=== PATIENT | female | born 1950 | race Caucasian/White ===

== ENCOUNTER → 2020-07-21 13:03 | Outpatient (BNVA) | payer MEDICARE, BC, SELFPAY | PROVIDERS: PCP Internal Medicine; Visit Provider Internal Medicine Endocrinology, Diabetes & Metabolism | DX: E11.65 Type 2 diabetes mellitus with hyperglycemia (principal); E11.22 Type 2 diabetes mellitus with diabetic chronic kidney disease; I12.9 Hypertensive chronic kidney disease with stage 1 through stage 4 chronic kidney disease, or unspecified chronic kidney disease; N18.30 Chronic kidney disease, stage 3 unspecified; E11.42 Type 2 diabetes mellitus with diabetic polyneuropathy; E78.5 Hyperlipidemia, unspecified; E03.9 Hypothyroidism, unspecified; E66.9 Obesity, unspecified; Z68.38 Body mass index [BMI] 38.0-38.9, adult; Z79.84 Long term (current) use of oral hypoglycemic drugs | CPT/HCPCS: 82947; 99214 ==

== ENCOUNTER → 2020-10-20 12:39 | Outpatient (BNVA) | payer MEDICARE, BC, SELFPAY | PROVIDERS: PCP Internal Medicine; Visit Provider Internal Medicine Endocrinology, Diabetes & Metabolism | DX: E11.65 Type 2 diabetes mellitus with hyperglycemia (principal); E11.42 Type 2 diabetes mellitus with diabetic polyneuropathy; E11.21 Type 2 diabetes mellitus with diabetic nephropathy; I10 Essential (primary) hypertension; E78.5 Hyperlipidemia, unspecified; E03.9 Hypothyroidism, unspecified; E66.9 Obesity, unspecified | CPT/HCPCS: 82947; 99212 ==

== ENCOUNTER 2020-11-06 12:56 | Outpatient (REF) | payer MEDICARE, BC, SELFPAY ==
--- NOTE | ~2020-11-06 | MM_ITS ---
EXAMINATION: MM SCREENING DIGITAL BREAST TOMOSYNTHESIS, BILATERAL CLINICAL INFORMATION: Screening. Asymptomatic. The lifetime risk of breast cancer based on the Tyrer-Cuzick Model is 2%. COMPARISON: Mammography: 12/12/2018, 02/25/2016 TECHNIQUE: Digital breast tomosynthesis is performed in both the craniocaudal and mediolateral oblique views along with computer-aided detection (CAD). Synthesized 2D images are generated from the tomosynthesis. Additional right MLO view is provided. FINDINGS: There are scattered areas of fibroglandular density (ACR BI-RADS breast composition Category b). There are no significant masses, abnormal calcifications, or other abnormalities. The axilla and skin contours are unremarkable. There is some minor digital processing artifact mid left breast on synthesized MLO view. MM/MM tomosynthesis screening BI IMPRESSION: No mammographic evidence of malignancy. ASSESSMENT: BI-RADS 2: Benign RECOMMENDATION: Routine annual mammography screening. This patient's information was entered into a reminder system with a target due date for their next mammogram.
== END 2020-11-06 12:57 | disposition home or self-care (01) ==
LOC: HO.MAMMO 12:56
PROVIDERS: PCP Internal Medicine; Visit Provider Internal Medicine
DX: Z12.31 Encounter for screening mammogram for malignant neoplasm of breast (principal)
CPT/HCPCS: 77063; 77067

== ENCOUNTER 2020-11-18 11:02 | Outpatient (REF) | payer MEDICARE, BC, SELFPAY ==
[2020-11-18 14:34] LABS: Alanine Aminotransferase 35 U/L (0-31); Albumin Level 4.4 g/dL (3.5-5.0); Alkaline Phosphatase 39 U/L (39-117); Anion Gap 15 (12-20); Aspartate Amino Transferase 23 U/L (5-31); Blood Urea Nitrogen 28 mg/dL (9-16); Calcium 9.5 mg/dL (8.4-10.2); Carbon Dioxide 26 mmol/L (22-29); Chloride 104 mmol/L (96-108); Cholesterol 132 mg/dL; Estimated Glomerular Filt Rate 38; Glucose Fasting 161 mg/dL (60-99); HDL Cholesterol 37 mg/dL; LDL Cholesterol Calculated 58 mg/dl; Potassium 4.5 mmol/L (3.3-5.1); Sodium 140 mmol/L (135-145); Total Protein 7.2 g/dL (6.5-8.0); Triglycerides 189 mg/dL
[2020-11-18 14:49] LABS: Creatinine Urine 142.56 mg/dL
[2020-11-18 14:58] LABS: Free T4 (Free Thyroxine) 1.17 ng/dL (0.71-1.85); Thyroid Stimulating Hormone 0.71 uIU/mL (0.32-4.0); Vitamin D 25-OH Total 44.3 ng/mL (>30)
[2020-11-18 15:02] LABS: Microalbum/Creatinine Ratio Ur 1022.7 ug/mg cr
[2020-11-19 05:43] LABS: LDL Cholesterol Direct 66 mg/dL (<100)
[2020-11-20 16:28] LABS: Vitamin B12 1287 pg/mL (200-900)
== END 2020-11-18 11:03 | disposition home or self-care (01) ==
LOC: HO.HMGCLDS 11:02
PROVIDERS: Absent Provider Internal Medicine Endocrinology, Diabetes & Metabolism; PCP Internal Medicine; Visit Provider Internal Medicine
DX: E11.65 Type 2 diabetes mellitus with hyperglycemia (principal); E03.9 Hypothyroidism, unspecified; Z78.0 Asymptomatic menopausal state
CPT/HCPCS: 36415; 80053; 80061; 82043; 82306; 82607; 83721; 84439; 84443

== ENCOUNTER 2021-01-21 09:40 | Outpatient (REF) | payer MEDICARE, BC, SELFPAY ==
--- NOTE | 2021-01-21 09:30 | EMG_ITS ---
This is a 70-year-old woman with a history of diabetes, who comes in with 6-month history of pain and numbness in the hands, slightly worse on the right. She also has pain on flexing the fingers. Complete list of medications not available. PHYSICAL EXAMINATION: On examination, she is alert and oriented with normal intellectual functions. Cranial nerves II through XII are normal. Muscle tone and strength are normal in all 4 extremities. No Tinel or Phalen sign. IMPRESSION: Carpal tunnel syndrome. Nerve conduction EMG study: Early carpal tunnel syndrome on the right. Normal nerve conductions on the left. Normal EMG of the right C5 through T1 innervated muscles. MD ORLIN Austin/SADNRA / [id number]
== END 2021-01-21 09:41 | disposition home or self-care (01) ==
LOC: HO.NEURO 09:40
PROVIDERS: Visit Provider Internal Medicine
DX: R20.0 Anesthesia of skin (principal); R20.2 Paresthesia of skin; E11.65 Type 2 diabetes mellitus with hyperglycemia; E11.42 Type 2 diabetes mellitus with diabetic polyneuropathy; E11.21 Type 2 diabetes mellitus with diabetic nephropathy; E78.5 Hyperlipidemia, unspecified; E03.9 Hypothyroidism, unspecified; E66.9 Obesity, unspecified
CPT/HCPCS: 82947; 95885; 95913; 99212

== ENCOUNTER 2021-04-27 09:22 | Outpatient (REF) | payer MEDICARE, SELFPAY ==
[2021-04-27 12:42] LABS: Alanine Aminotransferase 30 U/L (0-31); Aspartate Amino Transferase 26 U/L (5-31); Cholesterol 127 mg/dL; HDL Cholesterol 36 mg/dL; LDL Cholesterol Calculated 63 mg/dl; Triglycerides 141 mg/dL
[2021-04-27 12:47] LABS: Free T4 (Free Thyroxine) 1.22 ng/dL (0.71-1.85); Thyroid Stimulating Hormone 0.13 uIU/mL (0.32-4.0); Vitamin D 25-OH Total 50.9 ng/mL (>30)
[2021-04-27 13:21] LABS: Folate > 20.0 ng/mL (> or = 4.0); Vitamin B12 695 pg/mL (200-900)
== END 2021-04-27 09:23 | disposition home or self-care (01) ==
LOC: HO.HMGCLDS 09:22
PROVIDERS: Absent Provider Internal Medicine Endocrinology, Diabetes & Metabolism; PCP Internal Medicine; Visit Provider Internal Medicine
DX: E03.9 Hypothyroidism, unspecified (principal); E11.21 Type 2 diabetes mellitus with diabetic nephropathy; E11.42 Type 2 diabetes mellitus with diabetic polyneuropathy; E78.5 Hyperlipidemia, unspecified; I10 Essential (primary) hypertension
CPT/HCPCS: 36415; 80061; 82306; 82607; 82746; 84439; 84443; 84450; 84460

== ENCOUNTER 2021-08-28 12:09 | Outpatient (REF) | payer MEDICARE, BC, SELFPAY ==
[2021-08-28 14:33] LABS: Alanine Aminotransferase 34 U/L (0-31); Anion Gap 16 (12-20); Aspartate Amino Transferase 32 U/L (5-31); Blood Urea Nitrogen 31 mg/dL (9-16); Calcium 9.9 mg/dL (8.4-10.2); Carbon Dioxide 18 mmol/L (22-29); Chloride 107 mmol/L (96-108); Cholesterol 159 mg/dL; Estimated Glomerular Filt Rate 34; Glucose Fasting 140 mg/dL (60-99); HDL Cholesterol 38 mg/dL; LDL Cholesterol Calculated 80 mg/dl; Potassium 4.1 mmol/L (3.3-5.1); Sodium 137 mmol/L (135-145); Triglycerides 205 mg/dL
[2021-08-28 14:52] LABS: Free T4 (Free Thyroxine) 1.14 ng/dL (0.71-1.85); Thyroid Stimulating Hormone 0.89 uIU/mL (0.32-4.0); Vitamin D 25-OH Total 49.4 ng/mL (>30)
== END 2021-08-28 12:10 | disposition home or self-care (01) ==
LOC: HO.HMGCLDS 12:09
PROVIDERS: PCP Internal Medicine; Visit Provider Internal Medicine
DX: E03.9 Hypothyroidism, unspecified (principal); E66.9 Obesity, unspecified; I10 Essential (primary) hypertension; E78.5 Hyperlipidemia, unspecified; Z78.0 Asymptomatic menopausal state
CPT/HCPCS: 36415; 80048; 80061; 82306; 84439; 84443; 84450; 84460

== ENCOUNTER 2021-10-28 09:31 | Outpatient (REF) | payer MEDICARE, BC, SELFPAY ==
--- NOTE | ~2021-10-28 | MM_ITS ---
EXAMINATION: BONE DENSITOMETRY CLINICAL INDICATION: Asymptomatic menopausal state. COMPARISON: Previous BD dated 12/12/2018 and baseline BD dated 06/22/2007. TECHNIQUE: Using a [employer] DXA System (software version: 13.1) manufactured by [employer], dual-energy x-ray absorptiometry was performed of the lumbar spine and left hip. The images are of good technical quality. Summary results are attached. FINDINGS: AP SPINE L1-L4: Current: BMD 1.132 g/cm2, Z-score 0.5, T-score -0.4, normal, 4.7% increase from previous, 6.0% increase from baseline (<5% change is not significant). Prior: BMD 1.081 g/cm2. Baseline: BMD 1.068 g/cm2. LEFT FEMUR, NECK: Current: BMD 0.734 g/cm2, Z-score -0.9, T-score -2.2, osteopenia. Prior: BMD 0.746 g/cm2. Baseline: BMD 0.836 g/cm2. LEFT FEMUR, TOTAL: Current: BMD 0.935 g/cm2, Z-score 0.5, T-score -0.6, normal, 2.9% increase from previous, 0.2% decrease from baseline (<5% change is not significant). Prior: BMD 0.909 g/cm2. Baseline: BMD 0.937 g/cm2. IDENTIFIED RISK FACTORS: Early menopause, secondary osteoporosis, hysterectomy, bilateral oophorectomy, renal, osteoporosis. HISTORY OF FRACTURE: None listed. MEDICATIONS: Vitamin D. MM/XR DEXA axial skeleton IMPRESSION: 1. DIAGNOSIS: Osteopenia based on the lowest T-score value of -2.2 in the femoral neck applying World Health Organization criteria. 2. 10-YEAR FRACTURE RISK PREDICTION, FRAX: Major osteoporotic fracture (clinical spine, forearm, hip or shoulder) 7.1%. Hip fracture 1.7%. 3. Treatment Recommendations: NOF guidelines recommend consideration for treatment in postmenopausal women and men age 50 and older presenting with the following: -A hip or vertebral (clinical or morphometric) fracture. -T-score less than or equal to -2.5 at the femoral neck or spine after appropriate evaluation to exclude secondary causes. -Low bone mass at the hip or spine and a 10-year fracture probability by FRAX of greater than or equal to 3% for hip fracture or greater than or equal to 20% for major osteoporotic fracture based on the [place] adapted WHO algorithm. 4. Other Recommendations: All treatment decisions require clinical judgment and consideration of individual patient factors, including patient preferences, comorbidities, previous drug use, risk factors not captured in the FRAX model (e.g. frailty, falls, vitamin D deficiency, increased bone turnover, interval significant decline in bone density) and possible under or overestimation of fracture risk by FRAX. Additional medical evaluation for secondary cause of low bone mineral density may be appropriate. FUTURE SCAN RECOMMENDATION: People with diagnosed cases of osteoporosis or at high risk for fracture should have regular bone mineral density tests. For patients eligible for Medicare, routine testing is allowed once every 2 years. The testing frequency can be increased to one year for patients who have rapidly progressing disease, those who are receiving or discontinuing medical therapy to restore bone mass, or have additional risk factors.
== END 2021-10-28 09:32 | disposition home or self-care (01) ==
LOC: HO.MAMMO 09:31
PROVIDERS: PCP Internal Medicine; Visit Provider Internal Medicine
DX: Z13.820 Encounter for screening for osteoporosis (principal); Z78.0 Asymptomatic menopausal state
CPT/HCPCS: 77080

== ENCOUNTER 2021-11-03 07:14 | Outpatient (REF) | payer MEDICARE, BC, SELFPAY ==
[2021-11-03 11:32] LABS: MANUAL DIFF FLAG NO
[2021-11-03 11:37] LABS: Basophils Absolute Auto 0.1 X10*3/uL (0.0-0.2); Basophils Percent Auto 0.6 % (0-2); Eosinophils Absolute Auto 0.2 X10*3/uL (0.0-0.4); Hematocrit 36.8 % (37.0-47.0); Hemoglobin 11.9 g/dl (12.0-16.0); Imm Gran Abs Auto 0.04 X10*3/uL (0.00-0.03); Imm Gran Pct Auto 0.5 % (0.0-0.4); Lymphocytes Absolute Auto 3.1 X10*3/uL (1.2-4.9); Mean Corpuscular HGB Conc 32.3 g/dl (31.0-35.0); Mean Corpuscular Hemoglobin 31.4 pg (27.0-33.0); Mean Corpuscular Volume 97.1 fL (80.0-98.0); Mean Platelet Volume 10.6 fL (9.4-12.3); Monocytes Absolute Auto 0.6 X10*3/uL (0.1-1.2); Monocytes Percent Auto 7.7 % (2-11); Neutrophils Absolute Auto 3.9 x10*3/uL (2.0-8.3); Neutrophils Percent Auto 49.2 % (45-73); Platelet Count 233 X10*3/uL (160-400); Red Blood Count 3.79 X10*6/uL (4.20-5.50); Red Cell Distribution Width 13.2 % (11.0-16.0); White Blood Count 7.8 X10*3/uL (4.8-10.8)
[2021-11-03 12:01] LABS: Albumin Level 4.1 g/dL (3.5-5.0); Anion Gap 12 (12-20); Blood Urea Nitrogen 41 mg/dL (9-16); Calcium 9.5 mg/dL (8.4-10.2); Carbon Dioxide 24 mmol/L (22-29); Chloride 107 mmol/L (96-108); Estimated Glomerular Filt Rate 33; Magnesium 1.9 mg/dL (1.6-2.6); Phosphorus 3.7 mg/dL (2.7-4.5); Potassium 4.3 mmol/L (3.3-5.1); Sodium 139 mmol/L (135-145)
[2021-11-03 12:02] LABS: Appearance Urine CLOUDY; Color Urine YELLOW; Glucose Urine UA NEG (NEG); Leukocyte Esterase Urine 3+ (NEG); Nitrite Urine POS (NEG); UACC Culture Trigger YES; Urine Blood 1+ (NEG); Urine Ketones NEG (NEG); Urine Protein 2+ MG/DL (NEG-TRACE)
[2021-11-03 12:24] LABS: Vitamin D 25-OH Total 46.6 ng/mL (>30)
[2021-11-03 12:31] LABS: Creatinine Urine 90.05 mg/dL; Protein/Creatinine Ratio, Ur 1.09 (<0.2); Total Protein Urine Random 98 mg/dL (<12)
[2021-11-03 12:35] LABS: Bacteria Urine 3+ /LPF; RBC Urine 0-2 /HPF (0); Squamous Epithelial Cell Urine 1+ /LPF; UACC CULT YES; WBC Urine TNTC /HPF (0-4)
[2021-11-03 12:51] LABS: Microalbum/Creatinine Ratio Ur 698.5 ug/mg cr
[2021-11-03 12:52] LABS: Renal w Reflex Lab Use Only Order verified
[2021-11-03 13:02] LABS: Uric Acid 6.1 mg/dL (2.4-5.7)
== END 2021-11-03 07:15 | disposition home or self-care (01) ==
LOC: HO.HMGCLDS 07:14
PROVIDERS: Absent Provider Internal Medicine Nephrology; Visit Provider Internal Medicine Nephrology
DX: I12.9 Hypertensive chronic kidney disease with stage 1 through stage 4 chronic kidney disease, or unspecified chronic kidney disease (principal); N18.30 Chronic kidney disease, stage 3 unspecified; E11.22 Type 2 diabetes mellitus with diabetic chronic kidney disease
CPT/HCPCS: 36415; 80051; 81001; 82040; 82043; 82306; 82310; 82565; 83735; 84100; 84156; 84520; 84550; 85025; 87086; 87088; 87186

== ENCOUNTER → 2021-11-09 10:08 | Outpatient (BNVA) | payer MEDICARE, BC, SELFPAY | PROVIDERS: PCP Internal Medicine; Visit Provider Nurse Practitioner Gerontology | DX: E11.65 Type 2 diabetes mellitus with hyperglycemia (principal); E11.42 Type 2 diabetes mellitus with diabetic polyneuropathy; E11.21 Type 2 diabetes mellitus with diabetic nephropathy; E78.5 Hyperlipidemia, unspecified; E03.9 Hypothyroidism, unspecified; E66.9 Obesity, unspecified; I10 Essential (primary) hypertension; Z68.37 Body mass index [BMI] 37.0-37.9, adult | CPT/HCPCS: 82947; 99212 ==

== ENCOUNTER 2021-12-23 13:52 | Outpatient (REF) | payer MEDICARE, BC, SELFPAY ==
--- NOTE | ~2021-12-23 | US_ITS ---
EXAMINATION: US THYROID CLINICAL INFORMATION: Hypothyroidism, unspecified. COMPARISON: Thyroid ultrasound 01/01/2019.. TECHNIQUE: Linear transducer grayscale and color Doppler examination with attention to the region of the thyroid. FINDINGS: SIZE: Measurements of the solitary left thyroid lobe and nodules are given in sagittal, anteroposterior and transverse dimensions respectively. Right Thyroid Lobe: Surgically absent. Left Thyroid Lobe: 2.4 x 0.80 x 0.95 cm, volume 0.95 mL. Previously 2.2 x 0.60 x 0.40 cm, volume 0.28 mL. Parenchyma: The gland echotexture is heterogeneous. Thyroid vascularity is normal. Isthmus: 0.25 cm in maximum AP dimension. Previously not seen with certainty. Estimated total number of nodules greater than or equal to 1 cm: 0. Meter Supervisor nodules are described as follows: 1. Location: Left inferior. Size: 1.0 x 0.33 x 0.40 cm, volume 0.08 mL. Previously: Not documented on the previous study. Nodule characteristics: Composition: Cystic(0). ACR TI-RADS total points: 0 ACR TI-RADS category: 1 NODES: There are bilateral cervical lymph nodes. Lymph nodes are normal in size and demonstrate normal ultrasound morphology and flow. US/US thyroid IMPRESSION: Absent right lobe. Very heterogeneous small left lobe with question small newly appreciated cystic nodule. Small bilateral cervical lymph nodes. ACR TI-RADS RECOMMENDATION REFERENCE: Ultrasound-guided fine-needle aspiration, followup ultrasound, no further follow up. * TR1 (0 point) and TR 2 (2 points): No FNA or follow up * TR3 (3 points): FNA if more than or equal to 2.5 cm in maximum dimension, followup ultrasound in 1, 3 and 5 years if 1.5 to 2.4 cm in maximum dimension. * TR4 (4-6 points): FNA if more than or equal to 1.5 cm in maximum dimension, followup ultrasound in 1, 2, 3 and 5 years if 1 to 1.4 cm in maximum dimension. * TR5 (more than or equal to 7 points): FNA if more than or equal to 1 cm in maximum dimension, followup ultrasound every year for 5 years if 0.5 to 0.9 cm in maximum dimension. * TR3, TR4 or TR5 nodules that are below the size threshold for follow up receive no follow up.
== END 2021-12-23 13:53 | disposition home or self-care (01) ==
LOC: HO.HMGCX 13:52
PROVIDERS: PCP Internal Medicine; Visit Provider Nurse Practitioner Gerontology
DX: E03.9 Hypothyroidism, unspecified (principal)
CPT/HCPCS: 76536

== ENCOUNTER 2021-12-24 08:52 | Outpatient (REF) | payer MEDICARE, BC, SELFPAY ==
[2021-12-24 11:33] LABS: C Reactive Protein 0.35 mg/dL (< or = 0.50); Lipase 51 U/L (8-78)
[2021-12-24 11:58] LABS: TSH reflex Free T4 0.15 uIU/mL (0.32-4.0)
[2021-12-24 12:10] LABS: Folate > 20.0 ng/mL (> or = 4.0); Vitamin B12 879 pg/mL (200-900)
[2021-12-24 13:15] LABS: Free T4 (Free Thyroxine) 1.42 ng/dL (0.71-1.85)
[2021-12-26 08:42] LABS: Transglutaminase Ab IgG <1.0 U/mL; Transglutaminase IgA <1.0 U/mL
== END 2021-12-24 08:53 | disposition home or self-care (01) ==
LOC: HO.LAB 08:52
PROVIDERS: PCP Internal Medicine; Visit Provider Nurse Practitioner Family
DX: Z01.818 Encounter for other preprocedural examination (principal); R10.9 Unspecified abdominal pain; R19.7 Diarrhea, unspecified; K58.9 Irritable bowel syndrome, unspecified
CPT/HCPCS: 36415; 82607; 82746; 83690; 84439; 84443; 86140; 86364; 99202

== ENCOUNTER 2022-02-04 11:00 | Outpatient (REF) | payer MEDICARE, BC, SELFPAY ==
[2022-02-04 13:59] LABS: MANUAL DIFF FLAG NO
[2022-02-04 14:01] LABS: Basophils Absolute Auto 0.1 X10*3/uL (0.0-0.2); Basophils Percent Auto 0.8 % (0-2); Eosinophils Absolute Auto 0.1 X10*3/uL (0.0-0.4); Eosinophils Percent Auto 1.4 % (0-4); Hematocrit 34.9 % (37.0-47.0); Hemoglobin 11.4 g/dl (12.0-16.0); Imm Gran Abs Auto 0.02 X10*3/uL (0.00-0.03); Imm Gran Pct Auto 0.3 % (0.0-0.4); Lymphocytes Absolute Auto 2.2 X10*3/uL (1.2-4.9); Lymphocytes Percent Auto 32.9 % (20-40); Mean Corpuscular HGB Conc 32.7 g/dl (31.0-35.0); Mean Corpuscular Hemoglobin 31.6 pg (27.0-33.0); Mean Corpuscular Volume 96.7 fL (80.0-98.0); Mean Platelet Volume 10.7 fL (9.4-12.3); Monocytes Absolute Auto 0.6 X10*3/uL (0.1-1.2); Monocytes Percent Auto 8.6 % (2-11); Neutrophils Absolute Auto 3.7 x10*3/uL (2.0-8.3); Platelet Count 220 X10*3/uL (160-400); Red Blood Count 3.61 X10*6/uL (4.20-5.50); Red Cell Distribution Width 13.5 % (11.0-16.0); White Blood Count 6.5 X10*3/uL (4.8-10.8)
[2022-02-04 14:16] LABS: Alanine Aminotransferase 29 U/L (0-31); Albumin Level 4.1 g/dL (3.5-5.0); Alkaline Phosphatase 40 U/L (39-117); Anion Gap 13 (12-20); Aspartate Amino Transferase 18 U/L (5-31); Bilirubin Total 0.4 mg/dL (0.0-1.0); Blood Urea Nitrogen 31 mg/dL (9-16); Calcium 9.9 mg/dL (8.4-10.2); Carbon Dioxide 21 mmol/L (22-29); Chloride 106 mmol/L (96-108); Estimated Glomerular Filt Rate 32; Glucose Random 145 mg/dL (60-115); Magnesium 1.6 mg/dL (1.6-2.6); Potassium 4.4 mmol/L (3.3-5.1); Sodium 136 mmol/L (135-145); Total Protein 6.8 g/dL (6.5-8.0); Uric Acid 5.5 mg/dL (2.4-5.7)
[2022-02-04 14:32] LABS: Vitamin D 25-OH Total 47.6 ng/mL (>30)
[2022-02-04 17:27] LABS: Creatinine Urine 114.89 mg/dL; Protein/Creatinine Ratio, Ur 1.26 (<0.2); Total Protein Urine Random 145 mg/dL (<12)
[2022-02-05 13:41] LABS: Calcium (PTHI) 9.8 mg/dL (8.6-10.4); PTHI 88 pg/mL (16-77)
== END 2022-02-04 11:01 | disposition home or self-care (01) ==
LOC: HO.HMGCLDS 11:00
PROVIDERS: Absent Provider Nurse Practitioner Gerontology; PCP Internal Medicine; Visit Provider Internal Medicine Nephrology
DX: I12.9 Hypertensive chronic kidney disease with stage 1 through stage 4 chronic kidney disease, or unspecified chronic kidney disease (principal); N18.32 Chronic kidney disease, stage 3b; E11.69 Type 2 diabetes mellitus with other specified complication; N25.0 Renal osteodystrophy; T39.9 Poisoning by, adverse effect of and underdosing of unspecified nonopioid analgesic, antipyretic and antirheumatic; M10.9 Gout, unspecified
CPT/HCPCS: 36415; 80053; 82306; 83735; 83970; 84100; 84156; 84550; 85025

== ENCOUNTER → 2022-03-03 12:58 | Outpatient (BNVA) | payer MEDICARE, BC, SELFPAY | PROVIDERS: PCP Internal Medicine; Referring Provider Internal Medicine; Visit Provider Internal Medicine Cardiovascular Disease | DX: Z01.810 Encounter for preprocedural cardiovascular examination (principal); I10 Essential (primary) hypertension; R06.00 Dyspnea, unspecified; R94.31 Abnormal electrocardiogram [ECG] [EKG] | CPT/HCPCS: 93005; 99202 ==

== ENCOUNTER 2022-03-09 11:22 | Outpatient (REF) | payer MEDICARE, BC, SELFPAY ==
[2022-03-09 14:03] LABS: Alanine Aminotransferase 36 U/L (0-31); Aspartate Amino Transferase 22 U/L (5-31); Cholesterol 129 mg/dL; HDL Cholesterol 38 mg/dL; LDL Cholesterol Calculated 55 mg/dl; Triglycerides 182 mg/dL
[2022-03-09 14:27] LABS: Vitamin D 25-OH Total 49.3 ng/mL (>30)
== END 2022-03-09 11:23 | disposition home or self-care (01) ==
LOC: HO.HMGCLDS 11:22
PROVIDERS: PCP Internal Medicine; Visit Provider Internal Medicine
DX: E78.5 Hyperlipidemia, unspecified (principal); N95.9 Unspecified menopausal and perimenopausal disorder
CPT/HCPCS: 36415; 80061; 82306; 84450; 84460

== ENCOUNTER → 2022-04-01 08:39 | Outpatient (REF) | payer MEDICARE, BC, SELFPAY ==
--- NOTE | ~2022-04-01 | NM_ITS ---
Exercise Myocardial perfusion study Indication: Shortness of breath evaluate for myocardial ischemia Technique: The patient was brought in for an exercise perfusion study on 04/01/2022. Patient performed exercise as per Sid protocol and was injected 30 mCi of sestamibi was given intravenously one target HR was achieved. Images were obtained using the SPECT gamma camera interlaced with the gating device. Images were obtained in supine position. Resting perfusion study was performed on 04/02/2022. Patient was administered 30 mCi of sestamibi intravenously at rest. Images were then obtained in supine position. Images obtained with and without CT attenuation. Total DLP 109 mGy-cm. Images were processed with the software and compared side to side in short axis, horizontal long axis and vertical long axis views. Findings: The stress perfusion study showed non attenuated images show moderately reduced uptake in the basal inferior and mildly reduced uptake. Wall of the LV myocardium. There is also mildly reduced uptake in the inferoapical wall of the LV myocardium. Remainder of the LV myocardium is normally perfused. Attenuation corrected images show normalized uptake in the basal and mid inferior wall of the LV myocardium with mildly reduced uptake in the distal septum as well as the septum of the LV myocardium. Is also mildly reduced uptake in the apex of the LV myocardium.. The gated study shows normal LV systolic function with calculated LVEF of 65%. LV cavity is normal in in size. The gated study shows normal systolic wall thickening and contraction of all segments. There is no transient ischemic dilation. Resting study shows non attenuated images show improved uptake in the inferoapical wall of the LV myocardium. Attenuated corrected images show improved uptake in the apex and the distal septum of the LV myocardium. Gating at rest reveals normal systolic wall motion with ejection fraction at greater than 60%. The findings are consistent with small area of mild intensity apical and distal septal reversible defect suggestive of ischemia.. NM/NM cardiolite stress test Impression: 1. Mild intensity distal septal and apical ischemia 2. Gated LVEF is 65% 3. Transient ischemic dilatation not present Stress EKG is suggestive of ischemia
--- NOTE | 2022-04-01 09:01 | CA_ITS ---
Acquisition Time: 2022-04-01 09:14:28 Total Exercise Time: 00:05:00 Test Indications: ABN EKG Medications: SEE CHART Protocol: IFRAH Max HR: 136 BPM 92% of Pred: 147 BPM Max BP: 180/088 mmHG Max Work Load: 5.6 METS Exercise stress test with exercise 5 min of Ifrah protocol ( speed stage 2 reduced to 2.2, then 2.0 MPH) achieving 92% MPHR, with moderate sob, 3/10 pressure across upper chest, with isolated PVC and PACs, with normotensive response to exercise, with EKG changes suggestive of ischemia: T wave inversion aVL and horizontal ST depression V6, then in recovery with slight downslope of ST V5-V6. In recovery her sob and chest pressure resolved. Nuclear images pending. Test reviewed with Dr Weinstein. Referred By: Geoffrey Weinstein Overread By: SILVIA NATHAN
== END ==
LOC: HO.CARD 08:39
PROVIDERS: PCP Internal Medicine; Visit Provider Internal Medicine Cardiovascular Disease
DX: R06.00 Dyspnea, unspecified (principal)
CPT/HCPCS: 78452; 93017; A9500

== ENCOUNTER → 2022-04-21 09:25 | Outpatient (REF) | payer MEDICARE, BC, SELFPAY ==
--- NOTE | 2022-04-21 09:30 | CA_ITS ---
Transthoracic Echocardiogram Amended Patient (Last, First, Middle): Doreen Barrientos S Gender: Female Date of : 1950 Age: 71 Procedure Date: 04/21/2022 Procedure Type: Transthoracic Echocardiogram Location: OP Height: 152.4 cm Weight: 88.45 kg BSA: 1.85 m2 Heart Rate: 88 bpm BP: 132 / 78 mmHg Electrician Office: [facility] Referring MD: Geoffrey Weinstein MD Pipe Smoking Machine Operator: Geoffrey Weinstein MD Symptoms: R06.00 - Dyspnea, unspecified Study Quality: Adequate w Contrast ECG Rhythm: Sinus Conclusions: - Normal left ventricular size and systolic function. The visually estimated ejection fraction is between 60-65%. - The mid inferoseptal and mid anteroseptal segments are hypokinetic. - Normal right ventricular cavity size and systolic function. Findings Procedure Information Contrast agent, definity, is being given per protocol without apparent complications. Left Ventricle Normal left ventricular size and systolic function. The visually estimated ejection fraction is between 60-65%. There is evidence of regional wall motion abnormalities. Abnormal diastolic function is noted. Spectral Doppler is indicative of an impaired relaxation filling pattern. E/E prime ratio is between 8 and 15 consistent with indeterminate filling pressures. There is moderate septal asymmetric hypertrophy. Wall Motion Rest Echo Findings The mid inferoseptal and mid anteroseptal segments are hypokinetic. Right Ventricle Normal right ventricular cavity size and systolic function. Atria Both atria are normal in size. Aortic Valve Normal aortic valve structure and function. There is no aortic valve stenosis. There is no aortic valve regurgitation. Mitral Valve Normal mitral valve structure and function. There is no mitral valve regurgitation. There is no mitral valve stenosis. Pulmonic Valve Normal pulmonic valve structure and function. There is trace pulmonic valve regurgitation. Tricuspid Valve Normal tricuspid valve structure. There is trace tricuspid valve regurgitation. Tricuspid regurgitation envelope is inadequate for calculation of right ventricular systolic pressure. Normal right atrial pressure. Great Vessels All visible segments of the aorta are normal in size. The visualized portions of the pulmonary artery and branches are normal. Venous The inferior vena cava is normal in size and collapses greater than 50% with inspiration. Pericardium/Pleural There is no evidence of pericardial effusion. Prior Study Comparison Changes noted compared to prior study dated: 04/03/2018. EF is normal now. Measurements 2D Linear Measurements IVSd: 1.40 0.6-0.9/0.6-1.0 cm LVIDd: 3.55 3.9-5.3/4.2-5.9 cm LVIDd Index: 1.92 2.4-3.2/2.2-3.1 cm/m2 LVIDs: 2.26 2.0-3.6 cm LVPWd: 0.89 0.7-1.1 cm LA Diam: 3.80 2.7-3.8/3.0-4.0 cm LAIDs Index: 2.05 1.5-2.3 cm/m2 LV Mass: 160.93 67-162/88-224 g LV Mass Index: 86.99 43-95/49-115 g/m2 LVOT Diam: 2.00 3.0+(-)1.3 cm 2D Volumes LA Vol: 17.40 2D Systolic Function EF 4C: 69.90 >55% EF 2C: 71.00 >55% EF BiP: 71.40 >55% Mitral Valve MV Pk E: 0.54 MV PK A: 0.75 MV Decel Time: 222.00 E/A: 0.70 E'Lateral: 5.33 E'Medial: 4.24 E/E' Med: 12.60 E/E' Lat: 10.10 PHT: 65.00 MVA PHT: 3.38 Decel [place]: 2.41 Aortic Valve AoV Pk Chas: 1.59 AoV Mn Chas: 0.99 AoV VTI: 0.23 AoV Pk Grad: 10.00 Aov Mn Grad: 5.00 LALA Cont.VTI: 2.37 LVOT LVOT Pk Chas: 1.04 LVOT Mn Chas: 0.70 LVOT VTI: 0.17 LVOT Pk Grad: 4.00 LVOT Mn Grad: 2.00 LVOT Diam: 2.00 LVOT Area: 3.14 Diastolic Function MV Pk E: 0.54 MV Pk A: 0.75 E/A: 0.70 E'Medial: 4.24 E/E' Med: 12.60 E' Laterial: 5.33 E/E' Lat: 10.10 Right Ventricle TAPSE (mm): 17.40 TVS' Chas: 9.50 Tricuspid Valve RA Press: 8.00 Great Vessels Aorta Sinus of Valsalva: 3.00 2.0-3.5 cm Ao Asc: 3.30 2.1-3.4 cm Pulmonary Veins Pulm Vein S/D 1.60 Pulmonary Valve PV Pk Chas: 1.22 Peak PV Grad: 6.00 Updated in Other Vendor System with Status of Final Geoffrey Weinstein MD electronically signed on 04/28/2022 7:12:02 PM with status of Final
--- NOTE | 2022-04-21 11:52 | PFT_ITS ---
FLOWS: FEV1 97% of predicted at 1.74 L. FVC 90% of predicted at 2.15 L. FEV1 to FVC ratio of 0.81. No bronchodilator response except in small to medium airways. LUNG VOLUMES: Total lung capacity 80% of predicted at 3.59 L. Residual volume 72% of predicted at 1.51 L. Slow vital capacity 87% of predicted at 2.08 L. Expiratory reserve volume 10% of predicted at 0.05 L. Diffusion capacity is moderately decreased, diffusion capacity corrects to normal after adjustment for alveolar ventilation. IMPRESSION: No obstructive or restrictive ventilatory defect. No bronchodilator response except in small to medium airways. Decreased expiratory reserve volume suggests extrathoracic restriction likely secondary to abdominal obesity. MD BERNIE Barone/MODL / [id number]
== END ==
LOC: HO.CARD 09:25
PROVIDERS: PCP Internal Medicine; Visit Provider Internal Medicine Cardiovascular Disease
DX: R06.00 Dyspnea, unspecified (principal); Z86.74 Personal history of sudden cardiac arrest
CPT/HCPCS: 93306; 94060; 94727; 94729; Q9957

== ENCOUNTER 2022-05-07 11:14 | Outpatient (REF) | payer MEDICARE, BC, SELFPAY ==
[2022-05-07 14:06] LABS: Hematocrit 37.4 % (37.0-47.0); Hemoglobin 12.3 g/dl (12.0-16.0); Mean Corpuscular HGB Conc 32.9 g/dl (31.0-35.0); Mean Corpuscular Hemoglobin 31.3 pg (27.0-33.0); Mean Corpuscular Volume 95.2 fL (80.0-98.0); Mean Platelet Volume 10.8 fL (9.4-12.3); Platelet Count 226 X10*3/uL (160-400); Red Blood Count 3.93 X10*6/uL (4.20-5.50); Red Cell Distribution Width 13.5 % (11.0-16.0); White Blood Count 6.9 X10*3/uL (4.8-10.8)
[2022-05-07 14:10] LABS: INTERNATIONAL NORM RATIO 0.9 (0.9-1.1); Prothrombin Time 10.8 SEC (10.0-13.1)
[2022-05-07 14:32] LABS: Anion Gap 18 (12-20); Blood Urea Nitrogen 24 mg/dL (9-16); Calcium 9.7 mg/dL (8.4-10.2); Carbon Dioxide 22 mmol/L (22-29); Chloride 104 mmol/L (96-108); Estimated Glomerular Filt Rate 33; Glucose Random 165 mg/dL (60-115); Potassium 4.7 mmol/L (3.3-5.1); Sodium 139 mmol/L (135-145)
== END 2022-05-07 11:15 | disposition home or self-care (01) ==
LOC: HO.HMGCLDS 11:14
PROVIDERS: PCP Internal Medicine; Visit Provider Internal Medicine Cardiovascular Disease
DX: R94.39 Abnormal result of other cardiovascular function study (principal)
CPT/HCPCS: 36415; 80048; 85027; 85610

== ENCOUNTER 2022-05-17 14:21 | Outpatient (REF) | payer MEDICARE, BC, SELFPAY ==
--- NOTE | ~2022-05-17 | XR_ITS ---
EXAMINATION: XR CHEST CLINICAL INFORMATION: Coughing up blood. COMPARISON: Chest radiograph 06/02/2017. TECHNIQUE: 2 views of the chest were obtained. FINDINGS: Stable appearance of the cardiomediastinal silhouette. Unchanged platelike opacity in the left lower lobe favored to represent subsegmental atelectasis or scarring. No new focal airspace opacity, pleural effusion or pneumothorax. No acute osseous findings. The visualized upper abdomen is within normal limits. XR/XR chest 2V IMPRESSION: No acute cardiopulmonary findings. If symptoms persist, consider correlation with a chest CT.
== END 2022-05-17 14:22 | disposition home or self-care (01) ==
LOC: HO.XRAY 14:21
PROVIDERS: PCP Internal Medicine; Visit Provider Nurse Practitioner Family
DX: I25.10 Atherosclerotic heart disease of native coronary artery without angina pectoris (principal); I12.9 Hypertensive chronic kidney disease with stage 1 through stage 4 chronic kidney disease, or unspecified chronic kidney disease; E11.22 Type 2 diabetes mellitus with diabetic chronic kidney disease; R04.2 Hemoptysis; N18.9 Chronic kidney disease, unspecified; R94.31 Abnormal electrocardiogram [ECG] [EKG]; E78.5 Hyperlipidemia, unspecified; R06.00 Dyspnea, unspecified; E66.9 Obesity, unspecified; Z79.899 Other long term (current) drug therapy; Z79.890 Hormone replacement therapy
CPT/HCPCS: 71046; 99212

== ENCOUNTER 2022-06-01 08:52 | Outpatient (REF) | payer MEDICARE, BC, SELFPAY ==
[2022-06-01 11:23] LABS: MANUAL DIFF FLAG NO
[2022-06-01 11:40] LABS: Basophils Absolute Auto 0.1 X10*3/uL (0.0-0.2); Basophils Percent Auto 0.8 % (0-2); Eosinophils Absolute Auto 0.2 X10*3/uL (0.0-0.4); Eosinophils Percent Auto 3.3 % (0-4); Hematocrit 36.9 % (37.0-47.0); Hemoglobin 11.8 g/dl (12.0-16.0); Imm Gran Abs Auto 0.02 X10*3/uL (0.00-0.03); Imm Gran Pct Auto 0.3 % (0.0-0.4); Lymphocytes Absolute Auto 2.5 X10*3/uL (1.2-4.9); Mean Corpuscular Hemoglobin 30.6 pg (27.0-33.0); Mean Corpuscular Volume 95.8 fL (80.0-98.0); Mean Platelet Volume 10.7 fL (9.4-12.3); Monocytes Absolute Auto 0.6 X10*3/uL (0.1-1.2); Monocytes Percent Auto 8.2 % (2-11); Neutrophils Absolute Auto 3.8 x10*3/uL (2.0-8.3); Neutrophils Percent Auto 52.4 % (45-73); Platelet Count 220 X10*3/uL (160-400); Red Blood Count 3.85 X10*6/uL (4.20-5.50); Red Cell Distribution Width 13.6 % (11.0-16.0); White Blood Count 7.2 X10*3/uL (4.8-10.8)
[2022-06-01 11:45] LABS: INTERNATIONAL NORM RATIO 0.9 (0.9-1.1); Prothrombin Time 10.3 SEC (10.0-13.1)
[2022-06-01 12:18] LABS: Anion Gap 16 (12-20); Blood Urea Nitrogen 34 mg/dL (9-16); Calcium 9.2 mg/dL (8.4-10.2); Carbon Dioxide 23 mmol/L (22-29); Chloride 106 mmol/L (96-108); Estimated Glomerular Filt Rate 33; Glucose Random 144 mg/dL (60-115); Potassium 4.6 mmol/L (3.3-5.1); Sodium 140 mmol/L (135-145)
== END 2022-06-01 08:53 | disposition home or self-care (01) ==
LOC: HO.HMGCLDS 08:52
PROVIDERS: PCP Internal Medicine; Visit Provider Nurse Practitioner Family
DX: I25.10 Atherosclerotic heart disease of native coronary artery without angina pectoris (principal)
CPT/HCPCS: 36415; 80048; 85025; 85610

== ENCOUNTER → 2022-07-01 14:03 | Outpatient (BNVA) | payer MEDICARE, BC, SELFPAY | PROVIDERS: PCP Internal Medicine; Referring Provider Internal Medicine; Visit Provider Nurse Practitioner Family | DX: I25.10 Atherosclerotic heart disease of native coronary artery without angina pectoris (principal); R04.2 Hemoptysis; R06.00 Dyspnea, unspecified; I10 Essential (primary) hypertension; R94.31 Abnormal electrocardiogram [ECG] [EKG]; R94.39 Abnormal result of other cardiovascular function study; Z98.890 Other specified postprocedural states; E78.5 Hyperlipidemia, unspecified; E66.9 Obesity, unspecified | CPT/HCPCS: 99212 ==

== ENCOUNTER 2022-07-07 09:22 | Outpatient (REF) | payer MEDICARE, BC, SELFPAY ==
--- NOTE | ~2022-07-07 | CT_ITS ---
EXAMINATION: CT CHEST WITHOUT CONTRAST CLINICAL INFORMATION: Hemoptysis COMPARISON: Previous chest x-ray most recent April [address] June 2011 TECHNIQUE: Multidetector volumetric CT imaging of the chest was done. Axial MIP volume rendering provided. Sagittal and coronal reformatted images were obtained. This CT examination was performed using dose optimization techniques as appropriate, variously including the following: *Automated exposure control *Adjustment of mA and/or kV according to patient size (this includes techniques or standardized protocols for targeted exams where dose is matched to indication/reason for exam; i.e. extremities or head) *Use of iterative reconstruction technique DLP: 165 mGy-cm FINDINGS: GAS TORCH SOLDERER: Unremarkable LUNGS: There are increased peripheral reticular markings seen in the lingula and bilateral lower lobes. There is atelectasis or consolidation seen in the inferior segment of the lingula and both lower lobes. No endobronchial or endotracheal lesion. No bronchiectasis. Previously identified nodular opacities seen on CT from March 2011 are no longer seen. 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 There is atherosclerotic disease. Normal heart size. Moderate coronary artery calcification. No pericardial effusion. Small mediastinal lymph nodes. No enlarged lymph nodes seen. CORONARY ARTERY CALCIFICATION: Moderate PLEURA: There is no pleural effusion. No pleural mass or thickening. AXILLA: No lymphadenopathy. UPPER ABDOMEN: The liver is low in attenuation suggestive of fatty infiltration. There is a stable 3 cm low-attenuation right adrenal nodule probably representing a benign lipid rich adenoma. The gallbladder has been removed. Left renal cysts. OSSEOUS STRUCTURES: Mild degenerative changes of the spine. CT/CT chest wo IV con IMPRESSION: Mild increased peripheral reticular markings at the lung bases. Linear scarring or subsegmental atelectasis in the inferior segment of the lingula and bilateral lower lobes. Fleischner guidelines were followed.
== END 2022-07-07 09:23 | disposition home or self-care (01) ==
LOC: HO.CT 09:22
PROVIDERS: Visit Provider Nurse Practitioner Family
DX: R04.2 Hemoptysis (principal); R06.00 Dyspnea, unspecified
CPT/HCPCS: 71250

== ENCOUNTER 2022-07-12 13:17 | Outpatient (REF) | payer MEDICARE, BC, SELFPAY ==
[2022-07-12 16:19] LABS: MANUAL DIFF FLAG NO
[2022-07-12 16:28] LABS: Basophils Absolute Auto 0.1 X10*3/uL (0.0-0.2); Basophils Percent Auto 1.1 % (0-2); Eosinophils Absolute Auto 0.3 X10*3/uL (0.0-0.4); Eosinophils Percent Auto 5.3 % (0-4); Imm Gran Abs Auto 0.02 X10*3/uL (0.00-0.03); Imm Gran Pct Auto 0.4 % (0.0-0.4); Lymphocytes Absolute Auto 1.6 X10*3/uL (1.2-4.9); Lymphocytes Percent Auto 30.5 % (20-40); Mean Corpuscular HGB Conc 32.4 g/dl (31.0-35.0); Mean Corpuscular Volume 95.6 fL (80.0-98.0); Mean Platelet Volume 10.1 fL (9.4-12.3); Monocytes Absolute Auto 0.4 X10*3/uL (0.1-1.2); Monocytes Percent Auto 6.6 % (2-11); Neutrophils Percent Auto 56.1 % (45-73); Platelet Count 248 X10*3/uL (160-400); Red Blood Count 3.87 X10*6/uL (4.20-5.50); Red Cell Distribution Width 14.6 % (11.0-16.0); White Blood Count 5.3 X10*3/uL (4.8-10.8)
[2022-07-12 16:30] LABS: Prothrombin Time 10.9 SEC (10.0-13.1)
[2022-07-12 16:31] LABS: Anion Gap 16 (12-20); Blood Urea Nitrogen 32 mg/dL (9-16); Calcium 9.7 mg/dL (8.4-10.2); Carbon Dioxide 23 mmol/L (22-29); Chloride 103 mmol/L (96-108); Estimated Glomerular Filt Rate 31; Glucose Random 169 mg/dL (60-115); Potassium 4.4 mmol/L (3.3-5.1); Sodium 138 mmol/L (135-145)
== END 2022-07-12 13:18 | disposition home or self-care (01) ==
LOC: HO.HMGCLDS 13:17
PROVIDERS: PCP Internal Medicine; Visit Provider Nurse Practitioner Family
DX: I25.10 Atherosclerotic heart disease of native coronary artery without angina pectoris (principal); R04.2 Hemoptysis
CPT/HCPCS: 36415; 80048; 85025; 85610

== ENCOUNTER 2022-07-22 12:07 | Outpatient (REF) | payer MEDICARE, BC, SELFPAY ==
[2022-07-22 14:14] LABS: Anion Gap 17 (12-20); Blood Urea Nitrogen 41 mg/dL (9-16); Calcium 9.7 mg/dL (8.4-10.2); Carbon Dioxide 22 mmol/L (22-29); Chloride 103 mmol/L (96-108); Estimated Glomerular Filt Rate 25; Glucose Random 166 mg/dL (60-115); Potassium 4.8 mmol/L (3.3-5.1); Sodium 137 mmol/L (135-145)
== END 2022-07-22 12:08 | disposition home or self-care (01) ==
LOC: HO.HMGCLDS 12:07
PROVIDERS: PCP Internal Medicine; Visit Provider Internal Medicine Cardiovascular Disease
DX: N18.9 Chronic kidney disease, unspecified (principal)
CPT/HCPCS: 36415; 80048

== ENCOUNTER 2022-07-26 13:33 | Outpatient (REF) | payer MEDICARE, BC, SELFPAY ==
[2022-07-26 16:40] LABS: Anion Gap 14 (12-20); Blood Urea Nitrogen 38 mg/dL (9-16); Calcium 9.6 mg/dL (8.4-10.2); Carbon Dioxide 24 mmol/L (22-29); Chloride 105 mmol/L (96-108); Estimated Glomerular Filt Rate 25; Glucose Random 161 mg/dL (60-115); Potassium 5.2 mmol/L (3.3-5.1); Sodium 138 mmol/L (135-145)
== END 2022-07-26 13:34 | disposition home or self-care (01) ==
LOC: HO.HMGCLDS 13:33
PROVIDERS: PCP Internal Medicine; Visit Provider Internal Medicine Cardiovascular Disease
DX: N18.9 Chronic kidney disease, unspecified (principal)
CPT/HCPCS: 36415; 80048

== ENCOUNTER 2022-08-06 12:44 | Outpatient (REF) | payer MEDICARE, BC, SELFPAY ==
[2022-08-06 14:16] LABS: Anion Gap 17 (12-20); Blood Urea Nitrogen 32 mg/dL (9-16); Calcium 10.2 mg/dL (8.4-10.2); Carbon Dioxide 21 mmol/L (22-29); Chloride 106 mmol/L (96-108); Estimated Glomerular Filt Rate 33; Glucose Random 137 mg/dL (60-115); Potassium 4.7 mmol/L (3.3-5.1); Sodium 139 mmol/L (135-145)
== END 2022-08-06 12:45 | disposition home or self-care (01) ==
LOC: HO.HMGCLDS 12:44
PROVIDERS: PCP Internal Medicine; Visit Provider Nurse Practitioner Family
DX: N18.9 Chronic kidney disease, unspecified (principal)
CPT/HCPCS: 36415; 80048

== ENCOUNTER 2022-08-11 10:23 | Outpatient (REF) | payer MEDICARE, BC, SELFPAY ==
[2022-08-11 11:09] LABS: MANUAL DIFF FLAG NO
[2022-08-11 11:38] LABS: Basophils Percent Auto 0.4 % (0-2); Eosinophils Absolute Auto 0.1 X10*3/uL (0.0-0.4); Eosinophils Percent Auto 2.3 % (0-4); Hematocrit 34.9 % (37.0-47.0); Hemoglobin 11.2 g/dl (12.0-16.0); Imm Gran Abs Auto 0.02 X10*3/uL (0.00-0.03); Imm Gran Pct Auto 0.4 % (0.0-0.4); Lymphocytes Absolute Auto 1.1 X10*3/uL (1.2-4.9); Lymphocytes Percent Auto 20.3 % (20-40); Mean Corpuscular HGB Conc 32.1 g/dl (31.0-35.0); Mean Corpuscular Hemoglobin 30.8 pg (27.0-33.0); Mean Corpuscular Volume 95.9 fL (80.0-98.0); Mean Platelet Volume 10.4 fL (9.4-12.3); Monocytes Absolute Auto 0.5 X10*3/uL (0.1-1.2); Monocytes Percent Auto 8.9 % (2-11); Neutrophils Absolute Auto 3.6 x10*3/uL (2.0-8.3); Neutrophils Percent Auto 67.7 % (45-73); Platelet Count 205 X10*3/uL (160-400); Red Blood Count 3.64 X10*6/uL (4.20-5.50); Red Cell Distribution Width 14.1 % (11.0-16.0); White Blood Count 5.3 X10*3/uL (4.8-10.8)
[2022-08-11 12:34] LABS: Alanine Aminotransferase 24 U/L (0-31); Albumin Level 4.2 g/dL (3.5-5.0); Alkaline Phosphatase 42 U/L (39-117); Anion Gap 15 (12-20); Aspartate Amino Transferase 20 U/L (5-31); Bilirubin Total 0.6 mg/dL (0.0-1.0); Blood Urea Nitrogen 33 mg/dL (9-16); Calcium 9.8 mg/dL (8.4-10.2); Carbon Dioxide 24 mmol/L (22-29); Chloride 106 mmol/L (96-108); Estimated Glomerular Filt Rate 29; Glucose Random 126 mg/dL (60-115); Phosphorus 4.1 mg/dL (2.7-4.5); Potassium 4.6 mmol/L (3.3-5.1); Sodium 140 mmol/L (135-145); Total Protein 6.9 g/dL (6.5-8.0); Uric Acid 4.9 mg/dL (2.4-5.7); Vitamin D 25-OH Total 55.2 ng/mL (>30)
[2022-08-11 12:34] LABS: Creatinine Urine 112.19 mg/dL; Protein/Creatinine Ratio, Ur 1.24 (<0.2); Total Protein Urine Random 139 mg/dL (<12)
[2022-08-12 14:16] LABS: Calcium (PTHI) 9.8 mg/dL (8.6-10.4); PTHI 87 pg/mL (16-77)
== END 2022-08-11 10:24 | disposition home or self-care (01) ==
LOC: HO.LAB 10:23
PROVIDERS: PCP Internal Medicine; Visit Provider Internal Medicine Nephrology
DX: I12.9 Hypertensive chronic kidney disease with stage 1 through stage 4 chronic kidney disease, or unspecified chronic kidney disease (principal); E11.22 Type 2 diabetes mellitus with diabetic chronic kidney disease; N18.32 Chronic kidney disease, stage 3b; M10.9 Gout, unspecified; I38 Endocarditis, valve unspecified; N25.0 Renal osteodystrophy; E11.69 Type 2 diabetes mellitus with other specified complication; T39.9 Poisoning by, adverse effect of and underdosing of unspecified nonopioid analgesic, antipyretic and antirheumatic; I25.10 Atherosclerotic heart disease of native coronary artery without angina pectoris; Z98.890 Other specified postprocedural states; R06.00 Dyspnea, unspecified; R04.2 Hemoptysis
CPT/HCPCS: 36415; 80053; 82306; 83735; 83970; 84100; 84156; 84550; 85025; 99212

== ENCOUNTER 2022-09-01 12:37 | Outpatient (REF) | payer MEDICARE, BC, SELFPAY ==
[2022-09-01 14:39] LABS: Estimated Average Glucose 137 mg/dL; Hemoglobin A1c % 6.4 %
[2022-09-01 14:53] LABS: Alanine Aminotransferase 26 U/L (0-31); Anion Gap 13 (12-20); Aspartate Amino Transferase 20 U/L (5-31); Blood Urea Nitrogen 36 mg/dL (9-16); Carbon Dioxide 25 mmol/L (22-29); Chloride 107 mmol/L (96-108); Cholesterol 145 mg/dL; Estimated Glomerular Filt Rate 29; Free T4 (Free Thyroxine) 1.07 ng/dL (0.71-1.85); Glucose Fasting 150 mg/dL (60-99); HDL Cholesterol 35 mg/dL; LDL Cholesterol Calculated 77 mg/dl; Potassium 4.7 mmol/L (3.3-5.1); Sodium 140 mmol/L (135-145); Thyroid Stimulating Hormone 1.13 uIU/mL (0.32-4.0); Triglycerides 169 mg/dL; Vitamin D 25-OH Total 47.7 ng/mL (>30)
== END 2022-09-01 12:38 | disposition home or self-care (01) ==
LOC: HO.HMGCLDS 12:37
PROVIDERS: PCP Internal Medicine; Visit Provider Internal Medicine
DX: E03.9 Hypothyroidism, unspecified (principal); E11.8 Type 2 diabetes mellitus with unspecified complications; E78.5 Hyperlipidemia, unspecified; I10 Essential (primary) hypertension; Z78.0 Asymptomatic menopausal state
CPT/HCPCS: 36415; 80048; 80061; 82306; 83036; 84439; 84443; 84450; 84460

== ENCOUNTER → 2022-09-08 13:39 | Outpatient (BNVA) | payer MEDICARE, BC, SELFPAY | PROVIDERS: PCP Internal Medicine; Visit Provider Internal Medicine Pulmonary Disease | DX: R06.00 Dyspnea, unspecified (principal); R94.2 Abnormal results of pulmonary function studies | CPT/HCPCS: 94618; 99212 ==

== ENCOUNTER 2022-09-10 10:48 | Outpatient (AMB) | payer MEDICARE, BC, SELFPAY ==
--- NOTE | 2022-09-10 11:00 | A.OFFPC_ITS ---
Vital Signs 09/10/22 11:07 Height 5 ft Weight 201 lb BMI 39.2 BP 110/72 Blood Pressure Location Lt brachial Position Sitting Pulse 61 Pulse Source Pulse Oximeter Pulse Oximetry (%) 96 Oxygen Delivery Method Room Air Intake Visit Reasons: 6 month follow up Intake Note: Pt is here today for her 6 months f/u Allergies allopurinol Allergy (Severe, Verified 05/08/23 02:21) Hives niacin [Niaspan Extended-Release] Adverse Reaction (Unknown, Verified 05/08/23 02:21) swelling /itching Medication List - Last Reconciled 09/10/22 by Coni Escobedo MD aspirin 81 mg PO DAILY atorvastatin 40 mg PO DAILY cholestyramine-aspartame 4 gram (Cholestyramine Light) 4 grams PO BID clobetasol 0.05% 1 appl topical DAILY PRN clopidogrel 75 mg PO DAILY 30 days febuxostat 40 mg PO DAILY fluticasone propionate 50 mcg/actuation sprays intranasal levothyroxine 100 mcg PO DAILY menthol-zinc oxide 0.44-20.6 % (Calmoseptine) 1 appl topical QID PRN metoprolol succinate ER 25 mg PO DAILY ofloxacin 0.3% 2 drps otic (ears) sitagliptin phosphate 50 mg PO DAILY 90 days tiotropium-olodaterol 2.5-2.5 mcg/actuation (Stiolto Respimat) 2 puffs inhalation DAILY 30 days tobramycin-dexamethasone 0.3-0.1 % 2 drps ophthalmic (eye) Tobacco use date assessed: 09/10/22 Fall risk assessment: No Falls in past year Last assessed Fall Risk: 09/10/22 HPI 6 month follow up HPI Details 72-year-old lady here today for follow-up on her diabetes mellitus, hypothyroidism, dyslipidemia and hypertension. She is compliant with taking her medications and diet, recent fasting labs showed good control of diabetes mellitus with hemoglobin A1c at 6.4%, fasting lipid panel are within normal limits. She has multi-vessel CAD, refused Coronary artery bypass grafting, had stage PCI and just had stent to the left circumflex and LAD. Still having episodes of dyspnea, seen by Pulmonary, had essentially normal CT chest and pulmonary function tests that demonstrate mild restrictive physiology likely secondary to extrathoracic obesity with some decrease in diffusion capacity that corrected to normal after adjustment for alveolar ventilation. Dyspnea with unclear etiology, likely cardiac in origin per Pulmonary and was empirically started on Stiolto, patient also did not require any supplemental oxygen.. She has recently seen by her private branch exchange operator, Dr. Alvarado who stressed importance of getting diabetes mellitus and blood pressure under control, continued on Uloric with target uric acid less than 6, stay well-hydrated, avoid NSAIDs and caution with no nephrotoxins like IV dye. She also had a thyroid ultrasound done 12/23/21 ordered by Kirstie Verdin, which showed a left thyroid nodule measuring 1.0 x 0.33 x 0.40 cm, volume 0.08 mL. ? ? Previously: Not documented on the previous study., ?? ? Nodule characteristics:?? ? Composition: Cystic(0).?? ? ACR TI-RADS total points: 0 ?? ? ACR TI-RADS category: 1. There are bilateral cervical lymph nodes. Lymph nodes are normal in size and demonstrate normal ultrasound morphology and flow. Absent right lobe. Very heterogeneous small left lobe with question small newly appreciated cystic nodule . Patient currently asymptomatic . [facility] Medical History Anemia in chronic kidney disease Cervical lymphadenopathy Colon cancer screening Diabetic nephropathy Diabetic polyneuropathy associated with type 2 diabetes mellitus Dyslipidemia Family history of abdominal aortic aneurysm Hypertension Hypothyroidism Numbness and tingling of right arm Obesity (BMI 30-39.9) Postmenopause Pressure in chest Shortness of breath on exertion Thyroid nodule Tubular adenoma of colon Type 2 diabetes mellitus with complication, without long-term current use of insulin Surgical History H/O partial thyroidectomy History of bronchoscopy History of cardiac cath History of cataract surgery History of colonoscopy History of esophagogastroduodenoscopy (EGD) History of sinus surgery History of total hysterectomy S/P cardiac cath S/P coronary angioplasty Status post cardiac catheterization Family History Father AAA (abdominal aortic aneurysm) Mother CVD (cardiovascular disease) Mitral prolapse History of open heart surgery Brother Gout Brother No problems noted. Daughter No problems noted. Daughter No problems noted. Social History Housing: House Patient Tobacco Use Status: Former Tobacco user Years Smoked: 50 +/- e-Cigarette/Vaping Use: Never Used Current occupational status: retired Cognitive needs: No Hearing needs: No Vision needs: Yes Questionnaire Thrive Questionnaire Date Thrive assessed: 03/17/22 ESTEFANY-7 AMB Questionnaire ESTEFANY-7 Date ESTEFANY - 7 assessed: 09/04/21 Source: Developed by Drs. Cameron Marin, Mi Santiago, Agustín Clark and colleagues, with an educational bushra from [employer]. Review of Systems Const Denies fatigue, Denies fever(s), Denies headache(s) and Denies weakness Eyes Reports no additional complaints ENT Denies dizziness and Denies headache(s) Card Denies chest pain, Denies chest pain with activity, Denies syncope, Denies rapid heart rate, Denies pedal edema, Denies lightheadedness, Denies palpitations, Denies dyspnea and Denies dyspnea on exertion Resp Denies cough, Denies dyspnea, Denies dyspnea on exertion and Denies wheezing GI Denies abdominal pain, Denies melena, Denies bloating, Denies hematochezia, Denies change in bowel habits, Denies change in stool character and Denies heartburn Reports no additional complaints Musc Denies abnormal gait, Denies muscle cramps, Denies muscle weakness, Denies numbness and Denies tingling Skin/Breast Denies rash Neuro Denies abnormal gait, Denies burning sensations, Denies dizziness, Denies syncope, Denies headache(s), Denies numbness, Denies Sensory deficit (Neuro), Denies tingling and Denies weakness Endo Denies fatigue and Denies palpitations Sanford/Lymph Reports no additional complaints Aller/Immun Reports no additional complaints and Denies wheezing Physical exam (Primary Care) Vital Signs: Last Vital Signs Pulse 61 09/10/22 11:07 BP 110/72 09/10/22 11:07 Pulse Ox 96 09/10/22 11:07 Oxygen Delivery Method Room Air 09/10/22 11:07 BMI result Body Mass Index 39.2 Tobacco/Smoking Status: Tobacco use Status Tobacco use date assessed 09/10/22 09/10/22 11:11 Patient Tobacco Use Status Former Tobacco user 09/10/22 11:00 e-Cigarette/Vaping Use Never Used 09/10/22 11:00 Thrive Assessment: Date of Thrive Assessment Date Thrive assessed 03/17/22 09/10/22 11:00 Const General: cooperative, no acute distress and alert Orientation/consciousness: patient oriented x3 HENMT Head: Yes normal to inspection and Yes normocephalic Mouth: Normal oral and palatal mucosa present, oropharynx normal and moist mucous membranes Eyes General: appearance normal, both eyes and all related structures Neck Neck: Yes full ROM and Yes no lymphadenopathy Thyroid: Thyroid normal (Nonpalpable) Resp Effort & Inspection: normal respiratory effort and able to speak in complete sentences Auscultation: clear to auscultation bilaterally Cardio Rate: regular rate Rhythm: regular rhythm Heart sounds: S1 normal heart sound present and S2 normal heart sound present GI Inspection: Yes normal to inspection Palpation (GI): Soft to palpation Auscultation: normal bowel sounds Neuro General: patient oriented x3, gait normal, moves all extremities, no focal motor deficits and CN's II-XI intact bilaterally Cognition (Neuro): normal cognition Gait exam (Neuro): Normal gait present Motor exam (neuro): 5/5 motor strength present throughout Sensory Exam: No Sensory deficit (Neuro) Extrem General: Yes full ROM, Yes no joint enlargement, Yes no clubbing, cyanosis or edema, Yes no calf tenderness and Yes normal gait Immunizations pneumoc 20-merced conj-dip cr(PF) Performing Provider: Coni Escobedo MD Administered by: Mony Gould CMA on 09/10/22 11:59 Dose Route Admin Location Lot Number Expiration Date NDC Box Office Clerk 0.5 mL IM Left Deltoid [id number] 12/25/23 [email or web address] [place] VIS Given Date VIS Provided VIS Publication Date 09/10/22 Single Vaccine 21 Eligibility Eligibility Date Funding Source Not VFC Eligible 09/10/22 Private Results Reviewed Results Reviewed: WBC 5.3 4.8-10.8 X10*3/uL RBC 3.64 L 4.20-5.50 X10*6/uL HGB 11.2 L 12.0-16.0 g/dl HCT 34.9 L 37.0-47.0 % MCV 95.9 80.0-98.0 fL MCH 30.8 27.0-33.0 pg MCHC 32.1 31.0-35.0 g/dl RDW 14.1 11.0-16.0 % PLT 205 160-400 X10*3/uL NTERED: 09/01/22-1241 WILLOW BARONE: ORDERED: Met Prof Fast, AST, ALT, Lipid Panel, Vitamin D 25-OH, Free T4, TSH Test Result Flag Reference Site Sodium 140 135-145 mmol/L Potassium 4.7 3.3-5.1 mmol/L CL 107 96-108 mmol/L CO2 25 22-29 mmol/L Gap 13 12-20 BUN 36 H 9-16 mg/dL Creat 1.74 H 0.5-1.4 mg/dL EGFR 29 NOTE: For -Dominican individuals, multiply the result by 1.210. Chronic Kidney Disease: Estimated GFR < 60 mL/min/1.73m2 Severe Kidney Disease: Estimated GFR < 15 mL/min/1.73m2 FBS 150 H 60-99 mg/dL A fasting glucose of 126 mg/dl or greater on more than one occasion is considered diagnostic of diabetes. CA 10.0 8.4-10.2 mg/dL AST (GOT) 20 5-31 U/L ALT (GPT) 26 0-31 U/L Triglyceride 169 mg/dL Desirable Triglyceride: less than 150 mg/dL Borderline High Triglyceride 150-199 mg/dL High Triglyceride: 200-499 mg/dL Very High Triglyceride: greater than or equal to 5OO mg/dL Chol 145 mg/dL Desirable Cholesterol: less than 200 mg/dL Borderline High Cholesterol: 200-239 mg/dL High Cholesterol: greater than 239 mg/dL LDL Calculated 77 mg/dl Desirable LDL: less than 100 mg/dL Near Optimal/Above Optimal LDL: 110-129 mg/dL Borderline High LDL: 130-159 mg/dL High LDL: 160-189 mg/dL Very High LDL: greater than or equal to 190 mg/dL HDL 35 mg/dL Desirable HDL: greater than 40 mg/dL Note: This HDL assay may give artificially low results in patients with liver disease. Vit D 25-OH Tot 47.7 >30 ng/mL Health Based Reference Values* < 20 ng/mL Deficient 20-30 ng/mL Insufficient > 30 ng/mL Sufficient *Allan MORTON. N Engl J Med. 2007;[id number]:266-280 Care must be taken in interpreting Vitamin D results from different laboratories and methodologies. Published data demonstrated that results from patients undergoing hemodialysis may show a negative bias when tested with various automated 25-OH vitamin D assays when compared to LC-MS/MS. When testing samples from patients whose predominant form of Vitamin D is Vitamin D2, such as patients receiving Vitamin D2 supplementation, results that are subtherapeutic should be confirmed with another method such as LC-MS/MS. Free T4 1.07 0.71-1.85 ng/dL TSH 3rd Gen. 1.13 0.32-4.0 uIU/mL Laboratory Tests 09/01/22 12:42 Estimat Average Glucose 137 Hemoglobin A1c % 6.4 Assessment and Plan Assessment & Plan (1) Hypothyroidism: Code(s): E03.9 - Hypothyroidism, unspecified Plan: Continued on levothyroxine 100 mcg daily (2) Thyroid nodule: Code(s): E04.1 - Nontoxic single thyroid nodule Plan: New left cystic nodule seen on thyroid ultrasound done 12/23/2021, patient without any symptoms, will check another thyroid ultrasound (3) Type 2 diabetes mellitus with complication, without long-term current use of insulin: Code(s): E11.8 - Type 2 diabetes mellitus with unspecified complications Plan: Recent lab results reviewed with patient, with sugar and hemoglobin A1c stable and at goal. Continue sitagliptin 50 mg daily, continue to check fasting blood sugar at home, maintain log and bring to next appointment for review. Reinforced diabetic diet and regular exercise with patient. Counseled regarding importance of yearly diabetes retinopathy screening. Patient advised to inspect feet daily, for any signs of injury, callus or infection. Compliance with diet and regular exercise again stressed. Blood pressure goal is less than 130/80, goal LDL is less than 100 and goal hemoglobin A1c is less than 7% follow-up appointment made in-3--months, after fasting labs done. Prevnar 20 given today (4) Dyslipidemia: Code(s): E78.5 - Hyperlipidemia, unspecified Plan: Reviewed recent fasting lipid profile with patient with levels within normal . Continue with atorvastatin 40 mg daily , in addition to adherence to low- cholesterol diet and regular exercise, at least 30 minutes 3 to 4 times a week. Advised patient to make healthy food choices, eat more fruits, vegetables, whole grains, wild caught fish and low-fat dairy. Limit amount of meat and fried or fatty food products, as well as processed foods and fast foods. Follow-up scheduled with repeat fasting lipid panel in 3 months. (5) Advanced directives, counseling/discussion: Code(s): Z71.89 - Other specified counseling (6) Anemia in chronic kidney disease: Code(s): N18.9 - Chronic kidney disease, unspecified; D63.1 - Anemia in chronic kidney disease (7) CKD (chronic kidney disease): Code(s): N18.9 - Chronic kidney disease, unspecified Plan: Continue losartan (8) Hypertension: Code(s): I10 - Essential (primary) hypertension Plan: Blood pressure at goal of less than 130/80. Continue with current medication. Reinforced importance of following a low sodium diet, getting regular exercise, and lowering stress levels. (9) Coronary artery disease: Code(s): I25.10 - Atherosclerotic heart disease of [place] coronary artery without angina pectoris Plan: Continue with aspirin 81 mg daily and atorvastatin 40 mg daily Orders: Orders US thyroid 11/29/22 E03.9 - Hypothyroidism, unspecified, E04.1 - Nontoxic single thyroid nodule Alanine Aminotransferase 11/24/22 E04.1 - Nontoxic single thyroid nodule, E11.8 - Type 2 diabetes mellitus with unspecified complications, E03.9 - Hypothyroidism, unspecified, E78.5 - Hyperlipidemia, unspecified Aspartate Amino Transferase 11/24/22 E04.1 - Nontoxic single thyroid nodule, E11.8 - Type 2 diabetes mellitus with unspecified complications, E03.9 - Hypothyroidism, unspecified, E78.5 - Hyperlipidemia, unspecified Hemoglobin A1c 11/24/22 E04.1 - Nontoxic single thyroid nodule, E11.8 - Type 2 diabetes mellitus with unspecified complications, E03.9 - Hypothyroidism, unspecified, E78.5 - Hyperlipidemia, unspecified Lipid Panel 11/24/22 E04.1 - Nontoxic single thyroid nodule, E11.8 - Type 2 diabetes mellitus with unspecified complications, E03.9 - Hypothyroidism, unspecified, E78.5 - Hyperlipidemia, unspecified Free T4 (Free Thyroxine) 11/24/22 E03.9 - Hypothyroidism, unspecified, E04.1 - Nontoxic single thyroid nodule, E11.8 - Type 2 diabetes mellitus with unspecified complications, E78.5 - Hyperlipidemia, unspecified Thyroid Stimulating Hormone 11/24/22 E04.1 - Nontoxic single thyroid nodule, E11.8 - Type 2 diabetes mellitus with unspecified complications, E03.9 - Hypothyroidism, unspecified, E78.5 - Hyperlipidemia, unspecified Vitamin D 25-OH Total 11/24/22 E04.1 - Nontoxic single thyroid nodule, E11.8 - Type 2 diabetes mellitus with unspecified complications, E03.9 - Hypothyroidism, unspecified, E78.5 - Hyperlipidemia, unspecified Pneumococcal 20 Immunization 09/10/22 Z23 - Encounter for immunization Medications: Refilled sitagliptin phosphate 50 mg PO DAILY 90 tabs 2RF 90 days E11.65 - Type 2 diabetes mellitus with hyperglycemia Coding Level of Care Code Est Pt Level 4 (58730) Diagnoses Hypothyroidism E03.9 Thyroid nodule E04.1 Type 2 diabetes mellitus with complication, without long-term current use of insulin E11.8 Dyslipidemia E78.5 Advanced directives, counseling/discussion Z71.89 Anemia in chronic kidney disease N18.9; D63.1 CKD (chronic kidney disease) N18.9 Hypertension I10 Coronary artery disease I25.10
[2022-09-10 11:07] VITALS: BP 110/72; PULSE 61; O2SAT 96; BMI 39.2
== END 2022-09-10 12:03 | disposition home or self-care (01) ==
LOC: HO.HMGC 10:48
PROVIDERS: PCP Internal Medicine; Visit Provider Internal Medicine
DX: E03.9 Hypothyroidism, unspecified (principal); E04.1 Nontoxic single thyroid nodule; E11.22 Type 2 diabetes mellitus with diabetic chronic kidney disease; N18.9 Chronic kidney disease, unspecified; I12.9 Hypertensive chronic kidney disease with stage 1 through stage 4 chronic kidney disease, or unspecified chronic kidney disease; E78.5 Hyperlipidemia, unspecified; Z71.89 Other specified counseling; D63.1 Anemia in chronic kidney disease; I25.10 Atherosclerotic heart disease of native coronary artery without angina pectoris; E11.8 Type 2 diabetes mellitus with unspecified complications; E11.65 Type 2 diabetes mellitus with hyperglycemia; Z23 Encounter for immunization; I10 Essential (primary) hypertension
CPT/HCPCS: 90471; 90677; 99214

== ENCOUNTER → 2022-10-20 10:57 | Outpatient (BNVA) | payer MEDICARE, BC, SELFPAY | PROVIDERS: PCP Internal Medicine; Referring Provider Internal Medicine; Visit Provider Internal Medicine Cardiovascular Disease | DX: I10 Essential (primary) hypertension (principal); R00.2 Palpitations; E78.5 Hyperlipidemia, unspecified; Z98.61 Coronary angioplasty status | CPT/HCPCS: 99212 ==

== ENCOUNTER → 2022-10-25 07:12 | Outpatient (REF) | payer MEDICARE, BC, SELFPAY ==
--- NOTE | 2022-10-25 07:14 | HM_ITS ---
* Total monitoring time 7 days and 3 hours. * Underlying rhythm is sinus. Average ventricular rate 83/Min. Range 56 to 123/Min. * Rare PACs with minimal burden. * Rare PVCs. * No significant pauses or AV blocks. * No patient markers or diary events. MTDD
== END ==
LOC: HO.CARD 07:12
PROVIDERS: Visit Provider Internal Medicine Cardiovascular Disease
DX: R00.2 Palpitations (principal)
CPT/HCPCS: 93242

== ENCOUNTER 2022-12-02 14:28 | Outpatient (REF) | payer MEDICARE, BC, SELFPAY ==
--- NOTE | ~2022-12-02 | US_ITS ---
EXAMINATION: US THYROID CLINICAL INFORMATION: Hypothyroidism, unspecified. COMPARISON: Ultrasound thyroid 12/23/2021 and 01/01/2019. TECHNIQUE: Linear transducer grayscale and color Doppler examination with attention to the region of the thyroid. FINDINGS: SIZE: Measurements of the solitary left thyroid lobe and nodules are given in sagittal, anteroposterior and transverse dimensions respectively. Right Thyroid Lobe: Surgically absent. Left Thyroid Lobe: 2.9 x 0.63 x 0.97 cm, volume 0.92 mL. Previously 2.4 x 0.80 x 0.95 cm, volume 0.95 mL. Parenchyma: The gland echotexture is heterogeneous. Thyroid vascularity is normal. Isthmus: Not seen with certainty. Previously 0.25 cm. Estimated total number of nodules greater than or equal to 1 cm: 0. [employer] nodules are described as follows: 1. Location: Left inferior. Size: 0.55 x 0.34 x 0.32 cm, volume 0.03 mL. Previously: 1.0 x 0.33 x 0.48 cm, volume 0.08 mL. Nodule characteristics: Composition: Cystic(0). ACR TI-RADS total points: 0 Previous: 0 ACR TI-RADS category: 1 Previous: 1 Significant change in size (>/= 20% in 2 dimensions and minimal increase of 2 mm or 50% or greater increase in volume): No Change in features: No Change in ACR TI-RADS risk category: No NODES: There are irregular soft tissue nodules in the right neck. A level 2 node measures 0.8 x 0.3 x 0.7 cm, hypervascular in appearance. A second node measures 0.4 x 0.4 x 0.3 cm, hypervascular in appearance.. US/US thyroid IMPRESSION: Irregular soft tissue nodules in the right neck are concerning for abnormal lymph nodes. Consider further evaluation with PET/CT, MRI, or tissue sampling.
[2022-12-02 17:39] LABS: Estimated Average Glucose 140 mg/dL; Hemoglobin A1C 148.7961 umol/L; Hemoglobin A1c % 6.5 %
[2022-12-02 17:50] LABS: Alanine Aminotransferase 27 U/L (0-31); Aspartate Amino Transferase 21 U/L (5-31)
[2022-12-02 18:06] LABS: Free T4 (Free Thyroxine) 1.16 ng/dL (0.71-1.85); Thyroid Stimulating Hormone 0.73 uIU/mL (0.32-4.0); Vitamin D 25-OH Total 54.6 ng/mL (>30)
== END 2022-12-02 14:29 | disposition home or self-care (01) ==
LOC: HO.HMGCX 14:28
PROVIDERS: PCP Internal Medicine; Visit Provider Internal Medicine
DX: E03.9 Hypothyroidism, unspecified (principal); E04.1 Nontoxic single thyroid nodule; E78.5 Hyperlipidemia, unspecified; E11.8 Type 2 diabetes mellitus with unspecified complications; N18.9 Chronic kidney disease, unspecified; M85.88 Other specified disorders of bone density and structure, other site
CPT/HCPCS: 36415; 76536; 82306; 83036; 84439; 84443; 84450; 84460

== ENCOUNTER 2022-12-10 11:17 | Outpatient (REF) | payer MEDICARE, BC, SELFPAY ==
[2022-12-10 13:32] LABS: Cholesterol 132 mg/dL; HDL Cholesterol 35 mg/dL; LDL Cholesterol Calculated 71 mg/dl; Triglycerides 130 mg/dL
== END 2022-12-10 11:18 | disposition home or self-care (01) ==
LOC: HO.HMGCLDS 11:17
PROVIDERS: PCP Internal Medicine; Visit Provider Internal Medicine
DX: E03.9 Hypothyroidism, unspecified (principal); E04.1 Nontoxic single thyroid nodule; E78.5 Hyperlipidemia, unspecified; E11.8 Type 2 diabetes mellitus with unspecified complications
CPT/HCPCS: 36415; 80061

== ENCOUNTER → 2023-01-05 09:39 | Outpatient (BNVA) | payer MEDICARE, BC, SELFPAY | PROVIDERS: PCP Internal Medicine; Referring Provider Internal Medicine; Visit Provider Surgery | DX: R59.0 Localized enlarged lymph nodes (principal) | CPT/HCPCS: 99202 ==

== ENCOUNTER 2023-01-31 09:30 | Outpatient (REF) | payer MEDICARE, BC, SELFPAY ==
--- NOTE | ~2023-01-31 | US_ITS ---
EXAMINATION: Ultrasound-guided lymph node fine-needle aspiration CLINICAL INFORMATION: History of thyroid cancer 30 years ago. Hypervascular right cervical lymph nodes. COMPARISON: Previous ultrasound most recent November 2022 TECHNIQUE: Procedure and risks and benefits including bleeding and infection were discussed with the patient and informed consent was obtained. Right neck was prepped and draped in the usual sterile fashion. The skin and soft tissues were anesthetized with 1% lidocaine plain. Using ultrasound guidance and a 25-gauge needle, access to the hypervascular lymph node adjacent to the right jugular vein and carotid artery was obtained. A 25-gauge FNA specimens were obtained. There was no complication. FINDINGS: There is an upper normal size right cervical lymph node measuring 1.1 x 0.4 x 1 cm in sagittal AP and transverse dimension was targeted for fine-needle aspiration. This demonstrates normal ultrasound morphology. This was chosen because this was the largest lymph node. Additional smaller lymph nodes are seen in the right neck. US/US biopsy lymph node IMPRESSION: Ultrasound-guided right cervical lymph node fine-needle aspiration.
[2023-01-31] MEDS: Lidocaine HCl 1 % MPF 5 ML VIAL SUBCUT (11:11)
[2023-02-08 20:09] LABS: Thyroglobulin, Fine Needle Asp 0.2 ng/mL
== END 2023-01-31 09:31 | disposition home or self-care (01) ==
LOC: HO.US 09:30
PROVIDERS: Radiology Diagnostic Radiology; PCP Internal Medicine; Visit Provider Surgery
DX: R59.0 Localized enlarged lymph nodes (principal)
CPT/HCPCS: 36415; 38505; 76942; 84432; 88172; 88173; 88177; 88184; 88185

== ENCOUNTER 2023-02-03 11:52 | Outpatient (REF) | payer MEDICARE, BC, SELFPAY ==
[2023-02-03 13:47] LABS: MANUAL DIFF FLAG NO
[2023-02-03 13:53] LABS: Basophils Percent Auto 0.7 % (0-2); Eosinophils Absolute Auto 0.1 X10*3/uL (0.0-0.4); Eosinophils Percent Auto 2.4 % (0-4); Hemoglobin 11.4 g/dl (12.0-16.0); Imm Gran Abs Auto 0.02 X10*3/uL (0.00-0.03); Imm Gran Pct Auto 0.3 % (0.0-0.4); Lymphocytes Absolute Auto 1.1 X10*3/uL (1.2-4.9); Mean Corpuscular HGB Conc 32.6 g/dl (31.0-35.0); Mean Corpuscular Hemoglobin 31.1 pg (27.0-33.0); Mean Corpuscular Volume 95.4 fL (80.0-98.0); Mean Platelet Volume 10.5 fL (9.4-12.3); Monocytes Absolute Auto 0.5 X10*3/uL (0.1-1.2); Monocytes Percent Auto 8.2 % (2-11); Neutrophils Absolute Auto 4.1 x10*3/uL (2.0-8.3); Neutrophils Percent Auto 69.4 % (45-73); Platelet Count 264 X10*3/uL (160-400); Red Blood Count 3.67 X10*6/uL (4.20-5.50); Red Cell Distribution Width 14.1 % (11.0-16.0)
[2023-02-03 14:23] LABS: Alanine Aminotransferase 23 U/L (0-31); Albumin Level 4.1 g/dL (3.5-5.0); Alkaline Phosphatase 55 U/L (39-117); Anion Gap 14 (12-20); Aspartate Amino Transferase 17 U/L (5-31); Bilirubin Total 0.7 mg/dL (0.0-1.0); Blood Urea Nitrogen 28 mg/dL (9-16); Carbon Dioxide 26 mmol/L (22-29); Chloride 104 mmol/L (96-108); Estimated Glomerular Filt Rate 35; Glucose Random 145 mg/dL (60-115); Magnesium 1.8 mg/dL (1.6-2.6); Phosphorus 3.9 mg/dL (2.7-4.5); Potassium 4.7 mmol/L (3.3-5.1); Sodium 139 mmol/L (135-145); Total Protein 6.8 g/dL (6.5-8.0); Uric Acid 5.6 mg/dL (2.4-5.7)
[2023-02-03 14:29] LABS: Vitamin D 25-OH Total 66.2 ng/mL (>30)
[2023-02-03 14:33] LABS: Creatinine Urine 105.81 mg/dL; Protein/Creatinine Ratio, Ur 1.35 (<0.2); Total Protein Urine Random 143 mg/dL (<12)
[2023-02-07 11:03] LABS: PTHI 66 pg/mL (16-77)
== END 2023-02-03 11:53 | disposition home or self-care (01) ==
LOC: HO.HMGCLDS 11:52
PROVIDERS: PCP Internal Medicine; Visit Provider Internal Medicine Nephrology
DX: M10.9 Gout, unspecified (principal); I12.9 Hypertensive chronic kidney disease with stage 1 through stage 4 chronic kidney disease, or unspecified chronic kidney disease; E11.22 Type 2 diabetes mellitus with diabetic chronic kidney disease; N18.32 Chronic kidney disease, stage 3b; I38 Endocarditis, valve unspecified; N25.0 Renal osteodystrophy
CPT/HCPCS: 36415; 80053; 82306; 83735; 83970; 84100; 84156; 84550; 85025

== ENCOUNTER → 2023-02-07 10:07 | Outpatient (BNVA) | payer MEDICARE, BC, SELFPAY | PROVIDERS: PCP Internal Medicine; Visit Provider Surgery | DX: R59.0 Localized enlarged lymph nodes (principal) | CPT/HCPCS: 99212 ==

== ENCOUNTER → 2023-02-23 11:33 | Outpatient (BNVA) | payer MEDICARE, BC, SELFPAY | PROVIDERS: PCP Internal Medicine; Referring Provider Internal Medicine; Visit Provider Internal Medicine Cardiovascular Disease | DX: I20.8 Other forms of angina pectoris (principal); I10 Essential (primary) hypertension; G47.30 Sleep apnea, unspecified; Z79.899 Other long term (current) drug therapy | CPT/HCPCS: 93005; 99212 ==

== ENCOUNTER → 2023-03-01 20:30 | Outpatient (REF) | payer MEDICARE, BC, SELFPAY | LOC: HO.SL 20:30 | PROVIDERS: PCP Internal Medicine; Visit Provider Internal Medicine Cardiovascular Disease | DX: G47.33 Obstructive sleep apnea (adult) (pediatric) (principal); R06.83 Snoring | CPT/HCPCS: 95810; 95811 ==

== ENCOUNTER → 2023-03-21 19:30 | Outpatient (REF) | payer MEDICARE, BC, SELFPAY | LOC: HO.SL 19:30 | PROVIDERS: PCP Internal Medicine; Visit Provider Internal Medicine Cardiovascular Disease | DX: G47.33 Obstructive sleep apnea (adult) (pediatric) (principal) | CPT/HCPCS: 95811 ==

== ENCOUNTER 2023-05-26 12:10 | Outpatient (REF) | payer MEDICARE, BC, SELFPAY ==
[2023-05-26 12:58] LABS: MANUAL DIFF FLAG NO
[2023-05-26 13:08] LABS: Basophils Percent Auto 0.6 % (0-2); Eosinophils Absolute Auto 0.2 X10*3/uL (0.0-0.4); Eosinophils Percent Auto 3.2 % (0-4); Hematocrit 35.8 % (37.0-47.0); Hemoglobin 11.5 g/dl (12.0-16.0); Imm Gran Abs Auto 0.02 X10*3/uL (0.00-0.03); Imm Gran Pct Auto 0.3 % (0.0-0.4); Lymphocytes Absolute Auto 1.5 X10*3/uL (1.2-4.9); Lymphocytes Percent Auto 23.6 % (20-40); Mean Corpuscular HGB Conc 32.1 g/dl (31.0-35.0); Mean Corpuscular Hemoglobin 31.1 pg (27.0-33.0); Mean Corpuscular Volume 96.8 fL (80.0-98.0); Mean Platelet Volume 10.4 fL (9.4-12.3); Monocytes Absolute Auto 0.5 X10*3/uL (0.1-1.2); Monocytes Percent Auto 7.7 % (2-11); Neutrophils Absolute Auto 4.1 x10*3/uL (2.0-8.3); Neutrophils Percent Auto 64.6 % (45-73); Platelet Count 210 X10*3/uL (160-400); Red Cell Distribution Width 14.1 % (11.0-16.0); White Blood Count 6.3 X10*3/uL (4.8-10.8)
[2023-05-26 13:18] LABS: Estimated Average Glucose 131 mg/dL; Hemoglobin A1c % 6.2 % (<6.0)
[2023-05-26 13:49] LABS: Alanine Aminotransferase 23 U/L (0-31); Aspartate Amino Transferase 21 U/L (5-31); Cholesterol 140 mg/dL (<200); HDL Cholesterol 35 mg/dL (>40); LDL Cholesterol Calculated 69 mg/dL (<100); Triglycerides 181 mg/dL (<150)
[2023-05-26 14:17] LABS: Free T4 (Free Thyroxine) 0.91 ng/dL (0.71-1.85); Vitamin D 25-OH Total 54.6 ng/mL (>30)
== END 2023-05-26 12:11 | disposition home or self-care (01) ==
LOC: HO.HMGCLDS 12:10
PROVIDERS: PCP Internal Medicine; Visit Provider Internal Medicine
DX: I12.9 Hypertensive chronic kidney disease with stage 1 through stage 4 chronic kidney disease, or unspecified chronic kidney disease (principal); E11.22 Type 2 diabetes mellitus with diabetic chronic kidney disease; N18.9 Chronic kidney disease, unspecified; D12.6 Benign neoplasm of colon, unspecified; D63.1 Anemia in chronic kidney disease; E03.9 Hypothyroidism, unspecified; E04.1 Nontoxic single thyroid nodule; E66.9 Obesity, unspecified; Z78.0 Asymptomatic menopausal state
CPT/HCPCS: 36415; 80061; 82306; 83036; 84439; 84443; 84450; 84460; 85025

== ENCOUNTER 2023-06-01 14:59 | Outpatient (AMB) | payer MEDICARE, BC, SELFPAY ==
--- NOTE | 2023-06-01 15:01 | A.OFFVIS_ITS ---
Intake Vital Signs 06/01/23 15:03 Height 5 ft Weight 197 lb 1.492 oz BMI 38.5 BP 140/90 H Blood Pressure Location Lt brachial Position Sitting Pulse 101 H Pulse Source Monitor Intake Visit Reasons: 3 MON FUP AFTER SLEEP STUDY Intake Note: 3 month follow up with EKG after sleep study. 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 Accompanied by: Self / Same As Patient Allergies allopurinol Allergy (Severe, Verified 06/01/23 15:07) Hives niacin [Niaspan Extended-Release] Adverse Reaction (Unknown, Verified 06/01/23 15:07) swelling /itching Medication List - Last Reconciled 06/01/23 by Geoffrey Weinstein MD aspirin 81 mg PO DAILY atorvastatin 40 mg PO DAILY cholestyramine-aspartame 4 gram (Cholestyramine Light) 4 grams PO BID clobetasol 0.05% 1 appl topical DAILY PRN clopidogrel 75 mg PO DAILY 30 days febuxostat 40 mg PO DAILY fluticasone propionate 50 mcg/actuation 1 spray intranasal DAILY PRN levothyroxine 100 mcg PO DAILY losartan 50 mg PO BID menthol-zinc oxide 0.44-20.6 % (Calmoseptine) 1 appl topical QID PRN ofloxacin 0.3% 2 drps otic (ears) sitagliptin phosphate 50 mg PO DAILY 90 days tobramycin-dexamethasone 0.3-0.1 % 2 drps ophthalmic (eye) HPI HPI Comments History of Present Illness Details Pleasant 72-year-old female who is here for follow-up. She underwent LAD and circumflex PCI in the past. She has been doing well. Previously she stopped taking metoprolol because she was feeling some fluttering sensation in her chest after taking metoprolol. She had a Holter monitor which did not show any arrhythmia. She has symptoms concerning for sleep apnea. She snores at night and has daytime somnolence. We will arrange a sleep study for her. Her blood pressure in the office is elevated. She is taking losartan 50 mg once a day. No chest discomfort shortness of breath. 06/01/23: She returns for follow-up. She is complaining of dyspnea and mild chest discomfort. She is saying these symptoms started couple of weeks ago. She has no bleeding concerns. Saying she has no lung issues. [facility] Medical History Anemia in chronic kidney disease Cervical lymphadenopathy Colon cancer screening Diabetic nephropathy Diabetic polyneuropathy associated with type 2 diabetes mellitus Dyslipidemia Family history of abdominal aortic aneurysm Hypertension Hypothyroidism Numbness and tingling of right arm Obesity (BMI 30-39.9) Postmenopause Pressure in chest Shortness of breath on exertion Thyroid nodule Tubular adenoma of colon Type 2 diabetes mellitus with complication, without long-term current use of insulin Surgical History H/O partial thyroidectomy History of bronchoscopy History of cardiac cath History of cataract surgery History of colonoscopy History of esophagogastroduodenoscopy (EGD) History of sinus surgery History of total hysterectomy S/P cardiac cath S/P coronary angioplasty Status post cardiac catheterization Family History Father AAA (abdominal aortic aneurysm) Mother CVD (cardiovascular disease) Mitral prolapse History of open heart surgery Brother Gout Brother No problems noted. Daughter No problems noted. Daughter No problems noted. Social History Housing: House Patient Tobacco Use Status: Former Tobacco user Years Smoked: 50 +/- e-Cigarette/Vaping Use: Never Used Current occupational status: retired Cognitive needs: No Hearing needs: No Vision needs: Yes Review of Systems Const Denies weakness ENT Denies dizziness Card Denies chest pain, Denies chest pain with activity, Denies syncope, Denies rapid heart rate, Denies pedal edema, Denies edema, Denies leg edema, Denies lightheadedness, Denies palpitations, Denies dyspnea, Denies dyspnea on exertion and Denies orthopnea Resp Denies cough, Denies dyspnea and Denies dyspnea on exertion GI Denies hematochezia and Denies change in stool character Musc Denies abnormal gait, Denies muscle cramps, Denies muscle weakness, Denies numbness, Denies radiating pain into limb and Denies tingling Neuro Denies abnormal gait, Denies dizziness, Denies syncope, Denies numbness, Denies tingling and Denies weakness Endo Denies palpitations Physical Exam Vital Signs: Last Vital Signs Pulse 101 H 06/01/23 15:03 BP 140/90 H 06/01/23 15:03 BMI result Body Mass Index 38.5 GENERAL APPEARANCE: in no acute distress, pleasant. NECK: no carotid bruit, no jugular venous distention. SKIN: no suspicious lesions, warm and dry. HEART: no murmurs, regular rate and rhythm. LUNGS: clear to auscultation bilaterally. ABDOMEN: soft, nontender. EXTREMITIES: no edema. PERIPHERAL PULSES: equal. NEUROLOGIC: No gross deficits, AAO X 3 Office Procedures EKG Details: Sinus tachycardia 101 beats per minute, left axis deviation, cannot rule out septal infarct. [id number], Complete Assessment & Plan Assessment & Plan (1) Stable angina: Code(s): I20.8 - Other forms of angina pectoris (2) CNAALES (dyspnea on exertion): Code(s): R06.09 - Other forms of dyspnea Plan Pleasant 73 year female who is here for follow-up. She has known history of coronary artery disease for which she was referred for bypass surgery but she turned down due to her 's bath postop course and experience. After discussion she was taken for cardiac catheterization and she had staged PCI to LAD and circumflex. She also had severe RV marginal stenosis which is not a large-sized vessel and was medically treated. She did well till recently and is now returning for follow-up in complaining for dyspnea on exertion. This is her anginal equivalent. She also has some random chest discomfort. I have advised her to get some blood workup to make sure she does not have any anemia as she is more tachycardic than usual 2. Adding metoprolol 25 mg twice a day. We will arrange a stress Mibi for her. Thank you for allowing me to participate in the care of your patient. Please feel free to contact me if you have any questions. Orders: Orders Liver Panel Today I25.10 - Atherosclerotic heart disease of [place] coronary artery without angina pectoris TSH reflex Free T4 Today I25.10 - Atherosclerotic heart disease of [place] coronary artery without angina pectoris Prothrombin Time INR Today I25.10 - Atherosclerotic heart disease of [place] coronary artery without angina pectoris Complete Blood Count no Diff Today I25.10 - Atherosclerotic heart disease of [place] coronary artery without angina pectoris Cardiac Cath LT w PCI Today I20.8 - Other forms of angina pectoris CA stress test Today I20.8 - Other forms of angina pectoris NM cardiolite stress test Today I20.8 - Other forms of angina pectoris Medications: New metoprolol tartrate 25 mg PO BID 60 tabs 3RF R06.00 - Dyspnea, unspecified Coding Level of Care Code Est Pt Level 4 (75095) Diagnoses Stable angina I20.8 CANALES (dyspnea on exertion) R06.09 CPT Codes EKG - CPT: 37341-[id number], Complete ([id number])
[2023-06-01 15:03] VITALS: BP 140/90; PULSE 101; BMI 38.5
== END 2023-06-01 15:31 | disposition home or self-care (01) ==
PROVIDERS: PCP Internal Medicine; Referring Provider Internal Medicine; Visit Provider Internal Medicine Cardiovascular Disease
DX: I20.8 Other forms of angina pectoris (principal); R06.09 Other forms of dyspnea
CPT/HCPCS: 93010; 99214

== ENCOUNTER → 2023-06-01 14:59 | Outpatient (BNVA) | payer MEDICARE, BC, SELFPAY | PROVIDERS: PCP Internal Medicine; Referring Provider Internal Medicine; Visit Provider Internal Medicine Cardiovascular Disease | DX: I20.8 Other forms of angina pectoris (principal); R06.09 Other forms of dyspnea | CPT/HCPCS: 93005; 99212 ==

== ENCOUNTER 2023-06-08 09:45 | Outpatient (AMB) | payer MEDICARE, BC, SELFPAY ==
--- NOTE | 2023-06-08 10:01 | MHC.PC.OV ---
Vital Signs 06/08/23 10:02 Height 5 ft Weight 198 lb BMI 38.7 BP 120/68 Blood Pressure Location Lt radial Position Sitting Pulse 69 Pulse Source Pulse Oximeter Pulse Oximetry (%) 96 Oxygen Delivery Method Room Air Intake Visit Reasons: Annual PE Intake Note: Pt is here today for her PE Allergies allopurinol Allergy (Severe, Verified 06/08/23 10:47) Hives niacin [Niaspan Extended-Release] Adverse Reaction (Unknown, Verified 06/08/23 10:47) swelling /itching Medication List - Last Reconciled 06/08/23 by Coni Escobedo MD aspirin 81 mg PO DAILY atorvastatin 40 mg PO DAILY cholestyramine-aspartame 4 gram (Cholestyramine Light) 4 grams PO BID clobetasol 0.05% 1 appl topical DAILY PRN clopidogrel 75 mg PO DAILY 30 days febuxostat 40 mg PO DAILY fluticasone propionate 50 mcg/actuation 1 spray intranasal DAILY PRN levothyroxine 100 mcg PO DAILY losartan 50 mg PO DAILY menthol-zinc oxide 0.44-20.6 % (Calmoseptine) 1 appl topical QID PRN metoprolol tartrate 25 mg PO QPM [Nature's best 1 tab PO .qd] sitagliptin phosphate 50 mg PO DAILY 90 days Tobacco use date assessed: 06/08/23 Fall risk assessment: No Falls in past year Last assessed Fall Risk: 06/08/23 Dental Screening Dental Screen Date: 06/08/23 Did you have a dental visit in the last 12 months?: No Was dental information given to patient?: Patient declined HPI Annual PE HPI Details 73-year-old lady with osteopenia of left femoral neck, anemia of chronic disease, has coronary artery disease with diabetes mellitus, dyslipidemia, hypothyroidism, secondary hyperthyroidism, obstructive sleep apnea and history of adenomatous polyp of colon here today for her physical exam. She is up-to-date with her bone density scan done year ago, but has not yet had her mammogram since 2020. Requests to have it both scheduled for next year at the same time. Overdue for screening colonoscopy, already has been seen by GI clinic and still waiting for procedure to be scheduled.. She was recently seen by Cardiology, as she has been having some shortness of breath on exertion. She has known history of coronary artery disease for which she was referred for bypass surgery but she declined procedure . She did have cardiac catheterization and she had staged PCI to LAD and circumflex, and has severe RV marginal stenosis. She was started on metoprolol 25 mg twice a day, and is scheduled for a stress Mibi . She however decreased her dose of metoprolol to just at bedtime as she was feeling lightheaded and foggy headed when taking also the morning dose. She is currently being followed by Nephrology, for chronic kidney disease stage 3, not requiring erythropoietin yet has her last hemoglobin is above 11 g per dL. She has scattered hyperpigmented lesions on back that she would like to have checked, has not seen a treasury specialist for the last several years now. [facility] Medical History (Updated 06/12/23 @ 22:56 by Coni Escobedo MD) Skin lesion of back Osteopenia of left femoral neck Cervical lymphadenopathy Anemia in chronic kidney disease Thyroid nodule Colon cancer screening Tubular adenoma of colon Postmenopause Type 2 diabetes mellitus with complication, without long-term current use of insulin Numbness and tingling of right arm Shortness of breath on exertion Pressure in chest Family history of abdominal aortic aneurysm Obesity (BMI 30-39.9) Hypothyroidism Diabetic nephropathy Dyslipidemia Hypertension Diabetic polyneuropathy associated with type 2 diabetes mellitus Surgical History H/O partial thyroidectomy S/P coronary angioplasty Status post cardiac catheterization History of cardiac cath S/P cardiac cath History of esophagogastroduodenoscopy (EGD) History of cataract surgery History of sinus surgery History of colonoscopy History of bronchoscopy History of total hysterectomy Family History Father AAA (abdominal aortic aneurysm) Mother CVD (cardiovascular disease) Mitral prolapse History of open heart surgery Brother Gout Brother No problems noted. Daughter No problems noted. Daughter No problems noted. Social History Housing: House Patient Tobacco Use Status: Former Tobacco user Years Smoked: 50 +/- e-Cigarette/Vaping Use: Never Used Current occupational status: retired Cognitive needs: No Hearing needs: No Vision needs: Yes Questionnaire Thrive Questionnaire Date Thrive assessed: 12/24/22 ESTEFANY-7 AMB Questionnaire ESTEFANY-7 Date ESTEFANY - 7 assessed: 12/24/22 Source: Developed by Drs. Cameron Marin, Mi Santiago, Agustín Clark and colleagues, with an educational bushra from [employer]. Review of Systems Const Denies fatigue, Denies fever(s), Denies frequent falls, Denies headache(s) and Denies weakness Eyes Details: Goes to [facility] Denies change in vision ENT Denies dizziness and Denies headache(s) Card Denies chest pain, Denies syncope, Denies rapid heart rate, Denies pedal edema, Denies irregular heart rhythm, Denies lightheadedness, Denies palpitations and Denies dyspnea Resp Denies cough and Denies dyspnea GI Denies abdominal pain, Denies melena, Denies bloating, Denies hematochezia, Denies change in stool character and Denies heartburn Reports no additional complaints and Denies nipple discharge Musc Denies abnormal gait, Denies muscle weakness, Denies numbness, Denies radiating pain into limb and Denies tingling Skin/Breast Reports as per HPI, Denies breast pain, Denies breast mass and Denies nipple discharge Neuro Denies abnormal gait, Denies dizziness, Denies syncope, Denies frequent falls, Denies headache(s), Denies numbness, Denies Sensory deficit (Neuro), Denies tingling and Denies weakness Psych Reports no additional complaints Endo Denies fatigue and Denies palpitations Sanford/Lymph Reports no additional complaints Aller/Immun Reports no additional complaints Physical exam (Primary Care) Vital Signs: Last Vital Signs Pulse 69 06/08/23 10:02 BP 120/68 06/08/23 10:02 Pulse Ox 96 06/08/23 10:02 Oxygen Delivery Method Room Air 06/08/23 10:02 BMI result Body Mass Index 38.7 Tobacco/Smoking Status: Tobacco use Status Tobacco use date assessed 06/08/23 06/08/23 10:09 Patient Tobacco Use Status Former Tobacco user 06/08/23 10:09 e-Cigarette/Vaping Use Never Used 06/08/23 10:09 Thrive Assessment: Date of Thrive Assessment Date Thrive assessed 12/24/22 06/08/23 10:09 Const General: cooperative, no acute distress and alert Orientation/consciousness: patient oriented x3 HENMT Head: Yes normal to inspection and Yes normocephalic Mouth: Normal oral and palatal mucosa present, oropharynx normal and moist mucous membranes Eyes General: appearance normal, both eyes and all related structures Neck Neck: Yes full ROM and Yes no lymphadenopathy Thyroid: Thyroid normal Chest Breast/axilla palpation: normal palpation of the breasts Resp Effort & Inspection: normal respiratory effort and able to speak in complete sentences Auscultation: clear to auscultation bilaterally Cardio Rate: regular rate Rhythm: regular rhythm Heart sounds: S1 normal heart sound present and S2 normal heart sound present GI Inspection: Yes normal to inspection Palpation (GI): Soft to palpation Auscultation: normal bowel sounds General: Yes no CVA tenderness Back/Spine/Pelvis Back: no CVA tenderness and No back tenderness Skin Other: Scattered slightly raised pigmented lesion on back Neuro General: patient oriented x3, gait normal, moves all extremities, no focal motor deficits and CN's II-XI intact bilaterally Cognition (Neuro): normal cognition Gait exam (Neuro): Normal gait present Motor exam (neuro): 5/5 motor strength present throughout Sensory Exam: No Sensory deficit (Neuro) Extrem General: Yes full ROM, Yes no joint enlargement, Yes no clubbing, cyanosis or edema, Yes no calf tenderness and Yes normal gait Psych Appearance: grossly normal and well kempt Mental Status: mental status grossly normal Speech and movement: Normal speech and movement present Affect: normal affect Attitude: cooperative Thought process: Normal thought process present Results Reviewed Results Reviewed: ENTERED: 05/26/23-[address]: ORDERED: CBC Auto Diff Test Result Flag Reference Site WBC 6.3 4.8-10.8 X10*3/uL RBC 3.70 L 4.20-5.50 X10*6/uL HGB 11.5 L 12.0-16.0 g/dl HCT 35.8 L 37.0-47.0 % MCV 96.8 80.0-98.0 fL MCH 31.1 27.0-33.0 pg MCHC 32.1 31.0-35.0 g/dl RDW 14.1 11.0-16.0 % PLT 210 160-400 X10*3/uL MPV 10.4 9.4-12.3 fL Neut Pct Auto 64.6 45-73 % ImGran Pct Auto 0.3 0.0-0.4 % Lymp Pct Auto 23.6 20-40 % Nicholas Pct Auto 7.7 2-11 % Eos Pct Auto 3.2 0-4 % Baso Pct Auto 0.6 0-2 % NRBC Pct Auto 0.0 0.0-0.2 /100WBC ANC Neut Abs # 4.1 2.0-8.3 x10*3/uL ImGran Abs Auto 0.02 0.00-0.03 X10*3/uL Lymph Abs Auto 1.5 1.2-4.9 X10*3/uL Nicholas Abs Auto 0.5 0.1-1.2 X10*3/uL Eos Abs Auto 0.2 0.0-0.4 X10*3/uL Baso Abs Auto 0.0 0.0-0.2 X10*3/uL NRBC Abs Auto 0.000 0.0-0.012 X10*3/uL RUN: 06/12/23 2738 PAGE 1 [facility] [address] [place] [id number] Inspector Balance Truing: Frank [place] M.D. Specimen Inquiry Name: Doreen Barrientos Age/Sex: 73/F : 1950 Unit#: [id number] Attend Dr: Coni Escobedo MD Re05/26/23 Status: DEP REF Location: [facility] Disch: SPEC : [id number] NYLA: 05/26/23 STATUS: COMP REQ : [id number] RECD: 05/26/23-[address]: Coni Escobedo MD COMP: 05/26/23-1416 ENTERED: 05/26/23-[address]: ORDERED: AST, ALT, Lipid Panel, Vitamin D 25-OH, Free T4, TSH Test Result Flag Reference Site AST (GOT) 21 5-31 U/L Slight Hemolysis ALT (GPT) 23 0-31 U/L Triglyceride 181 H <150 mg/dL Desirable Triglyceride: less than 150 mg/dL Borderline High Triglyceride 150-199 mg/dL High Triglyceride: 200-499 mg/dL Very High Triglyceride: greater than or equal to 5OO mg/dL Cholesterol 140 <200 mg/dL Desirable Cholesterol: less than 200 mg/dL Borderline High Cholesterol: 200-239 mg/dL High Cholesterol: greater than 239 mg/dL LDL Calculated 69 <100 mg/dL Desirable LDL: less than 100 mg/dL Near Optimal/Above Optimal LDL: 110-129 mg/dL Borderline High LDL: 130-159 mg/dL High LDL: 160-189 mg/dL Very High LDL: greater than or equal to 190 mg/dL HDL 35 L >40 mg/dL Desirable HDL: greater than 40 mg/dL Note: This HDL assay may give artificially low results in patients with liver disease. Vit D 25-OH Tot 54.6 >30 ng/mL Health Based Reference Values* < 20 ng/mL Deficient 20-30 ng/mL Insufficient > 30 ng/mL Sufficient *Allan MORTON. N Engl J Med. 2007;357:266-280 Care must be taken in interpreting Vitamin D results from different laboratories and methodologies. Published data demonstrated that results from patients undergoing hemodialysis may show a negative bias when tested with various automated 25-OH vitamin D assays when compared to LC-MS/MS. When testing samples from patients whose predominant form of Vitamin D is Vitamin D2, such as patients receiving Vitamin D2 supplementation, results that are subtherapeutic should be confirmed with another method such as LC-MS/MS. Free T4 0.91 0.71-1.85 ng/dL TSH 3rd Gen. 2.10 0.32-4.0 uIU/mL TSH 3rd Generation ([facility]) Laboratory Tests 09/01/22 05/26/23 12:42 12:14 Estimat Average Glucose 137 131 Hemoglobin A1c % 6.4 6.2 H Assessment and Plan Assessment & Plan (1) Annual visit for general adult medical examination with abnormal findings: Code(s): Z00.01 - Encounter for general adult medical examination with abnormal findings Plan: Reviewed recent fasting labs with patient. Will schedule screening mammogram and bone density scan to be done next year together in November 2023. Patient awaiting an appointment to get her screening colonoscopy done. Reminded to get regular exercise , take adequate calcium from dietary sources and take her vitamin-D 3 supplement at least 2000 units daily. Reminded to get her diabetes retinopathy screening, goes to [facility]. Reminded to get her COVID booster and flu vaccine for this year, up-to-date with her pneumonia vaccination, reminded also to get vaccinated against shingles. (2) Coronary artery disease: Code(s): I25.10 - Atherosclerotic heart disease of [place] coronary artery without angina pectoris Qualifiers: Associated angina: without angina Coronary Disease-Associated Artery/Lesion type: [place] artery [place] vs. transplanted heart: [place] heart Qualified Code(s): I25.10 - Atherosclerotic heart disease of [place] coronary artery without angina pectoris Plan: Followed by cardiology, scheduled for a cardiac stress test, currently on aspirin 81 mg daily (3) CKD (chronic kidney disease): Code(s): N18.9 - Chronic kidney disease, unspecified Qualifiers: Chronic kidney disease stage: stage 3 (moderate) Chronic kidney disease stage 3 subtype: unspecified whether 3a or 3b Qualified Code(s): N18.30 - Chronic kidney disease, stage 3 unspecified Plan: Followed by Nephrology (4) Anemia in chronic kidney disease: Code(s): N18.9 - Chronic kidney disease, unspecified; D63.1 - Anemia in chronic kidney disease Qualifiers: Chronic kidney disease stage: stage 3 (moderate) Chronic kidney disease stage 3 subtype: unspecified whether 3a or 3b Qualified Code(s): N18.30 - Chronic kidney disease, stage 3 unspecified; D63.1 - Anemia in chronic kidney disease (5) Type 2 diabetes mellitus with complication, without long-term current use of insulin: Code(s): E11.8 - Type 2 diabetes mellitus with unspecified complications Plan: Recent lab results reviewed with patient, with sugar and hemoglobin A1c stable and at goal continue to check fasting blood sugar at home, maintain log and bring to next appointment for review. Reinforced diabetic diet and regular exercise with patient. Counseled regarding importance of yearly diabetes retinopathy screening. Patient advised to inspect feet daily, for any signs of injury, callus or infection. Compliance with diet and regular exercise again stressed. Blood pressure goal is less than 130/80, goal LDL is less than 100 and goal hemoglobin A1c is less than 7% (6) Hypothyroidism: Code(s): E03.9 - Hypothyroidism, unspecified Qualifiers: Hypothyroidism type: acquired Qualified Code(s): E03.9 - Hypothyroidism, unspecified Plan: Continue with levothyroxine 100 mcg taken once a day in a.m. (7) Hypertension: Code(s): I10 - Essential (primary) hypertension Qualifiers: Hypertension type: renovascular hypertension Qualified Code(s): I15.0 - Renovascular hypertension Plan: Patient has decreased her metoprolol dose to 25 mg at night, currently on losartan 50 mg daily (8) Dyslipidemia: Code(s): E78.5 - Hyperlipidemia, unspecified Plan: Reviewed recent fasting lipid profile with patient with levels within normal limits . Continue with atorvastatin 40 mg daily , in addition to adherence to low-cholesterol diet and regular exercise, at least 30 minutes 3 to 4 times a week. Advised patient to make healthy food choices, eat more fruits, vegetables, whole grains, wild caught fish and low-fat dairy. Limit amount of meat and fried or fatty food products, as well as processed foods and fast foods. (9) Osteopenia of left femoral neck: Code(s): M85.852 - Other specified disorders of bone density and structure, left thigh Plan: Scheduled another bone density scan for next year screening mammogram (10) Tubular adenoma of colon: Code(s): D12.6 - Benign neoplasm of colon, unspecified Plan: Already being followed by GI, awaiting appointment for her colonoscopy (11) Skin lesion of back: Code(s): L98.9 - Disorder of the skin and subcutaneous tissue, unspecified Plan: Referred to dermatology for further evaluation (12) Skin cancer screening: Code(s): Z12.83 - Encounter for screening for malignant neoplasm of skin Plan: Dermatology consult obtain (13) Obesity (BMI 30-39.9): Code(s): E66.9 - Obesity, unspecified Orders: Orders XR DEXA axial skeleton 11/25/23 M85.852 - Other specified disorders of bone density and structure, left thigh, Z12.31 - Encounter for screening mammogram for malignant neoplasm of breast, Z13.820 - Encounter for screening for osteoporosis, Z78.0 - Asymptomatic menopausal state Complete Blood Count Auto Diff 11/25/23 D12.6 - Benign neoplasm of colon, unspecified, D63.1 - Anemia in chronic kidney disease, E03.9 - Hypothyroidism, unspecified, E11.42 - Type 2 diabetes mellitus with diabetic polyneuropathy, E11.8 - Type 2 diabetes mellitus with unspecified complications, E66.9 - Obesity, unspecified, E78.5 - Hyperlipidemia, unspecified, I10 - Essential (primary) hypertension, I25.10 - Atherosclerotic heart disease of [place] coronary artery without angina pectoris, M85.852 - Other specified disorders of bone density and structure, left thigh, N18.9 - Chronic kidney disease, unspecified, Z78.0 - Asymptomatic menopausal state Microalbumin, Random (w Creat) 11/25/23 D12.6 - Benign neoplasm of colon, unspecified, D63.1 - Anemia in chronic kidney disease, E03.9 - Hypothyroidism, unspecified, E11.42 - Type 2 diabetes mellitus with diabetic polyneuropathy, E11.8 - Type 2 diabetes mellitus with unspecified complications, E66.9 - Obesity, unspecified, E78.5 - Hyperlipidemia, unspecified, I10 - Essential (primary) hypertension, I25.10 - Atherosclerotic heart disease of [place] coronary artery without angina pectoris, M85.852 - Other specified disorders of bone density and structure, left thigh, N18.9 - Chronic kidney disease, unspecified, Z78.0 - Asymptomatic menopausal state Aspartate Amino Transferase 11/25/23 D12.6 - Benign neoplasm of colon, unspecified, D63.1 - Anemia in chronic kidney disease, E03.9 - Hypothyroidism, unspecified, E11.42 - Type 2 diabetes mellitus with diabetic polyneuropathy, E11.8 - Type 2 diabetes mellitus with unspecified complications, E66.9 - Obesity, unspecified, E78.5 - Hyperlipidemia, unspecified, I10 - Essential (primary) hypertension, I25.10 - Atherosclerotic heart disease of [place] coronary artery without angina pectoris, M85.852 - Other specified disorders of bone density and structure, left thigh, N18.9 - Chronic kidney disease, unspecified, Z78.0 - Asymptomatic menopausal state Free T4 (Free Thyroxine) 11/25/23 D12.6 - Benign neoplasm of colon, unspecified, D63.1 - Anemia in chronic kidney disease, E03.9 - Hypothyroidism, unspecified, E11.42 - Type 2 diabetes mellitus with diabetic polyneuropathy, E11.8 - Type 2 diabetes mellitus with unspecified complications, E66.9 - Obesity, unspecified, E78.5 - Hyperlipidemia, unspecified, I10 - Essential (primary) hypertension, I25.10 - Atherosclerotic heart disease of [place] coronary artery without angina pectoris, M85.852 - Other specified disorders of bone density and structure, left thigh, N18.9 - Chronic kidney disease, unspecified, Z78.0 - Asymptomatic menopausal state MM screening mammo BI 11/25/23 M85.852 - Other specified disorders of bone density and structure, left thigh, Z12.31 - Encounter for screening mammogram for malignant neoplasm of breast, Z13.820 - Encounter for screening for osteoporosis, Z78.0 - Asymptomatic menopausal state Lipid Panel 11/25/23 D12.6 - Benign neoplasm of colon, unspecified, D63.1 - Anemia in chronic kidney disease, E03.9 - Hypothyroidism, unspecified, E11.42 - Type 2 diabetes mellitus with diabetic polyneuropathy, E11.8 - Type 2 diabetes mellitus with unspecified complications, E66.9 - Obesity, unspecified, E78.5 - Hyperlipidemia, unspecified, I10 - Essential (primary) hypertension, I25.10 - Atherosclerotic heart disease of [place] coronary artery without angina pectoris, M85.852 - Other specified disorders of bone density and structure, left thigh, N18.9 - Chronic kidney disease, unspecified, Z78.0 - Asymptomatic menopausal state Hemoglobin A1c 11/25/23 D12.6 - Benign neoplasm of colon, unspecified, D63.1 - Anemia in chronic kidney disease, E03.9 - Hypothyroidism, unspecified, E11.42 - Type 2 diabetes mellitus with diabetic polyneuropathy, E11.8 - Type 2 diabetes mellitus with unspecified complications, E66.9 - Obesity, unspecified, E78.5 - Hyperlipidemia, unspecified, I10 - Essential (primary) hypertension, I25.10 - Atherosclerotic heart disease of [place] coronary artery without angina pectoris, M85.852 - Other specified disorders of bone density and structure, left thigh, N18.9 - Chronic kidney disease, unspecified, Z78.0 - Asymptomatic menopausal state Basic Metabolic Panel Fasting 11/25/23 D12.6 - Benign neoplasm of colon, unspecified, D63.1 - Anemia in chronic kidney disease, E03.9 - Hypothyroidism, unspecified, E11.42 - Type 2 diabetes mellitus with diabetic polyneuropathy, E11.8 - Type 2 diabetes mellitus with unspecified complications, E66.9 - Obesity, unspecified, E78.5 - Hyperlipidemia, unspecified, I10 - Essential (primary) hypertension, I25.10 - Atherosclerotic heart disease of [place] coronary artery without angina pectoris, M85.852 - Other specified disorders of bone density and structure, left thigh, N18.9 - Chronic kidney disease, unspecified, Z78.0 - Asymptomatic menopausal state Alanine Aminotransferase 11/25/23 D12.6 - Benign neoplasm of colon, unspecified, D63.1 - Anemia in chronic kidney disease, E03.9 - Hypothyroidism, unspecified, E11.42 - Type 2 diabetes mellitus with diabetic polyneuropathy, E11.8 - Type 2 diabetes mellitus with unspecified complications, E66.9 - Obesity, unspecified, E78.5 - Hyperlipidemia, unspecified, I10 - Essential (primary) hypertension, I25.10 - Atherosclerotic heart disease of [place] coronary artery without angina pectoris, M85.852 - Other specified disorders of bone density and structure, left thigh, N18.9 - Chronic kidney disease, unspecified, Z78.0 - Asymptomatic menopausal state Vitamin D 25-OH Total 11/25/23 D12.6 - Benign neoplasm of colon, unspecified, D63.1 - Anemia in chronic kidney disease, E03.9 - Hypothyroidism, unspecified, E11.42 - Type 2 diabetes mellitus with diabetic polyneuropathy, E11.8 - Type 2 diabetes mellitus with unspecified complications, E66.9 - Obesity, unspecified, E78.5 - Hyperlipidemia, unspecified, I10 - Essential (primary) hypertension, I25.10 - Atherosclerotic heart disease of [place] coronary artery without angina pectoris, M85.852 - Other specified disorders of bone density and structure, left thigh, N18.9 - Chronic kidney disease, unspecified, Z78.0 - Asymptomatic menopausal state Thyroid Stimulating Hormone 11/25/23 D12.6 - Benign neoplasm of colon, unspecified, D63.1 - Anemia in chronic kidney disease, E03.9 - Hypothyroidism, unspecified, E11.42 - Type 2 diabetes mellitus with diabetic polyneuropathy, E11.8 - Type 2 diabetes mellitus with unspecified complications, E66.9 - Obesity, unspecified, E78.5 - Hyperlipidemia, unspecified, I10 - Essential (primary) hypertension, I25.10 - Atherosclerotic heart disease of [place] coronary artery without angina pectoris, M85.852 - Other specified disorders of bone density and structure, left thigh, N18.9 - Chronic kidney disease, unspecified, Z78.0 - Asymptomatic menopausal state Referrals Dermatology Referral L98.9 - Disorder of the skin and subcutaneous tissue, unspecified, Z12.83 - Encounter for screening for malignant neoplasm of skin Medications: Changed From metoprolol tartrate 25 mg PO BID 60 tabs 3RF R06.00 - Dyspnea, unspecified To metoprolol tartrate 25 mg PO QPM R06.00 - Dyspnea, unspecified From losartan 50 mg PO BID 100 tabs 3RF To losartan 50 mg PO DAILY Coding Level of Care Code Est Pt Prev Care >65y(75049) Diagnoses Annual visit for general adult medical examination with abnormal findings Z00.01 Coronary artery disease involving [place] coronary artery of [place] heart without angina pectoris I25.10 Associated angina: without angina Coronary Disease-Associated Artery/Lesion type: [place] artery [place] vs. transplanted heart: [place] heart Stage 3 chronic kidney disease, unspecified whether stage 3a or 3b CKD N18.30 Chronic kidney disease stage: stage 3 (moderate) Chronic kidney disease stage 3 subtype: unspecified whether 3a or 3b Anemia in stage 3 chronic kidney disease, unspecified whether stage 3a or 3b CKD N18.30; D63.1 Chronic kidney disease stage: stage 3 (moderate) Chronic kidney disease stage 3 subtype: unspecified whether 3a or 3b Type 2 diabetes mellitus with complication, without long-term current use of insulin E11.8 Acquired hypothyroidism E03.9 Hypothyroidism type: acquired Renovascular hypertension I15.0 Hypertension type: renovascular hypertension Dyslipidemia E78.5 Osteopenia of left femoral neck M85.852 Tubular adenoma of colon D12.6 Skin lesion of back L98.9 Skin cancer screening Z12.83 Obesity (BMI 30-39.9) E66.9
[2023-06-08 10:02] VITALS: BP 120/68; PULSE 69; O2SAT 96; BMI 38.7
== END 2023-06-08 11:11 | disposition home or self-care (01) ==
PROVIDERS: PCP Internal Medicine; Visit Provider Internal Medicine
DX: Z00.00 Encounter for general adult medical examination without abnormal findings (principal); E11.22 Type 2 diabetes mellitus with diabetic chronic kidney disease; N18.30 Chronic kidney disease, stage 3 unspecified; I15.0 Renovascular hypertension; E03.9 Hypothyroidism, unspecified; I25.10 Atherosclerotic heart disease of native coronary artery without angina pectoris; D63.1 Anemia in chronic kidney disease; E78.5 Hyperlipidemia, unspecified; M85.852 Other specified disorders of bone density and structure, left thigh; D12.6 Benign neoplasm of colon, unspecified; L98.9 Disorder of the skin and subcutaneous tissue, unspecified
CPT/HCPCS: 99397

== ENCOUNTER 2023-06-13 09:55 | Outpatient (AMB) | payer MEDICARE, BC, SELFPAY ==
--- NOTE | 2023-06-13 09:58 | MHC.OFFVIS ---
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 Pt had PSG sleep study done. The PSG sleep study result was significant for moderate to severe degree of sleep apnea with increased severity in REM sleep. The total sleep time AHI was 18/hr and REM AHI was 65/hr. There was associated hypoxemia with O2 sat below 88% for 19 min. Pt also underwent CPAP titration study, but unable to have titration study due to poor sleep with sleep efficiency was only 7%. Pt was treated for deviated septum and tried mouth guard, but not tolerated. Sleep questionnaire: Have you ever been diagnosed with a sleep disorder? Yes, SEAN. Have you ever had a sleep study in the past? Yes. Have you ever been treated for a sleep disorder? No. Do you take medications for a sleep disorder? No. Do you snore? Yes. Do you wake up gasping at night? Yes, but much less after cardiac stent done. Do you have episodes of apneas? Yes. If yes, are they witnessed? Yes. Do you have episodes of nocturnal chest pain or dyspnea? Yes, shortness of breath. Do you have difficulty initiating sleep? No. Do you have difficulty maintaining sleep? Yes. Do you wake up tired? Yes. Do you have headaches upon awakening? No. Do you wake up with dry mouth or throat? Yes. Do you have GERD? No. Do you have nocturia? 3-4 times at night. Do you have nocturnal leg cramps? No. Do you have symptoms of restless legs? No. Do you act out your dreams? No. Sleep hygiene questionnaire: What is your usual sleep routine? Usual bedtime is at 10:30 pm; Usual wake up time is at 10-11 pm . Do you take naps? Yes, 15-30 min. Is your sleep environment cool, dark, and quiet? Yes. Do you exercise? No, can't exercise due to shortness of breath. Do you take caffeine or other stimulants? One cup of coffee in the morning. Do you use electronics in bed? Not a lot. What is your work schedule? N/A. Hypersomnolence questionnaire: Do you have daytime tiredness or fatigue? Yes. Do you easily fall asleep when inactive? Yes. Have you ever had episodes of sudden weakness? No. Have you ever had episodes of sudden weakness associated with strong emotions? No. PFS Medical History (Updated 06/12/23 @ 22:56 by Coni Escobedo MD) Skin lesion of back Osteopenia of left femoral neck Cervical lymphadenopathy Anemia in chronic kidney disease Thyroid nodule Colon cancer screening Tubular adenoma of colon Postmenopause Type 2 diabetes mellitus with complication, without long-term current use of insulin Numbness and tingling of right arm Shortness of breath on exertion Pressure in chest Family history of abdominal aortic aneurysm Obesity (BMI 30-39.9) Hypothyroidism Diabetic nephropathy Dyslipidemia Hypertension Diabetic polyneuropathy associated with type 2 diabetes mellitus Surgical History H/O partial thyroidectomy S/P coronary angioplasty Status post cardiac catheterization History of cardiac cath S/P cardiac cath History of esophagogastroduodenoscopy (EGD) History of cataract surgery History of sinus surgery History of colonoscopy History of bronchoscopy History of total hysterectomy Family History (Updated 06/13/23 @ 10:03 by Shara Cintron [facility]) Father AAA (abdominal aortic aneurysm) Mother CVD (cardiovascular disease) Mitral prolapse History of open heart surgery Brother Gout Diabetes Brother No problems noted. Daughter No problems noted. Daughter No problems noted. Social History Housing: House Patient Tobacco Use Status: Former Tobacco user Years Smoked: 50 +/- e-Cigarette/Vaping Use: Never Used Current occupational status: retired Cognitive needs: No Hearing needs: No Vision needs: Yes Review of Systems Const All systems reviewed & are unremarkable except as noted in HPI and below ENT Reports Normal hearing present Neuro Reports Normal hearing present Physical Exam Vital Signs: Last Vital Signs Pulse 64 09/18/23 10:03 BP 130/78 06/13/23 10:03 Pulse Ox 97 06/13/23 10:03 Oxygen Delivery Method Room Air 06/13/23 10:03 BMI result Body Mass Index 39.3 Const General: cooperative Nutritional Appearance: obese Orientation/consciousness: patient oriented x3 Neck Neck: Yes full ROM and Yes supple Neuro General: patient oriented x3, gait normal and moves all extremities Cranial nerves: Yes Bilaterally intact EOM present, Yes Normal facial strength present, Yes Midline tongue present, Yes Symmetric palate elevation present, Yes Normal hearing present, Yes Ability to bilaterally rotate head present and Yes Ability to bilaterally elevate shoulders present Cognition (Neuro): normal cognition Motor exam (neuro): 5/5 motor strength present throughout, Pronator motor function not present and no tremor noted Psych Appearance: grossly normal Mental Status: mental status grossly normal Speech and movement: Normal speech and movement present Affect: normal affect Attitude: cooperative Thought process: Normal thought process present Assessment & Plan Assessment & Plan (1) SEAN (obstructive sleep apnea): Code(s): G47.33 - Obstructive sleep apnea (adult) (pediatric) (2) Sleep disorder breathing: Code(s): G47.30 - Sleep apnea, unspecified Plan Advised patient to start APAP [id number] to treat sleep apnea. Pt tried full face mask, but not tolerated, wants to try nasal mask. Stressed compliance, use CPAP nightly and more than 4 hrs. Will consider to refer [facility] for [facility] if she is not tolerated to CPAP. Sleep hygiene education provided. Advised patient to do daily exercise, 30 min walking daily. Wt reduction advised. Coding Level of Care Code New Pt Level 4 (50991) Diagnoses SEAN (obstructive sleep apnea) G47.33 Sleep disorder breathing G47.30
[2023-06-13 10:03] VITALS: BP 130/78; PULSE 64; O2SAT 97; BMI 39.3
== END 2023-06-13 10:45 | disposition home or self-care (01) ==
PROVIDERS: PCP Internal Medicine; Visit Provider Nurse Practitioner Family
DX: G47.33 Obstructive sleep apnea (adult) (pediatric) (principal); G47.30 Sleep apnea, unspecified
CPT/HCPCS: 99204; 99214

== ENCOUNTER → 2023-06-13 09:55 | Outpatient (BNVA) | payer MEDICARE, BC, SELFPAY | PROVIDERS: PCP Internal Medicine; Visit Provider Nurse Practitioner Family ==

== ENCOUNTER → 2023-06-28 07:55 | Outpatient (REF) | payer MEDICARE, BC, SELFPAY ==
--- NOTE | ~2023-06-28 | NM_ITS ---
Myocardial perfusion study Indication: Angina to evaluate for myocardial ischemia Technique: The patient was brought in for a Lexiscan perfusion study on 06/28/2023. Patient performed low-level exercise and was injected 0.4 mg of Lexiscan intravenously. Within a minute of injection, 30 mCi of sestamibi was given intravenously. Images were obtained using the SPECT gamma camera interlaced with the gating device. Images were obtained in supine position. Resting perfusion study was performed on 06/29/2023. Patient was administered 30 mCi of sestamibi intravenously at rest. Images were then obtained in supine position. Images obtained with and without CT attenuation. Total DLP 100 mGy-cm. Images were processed with the software and compared side to side in short axis, horizontal long axis and vertical long axis views. Findings: The stress perfusion study showed non attenuated images show moderately reduced uptake in the inferior as well as inferolateral wall of the LV myocardium. Remainder of the LV myocardium is normally perfused. Attenuation corrected images show minimally reduced uptake in the basal inferior wall infarction. Remainder of the LV myocardium normally perfused.. The gated study shows normal LV systolic function with calculated LVEF of 71%. LV cavity is normal in size. The gated study shows normal systolic wall thickening and contraction of segments. Resting study shows no change in perfusion pattern compared to stress perfusion study. Gating at rest reveals normal systolic wall motion with ejection fraction at 60%. The findings are consistent with no clear reversible defect suggestive of ischemia. Attenuation corrected images show normal perfusion.. NM/NM cardiolite stress test Impression: 1. Myocardial perfusion imaging study shows likely normal myocardial perfusion 2. Gated LVEF is 71% 3. Transient ischemic dilatation not present EKG is nondiagnostic for ischemia
--- NOTE | 2023-06-28 07:59 | CA_ITS ---
Acquisition Time: 2023-06-28 08:01:33 Total Exercise Time: 00:04:19 Test Indications: Dyspnea CP Medications: ATORVASTATIN CLOPIDOGREL FLONASE LOSARTAN LEVOTHYROXINE SILAGLIPTIN Protocol: IFRAH Max HR: 112 BPM 77% of Pred: 145 BPM Max BP: 160/070 mmHG Max Work Load: 5.6 METS Exercise stress test exercise 4 min 19 sec of Ifrah protocol achieving 71% MPHR, with severe SOB, with 2/10 chest discomfort that quickly resolved, reported of tightness in throat that resolved quickly with recovery, with isolated PACs, with normotensive response to exercise, with nondiagnoisitic EKGs due to suboptimal workload. Once patient returned to baseline test changed pharmacological stress test with Lexican injection, with mild SOB, no chest discomfort, no neck tightening, without arrhythmias, with normotensive response to injection, with nondiagnoisitic EKGs. Aminophylline 75mg IVP given to reverse Lexiscan. Nuclear images pending. Test reviewed with Dr. Quinteros. Referred By: Geoffrey Weinstein Overread By: Airam Yan
== END ==
LOC: HO.CARD 07:55
PROVIDERS: PCP Internal Medicine; Visit Provider Internal Medicine Cardiovascular Disease
DX: I20.89 Other forms of angina pectoris (principal)
CPT/HCPCS: 78452; 93017; A9500; J0280; J2785

== ENCOUNTER → 2023-06-28 07:59 | Outpatient (BNV) | payer MEDICARE, BC, SELFPAY | PROVIDERS: PCP Internal Medicine; Visit Provider Nurse Practitioner | DX: R94.31 Abnormal electrocardiogram [ECG] [EKG] (principal) | CPT/HCPCS: 78452; 93016; 93018 ==

== ENCOUNTER 2023-07-01 14:49 | Outpatient (REF) | payer MEDICARE, BC, SELFPAY | END 2023-07-01 14:50 | disposition home or self-care (01) | LOC: HO.HMGCLDS 14:49 | PROVIDERS: PCP Internal Medicine; Visit Provider Internal Medicine Cardiovascular Disease | DX: I25.119 Atherosclerotic heart disease of native coronary artery with unspecified angina pectoris (principal); E03.9 Hypothyroidism, unspecified | CPT/HCPCS: 36415; 80048; 80076; 84443; 85027; 85610 ==

== ENCOUNTER → 2023-07-06 23:59 | Outpatient (BNV) | payer MEDICARE, BC, SELFPAY | PROVIDERS: PCP Internal Medicine; Visit Provider Internal Medicine Cardiovascular Disease | DX: R93.1 Abnormal findings on diagnostic imaging of heart and coronary circulation (principal); I20.0 Unstable angina; I25.118 Atherosclerotic heart disease of native coronary artery with other forms of angina pectoris | CPT/HCPCS: 92928; 92978; 93460; 93566; 99152 ==

== ENCOUNTER 2023-07-20 13:10 | Outpatient (AMB) | payer MEDICARE, BC, SELFPAY ==
--- NOTE | 2023-07-20 13:29 | A.OFFVIS_ITS ---
Intake Vital Signs 07/20/23 13:30 Height 5 ft Weight 200 lb 2.876 oz BMI 39.1 BP 110/62 Blood Pressure Location Rt brachial Pulse 77 Intake Visit Reasons: Follow up post cardiac cath Allergies allopurinol Allergy (Severe, Verified 07/20/23 13:39) Hives niacin [Niaspan Extended-Release] Adverse Reaction (Unknown, Verified 07/20/23 13:39) swelling /itching Medication List - Last Reconciled 07/20/23 by Airam Yan NP aspirin 81 mg PO DAILY atorvastatin 40 mg PO DAILY cholestyramine-aspartame 4 gram (Cholestyramine Light) 4 grams PO BID clobetasol 0.05% 1 appl topical DAILY PRN clopidogrel 75 mg PO DAILY 30 days febuxostat 40 mg PO DAILY fluticasone propionate 50 mcg/actuation 1 spray intranasal DAILY PRN levothyroxine 100 mcg PO DAILY losartan 50 mg PO DAILY menthol-zinc oxide 0.44-20.6 % (Calmoseptine) 1 appl topical QID PRN metoprolol tartrate 25 mg PO QPM [Nature's best 1 tab PO .qd] sitagliptin phosphate 50 mg PO DAILY 90 days HPI HPI Comments History of Present Illness Details 73-year-old female presents for a post c ardiac cath follow-up. She reports her breathing has improved tremendously. She is able to do some exercises on the treadmill now without any issues. Right radial site is healing well with no bruising, tenderness and with pulses present. LMCA: ostial 30% stenosis. LAD minimal irregularities. Patent LAD stent. LCX: OM1 80% stenosis. OM3 ostium 95% stenosis.There is a previous stent on Mid CX Distal subsection. CA: mild irregularities (<30%). PCI to OM1 - [place] with 3 mm BETTY [facility] Medical History (Updated 06/12/23 @ 22:56 by Coni Escobedo MD) Skin lesion of back Osteopenia of left femoral neck Cervical lymphadenopathy Anemia in chronic kidney disease Thyroid nodule Colon cancer screening Tubular adenoma of colon Postmenopause Type 2 diabetes mellitus with complication, without long-term current use of insulin Numbness and tingling of right arm Shortness of breath on exertion Pressure in chest Family history of abdominal aortic aneurysm Obesity (BMI 30-39.9) Hypothyroidism Diabetic nephropathy Dyslipidemia Hypertension Diabetic polyneuropathy associated with type 2 diabetes mellitus Surgical History (Updated 07/20/23 @ 14:45 by Airam Yan NP) Status post cardiac catheterization H/O partial thyroidectomy S/P coronary angioplasty History of cardiac cath S/P cardiac cath History of esophagogastroduodenoscopy (EGD) History of cataract surgery History of sinus surgery History of colonoscopy History of bronchoscopy History of total hysterectomy Family History (Updated 06/13/23 @ 10:03 by Shara Cintron CMA) Father AAA (abdominal aortic aneurysm) Mother CVD (cardiovascular disease) Mitral prolapse History of open heart surgery Brother Gout Diabetes Brother No problems noted. Daughter No problems noted. Daughter No problems noted. Social History Housing: House Patient Tobacco Use Status: Former Tobacco user Years Smoked: 50 +/- e-Cigarette/Vaping Use: Never Used Current occupational status: retired Cognitive needs: No Hearing needs: No Vision needs: Yes Physical Exam Vital Signs: Last Vital Signs Pulse 77 07/20/23 13:30 BP 110/62 07/20/23 13:30 BMI result Body Mass Index 39.1 Assessment & Plan Assessment & Plan (1) Status post cardiac catheterization: Comment: 07/20/2022 left main normal, lad stent patent, left circumflex mid, distal subsection 95% stenosis, balloon angioplasty across OM 1 and OM 2 into OM3, d issection OM 3, IVUS to OM 2 and stent of OM 1 07/06/[address] [facility] [address] Loredoood: LMCA: ostial 30% stenosis. LAD minimal irregularities. Patent LAD stent. LCX: OM1 80% stenosis. OM3 ostium 95% stenosis.There is a previous stent on Mid CX Distal subsection. CA: mild irregularities (<30%). PCI to OM1 - [place] with 3 mm BETTY Code(s): Z98.890 - Other specified postprocedural states (2) CANALES (dyspnea on exertion): Code(s): R06.09 - Other forms of dyspnea Plan Start cardiac rehab. ASA 81mg indefinitely. Clopidogrel for at minimal 12 months. Heart healthy diet, exercise, and tight blood pressure control discussed in detail. Report new symptoms. Will have her return in 3 months or sooner if needed. Orders: Orders Cardiac Rehab Today Z98.890 - Other specified postprocedural states Coding Level of Care Code Est Pt Level 3 (33840) Diagnoses Status post cardiac catheterization Z98.890 CANALES (dyspnea on exertion) R06.09
[2023-07-20 13:30] VITALS: BP 110/62; PULSE 77; BMI 39.1
== END 2023-07-20 13:55 | disposition home or self-care (01) ==
PROVIDERS: PCP Internal Medicine; Visit Provider Nurse Practitioner
DX: Z98.890 Other specified postprocedural states (principal); R06.09 Other forms of dyspnea
CPT/HCPCS: 99213

== ENCOUNTER → 2023-07-20 13:10 | Outpatient (BNVA) | payer MEDICARE, BC, SELFPAY | PROVIDERS: PCP Internal Medicine; Visit Provider Nurse Practitioner | DX: R06.09 Other forms of dyspnea (principal); Z98.890 Other specified postprocedural states | CPT/HCPCS: 99212 ==

== ENCOUNTER 2023-07-25 09:44 | Outpatient (REF) | payer MEDICARE, BC, SELFPAY ==
--- NOTE | ~2023-07-25 | US_ITS ---
EXAMINATION: US SOFT TISSUE HEAD/NECK CLINICAL INFORMATION: Localized enlarged lymph nodes. Distant history of thyroid cancer. Status post right cervical lymph node biopsy negative for metastatic disease. Surveillance sonography of cervical adenopathy. COMPARISON: Ultrasound-guided thyroid biopsy 01/31/2023. Ultrasound thyroid 12/02/2022 and 12/23/2021. TECHNIQUE: Linear transducer gardner-scale and color Doppler examination of the thyroid bed and surrounding soft tissue. FINDINGS: RIGHT neck lymph nodes as follows: Level 2 borderline node, 1.1 x 0.5 x 0.6 cm. Level 3 atypical node, 0.7 x 0.6 x 0.6 cm Level 1A benign-appearing node with, 0.7 x 0.5 x 0.5 cm Level 3 atypical node, 0.5 x 0.4 x 0.5 cm. Level 3 atypical node 0.6 x 0.5 x 0.4 cm LEFT neck lymph nodes as follows: Level 2 node, 1.1 x 0.5 x 0.9 cm with borderline cortical thickening. Level 2 node, 1.1 x 0.4 x 1.0 cm with cortical thickening. Level 3 benign-appearing node, 1.0 x 0.7 x 0.5 cm. Level 4 benign-appearing node, 0.9 x 0.4 x 0.7 cm US/US soft tiss head and/or neck IMPRESSION: Multiple bilateral lymph nodes of varying complexity as detailed above. Correlation with clinical exam recommended to determine further management including additional imaging, treatment and/or biopsy. Recommend follow-up ultrasound in 3 months.
[2023-07-25 12:03] LABS: MANUAL DIFF FLAG NO
[2023-07-25 12:05] LABS: Basophils Absolute Auto 0.1 X10*3/uL (0.0-0.2); Basophils Percent Auto 0.9 % (0-2); Eosinophils Absolute Auto 0.2 X10*3/uL (0.0-0.4); Eosinophils Percent Auto 3.4 % (0-4); Hematocrit 35.2 % (37.0-47.0); Hemoglobin 11.2 g/dl (12.0-16.0); Imm Gran Abs Auto 0.01 X10*3/uL (0.00-0.03); Imm Gran Pct Auto 0.2 % (0.0-0.4); Lymphocytes Absolute Auto 1.7 X10*3/uL (1.2-4.9); Lymphocytes Percent Auto 30.3 % (20-40); Mean Corpuscular HGB Conc 31.8 g/dl (31.0-35.0); Mean Corpuscular Hemoglobin 31.5 pg (27.0-33.0); Mean Corpuscular Volume 99.2 fL (80.0-98.0); Mean Platelet Volume 10.9 fL (9.4-12.3); Monocytes Absolute Auto 0.5 X10*3/uL (0.1-1.2); Monocytes Percent Auto 9.6 % (2-11); Neutrophils Absolute Auto 3.1 x10*3/uL (2.0-8.3); Neutrophils Percent Auto 55.6 % (45-73); Platelet Count 222 X10*3/uL (160-400); Red Blood Count 3.55 X10*6/uL (4.20-5.50); Red Cell Distribution Width 14.4 % (11.0-16.0); White Blood Count 5.6 X10*3/uL (4.8-10.8)
[2023-07-25 12:44] LABS: Creatinine Urine 128.71 mg/dL; Total Protein Urine Random 90 mg/dL (<12)
[2023-07-25 12:55] LABS: Alanine Aminotransferase 22 U/L (0-31); Albumin Level 4.1 g/dL (3.5-5.0); Alkaline Phosphatase 45 U/L (39-117); Anion Gap 15 (12-20); Aspartate Amino Transferase 19 U/L (5-31); Bilirubin Total 0.5 mg/dL (0.0-1.0); Blood Urea Nitrogen 39 mg/dL (9-16); Calcium 10.7 mg/dL (8.4-10.2); Carbon Dioxide 22 mmol/L (22-29); Chloride 107 mmol/L (96-108); Estimated Glomerular Filt Rate 28; Glucose Random 99 mg/dL (60-115); Magnesium 1.9 mg/dL (1.6-2.6); Phosphorus 5.2 mg/dL (2.7-4.5); Potassium 4.7 mmol/L (3.3-5.1); Sodium 139 mmol/L (135-145); Total Protein 7.3 g/dL (6.5-8.0); Uric Acid 5.2 mg/dL (2.4-5.7)
[2023-07-25 12:56] LABS: Vitamin D 25-OH Total 59.1 ng/mL (>30)
[2023-07-26 18:08] LABS: Calcium (PTHI) 10.1 mg/dL (8.6-10.4); PTHI 53 pg/mL (16-77)
== END 2023-07-25 09:45 | disposition home or self-care (01) ==
LOC: HO.HMGCX 09:44
PROVIDERS: Absent Provider Internal Medicine Nephrology; PCP Internal Medicine; Visit Provider Surgery
DX: R59.0 Localized enlarged lymph nodes (principal); M10.9 Gout, unspecified; T39.9 Poisoning by, adverse effect of and underdosing of unspecified nonopioid analgesic, antipyretic and antirheumatic; E11.69 Type 2 diabetes mellitus with other specified complication; E11.22 Type 2 diabetes mellitus with diabetic chronic kidney disease; N18.32 Chronic kidney disease, stage 3b; I12.9 Hypertensive chronic kidney disease with stage 1 through stage 4 chronic kidney disease, or unspecified chronic kidney disease; N17.9 Acute kidney failure, unspecified
CPT/HCPCS: 36415; 76536; 80053; 82306; 82570; 83735; 83970; 84100; 84156; 84550; 85025

== ENCOUNTER 2023-08-02 10:27 | Outpatient (REF) | payer MEDICARE, BC, SELFPAY | END 2023-08-02 10:28 | disposition home or self-care (01) | LOC: HO.LNP 10:27 | PROVIDERS: PCP Internal Medicine; Visit Provider Surgery | DX: L98.9 Disorder of the skin and subcutaneous tissue, unspecified (principal); R59.0 Localized enlarged lymph nodes; Z79.899 Other long term (current) drug therapy | CPT/HCPCS: 11102; 11103; 88305; 99212 ==

== ENCOUNTER 2023-08-02 10:27 | Outpatient (AMB) | payer MEDICARE, BC, SELFPAY ==
[2023-08-02 10:35] VITALS: BP 133/63; PULSE 62; BMI 39.4
--- NOTE | 2023-08-02 10:35 | A.OFFVIS_ITS ---
Intake Vital Signs 08/02/23 10:35 Height 5 ft Weight 202 lb BMI 39.4 BP 133/63 Blood Pressure Location Rt brachial Position Sitting Pulse 62 Intake Visit Reasons: 6 mth follow up post cervical bx Intake Note: Patient here to discuss recent Head and Neck US results. US completed on 07-25-23. 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 Accompanied by: Self / Same As Patient Allergies allopurinol Allergy (Severe, Verified 08/02/23 10:37) Hives niacin [Niaspan Extended-Release] Adverse Reaction (Unknown, Verified 08/02/23 10:37) swelling /itching Medication List - Last Reconciled 08/02/23 by Keith Interiano MD aspirin 81 mg PO DAILY atorvastatin 40 mg PO DAILY cholestyramine-aspartame 4 gram (Cholestyramine Light) 4 grams PO BID clobetasol 0.05% 1 appl topical DAILY PRN clopidogrel 75 mg PO DAILY 30 days febuxostat 40 mg PO DAILY fluticasone propionate 50 mcg/actuation 1 spray intranasal DAILY PRN levothyroxine 100 mcg PO DAILY losartan 50 mg PO DAILY menthol-zinc oxide 0.44-20.6 % (Calmoseptine) 1 appl topical QID PRN metoprolol tartrate 25 mg PO QPM [Nature's best 1 tab PO .qd] sitagliptin phosphate 50 mg PO DAILY 90 days HPI HPI Comments History of Present Illness Details Patient presents 1. Follow-up for ultrasound of cervical adenopathy. 2. Chin and right neck skin lesions Patient has had a total thyroidectomy many years ago. Recent sonogram from 6 months ago demonstrated cervical adenopathy. The no biopsy was negative. Patient is currently under surveillance sonogram. Recent scan essentially the same. Current plan is to repeat sonogram in 6 months time. Chin and right neck lesions are increasing in size, become more symptomatic. Patient wishes to have them removed. [facility] Medical History Skin lesion of back Osteopenia of left femoral neck Cervical lymphadenopathy Anemia in chronic kidney disease Thyroid nodule Colon cancer screening Tubular adenoma of colon Postmenopause Type 2 diabetes mellitus with complication, without long-term current use of insulin Numbness and tingling of right arm Shortness of breath on exertion Pressure in chest Family history of abdominal aortic aneurysm Obesity (BMI 30-39.9) Hypothyroidism Diabetic nephropathy Dyslipidemia Hypertension Diabetic polyneuropathy associated with type 2 diabetes mellitus Surgical History Status post cardiac catheterization H/O partial thyroidectomy S/P coronary angioplasty History of cardiac cath S/P cardiac cath History of esophagogastroduodenoscopy (EGD) History of cataract surgery History of sinus surgery History of colonoscopy History of bronchoscopy History of total hysterectomy Family History Father AAA (abdominal aortic aneurysm) Mother CVD (cardiovascular disease) Mitral prolapse History of open heart surgery Brother Gout Diabetes Brother No problems noted. Daughter No problems noted. Daughter No problems noted. Social History Housing: House Patient Tobacco Use Status: Former Tobacco user Years Smoked: 50 +/- e-Cigarette/Vaping Use: Never Used Current occupational status: retired Cognitive needs: No Hearing needs: No Vision needs: Yes Physical Exam Vital Signs: Last Vital Signs Pulse 62 08/02/23 10:35 BP 133/63 08/02/23 10:35 BMI result Body Mass Index 39.4 HEENT Other: No obvious cervical periclavicular or axillary adenopathy. Patient has approximately 1 x 1 cm chin lesion/growth Patient has approximately 0.5 x 1 cm right neck growth/lesion Office Procedures Excision Details: Risks, benefits, alternatives of excision of chin and right neck skin lesions reviewed with the patient and included but not limited to bleeding, infection, recurrence, numbness, pain, scarring the patient was to proceed. All questions were answered. Consent was signed. After appropriate positioning, patient's chin and right neck area were prepped and draped in usual sterile fashion and infiltrated with 1% lidocaine. Tangential shave excision of the chin and neck lesion respectively were uneventfully removed. Size of lesions where as per HPI. Specimen sent to pathology. Wounds secured hemostasis with silver nitrate followed by bacitracin and sterile dressings. Patient tolerated procedure well. Procedure code (CPT) selection complete Office Meds lidocaine 1 %-epinephrine 1:100,000 injection solution Performing Provider: Keith Interiano MD Performing Location: [facility] Administered by: Keith Interiano MD on 08/02/23 11:02 Dose Route Admin Location Dispensed Lot Number Expiration Date NDC [employer] Hemmer 10 mL Infiltration 10 mL Assessment & Plan Assessment & Plan (1) Cervical lymphadenopathy: Code(s): R59.0 - Localized enlarged lymph nodes Plan: Patient have a six-month follow-up sonogram. She will see me after this. (2) Skin lesion: Code(s): L98.9 - Disorder of the skin and subcutaneous tissue, unspecified Plan: Patient has been given local instructions including bacitracin to the wounds, may shower in 1 day, and will see me approximately 2 weeks time for follow-up or p.r.n. Orders: Orders US soft tiss head and/or neck 6 Months R59.0 - Localized enlarged lymph nodes AMB Excision Today L98.9 - Disorder of the skin and subcutaneous tissue, unspecified Coding Level of Care Code Est Pt Level 5 (70644) Diagnoses Cervical lymphadenopathy R59.0 Skin lesion L98.9
== END 2023-08-02 11:01 | disposition home or self-care (01) ==
PROVIDERS: PCP Internal Medicine; Visit Provider Surgery
DX: R59.0 Localized enlarged lymph nodes (principal); L98.9 Disorder of the skin and subcutaneous tissue, unspecified
CPT/HCPCS: 11102; 11103; 99214

== ENCOUNTER 2023-08-16 11:33 | Outpatient (AMB) | payer MEDICARE, BC, SELFPAY ==
[2023-08-16 11:44] VITALS: BP 136/61; PULSE 64; BMI 39.1
--- NOTE | 2023-08-16 11:44 | MHC.OFFVIS ---
Intake Vital Signs 08/16/23 11:44 Height 5 ft Weight 200 lb BMI 39.1 BP 136/61 Blood Pressure Location Rt brachial Position Sitting Pulse 64 Intake Visit Reasons: s/p excision of 2 skin lesions, 2 wk follow up Intake Note: Patient here s/p exc on Chin and Rt neck. Reports incisions healing well. Denies bleeding, pain, itch. 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 She has no wound issues or complaints. Pathology was reviewed. [facility] Medical History Skin lesion of back Osteopenia of left femoral neck Cervical lymphadenopathy Anemia in chronic kidney disease Thyroid nodule Colon cancer screening Tubular adenoma of colon Postmenopause Type 2 diabetes mellitus with complication, without long-term current use of insulin Numbness and tingling of right arm Shortness of breath on exertion Pressure in chest Family history of abdominal aortic aneurysm Obesity (BMI 30-39.9) Hypothyroidism Diabetic nephropathy Dyslipidemia Hypertension Diabetic polyneuropathy associated with type 2 diabetes mellitus Surgical History Status post cardiac catheterization H/O partial thyroidectomy S/P coronary angioplasty History of cardiac cath S/P cardiac cath History of esophagogastroduodenoscopy (EGD) History of cataract surgery History of sinus surgery History of colonoscopy History of bronchoscopy History of total hysterectomy Family History Father AAA (abdominal aortic aneurysm) Mother CVD (cardiovascular disease) Mitral prolapse History of open heart surgery Brother Gout Diabetes Brother No problems noted. Daughter No problems noted. Daughter No problems noted. Housing: House Patient Tobacco Use Status: Former Tobacco user Years Smoked: 50 +/- e-Cigarette/Vaping Use: Never Used Second Hand Smoke Exposure: No Current occupational status: retired Cognitive needs: No Hearing needs: No Vision needs: Yes Physical Exam Vital Signs: Last Vital Signs Pulse 64 08/16/23 11:44 BP 136/61 08/16/23 11:44 BMI result Body Mass Index 39.1 HEENT Other: Both wound sites clean dry and intact healing well. Assessment & Plan Assessment & Plan (1) Skin lesion: Code(s): L98.9 - Disorder of the skin and subcutaneous tissue, unspecified Plan Patient has been given local instructions, will follow-up p.r.n.. Coding Level of Care Code Global (29941) Diagnoses Skin lesion L98.9
== END 2023-08-16 11:47 | disposition home or self-care (01) ==
PROVIDERS: PCP Internal Medicine; Visit Provider Surgery
DX: L98.9 Disorder of the skin and subcutaneous tissue, unspecified (principal)
CPT/HCPCS: 99024

== ENCOUNTER → 2023-08-16 11:33 | Outpatient (BNVA) | payer MEDICARE, BC, SELFPAY | PROVIDERS: PCP Internal Medicine; Visit Provider Surgery ==

== ENCOUNTER → 2023-10-24 14:37 | Outpatient (BNVA) | payer MEDICARE, BC, SELFPAY | PROVIDERS: PCP Internal Medicine; Visit Provider Nurse Practitioner Family | DX: I25.10 Atherosclerotic heart disease of native coronary artery without angina pectoris (principal); I15.0 Renovascular hypertension; E78.5 Hyperlipidemia, unspecified; E66.9 Obesity, unspecified; R06.00 Dyspnea, unspecified; Z98.890 Other specified postprocedural states; Z68.41 Body mass index [BMI] 40.0-44.9, adult | CPT/HCPCS: 99212 ==

== ENCOUNTER 2023-10-24 14:38 | Outpatient (AMB) | payer MEDICARE, BC, SELFPAY ==
[2023-10-24 15:43] VITALS: BP 132/60; PULSE 77; BMI 40.0
--- NOTE | 2023-10-24 15:43 | A.OFFVIS_ITS ---
Intake Vital Signs 10/24/23 15:43 Height 5 ft Weight 204 lb 9.423 oz BMI 40.0 BP 132/60 Blood Pressure Location Rt brachial Position Sitting Pulse 77 Pulse Source Pulse Oximeter Intake Visit Reasons: fu Access Services Assistant Required: No Allergies allopurinol Allergy (Severe, Verified 10/24/23 15:45) Hives niacin [Niaspan Extended-Release] Adverse Reaction (Unknown, Verified 10/24/23 15:45) swelling /itching Medication List - Last Reconciled 10/24/23 by ANAHI Douglas aspirin 81 mg PO DAILY atorvastatin 40 mg PO DAILY cholestyramine-aspartame 4 gram (Cholestyramine Light) 4 grams PO BID clobetasol 0.05% 1 appl topical DAILY PRN clopidogrel 75 mg PO DAILY 30 days febuxostat 40 mg PO DAILY fluticasone propionate 50 mcg/actuation 1 spray intranasal DAILY PRN Jardiance (empagliflozin) 10 mg PO QAM NS levothyroxine 100 mcg PO DAILY losartan 50 mg PO BID 90 days menthol-zinc oxide 0.44-20.6 % (Calmoseptine) 1 appl topical QID PRN metoprolol tartrate 25 mg PO BID 90 days [Nature's best 1 tab PO .qd] HPI fu HPI Details Doreen is a 73-year-old female past medical history of hypertension, hyperlipidemia, diabetes, obesity, chronic kidney disease, COPD, multi-vessel CAD, refused coronary artery bypass grafting, underwent PCI of the LAD and left circumflex. On recent visit she reported recurrent shortness of breath which was her anginal symptom and she had new stent placed in the 1st OM. Her shortness of breath symptom resolved. She has been attending cardiac rehab and she now presents for follow-up. Today she reports she has been feeling great overall. She denies any shortness of breath at rest or with activity. She said the last stent made a huge difference in how she feels. She has no chest discomfort with activity. When she lays on her left side she can feel an intermittent pinching sensation in her chest that goes away if she rolls over. No palpitations, lightheadedness, presyncope, syncope, PND, orthopnea or edema. Taking all meds as directed. No bleeding issues reported. Goes to cardiac rehab twice weekly and she reports tolerating it very well. [facility] Medical History Skin lesion of back Osteopenia of left femoral neck Cervical lymphadenopathy Anemia in chronic kidney disease Thyroid nodule Colon cancer screening Tubular adenoma of colon Postmenopause Type 2 diabetes mellitus with complication, without long-term current use of insulin Numbness and tingling of right arm Shortness of breath on exertion Pressure in chest Family history of abdominal aortic aneurysm Obesity (BMI 30-39.9) Hypothyroidism Diabetic nephropathy Dyslipidemia Hypertension Diabetic polyneuropathy associated with type 2 diabetes mellitus Surgical History Status post cardiac catheterization H/O partial thyroidectomy S/P coronary angioplasty History of cardiac cath S/P cardiac cath History of esophagogastroduodenoscopy (EGD) History of cataract surgery History of sinus surgery History of colonoscopy History of bronchoscopy History of total hysterectomy Family History Father AAA (abdominal aortic aneurysm) Mother CVD (cardiovascular disease) Mitral prolapse History of open heart surgery Brother Gout Diabetes Brother No problems noted. Daughter No problems noted. Daughter No problems noted. Social History Housing: House Patient Tobacco Use Status: Former Tobacco user Years Smoked: 50 +/- e-Cigarette/Vaping Use: Never Used Second Hand Smoke Exposure: No Current occupational status: retired Cognitive needs: No Hearing needs: No Vision needs: Yes Review of Systems Const All systems reviewed & are unremarkable except as noted in HPI and below ENT Denies dizziness Card Denies chest pain, Denies chest pain at rest, Denies chest pain with activity, Denies rapid heart rate, Denies pedal edema, Denies edema, Denies leg edema, Denies lightheadedness, Denies palpitations, Denies dyspnea, Denies dyspnea on exertion and Denies orthopnea Resp Denies cough, Denies dyspnea and Denies dyspnea on exertion GI Denies hematochezia and Denies change in stool character Musc Denies abnormal gait, Denies limited range of motion, Denies muscle cramps, Denies muscle weakness, Denies numbness, Denies radiating pain into limb, Denies stiffness and Denies tingling Neuro Denies abnormal gait, Denies dizziness, Denies numbness and Denies tingling Endo Denies palpitations Physical Exam Vital Signs: Last Vital Signs Pulse 77 10/24/23 15:43 BP 132/60 10/24/23 15:43 BMI result Body Mass Index 40.0 Const General: cooperative, healthy appearing, comfortable and no acute distress Orientation/consciousness: patient oriented x3 Neck Neck: Yes normal visual inspection and Yes no JVD Resp Effort & Inspection: normal respiratory effort Auscultation: clear to auscultation bilaterally, no crackles, no rales, no rhonchi and no wheezes Cardio Jugular venous distension: no JVD Rate: regular rate Rhythm: regular rhythm Heart sounds: S1 normal heart sound present, S2 normal heart sound present, no murmurs and no rubs Neuro General: patient oriented x3 Extrem General: Yes normal to inspection, No no pedal edema and No calf tenderness Psych Appearance: grossly normal Mental Status: mental status grossly normal Speech and movement: Normal speech and movement present Assessment & Plan Assessment & Plan (1) Coronary artery disease: Code(s): I25.10 - Atherosclerotic heart disease of [place] coronary artery without angina pectoris Qualifiers: Coronary Disease-Associated Artery/Lesion type: [place] artery [place] vs. transplanted heart: [place] heart Associated angina: without angina Qualified Code(s): I25.10 - Atherosclerotic heart disease of [place] coronary artery without angina pectoris Plan: Evaluated for sob with activity as part of preop cardiovascular work up for colonoscopy. Her EKG had shown sinus rhythm with evidence of prior inferior infarct, LVH. Nuclear stress test was done on 04/01/2022 with exercise 5 minutes with moderate shortness of breath and anterior chest discomfort, with EKG changes suggesting ischemia and nuclear imaging showing mild intensity distal septal and apical ischemia. Echocardiogram done 04/21/2022 showed EF 60-65%, mid inferior septal and mid anterior septal hypokinetic. She then underwent a cardiac catheterization on 05/14/2022 showing multi-vessel coronary artery disease. She was referred for Coronary artery bypass grafting and refused surgery. She was scheduled and underwent planned PCI of the LAD on 06/10/2022. She then underwent cardiac catheterization on 07/20/2022 with PCI to the left circumflex. Following each procedure she reported small amounts of hemoptysis, which may have been related to the heparin use. Shortness of breath was her anginal symptom and it did resolve. On follow-up visit a few months ago she reported recurrent shortness of breath and underwent a nuclear stress test on 06/29/2023 which showed normal myocardial perfusion imaging. With her ongoing symptoms she underwent another cardiac catheterization on 07/06/2023 showing OM 1 ostium 80% stenosis, om 3 ostium 95% stenosis, patent stents in the LAD and mid circumflex. Angioplasty done to the distal circumflex and BETTY placed to the OM1 lesion. Her shortness of breath symptom resolved. She has been attending cardiac rehab. She tells me she is feeling very well with no concerning symptoms. Continue cardiac rehab, currently attending twice weekly. Continue aspirin indefinitely. Continue Plavix uninterrupted for at least 1 year post last stent, 06/2024. Continue metoprolol, losartan and moderate dose statin with ideal LDL goal less than 70. Labs done 05/26/2023 showed LDL 69. Signs and symptoms of angina reviewed, for her it is shortness of breath. Cardiology follow-up in 4 months, sooner if needed. (2) S/P cardiac cath: Comment: 05/14/22 LM normal, LAD prox 80% stenosis, LCx prox 75%, 1st OM 70%, 3rd OM 90% stenosis, RCA 1st Ac marginal ostial 75% stenosis. Referred for CABG and she declined Code(s): Z98.890 - Other specified postprocedural states Plan: As above (3) History of cardiac cath: Comment: [place]/10/[address] [facility] [place], 80% stenosis of the mid LAD 85% stenosis of the mid circumflex, PCI of the LAD performed with balloon and cutting balloon, BETTY placed. Planning stage PCI of the left circumflex Code(s): Z98.890 - Other specified postprocedural states Plan: As above (4) Status post cardiac catheterization: Comment: 07/20/2022 left main normal, lad stent patent, left circumflex mid, distal subs ection 95% stenosis, balloon angioplasty across OM 1 and OM 2 into OM3, dissection OM 3, IVUS to OM 2 and stent of OM 1 [place] [facility] [place]: LMCA: ostial 30% stenosis. LAD minimal irregula rities. Patent LAD stent. LCX: OM1 80% stenosis. OM3 ostium 95% stenosis.There is a previous stent on Mid CX Distal subsection. RCA: mild irregularities (<30%). Angioplasty the distal left circumflex and PCI to OM1 with 3 mm BETTY Code(s): Z98.890 - Other specified postprocedural states Plan: As above (5) CANALES (dyspnea on exertion): Code(s): R06.00 - Dyspnea, unspecified Plan: Has hx of COPD and well as newer finding of obstructive CAD. She does not appear fluid overloaded. Staged PCI performed as above. She continues to report shortness of breath with activity. Will refer to pulmonology for evaluation (6) Hypertension: Code(s): I10 - Essential (primary) hypertension Qualifiers: Hypertension type: renovascular hypertension Qualified Code(s): I15.0 - Renovascular hypertension Plan: Well controlled today. Labs done 07/25/2023 showed potassium 4.7, creatinine 1.76, similar to prior values. Meds reviewed and no changes. Continue losartan and metoprolol. (7) Dyslipidemia: Code(s): E78.5 - Hyperlipidemia, unspecified Plan: LDL goal < 70 in pt with CAD. Labs done 05/26/2023 shows LDL 69. Continue atorvastatin 40mg daily (8) Obesity (BMI 30-39.9): Code(s): E66.9 - Obesity, unspecified Plan: BMI 40. Has been exercising twice weekly at cardiac rehab Plan Time spent on chart review, documentation, interview and assessment Coding Level of Care Code Est Pt Level 4 (30756) Diagnoses Coronary artery disease involving [place] coronary artery of [place] heart without angina pectoris I25.10 Coronary Disease-Associated Artery/Lesion type: [place] artery [place] vs. transplanted heart: [place] heart Associated angina: without angina S/P cardiac cath Z98.890 History of cardiac cath Z98.890 CANALES (dyspnea on exertion) R06.00 Renovascular hypertension I15.0 Hypertension type: renovascular hypertension Dyslipidemia E78.5 Obesity (BMI 30-39.9) E66.9 Time Spent (min) 28
== END 2023-10-24 16:21 | disposition home or self-care (01) ==
PROVIDERS: PCP Internal Medicine; Visit Provider Nurse Practitioner Family
DX: I25.10 Atherosclerotic heart disease of native coronary artery without angina pectoris (principal); Z98.890 Other specified postprocedural states; R06.00 Dyspnea, unspecified; I15.0 Renovascular hypertension; E78.5 Hyperlipidemia, unspecified; E66.9 Obesity, unspecified
CPT/HCPCS: 99214

== ENCOUNTER 2023-11-24 11:56 | Outpatient (REF) | payer MEDICARE, BC, SELFPAY ==
[2023-11-24 13:03] LABS: MANUAL DIFF FLAG NO
[2023-11-24 13:19] LABS: Estimated Average Glucose 134 mg/dL; Hemoglobin A1c % 6.3 % (<6.0)
[2023-11-24 13:24] LABS: Basophils Percent Auto 0.7 % (0-2); Eosinophils Absolute Auto 0.2 X10*3/uL (0.0-0.4); Eosinophils Percent Auto 4.1 % (0-4); Hematocrit 37.7 % (37.0-47.0); Hemoglobin 12.3 g/dl (12.0-16.0); Imm Gran Abs Auto 0.03 X10*3/uL (0.00-0.03); Imm Gran Pct Auto 0.5 % (0.0-0.4); Lymphocytes Absolute Auto 1.7 X10*3/uL (1.2-4.9); Lymphocytes Percent Auto 29.4 % (20-40); Mean Corpuscular HGB Conc 32.6 g/dl (31.0-35.0); Mean Corpuscular Hemoglobin 31.4 pg (27.0-33.0); Mean Corpuscular Volume 96.2 fL (80.0-98.0); Mean Platelet Volume 10.6 fL (9.4-12.3); Monocytes Absolute Auto 0.5 X10*3/uL (0.1-1.2); Neutrophils Absolute Auto 3.3 x10*3/uL (2.0-8.3); Neutrophils Percent Auto 56.3 % (45-73); Platelet Count 220 X10*3/uL (160-400); Red Blood Count 3.92 X10*6/uL (4.20-5.50); Red Cell Distribution Width 14.5 % (11.0-16.0); White Blood Count 5.9 X10*3/uL (4.8-10.8)
[2023-11-24 13:42] LABS: Anion Gap 15 (12-20); Blood Urea Nitrogen 40 mg/dL (9-16); Calcium 9.6 mg/dL (8.4-10.2); Carbon Dioxide 21 mmol/L (22-29); Chloride 109 mmol/L (96-108); Estimated Glomerular Filt Rate 26; Glucose Fasting 153 mg/dL (60-99); Potassium 4.3 mmol/L (3.3-5.1); Sodium 141 mmol/L (135-145)
[2023-11-24 13:43] LABS: Alanine Aminotransferase 22 U/L (0-31); Aspartate Amino Transferase 19 U/L (5-31); Cholesterol 138 mg/dL (<200); HDL Cholesterol 33 mg/dL (>40); LDL Cholesterol Calculated 69 mg/dL (<100); Triglycerides 182 mg/dL (<150)
[2023-11-24 13:45] LABS: Creatinine Urine 159.04 mg/dL
[2023-11-24 13:57] LABS: Microalbum/Creatinine Ratio Ur 466.5 ug/mg cr (<30)
[2023-11-24 14:00] LABS: Free T4 (Free Thyroxine) 0.97 ng/dL (0.71-1.85); Thyroid Stimulating Hormone 2.18 uIU/mL (0.32-4.0); Vitamin D 25-OH Total 46.5 ng/mL (>30)
== END 2023-11-24 11:57 | disposition home or self-care (01) ==
LOC: HO.HMGCLDS 11:56
PROVIDERS: PCP Internal Medicine; Visit Provider Internal Medicine
DX: M85.852 Other specified disorders of bone density and structure, left thigh (principal); D63.1 Anemia in chronic kidney disease; I25.10 Atherosclerotic heart disease of native coronary artery without angina pectoris; D12.6 Benign neoplasm of colon, unspecified; E03.9 Hypothyroidism, unspecified; E78.5 Hyperlipidemia, unspecified; E11.42 Type 2 diabetes mellitus with diabetic polyneuropathy; E11.22 Type 2 diabetes mellitus with diabetic chronic kidney disease; I12.9 Hypertensive chronic kidney disease with stage 1 through stage 4 chronic kidney disease, or unspecified chronic kidney disease; N18.9 Chronic kidney disease, unspecified; E66.9 Obesity, unspecified; Z78.0 Asymptomatic menopausal state
CPT/HCPCS: 36415; 80048; 80061; 82043; 82306; 82570; 83036; 84439; 84443; 84450; 84460; 85025

== ENCOUNTER 2023-12-01 12:53 | Outpatient (REF) | payer MEDICARE, BC, SELFPAY ==
--- NOTE | ~2023-12-01 | MM_ITS ---
EXAMINATION: BONE DENSITOMETRY CLINICAL INDICATION: Osteopenia of left femoral neck. COMPARISON: Previous BD dated 10/28/2021 and baseline BD dated 06/22/2007. TECHNIQUE: Using a [employer]pi[employer] DXA System (software version: 13.1) manufactured by [employer], dual-energy x-ray absorptiometry was performed of the lumbar spine and left hip. The images are of good technical quality. Summary results are attached. FINDINGS: LEFT FEMUR, NECK: Current: BMD 0.716 g/cm2, Z-score -0.9, T-score -2.3, osteopenia. Prior: BMD 0.734 g/cm2. Baseline: BMD 0.836 g/cm2. LEFT FEMUR, TOTAL: Current: BMD 0.896 g/cm2, Z-score 0.3, T-score -0.9, normal, 4.2% decrease from previous, 4.4% decrease from baseline (<5% change is not significant). Prior: BMD 0.935 g/cm2. Baseline: BMD 0.937 g/cm2. AP SPINE L1-L4: Current: BMD 1.086 g/cm2, Z-score 0.1, T-score -0.8, normal, 4.1% decrease from previous, 1.7% increase from baseline (<5% change is not significant). Prior: BMD 1.132 g/cm2. Baseline: BMD 1.068 g/cm2. IDENTIFIED RISK FACTORS: Bilateral oophorectomy, hysterectomy, low calcium intake, osteoporosis, renal, rheumatoid arthritis, secondary osteoporosis (early menopause, chronic liver disease, Type 1 diabetes and hyperparathyroidism). HISTORY OF FRACTURE: None listed. MEDICATIONS: Vitamin D. MM/XR DEXA axial skeleton IMPRESSION: 1. DIAGNOSIS: Osteopenia based on the lowest T-score value of -2.3 in the femoral neck applying World Health Organization criteria. 2. 10-YEAR FRACTURE RISK PREDICTION, FRAX: Major osteoporotic fracture (clinical spine, forearm, hip or shoulder) 10.6%. Hip fracture 3.2%. 3. Treatment Recommendations: NOF guidelines recommend consideration for treatment in postmenopausal women and men age 50 and older presenting with the following: -A hip or vertebral (clinical or morphometric) fracture. -T-score less than or equal to -2.5 at the femoral neck or spine after appropriate evaluation to exclude secondary causes. -Low bone mass at the hip or spine and a 10-year fracture probability by FRAX of greater than or equal to 3% for hip fracture or greater than or equal to 20% for major osteoporotic fracture based on the [place] adapted WHO algorithm. 4. Other Recommendations: All treatment decisions require clinical judgment and consideration of individual patient factors, including patient preferences, comorbidities, previous drug use, risk factors not captured in the FRAX model (e.g. frailty, falls, vitamin D deficiency, increased bone turnover, interval significant decline in bone density) and possible under or overestimation of fracture risk by FRAX. Additional medical evaluation for secondary cause of low bone mineral density may be appropriate. FUTURE SCAN RECOMMENDATION: People with diagnosed cases of osteoporosis or at high risk for fracture should have regular bone mineral density tests. For patients eligible for Medicare, routine testing is allowed once every 2 years. The testing frequency can be increased to one year for patients who have rapidly progressing disease, those who are receiving or discontinuing medical therapy to restore bone mass, or have additional risk factors.
== END 2023-12-01 12:54 | disposition home or self-care (01) ==
LOC: HO.MAMMO 12:53
PROVIDERS: PCP Internal Medicine; Visit Provider Internal Medicine
DX: Z12.31 Encounter for screening mammogram for malignant neoplasm of breast (principal); Z13.820 Encounter for screening for osteoporosis; Z78.0 Asymptomatic menopausal state; M85.852 Other specified disorders of bone density and structure, left thigh
CPT/HCPCS: 77063; 77067; 77080

== ENCOUNTER → 2023-12-01 13:30 | Outpatient (BNV) | payer MEDICARE, BC, SELFPAY | PROVIDERS: PCP Internal Medicine; Visit Provider Radiology Diagnostic Radiology | DX: Z12.31 Encounter for screening mammogram for malignant neoplasm of breast (principal) | CPT/HCPCS: 77063; 77067 ==

== ENCOUNTER 2023-12-07 10:33 | Outpatient (AMB) | payer MEDICARE, BC, SELFPAY ==
--- NOTE | 2023-12-07 10:49 | A.OFFPC_ITS ---
Vital Signs 12/07/23 11:01 Height 5 ft Weight 203 lb BMI 39.6 BP 102/62 Blood Pressure Location Lt brachial Position Sitting Pulse 60 Pulse Source Pulse Oximeter Pulse Oximetry (%) 96 Oxygen Delivery Method Room Air Intake Visit Reasons: 6 month follow up Intake Note: Pt is here today for her 6 mo. f/u Allergies allopurinol Allergy (Severe, Verified 12/07/23 21:56) Hives niacin [Niaspan Extended-Release] Adverse Reaction (Unknown, Verified 12/07/23 21:56) swelling /itching Medication List - Last Reconciled 12/07/23 by Coni Escobedo MD aspirin 81 mg PO DAILY atorvastatin 40 mg PO DAILY cholestyramine-aspartame 4 gram (Cholestyramine Light) 4 grams PO BID clobetasol 0.05% 1 appl topical DAILY PRN clopidogrel 75 mg PO DAILY 90 days febuxostat 40 mg PO DAILY fluticasone propionate 50 mcg/actuation 1 spray intranasal DAILY PRN glipizide 2.5 mg PO QPM Jardiance (empagliflozin) 10 mg PO QAM NS levothyroxine 100 mcg PO DAILY losartan 50 mg PO DAILY menthol-zinc oxide 0.44-20.6 % (Calmoseptine) 1 appl topical QID PRN metoprolol tartrate 25 mg PO BID 90 days [Nature's best 1 tab PO .qd] Tobacco use date assessed: 08/15/23 Fall risk assessment: No Falls in past year Last assessed Fall Risk: 12/07/23 Dental Screening Dental Screen Date: 12/07/23 Did you have a dental visit in the last 12 months?: No Was dental information given to patient?: Patient declined HPI 6 month follow up HPI Details 73 year old lady with history of hypert ension, hyperlipidemia, diabetes, obesity, chronic kidney disease, COPD, multi-vessel CAD, refused coronary artery bypass grafting, underwent PCI of the LAD and left circumflex. and had a recent stent placed in the 1st OM. here today for her follow up She has been feeling well, had no further episodes of shortness of breath, no chest pain or lightheadedness. She has been attending cardiac rehab twice weekly. Recent fasting labs done showed hemoglobin A1c at 6.3%, fasting lipids are within normal limits except for mildly elevated triglycerides, CBC within normal limits, renal function stable, and electrolytes are within normal limits. She also has been having tightness and pinching sensation under right ribcage whenever she bends forward and gets relief only when she raises her right hand , she also has a umbilical hernia which she wants to get checked.Has had this hernia now for several years and seems to be getting bigger, and causing discomfort whenever she bends forward [facility] Medical History Hernia, umbilical Skin lesion of back Osteopenia of left femoral neck Cervical lymphadenopathy Anemia in chronic kidney disease Thyroid nodule Colon cancer screening Tubular adenoma of colon Postmenopause Type 2 diabetes mellitus with complication, without long-term current use of insulin Numbness and tingling of right arm Shortness of breath on exertion Pressure in chest Family history of abdominal aortic aneurysm Obesity (BMI 30-39.9) Hypothyroidism Diabetic nephropathy Dyslipidemia Hypertension Diabetic polyneuropathy associated with type 2 diabetes mellitus Surgical History Status post cardiac catheterization H/O partial thyroidectomy S/P coronary angioplasty History of cardiac cath S/P cardiac cath History of esophagogastroduodenoscopy (EGD) History of cataract surgery History of sinus surgery History of colonoscopy History of bronchoscopy History of total hysterectomy Family History Father AAA (abdominal aortic aneurysm) Mother CVD (cardiovascular disease) Mitral prolapse History of open heart surgery Brother Gout Diabetes Brother No problems noted. Daughter No problems noted. Daughter No problems noted. Social History Housing: House Patient Tobacco Use Status: Former Tobacco user Years Smoked: 50 +/- e-Cigarette/Vaping Use: Never Used Second Hand Smoke Exposure: No Current occupational status: retired Cognitive needs: No Hearing needs: No Vision needs: Yes Questionnaire PHQ-9 Over the last 2 weeks, how often have you been bothered by any of the following problems? 1. Little interest or pleasure in doing things: not at all 2. Feeling down, depressed, or hopeless: not at all 3. Trouble falling or staying asleep, or sleeping too much: several days 4. Feeling tired or having little energy: several days 5. Poor appetite or overeating: several days 6. Feeling bad about yourself - or that you are a failure or have let yourself or your family down: not at all 7. Trouble concentrating on things, such as reading the newspaper or watching television: not at all 8. Moving or speaking so slowly that other people could have noticed. Or the opposite - being so fidgety or restless that you have been moving around a lot more than usual: not at all 9. Thoughts that you would be better off or of hurting yourself in some way: not at all Total score: 3 Depression Screening Interpretation: Negative Depression Screening Done: Yes 67487 - PHQ-9 Billing: Yes Source: Developed by Drs. Cameron Marin, Mi Santiago, Agustín Clark and colleagues, with an educational bushra from [employer]. Thrive Questionnaire Date Thrive assessed: 12/07/23 I am a: Patient What is your living situation today?: I have a steady place to live Within the past 12 months, did the food you bought not last and you didn't have the money to get more?: Never true Within the past 12 months, did you worry whether your food would run out before you got money to buy more?: Never true Do you have trouble paying for medicines?: No Do you have trouble getting transportation to medical appointments?: No Do you have trouble paying your heating and electricity bill?: No Do you have trouble taking care of your child, family member or friend?: No Do you have trouble with day-to-day activities such as bathing, preparing meals, shopping, managing finances, etc.?: No Are you currently unemployed and looking for a job?: No Are you interested in more education?: Yes THRIVE Score: 0 AUDIT C Alcohol Use Questionnaire (AUDIT-C) 1. How often do you have a drink containing alcohol?: Never Total Score: 0 ESTEFANY-7 AMB Questionnaire ESTEFANY-7 Date ESTEFANY - 7 assessed: 12/07/23 Feeling nervous, anxious, or on edge: 1 = Several days Not being able to stop or control worryin = Several days Worrying too much about different things: 1 = Several days Trouble relaxin = Not at all Being so restless that it is hard to sit still: 0 = Not at all Becoming easily annoyed or irritable: 1 = Several days Feeling afraid as if something awful might happen: 0 = Not at all Total ESTEFANY-7 score (0-4 normal; 5-9 mild; 10-14 moderate; 15-21 severe): 4 Source: Developed by Drs. Cameron Marin, Mi Santiago, Agustín Clark and colleagues, with an educational bushra from [employer]. ESTEFANY-7 Assessment Billing ESTEFANY-7 Assessment Tool: ESTEFANY-7 Assessment 98510 Review of Systems Eyes Denies change in vision ENT Denies dizziness Card Denies chest pain at rest, Denies chest pain with activity, Denies pedal edema, Denies lightheadedness, Denies dyspnea and Denies dyspnea on exertion Resp Denies cough, Denies dyspnea and Denies dyspnea on exertion GI Details: Umbilical hernia , fluctuant mass subcostal area on right, nontender to palpation Denies abdominal pain, Denies change in bowel habits, Denies change in stool character and Denies heartburn Reports no additional complaints Musc Reports no additional complaints, Denies abnormal gait, Denies numbness and Denies tingling Neuro Denies abnormal gait, Denies dizziness, Denies numbness, Denies Sensory deficit (Neuro) and Denies tingling Endo Reports no additional complaints Sanford/Lymph Reports no additional complaints Physical exam (Primary Care) Vital Signs: Last Vital Signs Pulse 60 12/07/23 11:01 BP 102/62 12/07/23 11:01 Pulse Ox 96 12/07/23 11:01 Oxygen Delivery Method Room Air 12/07/23 11:01 BMI result Body Mass Index 39.6 Tobacco/Smoking Status: Tobacco use Status Tobacco use date assessed 08/15/23 12/07/23 10:55 Patient Tobacco Use Status Former Tobacco user 12/07/23 10:55 e-Cigarette/Vaping Use Never Used 12/07/23 10:55 PHQ-9: PHQ-9 Score PHQ-9: Total score 8 12/07/23 22:12 Depression Screening Interpretation: Negative Thrive Assessment: Date of Thrive Assessment Date Thrive assessed 12/07/23 12/07/23 11:08 Const General: no acute distress and alert Orientation/consciousness: patient oriented x3 HENMT Head: Yes normocephalic Mouth: Normal oral and palatal mucosa present, oropharynx normal and moist mucous membranes Eyes General: appearance normal, both eyes and all related structures Neck Neck: Yes full ROM and Yes no lymphadenopathy Thyroid: Thyroid normal Resp Effort & Inspection: normal respiratory effort and able to speak in complete sentences Auscultation: clear to auscultation bilaterally Cardio Rate: regular rate Rhythm: regular rhythm Heart sounds: S1 normal heart sound present and S2 normal heart sound present GI Other: fluctuant mass subcostal area on right, nontender to palpation Inspection: Yes normal to inspection Palpation (GI): Soft to palpation, nontender, no guarding and Hernia present umbilical Auscultation: normal bowel sounds General: Yes no CVA tenderness Back/Spine/Pelvis Back: no CVA tenderness and No back tenderness Skin Other: Scattered slightly raised pigmented lesion on back Neuro General: patient oriented x3, gait normal, moves all extremities, no focal motor deficits and CN's II-XI intact bilaterally Cognition (Neuro): normal cognition Gait exam (Neuro): Normal gait present Motor exam (neuro): 5/5 motor strength present throughout Sensory Exam: No Sensory deficit (Neuro) Extrem General: Yes full ROM, Yes no joint enlargement, Yes no clubbing, cyanosis or edema, Yes no calf tenderness and Yes normal gait Results Reviewed Results Reviewed: ENTERED: 11/24/23-1201 WILLOW BARONE: ORDERED: CBC Auto Diff Test Result Flag Reference WBC 5.9 4.8-10.8 X10*3/uL RBC 3.92 L 4.20-5.50 X10*6/uL HGB 12.3 12.0-16.0 g/dl HCT 37.7 37.0-47.0 % MCV 96.2 80.0-98.0 fL MCH 31.4 27.0-33.0 pg MCHC 32.6 31.0-35.0 g/dl RDW 14.5 11.0-16.0 % PLT 220 160-400 X10*3/uL MPV 10.6 9.4-12.3 fL Neut Pct Auto 56.3 45-73 % ImGran Pct Auto 0.5 H 0.0-0.4 % Lymp Pct Auto 29.4 20-40 % [place] Pct Auto 9.0 2-11 % Eos Pct Auto 4.1 H 0-4 % Baso Pct Auto 0.7 0-2 % NRBC Pct Auto 0.0 0.0-0.2 /100WBC ANC Neut Abs # 3.3 2.0-8.3 x10*3/uL ImGran Abs Auto 0.03 0.00-0.03 X10*3/uL Lymph Abs Auto 1.7 1.2-4.9 X10*3/uL [place] Abs Auto 0.5 0.1-1.2 X10*3/uL Eos Abs Auto 0.2 0.0-0.4 X10*3/uL Baso Abs Auto 0.0 0.0-0.2 X10*3/uL NRBC Abs Auto 0.000 0.0-0.012 X10*3/uL ENTERED: 11/24/23-1201 OTHR BARONE: ORDERED: Met Prof Fast, AST, ALT, Lipid Panel, Vitamin D 25-OH, Free T4, TSH Test Result Flag Reference Sodium 141 135-145 mmol/L Potassium 4.3 3.3-5.1 mmol/L CL 109 H 96-108 mmol/L CO2 21 L 22-29 mmol/L Gap 15 12-20 BUN 40 H 9-16 mg/dL Creat 1.86 H 0.5-1.4 mg/dL EGFR 26 NOTE: For -[place] individuals, multiply the result by 1.210. Chronic Kidney Disease: Estimated GFR < 60 mL/min/1.73m2 Severe Kidney Disease: Estimated GFR < 15 mL/min/1.73m2 FBS 153 H 60-99 mg/dL A fasting glucose of 126 mg/dl or greater on more than one occasion is considered diagnostic of diabetes. CA 9.6 # 8.4-10.2 mg/dL AST (GOT) 19 5-31 U/L ALT (GPT) 22 0-31 U/L Triglyceride 182 H <150 mg/dL Desirable Triglyceride: less than 150 mg/dL Borderline High Triglyceride 150-199 mg/dL High Triglyceride: 200-499 mg/dL Very High Triglyceride: greater than or equal to 5OO mg/dL Cholesterol 138 <200 mg/dL Desirable Cholesterol: less than 200 mg/dL Borderline High Cholesterol: 200-239 mg/dL High Cholesterol: greater than 239 mg/dL LDL Calculated 69 <100 mg/dL Desirable LDL: less than 100 mg/dL Near Optimal/Above Optimal LDL: 110-129 mg/dL Borderline High LDL: 130-159 mg/dL High LDL: 160-189 mg/dL Very High LDL: greater than or equal to 190 mg/dL HDL 33 L >40 mg/dL Desirable HDL: greater than 40 mg/dL Note: This HDL assay may give artificially low results in patients with liver disease. Vit D 25-OH Tot 46.5 >30 ng/mL Health Based Reference Values* < 20 ng/mL Deficient 20-30 ng/mL Insufficient > 30 ng/mL Sufficient *Allan MORTON. N Engl J Med. 2007;357:266-280 Care must be taken in interpreting Vitamin D results from different laboratories and methodologies. Published data demonstrated that results from patients undergoing hemodialysis may show a negative bias when tested with various automated 25-OH vitamin D assays when compared to LC-MS/MS. When testing samples from patients whose predominant form of Vitamin D is Vitamin D2, such as patients receiving Vitamin D2 supplementation, results that are subtherapeutic should be confirmed with another method such as LC-MS/MS. Free T4 0.97 0.71-1.85 ng/dL TSH 3rd Gen. 2.18 0.32-4.0 uIU/mL TSH 3rd Generation ([facility]) Laboratory Tests 05/26/23 07/25/23 11/24/23 12:14 09:55 12:01 Estimat Average Glucose 131 134 Hemoglobin A1c % 6.2 H 6.3 H AST 19 ALT 22 Assessment and Plan Assessment & Plan (1) Hernia, umbilical: Code(s): K42.9 - Umbilical hernia without obstruction or gangrene Qualifiers: Obstruction and gangrene presence: without obstruction or gangrene Qualified Code(s): K42.9 - Umbilical hernia without obstruction or gangrene Plan: General surgery consult request (2) Type 2 diabetes mellitus with complication, without long-term current use of insulin: Code(s): E11.8 - Type 2 diabetes mellitus with unspecified complications Plan: Recent lab results reviewed with patient, with sugar and hemoglobin A1c stable and at goal . Continue with glipizide but dose decreased to 2.5 mg in the evening and continue with Jardiance, Reinforced diabetic diet and regular exercise with patient. Counseled regarding importance of yearly diabetes retinopathy screening. Patient advised to inspect feet daily, for any signs of injury, callus or infection. Compliance with diet and regular exercise again stressed. Blood pressure goal is less than 130/80, goal LDL is less than 100 and goal hemoglobin A1c is less than 7% follow-up appointment made in-6--months, after fasting labs done. (3) Hypothyroidism: Code(s): E03.9 - Hypothyroidism, unspecified Qualifiers: Hypothyroidism type: acquired Qualified Code(s): E03.9 - Hypothyroidism, unspecified Plan: Last thyroid function test levels are within normal limits, continued on current dose of levothyroxine 100 mcg daily in a.m. (4) Dyslipidemia: Code(s): E78.5 - Hyperlipidemia, unspecified Plan: Reviewed recent fasting lipid profile with patient with levels within normal limits except for elevated triglycerides. . Continue with atorvastatin 40 mg daily , in addition to adherence to low-cholesterol diet and regular exercise, at least 30 minutes 3 to 4 times a week. Advised patient to make healthy food c hoices, eat more fruits, vegetables, whole grains, wild caught fish and low-fat dairy. Limit amount of meat and fried or fatty food products, as well as processed foods and fast foods. Follow-up scheduled with repeat fasting lipid panel in 6 months. Orders: Orders Hemoglobin A1c 05/27/24 E03.9 - Hypothyroidism, unspecified, E11.8 - Type 2 diabetes mellitus with unspecified complications, E78.5 - Hyperlipidemia, unspecified, I25.10 - Atherosclerotic heart disease of [place] coronary artery without angina pectoris, M85.852 - Other specified disorders of bone density and structure, left thigh Lipid Panel 05/27/24 E03.9 - Hypothyroidism, unspecified, E11.8 - Type 2 diabetes mellitus with unspecified complications, E78.5 - Hyperlipidemia, unspecified, I25.10 - Atherosclerotic heart disease of [place] coronary artery without angina pectoris, M85.852 - Other specified disorders of bone density and structure, left thigh Microalbumin, Random (w Creat) 05/27/24 E03.9 - Hypothyroidism, unspecified, E11.8 - Type 2 diabetes mellitus with unspecified complications, E78.5 - Hyperlipidemia, unspecified, I25.10 - Atherosclerotic heart disease of [place] coronary artery without angina pectoris, M85.852 - Other specified disorders of bone density and structure, left thigh Free T4 (Free Thyroxine) 05/27/24 E03.9 - Hypothyroidism, unspecified, E11.8 - Type 2 diabetes mellitus with unspecified complications, E78.5 - Hyperlipidemia, unspecified, I25.10 - Atherosclerotic heart disease of [place] coronary artery without angina pectoris, M85.852 - Other specified disorders of bone density and structure, left thigh Alanine Aminotransferase 05/27/24 E03.9 - Hypothyroidism, unspecified, E11.8 - Type 2 diabetes mellitus with unspecified complications, E78.5 - Hyperlipidemia, unspecified, I25.10 - Atherosclerotic heart disease of [place] coronary artery without angina pectoris, M85.852 - Other specified disorders of bone density and structure, left thigh Complete Blood Count Auto Diff 05/27/24 E03.9 - Hypothyroidism, unspecified, E11.8 - Type 2 diabetes mellitus with unspecified complications, E78.5 - Hyperlipidemia, unspecified, I25.10 - Atherosclerotic heart disease of [place] coronary artery without angina pectoris, M85.852 - Other specified disorders of bone density and structure, left thigh Basic Metabolic Panel Fasting 05/27/24 E03.9 - Hypothyroidism, unspecified, E11.8 - Type 2 diabetes mellitus with unspecified complications, E78.5 - Hyperlipidemia, unspecified, I25.10 - Atherosclerotic heart disease of [place] coronary artery without angina pectoris, M85.852 - Other specified disorders of bone density and structure, left thigh Thyroid Stimulating Hormone 05/27/24 E03.9 - Hypothyroidism, unspecified, E11.8 - Type 2 diabetes mellitus with unspecified complications, E78.5 - Hyperlipidemia, unspecified, I25.10 - Atherosclerotic heart disease of [place] coronary artery without angina pectoris, M85.852 - Other specified disorders of bone density and structure, left thigh Vitamin D 25-OH Total 05/27/24 E03.9 - Hypothyroidism, unspecified, E11.8 - Type 2 diabetes mellitus with unspecified complications, E78.5 - Hyperlipidemia, unspecified, I25.10 - Atherosclerotic heart disease of [place] coronary artery without angina pectoris, M85.852 - Other specified disorders of bone density and structure, left thigh Aspartate Amino Transferase 05/27/24 E03.9 - Hypothyroidism, unspecified, E11.8 - Type 2 diabetes mellitus with unspecified complications, E78.5 - Hyperlipidemia, unspecified, I25.10 - Atherosclerotic heart disease of [place] coronary artery without angina pectoris, M85.852 - Other specified disorders of bone density and structure, left thigh Referrals General Surgery Referral K42.9 - Umbilical hernia without obstruction or gangrene Medications: New glipizide 2.5 mg PO QPM 90 tabs 1RF Coding Level of Care Code Est Pt Level 4 (50731) Diagnoses Umbilical hernia without obstruction and without gangrene K42.9 Obstruction and gangrene presence: without obstruction or gangrene Type 2 diabetes mellitus with complication, without long-term current use of insulin E11.8 Acquired hypothyroidism E03.9 Hypothyroidism type: acquired Dyslipidemia E78.5 Additional Codes ESTEFANY-7 Assessment Billing - ESTEFANY-7 Assessment Tool: ESTEFANY-7 Assessment [id number] ([id number])
[2023-12-07 11:01] VITALS: BP 102/62; PULSE 60; O2SAT 96; BMI 39.6
== END 2023-12-07 11:59 | disposition home or self-care (01) ==
PROVIDERS: PCP Internal Medicine; Visit Provider Internal Medicine
DX: K42.9 Umbilical hernia without obstruction or gangrene (principal); E11.8 Type 2 diabetes mellitus with unspecified complications; E03.9 Hypothyroidism, unspecified; E78.5 Hyperlipidemia, unspecified
CPT/HCPCS: 99214

== ENCOUNTER 2024-01-31 11:08 | Outpatient (REF) | payer MEDICARE, BC, SELFPAY ==
--- NOTE | ~2024-01-31 | US_ITS ---
EXAMINATION: US THYROID CLINICAL INFORMATION: Localized enlarged lymph nodes. Status post thyroidectomy. Follow up cervical adenopathy. Right thyroidectomy 1975. Right lymph node benign biopsy 01/31/2023, within normal limits per history provided. History of thyroid malignancy. COMPARISON: Ultrasound soft tissue head/neck 07/25/2023. Ultrasound-guided lymph node biopsy 01/31/2023. Thyroid ultrasound 12/02/2022. TECHNIQUE: Linear transducer grayscale and color Doppler examination with attention to the region of the thyroid. FINDINGS: SIZE: Measurements of the solitary left lobe and nodules are given in sagittal, anteroposterior and transverse dimensions respectively. Right Thyroid Lobe: Surgically absent. Left Thyroid Lobe: Please note that the isthmus and left thyroid lobe were difficult to visualize and were not visualized with certainty. The structure felt to represent the left thyroid lobe measures 2.5 x 0.7 x 0.9 cm, volume 0.82 mL. Previously 2.9 x 0.6 x 1.0 cm, volume 0.92 mL. Parenchyma: The gland echotexture is heterogeneous. Thyroid vascularity is normal. Isthmus: None visualized. No suspicious thyroid nodule is seen. NODES: 1. Left Level (area of thyroid): 1.1 x 0.4 x 0.7 cm. Previous: Not documented, new. There is a 1.1 x 0.4 x 0.7 cm anechoic structure with irregular margins in the left cervical region at level C6, possibly representing abnormal lymph nodes, versus complex fluid collection versus complex cystic lesion. This could also be related to residual thyroid. 2. Right Level (area of thyroid): 0.8 x 0.4 x 0.6 cm. Previous: Not documented, new. Wider than tall, well-circumscribed margins with echogenic hilum and thin cortex characteristic of a lymph node. 3. Right Level (area of thyroid): 0.8 x 0.4 x 0.4 cm. Previous: Not documented, new. Heterogeneous, possibly atypical lymph node with vascularity. 4. Right Level II: 0.9 x 0.5 x 0.5 cm. Previous: Not documented, new. Normal roberto architecture. 5. Right Level III: 1.0 x 0.4 x 0.8 cm. Previous: 1.1 x 0.5 x 0.6 cm. Hypoechoic, well-circumscribed margins, no discrete echogenic hilum appreciated. Internal vascularity. 6. Right Level IV: 1.1 x 0.6 x 0.5 cm. Previous: 0.7 x 0.5 x 0.6 cm. Hypoechoic, well-circumscribed margins, no demonstrable echogenic hilum, internal vascularity. 7. Left Level II: 1.3 x 0.4 x 0.5 cm. Previous: 0.9 x 0.4 x 0.7 cm. Echogenic hilum, normal roberto architecture. 8. Left Level II: 1.6 x 0.6 x 1.6 cm. Previous: 1.1 x 0.5 x 0.9 cm. Echogenic hilum, prominent cortex. 9. Left Level III: 1.0 x 0.4 x 1.0 cm. Previous: 1.1 x 0.4 x 1.0 cm. Echogenic hilum, prominent, borderline thickened cortex. 10. Left Level IV: 1.1 x 0.6 x 0.6 cm. Previous: 1.0 x 0.7 x 0.5 cm. Echogenic hilum with borderline thickened cortex, well circumscribed margins. US/US thyroid IMPRESSION: Multiple bilateral cervical lymph nodes, some of which were not previously identified, some atypical as detailed above. Correlation with clinical exam recommended to determine further management including possible correlation with PET/CT, MR or tissue sampling. ACR TI-RADS RECOMMENDATION REFERENCE: Ultrasound-guided fine-needle aspiration, followup ultrasound, no further follow up. * TR1 (0 point) and TR2 (2 points): No FNA or follow up. * TR3 (3 points): FNA if more than or equal to 2.5 cm in maximum dimension, followup ultrasound in 1, 3 and 5 years if 1.5 to 2.4 cm in maximum dimension. * TR4 (4-6 points): FNA if more than or equal to 1.5 cm in maximum dimension, followup ultrasound in 1, 2, 3 and 5 years if 1 to 1.4 cm in maximum dimension. * TR5 (more than or equal to 7 points): FNA if more than or equal to 1 cm in maximum dimension, followup ultrasound every year for 5 years if 0.5 to 0.9 cm in maximum dimension. * TR3, TR4 or TR5 nodules that are below the size threshold for followup receive no follow up.
[2024-01-31 13:10] LABS: MANUAL DIFF FLAG NO
[2024-01-31 13:32] LABS: Basophils Percent Auto 0.6 % (0-2); Eosinophils Absolute Auto 0.2 X10*3/uL (0.0-0.4); Eosinophils Percent Auto 3.4 % (0-4); Hematocrit 36.8 % (37.0-47.0); Hemoglobin 11.8 g/dl (12.0-16.0); Imm Gran Abs Auto 0.02 X10*3/uL (0.00-0.03); Imm Gran Pct Auto 0.4 % (0.0-0.4); Lymphocytes Absolute Auto 1.6 X10*3/uL (1.2-4.9); Lymphocytes Percent Auto 30.2 % (20-40); Mean Corpuscular HGB Conc 32.1 g/dl (31.0-35.0); Mean Corpuscular Hemoglobin 31.1 pg (27.0-33.0); Mean Corpuscular Volume 96.8 fL (80.0-98.0); Monocytes Absolute Auto 0.5 X10*3/uL (0.1-1.2); Monocytes Percent Auto 9.2 % (2-11); Neutrophils Percent Auto 56.2 % (45-73); Platelet Count 205 X10*3/uL (160-400); Red Cell Distribution Width 13.8 % (11.0-16.0); White Blood Count 5.2 X10*3/uL (4.8-10.8)
[2024-01-31 13:59] LABS: Alanine Aminotransferase 25 U/L (0-31); Albumin Level 4.1 g/dL (3.5-5.0); Alkaline Phosphatase 46 U/L (39-117); Anion Gap 16 (12-20); Aspartate Amino Transferase 23 U/L (5-31); Bilirubin Total 0.6 mg/dL (0.0-1.0); Blood Urea Nitrogen 43 mg/dL (9-16); Calcium 9.9 mg/dL (8.4-10.2); Carbon Dioxide 19 mmol/L (22-29); Chloride 108 mmol/L (96-108); Estimated Glomerular Filt Rate 28; Glucose Random 137 mg/dL (60-115); Magnesium 2.2 mg/dL (1.6-2.6); Potassium 4.3 mmol/L (3.3-5.1); Sodium 139 mmol/L (135-145); Total Protein 7.2 g/dL (6.5-8.0)
[2024-01-31 14:16] LABS: Vitamin D 25-OH Total 47.2 ng/mL (>30)
[2024-01-31 14:17] LABS: Parathyroid Hormone Intact 250.3 pg/mL (8.7-77.1)
[2024-01-31 14:21] LABS: Creatinine Urine 188.52 mg/dL; Protein/Creatinine Ratio, Ur 0.59 (<0.2); Total Protein Urine Random 111 mg/dL (<12)
== END 2024-01-31 11:09 | disposition home or self-care (01) ==
LOC: HO.HMGCX 11:08
PROVIDERS: PCP Internal Medicine; Referring Provider Internal Medicine Nephrology; Visit Provider Surgery
DX: I12.9 Hypertensive chronic kidney disease with stage 1 through stage 4 chronic kidney disease, or unspecified chronic kidney disease (principal); E11.22 Type 2 diabetes mellitus with diabetic chronic kidney disease; N18.32 Chronic kidney disease, stage 3b; M10.9 Gout, unspecified; I38 Endocarditis, valve unspecified; N25.0 Renal osteodystrophy; N17.9 Acute kidney failure, unspecified; T39.9 Poisoning by, adverse effect of and underdosing of unspecified nonopioid analgesic, antipyretic and antirheumatic
CPT/HCPCS: 36415; 76536; 80053; 82306; 82570; 83735; 83970; 84100; 84156; 84550; 85025

== ENCOUNTER 2024-02-08 11:53 | Outpatient (AMB) | payer MEDICARE, BC, SELFPAY ==
[2024-02-08 11:57] VITALS: BP 120/64; PULSE 65; BMI 39.3
--- NOTE | 2024-02-08 11:57 | MHC.OFFVIS ---
Vital Signs 02/08/24 11:57 Height 5 ft Weight 201 lb 8.04 oz BMI 39.3 BP 120/64 Blood Pressure Location Lt brachial Position Sitting Pulse 65 Intake Visit Reasons: 4 mth fu (rs) Intake Note: t states that she its doing fine just feel some needles and pins coming down her left arm. 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 She underwent LAD and circumflex PCI in the past. She has been doing well. Previously she stopped taking metoprolol because she was feeling some fluttering sensation in her chest after taking metoprolol. She had a Holter monitor which did not show any arrhythmia. She has symptoms concerning for sleep apnea. She snores at night and has daytime somnolence. We will arrange a sleep study for her. Her blood pressure in the office is elevated. She is taking losartan 50 mg once a day. No chest discomfort shortness of breath. 06/01/23: She returns for follow-up. She is complaining of dyspnea and mild chest discomfort. She is saying these symptoms started couple of weeks ago. She has no bleeding concerns. Saying she has no lung issues. 02/08/24: She returns for follow-up. She had OM-1 PCI in June 2023. She said her dyspnea improved significantly after that. She has been doing cardiac rehabilitation and trying to exercise more frequently. Her breathing has been stable. She is getting some noncardiac left-sided sharp chest pains off and on. These happen when she is laying on her left side at night. She was reassured. [facility] Medical History Hernia, umbilical Skin lesion of back Osteopenia of left femoral neck Cervical lymphadenopathy Anemia in chronic kidney disease Thyroid nodule Colon cancer screening Tubular adenoma of colon Postmenopause Type 2 diabetes mellitus with complication, without long-term current use of insulin Numbness and tingling of right arm Shortness of breath on exertion Pressure in chest Family history of abdominal aortic aneurysm Obesity (BMI 30-39.9) Hypothyroidism Diabetic nephropathy Dyslipidemia Hypertension Diabetic polyneuropathy associated with type 2 diabetes mellitus Surgical History Status post cardiac catheterization H/O partial thyroidectomy S/P coronary angioplasty History of cardiac cath S/P cardiac cath History of esophagogastroduodenoscopy (EGD) History of cataract surgery History of sinus surgery History of colonoscopy History of bronchoscopy History of total hysterectomy Family History (Reviewed 02/08/24 @ 12:00 by Sully Gould [facility]) Father AAA (abdominal aortic aneurysm) Mother CVD (cardiovascular disease) Mitral prolapse History of open heart surgery Brother Gout Diabetes Brother No problems noted. Daughter No problems noted. Daughter No problems noted. Social History (Reviewed 02/08/24 @ 12:00 by Sully Gould [facility]) Housing: House Patient Tobacco Use Status: Former Tobacco user Years Smoked: 50 +/- e-Cigarette/Vaping Use: Never Used Second Hand Smoke Exposure: No Current occupational status: retired Cognitive needs: No Hearing needs: No Vision needs: Yes Physical Exam Vital Signs: Last Vital Signs Pulse 65 02/08/24 11:57 BP 120/64 02/08/24 11:57 BMI result Body Mass Index 39.3 GENERAL APPEARANCE: in no acute distress, pleasant. NECK: no carotid bruit, no jugular venous distention. SKIN: no suspicious lesions, warm and dry. HEART: no murmurs, regular rate and rhythm. LUNGS: clear to auscultation bilaterally. ABDOMEN: soft, nontender. EXTREMITIES: no edema. PERIPHERAL PULSES: equal. NEUROLOGIC: No gross deficits, AAO X 3 Office Procedures EKG Details: Sinus rhythm 65 beats per minute, left axis deviation, septal infarct, QTC 445 milliseconds. [id number], Complete Assessment & Plan Assessment & Plan (1) Stable angina: Code(s): I20.8 - Other forms of angina pectoris Category: Medical (2) Coronary artery disease: Code(s): I25.10 - Atherosclerotic heart disease of [place] coronary artery without angina pectoris Category: Medical Qualifiers: Coronary Disease-Associated Artery/Lesion type: [place] artery [place] vs. transplanted heart: k[place] heart Associated angina: without angina Qualified Code(s): I25.10 - Atherosclerotic heart disease of [place] coronary artery without angina pectoris (3) Hypertension: Code(s): I10 - Essential (primary) hypertension Category: Medical Qualifiers: Hypertension type: renovascular hypertension Qualified Code(s): I15.0 - Renovascular hypertension Plan Very pleasant 73 year female who is here for follow-up. She has history of multivessel disease and was referred to bypass surgery but she refused surgery and underwent PCI. She is done well with angioplasty and has been feeling much better. She has non cardiac left-sided sharp chest pains. She was reassured that no further workup is required. She is on aspirin Plavix and these should be continued for now. After June 2024 we can have a discussion whether we should stop aspirin and leave her on Plavix monotherapy. Same medications for now. Blood pressure well controlled. Follow-up in few months. Thank you for allowing me to participate in the care of your patient. Please feel free to contact me if you have any questions. Coding Level of Care Code Est Pt Level 4 (50681) Diagnoses Stable angina I20.8 Coronary artery disease involving kiana coronary artery of k[place] heart without angina pectoris I25.10 Coronary Disease-Associated Artery/Lesion type: [place] artery [place] vs. transplanted heart: [place] heart Associated angina: without angina Renovascular hypertension I15.0 Hypertension type: renovascular hypertension CPT Codes EKG - CPT: 15726-[id number], Complete ([id number])
== END 2024-02-08 12:19 | disposition home or self-care (01) ==
PROVIDERS: PCP Internal Medicine; Visit Provider Internal Medicine Cardiovascular Disease
DX: I25.118 Atherosclerotic heart disease of native coronary artery with other forms of angina pectoris (principal); I15.0 Renovascular hypertension; Z98.61 Coronary angioplasty status
CPT/HCPCS: 93010; 99214

== ENCOUNTER → 2024-02-08 11:53 | Outpatient (BNVA) | payer MEDICARE, BC, SELFPAY | PROVIDERS: PCP Internal Medicine; Visit Provider Internal Medicine Cardiovascular Disease | DX: I25.118 Atherosclerotic heart disease of native coronary artery with other forms of angina pectoris (principal); I15.0 Renovascular hypertension; Z98.61 Coronary angioplasty status; Z98.890 Other specified postprocedural states | CPT/HCPCS: 93005; 99212 ==

== ENCOUNTER 2024-02-27 11:31 | Outpatient (AMB) | payer MEDICARE, BC, SELFPAY ==
[2024-02-27 11:36] VITALS: BP 172/79; PULSE 68; BMI 39.1
--- NOTE | 2024-02-27 11:36 | A.OFFVIS_ITS ---
Vital Signs 02/27/24 11:36 Height 5 ft Weight 200 lb BMI 39.1 BP 172/79 H Blood Pressure Location Rt radial Position Sitting Pulse 68 Intake Visit Reasons: Cervical adenopathy, 6m f/u Intake Note: Patient here for 6m cervical adenopathy f/u. Would like to discuss recent thyroid US on 01-31-24. Patient c/o: reports no changes or concerns. Note: PCP Dr. Escobedo referred for umbilical hernia on November 2023. 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 Accompanied by: Self / Same As Patient Allergies allopurinol Allergy (Severe, Verified 02/27/24 11:37) Hives niacin [Niaspan Extended-Release] Adverse Reaction (Unknown, Verified 02/27/24 11:37) swelling /itching Medication List - Last Reconciled 02/27/24 by Keith Interiano MD aspirin 81 mg PO DAILY atorvastatin 40 mg PO DAILY cholestyramine-aspartame 4 gram (Cholestyramine Light) 4 grams PO BID clobetasol 0.05% 1 appl topical DAILY PRN clopidogrel 75 mg PO DAILY 90 days febuxostat 40 mg PO DAILY fluticasone propionate 50 mcg/actuation 1 spray intranasal DAILY PRN glipizide 2.5 mg PO QPM Jardiance (empagliflozin) 10 mg PO QAM NS levothyroxine 100 mcg PO DAILY losartan 50 mg PO DAILY menthol-zinc oxide 0.44-20.6 % (Calmoseptine) 1 appl topical QID PRN metoprolol tartrate 25 mg PO BID 90 days [Nature's best 1 tab PO .qd] HPI Comments Details: Patient presents 1. Follow-up of her cervical adenopathy 2. Question of a hiatal hernia 3. Symptomatic umbilical hernia 1. Follow-up sonogram demonstrates slight increase in the patient's adenopathy. She herself has not noticed any lumps or swelling. She denies any fever, chills, night sweats, weight loss. She has had 1 of these nose biopsy a pproximately a year ago and was benign. Patient thinks she has a hiatal hernia. She complains of retrosternal pain and discomfort especially with certain movements. She thinks her stomach is flip ping on itself. This has been going on for several months time. Several years ago, patient had a laparoscopic cholecystectomy and now has a symptomatic umbilical hernia at the port site. She is otherwise tolerating her diet having regular bowel habits. [facility] Medical History Hernia, umbilical Skin lesion of back Osteopenia of left femoral neck Cervical lymphadenopathy Anemia in chronic kidney disease Thyroid nodule Colon cancer screening Tubular adenoma of colon Postmenopause Type 2 diabetes mellitus with complication, without long-term current use of insulin Numbness and tingling of right arm Shortness of breath on exertion Pressure in chest Family history of abdominal aortic aneurysm Obesity (BMI 30-39.9) Hypothyroidism Diabetic nephropathy Dyslipidemia Hypertension Diabetic polyneuropathy associated with type 2 diabetes mellitus Surgical History Status post cardiac catheterization H/O partial thyroidectomy S/P coronary angioplasty History of cardiac cath S/P cardiac cath History of esophagogastroduodenoscopy (EGD) History of cataract surgery History of sinus surgery History of colonoscopy History of bronchoscopy History of total hysterectomy Family History Father AAA (abdominal aortic aneurysm) Mother CVD (cardiovascular disease) Mitral prolapse History of open heart surgery Brother Gout Diabetes Brother No problems noted. Daughter No problems noted. Daughter No problems noted. Social History Housing: House Patient Tobacco Use Status: Former Tobacco user Years Smoked: 50 +/- e-Cigarette/Vaping Use: Never Used Second Hand Smoke Exposure: No Current occupational status: retired Cognitive needs: No Hearing needs: No Vision needs: Yes Physical Exam Vital Signs: Last Vital Signs Pulse 68 02/27/24 11:36 BP 172/79 H 02/27/24 11:36 BMI result Body Mass Index 39.1 Neck Other: Thyroid scar well healed. No obvious cervical periclavicular axillary or groin adenopathy appreciated. GI Other: Patient was examined both supine and standing with Valsalva. She has a proximally 3 cm irreducible incisional/umbilical hernia. Abdomen is very corpulent and otherwise benign. Assessment & Plan Assessment & Plan (1) Hernia, umbilical: Code(s): K42.9 - Umbilical hernia without obstruction or gangrene Category: Surgical Qualifiers: Obstruction and gangrene presence: without obstruction or gangrene Qualified Code(s): K42.9 - Umbilical hernia without obstruction or gangrene (2) Cervical lymphadenopathy: Code(s): R59.0 - Localized enlarged lymph nodes Category: Surgical (3) Hiatal hernia: Code(s): K44.9 - Diaphragmatic hernia without obstruction or gangrene Category: Surgical Plan Current plan is 1. To obtain a CT scan of the chest to rule out a hiatal hernia/gastric volvulus. 2. Patient will be referred to her ENT physician whom she sees twice a year regarding her cervical adenopathy. 3. Umbilical hernia will be on standby for now until the other issues have resolved. Patient will see me after the CT scan. All questions answered. Orders: Orders CT chest wo/w IV con Today K44.9 - Diaphragmatic hernia without obstruction or gangrene Coding Level of Care Code Est Pt Level 5 (58274) Diagnoses Umbilical hernia without obstruction and without gangrene K42.9 Obstruction and gangrene presence: without obstruction or gangrene Cervical lymphadenopathy R59.0 Hiatal hernia K44.9
== END 2024-02-27 11:45 | disposition home or self-care (01) ==
PROVIDERS: PCP Internal Medicine; Visit Provider Surgery
DX: K42.9 Umbilical hernia without obstruction or gangrene (principal); R59.0 Localized enlarged lymph nodes; K44.9 Diaphragmatic hernia without obstruction or gangrene
CPT/HCPCS: 99213

== ENCOUNTER → 2024-02-27 11:31 | Outpatient (BNVA) | payer MEDICARE, BC, SELFPAY | PROVIDERS: PCP Internal Medicine; Visit Provider Surgery | DX: R59.0 Localized enlarged lymph nodes (principal); K44.9 Diaphragmatic hernia without obstruction or gangrene; K42.9 Umbilical hernia without obstruction or gangrene; Z90.49 Acquired absence of other specified parts of digestive tract | CPT/HCPCS: 99212 ==

== ENCOUNTER 2024-05-08 08:45 | Outpatient (REF) | payer MEDICARE, BC, SELFPAY ==
--- NOTE | ~2024-05-08 | CT_ITS ---
EXAMINATION: CT CHEST WITHOUT CONTRAST CLINICAL INFORMATION: Diaphragmatic hernia without obstruction or gangrene COMPARISON: CT chest 07/07/2022 TECHNIQUE: Multidetector volumetric CT imaging of the chest was done. Axial MIP volume rendering provided. Sagittal and coronal reformatted images were obtained. This CT examination was performed using dose optimization techniques as appropriate, variously including the following: *Automated exposure control *Adjustment of mA and/or kV according to patient size (this includes techniques or standardized protocols for targeted exams where dose is matched to indication/reason for exam; i.e. extremities or head) *Use of iterative reconstruction technique DLP: 158 mGy-cm FINDINGS: LUNGS: Central airways are patent. Dependent groundglass opacities in bilateral lower lobes likely relating to atelectasis. Linear atelectasis in the inferior lingula. No focal consolidation. No suspicious pulmonary nodule. MEDIASTINUM: Heart is normal in size. No pericardial effusion. Stable 1.7 cm in short axis precarinal lymph node with preserved fatty hilum which is likely reactive. Stable 1.4 cm in short axis left lower paratracheal lymph node. Additional small mediastinal lymph nodes which are not pathologic by size criteria. Aberrant right subclavian artery. Stable mild dilation of descending thoracic aorta measuring up to 3 cm. Scattered aortic calcifications. CORONARY ARTERY CALCIFICATION: Coronary artery calcifications versus stents. PLEURA: There is no pleural effusion. No pleural mass or thickening. AXILLA: No lymphadenopathy. UPPER ABDOMEN: No adrenal nodules. Partially visualized simple left renal cortical cysts for which no dedicated follow-up imaging is required. Cholecystectomy clips. OSSEOUS STRUCTURES: No acute or suspicious osseous abnormality. Mild degenerative changes of the spine. CT/CT chest wo IV con IMPRESSION: Lingular and bibasilar atelectasis/scarring, similar to prior exam .No focal consolidation or suspicious pulmonary nodule. Electronically signed by: Bob Borges MD 05/21/2024 12:12 PM EDT
== END 2024-05-08 08:46 | disposition home or self-care (01) ==
LOC: HO.CT 08:45
PROVIDERS: PCP Internal Medicine; Visit Provider Surgery
DX: K44.9 Diaphragmatic hernia without obstruction or gangrene (principal)
CPT/HCPCS: 71250

== ENCOUNTER 2024-05-30 07:46 | Outpatient (AMB) | payer MEDICARE, BC, SELFPAY ==
--- NOTE | 2024-05-30 07:58 | A.OFFVIS_ITS ---
Intake Visit Reasons: s/p 05/08/24 CT scan Intake Note: Patient scheduled to discuss recent Chest CT scan on 05-08-2024 results. Patient scheduled with ENT Ashley Mena on 06-04-2024. 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 Her umbilical hernia has increased in size and become more symptomatic. Her upper GI symptoms have markedly improved in the meantime. [facility] Medical History Hernia, umbilical Skin lesion of back Osteopenia of left femoral neck Cervical lymphadenopathy Anemia in chronic kidney disease Thyroid nodule Colon cancer screening Tubular adenoma of colon Postmenopause Type 2 diabetes mellitus with complication, without long-term current use of insulin Numbness and tingling of right arm Shortness of breath on exertion Pressure in chest Family history of abdominal aortic aneurysm Obesity (BMI 30-39.9) Hypothyroidism Diabetic nephropathy Dyslipidemia Hypertension Diabetic polyneuropathy associated with type 2 diabetes mellitus Surgical History Status post cardiac catheterization H/O partial thyroidectomy S/P coronary angioplasty History of cardiac cath S/P cardiac cath History of esophagogastroduodenoscopy (EGD) History of cataract surgery History of sinus surgery History of colonoscopy History of bronchoscopy History of total hysterectomy Family History Father AAA (abdominal aortic aneurysm) Mother CVD (cardiovascular disease) Mitral prolapse History of open heart surgery Brother Gout Diabetes Brother No problems noted. Daughter No problems noted. Daughter No problems noted. Social History Housing: House Patient Tobacco Use Status: Former Tobacco user Years Smoked: 50 +/- e-Cigarette/Vaping Use: Never Used Second Hand Smoke Exposure: No Current occupational status: retired Cognitive needs: No Hearing needs: No Vision needs: Yes Physical Exam Chest Other: Chest sounds bilaterally, HS 1 in 2 GI Other: Patient was examined both supine and standing with Valsalva. Corpulent abdomen. Proximally 3 cm reducible umbilical hernia. Assessment & Plan Assessment & Plan (1) Hernia, umbilical: Code(s): K42.9 - Umbilical hernia without obstruction or gangrene Category: Surgical Qualifiers: Obstruction and gangrene presence: without obstruction or gangrene Qualified Code(s): K42.9 - Umbilical hernia without obstruction or gangrene Plan Patient would like to undergo umbilical hernia repair. Risks, benefits, alternatives of procedure of open umbilical hernia repair with mesh were reviewed with the patient and included but not limited to bleeding, infection, recurrence, numbness, pain, scarring, bowel injury and the patient wishes to proceed. Arrangements were made for this. Patient is on Plavix and she is a proximally 1 year out status post coronary stenting. Office will touch base with Cardiology regarding holding Plavix. Coding Level of Care Code Est Pt Level 5 (85345) Diagnoses Umbilical hernia without obstruction and without gangrene K42.9 Obstruction and gangrene presence: without obstruction or gangrene
== END 2024-05-30 07:56 | disposition home or self-care (01) ==
PROVIDERS: PCP Internal Medicine; Visit Provider Surgery
DX: K42.9 Umbilical hernia without obstruction or gangrene (principal)
CPT/HCPCS: 99214

== ENCOUNTER → 2024-05-30 07:46 | Outpatient (BNVA) | payer MEDICARE, BC, SELFPAY | PROVIDERS: PCP Internal Medicine; Visit Provider Surgery | DX: K42.9 Umbilical hernia without obstruction or gangrene (principal) | CPT/HCPCS: 99212 ==

== ENCOUNTER 2024-06-13 12:27 | Outpatient (AMB) | payer MEDICARE, BC, SELFPAY ==
[2024-06-13 12:44] VITALS: BP 140/64; PULSE 58; BMI 38.9
--- NOTE | 2024-06-13 12:44 | MHC.OFFVIS ---
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 Accompanied by: Self / Same As Patient Allergies allopurinol Allergy (Severe, Verified 05/30/24 07:58) Hives niacin [Niaspan Extended-Release] Adverse Reaction (Unknown, Verified 05/30/24 07:58) swelling /itching Medication List - Last Reconciled 06/13/24 by Geoffrey Weinstein MD aspirin 81 mg PO DAILY atorvastatin 40 mg PO DAILY cholestyramine-aspartame 4 gram (Cholestyramine Light) 4 grams PO BID clobetasol 0.05% 1 appl topical DAILY PRN clopidogrel 75 mg PO DAILY 90 days febuxostat 40 mg PO DAILY fluticasone propionate 50 mcg/actuation 1 spray intranasal DAILY PRN glipizide 2.5 mg PO QPM Jardiance (empagliflozin) 10 mg PO QAM NS levothyroxine 100 mcg PO DAILY losartan 50 mg PO DAILY menthol-zinc oxide 0.44-20.6 % (Calmoseptine) 1 appl topical QID PRN metoprolol tartrate 25 mg PO BID 90 days [Nature's best 1 tab PO .qd] HPI Comments Details: Pleasant 74-year-old female who is here for follow-up. She underwent LAD and circumflex PCI in the past. She has been doing well. Previously she stopped taking metoprolol because she was feeling some fluttering sensation in her chest after taking metoprolol. She had a Holter monitor which did not show any arrhythmia. She has symptoms concerning for sleep apnea. She snores at night and has daytime somnolence. We will arrange a sleep study for her. Her blood pressure in the office is elevated. She is taking losartan 50 mg once a day. No chest discomfort shortness of breath. 06/01/23: She returns for follow-up. She is complaining of dyspnea and mild chest discomfort. She is saying these symptoms started couple of weeks ago. She has no bleeding concerns. Saying she has no lung issues. 02/08/24: She returns for follow-up. She had OM-1 PCI in June 2023. She said her dyspnea improved significantly after that. She has been doing cardiac rehabilitation and trying to exercise more frequently. Her breathing has been stable. She is getting some noncardiac left-sided sharp chest pains off and on. These happen when she is laying on her left side at night. She was reassured. 06/13/2024: She returns for follow-up. She continues to get needle prick like sensation in the left side of the chest which happens when she is laying on her left side. She was reassured that this is not cardiac pain. She will be completing 1 year of her PCI in June. We discussed about dual antiplatelet therapy pros and cons. We have decided to proceed with single antiplatelet agent as we go forward. She needs a umbilical hernia repair by surgery. She will discuss this in more detail with surgery to make her decision about proceeding or not. [facility] Medical History Hernia, umbilical Skin lesion of back Osteopenia of left femoral neck Cervical lymphadenopathy Anemia in chronic kidney disease Thyroid nodule Colon cancer screening Tubular adenoma of colon Postmenopause Type 2 diabetes mellitus with complication, without long-term current use of insulin Numbness and tingling of right arm Shortness of breath on exertion Pressure in chest Family history of abdominal aortic aneurysm Obesity (BMI 30-39.9) Hypothyroidism Diabetic nephropathy Dyslipidemia Hypertension Diabetic polyneuropathy associated with type 2 diabetes mellitus Surgical History Hernia, umbilical Cervical lymphadenopathy Status post cardiac catheterization H/O partial thyroidectomy S/P coronary angioplasty History of cardiac cath S/P cardiac cath History of esophagogastroduodenoscopy (EGD) History of cataract surgery History of sinus surgery History of colonoscopy History of bronchoscopy History of total hysterectomy Family History Father AAA (abdominal aortic aneurysm) Mother CVD (cardiovascular disease) Mitral prolapse History of open heart surgery Brother Gout Diabetes Brother No problems noted. Daughter No problems noted. Daughter No problems noted. Social History Housing: House Patient Tobacco Use Status: Former Tobacco user Years Smoked: 50 +/- e-Cigarette/Vaping Use: Never Used Second Hand Smoke Exposure: No Current occupational status: retired Cognitive needs: No Hearing needs: No Vision needs: Yes Review of Systems Const Denies chills, Denies fatigue, Denies fever(s), Denies frequent falls, Denies weakness, Denies weight gain and Denies weight loss ENT Denies dizziness Card Denies chest pain, Denies leg edema, Denies lightheadedness, Denies palpitations, Denies dyspnea and Denies dyspnea on exertion Resp Denies cough, Denies dyspnea and Denies dyspnea on exertion GI Denies hematochezia Musc Denies abnormal gait, Denies muscle weakness, Denies numbness, Denies radiating pain into limb and Denies tingling Neuro Denies abnormal gait, Denies dizziness, Denies frequent falls, Denies numbness, Denies tingling and Denies weakness Endo Denies fatigue and Denies palpitations Physical Exam Vital Signs: Last Vital Signs Pulse 58 06/13/24 12:44 BP 140/64 H 06/13/24 12:44 BMI result Body Mass Index 38.9 GENERAL APPEARANCE: in no acute distress, pleasant. NECK: no carotid bruit, no jugular venous distention. SKIN: no suspicious lesions, warm and dry. HEART: no murmurs, regular rate and rhythm. LUNGS: clear to auscultation bilaterally. ABDOMEN: soft, nontender. EXTREMITIES: no edema. PERIPHERAL PULSES: equal. NEUROLOGIC: No gross deficits, AAO X 3 Office Procedures EKG Details: Sinus bradycardia 58 beats per minute, left axis deviation, poor R-wave progression-can not rule out anterior infarct, QTC 453 milliseconds. [id number], Complete Assessment & Plan Assessment & Plan (1) Stable angina: Code(s): I20.8 - Other forms of angina pectoris Category: Medical (2) Preop cardiovascular exam: Code(s): Z01.810 - Encounter for preprocedural cardiovascular examination Category: Medical Plan Pleasant 74 year female who is here for follow-up. She has history of coronary artery disease and underwent multivessel PCI because she refused bypass surgery. Her last PCI was on 07/06/2023. She will be completing 1 year next month and is on dual antiplatelet therapy. We discussed about long-term dual antiplatelet therapy and the pros and cons. She has bruising on her arms she is concerned about. I told her that we can stop 1 of the antiplatelet agents. If she plans to go forward with hernia surgery then I would stop the Plavix in June and continue aspirin and she will be operated while taking aspirin due to her significant coronary disease history and multiple stents. She is intermediate risk for perioperative complications. On the other hand if she wishes to not undergo hernia surgery then in June our advise stopping the aspirin and continue Plavix monotherapy. I have explained to her that ultimately my plan for her will be to keep her on Plavix monotherapy. Thank Coding Level of Care Code Est Pt Level 4 (38203) Diagnoses Stable angina I20.8 Preop cardiovascular exam Z01.810 CPT Codes EKG - CPT: 39814-[id number], Complete ([id number])
== END 2024-06-13 13:18 | disposition home or self-care (01) ==
PROVIDERS: PCP Internal Medicine; Visit Provider Internal Medicine Cardiovascular Disease
DX: I20.89 Other forms of angina pectoris (principal); Z01.810 Encounter for preprocedural cardiovascular examination
CPT/HCPCS: 93010; 99214

== ENCOUNTER 2024-06-13 13:51 | Outpatient (REF) | payer MEDICARE, BC, SELFPAY ==
[2024-06-13 16:15] LABS: MANUAL DIFF FLAG NO
[2024-06-13 16:20] LABS: Basophils Percent Auto 0.7 % (0-2); Eosinophils Absolute Auto 0.2 X10*3/uL (0.0-0.4); Eosinophils Percent Auto 3.6 % (0-4); Hematocrit 37.9 % (37.0-47.0); Hemoglobin 12.2 g/dl (12.0-16.0); Imm Gran Abs Auto 0.03 X10*3/uL (0.00-0.03); Imm Gran Pct Auto 0.5 % (0.0-0.4); Lymphocytes Absolute Auto 1.4 X10*3/uL (1.2-4.9); Lymphocytes Percent Auto 23.5 % (20-40); Mean Corpuscular HGB Conc 32.2 g/dl (31.0-35.0); Mean Corpuscular Volume 96.4 fL (80.0-98.0); Mean Platelet Volume 10.6 fL (9.4-12.3); Monocytes Absolute Auto 0.5 X10*3/uL (0.1-1.2); Monocytes Percent Auto 7.7 % (2-11); Neutrophils Absolute Auto 3.9 x10*3/uL (2.0-8.3); Platelet Count 212 X10*3/uL (160-400); Red Blood Count 3.93 X10*6/uL (4.20-5.50); Red Cell Distribution Width 13.7 % (11.0-16.0); White Blood Count 6.1 X10*3/uL (4.8-10.8)
[2024-06-13 16:40] LABS: Alanine Aminotransferase 24 U/L (0-31); Anion Gap 14 (12-20); Aspartate Amino Transferase 22 U/L (5-31); Blood Urea Nitrogen 38 mg/dL (9-16); Carbon Dioxide 24 mmol/L (22-29); Chloride 106 mmol/L (96-108); Cholesterol 143 mg/dL (<200); Estimated Glomerular Filt Rate 26; Glucose Fasting 124 mg/dL (60-99); HDL Cholesterol 34 mg/dL (>40); LDL Cholesterol Calculated 78 mg/dL (<100); Potassium 4.7 mmol/L (3.3-5.1); Sodium 139 mmol/L (135-145); Triglycerides 155 mg/dL (<150)
[2024-06-13 16:45] LABS: Creatinine Urine 107.23 mg/dL; Microalbum/Creatinine Ratio Ur 409.4 ug/mg cr (<30)
[2024-06-13 16:47] LABS: Estimated Average Glucose 123 mg/dL; Hemoglobin A1c % 5.9 % (<6.0)
[2024-06-13 16:55] LABS: Free T4 (Free Thyroxine) 0.95 ng/dL (0.71-1.85); Thyroid Stimulating Hormone 5.76 uIU/mL (0.32-4.0); Vitamin D 25-OH Total 60.9 ng/mL (>30)
== END 2024-06-13 13:52 | disposition home or self-care (01) ==
LOC: HO.HMGCLDS 13:51
PROVIDERS: PCP Internal Medicine; Visit Provider Internal Medicine
DX: M85.852 Other specified disorders of bone density and structure, left thigh (principal); I25.10 Atherosclerotic heart disease of native coronary artery without angina pectoris; E11.8 Type 2 diabetes mellitus with unspecified complications; E03.9 Hypothyroidism, unspecified; E78.5 Hyperlipidemia, unspecified
CPT/HCPCS: 36415; 80048; 80061; 82043; 82306; 82570; 83036; 84439; 84443; 84450; 84460; 85025; 93005; 99212

== ENCOUNTER 2024-06-19 12:38 | Outpatient (AMB) | payer MEDICARE, BC, SELFPAY ==
--- NOTE | 2024-06-19 12:43 | A.OFFPC_ITS ---
Vital Signs 06/19/24 12:44 Height 5 ft Weight 201 lb BMI 39.3 BP 132/80 Blood Pressure Location Lt brachial Position Sitting Pulse 54 Pulse Source Pulse Oximeter Pulse Oximetry (%) 96 Oxygen Delivery Method Room Air Intake Visit Reasons: Annual PE Intake Note: Pt is here today for PE. Pt had blood work done. Allergies allopurinol Allergy (Severe, Verified 06/19/24 13:17) Hives niacin [Niaspan Extended-Release] Adverse Reaction (Unknown, Verified 06/19/24 13:17) swelling /itching Medication List - Last Reconciled 06/19/24 by Coni Escobeod MD aspirin 81 mg PO DAILY atorvastatin 40 mg PO DAILY cholestyramine-aspartame 4 gram (Cholestyramine Light) 4 grams PO BID clobetasol 0.05% 1 appl topical DAILY PRN clopidogrel 75 mg PO DAILY 90 days febuxostat 40 mg PO DAILY fluticasone propionate 50 mcg/actuation 1 spray intranasal DAILY PRN glipizide 2.5 mg PO QPM Jardiance (empagliflozin) 10 mg PO QAM NS levothyroxine 100 mcg PO DAILY losartan 50 mg PO DAILY menthol-zinc oxide 0.44-20.6 % (Calmoseptine) 1 appl topical QID PRN metoprolol tartrate 25 mg PO BID 90 days [Nature's best 1 tab PO .qd] Tobacco use date assessed: 06/19/24 Fall risk assessment: No Falls in past year Last assessed Fall Risk: 06/19/24 Dental Screening Dental Screen Date: 06/19/24 Did you have a dental visit in the last 12 months?: No Did you have a dental problem in the last 6 months where you did not have access to dental care?: No Was dental information given to patient?: Patient declined HPI Annual PE HPI Details 74 year old lady with history of hypert ension, hyperlipidemia, diabetes mellitus, obesity, chronic kidney disease, COPD, multi-vessel CAD, refused coronary artery bypass grafting, underwent PCI of the LAD and left circumflex. and had a stent placed in the 1st OM. here today for her physical exam. She has been feeling well, blood pressure stable controlled on metoprolol tartrate 25 mg taken 1 tablet twice a day. [facility] Medical History (Updated 06/25/24 @ 00:54 by Coni Escobedo MD) History of adenomatous polyp of colon Skin lesion of back Osteopenia of left femoral neck Anemia in chronic kidney disease Thyroid nodule Colon cancer screening Type 2 diabetes mellitus with complication, without long-term current use of insulin Family history of abdominal aortic aneurysm Obesity (BMI 30-39.9) Hypothyroidism Diabetic nephropathy Dyslipidemia Hypertension Diabetic polyneuropathy associated with type 2 diabetes mellitus Surgical History (Updated 06/25/24 @ 00:54 by Coni Escobedo MD) Hernia, umbilical Cervical lymphadenopathy Status post cardiac catheterization H/O partial thyroidectomy S/P coronary angioplasty History of cardiac cath S/P cardiac cath History of esophagogastroduodenoscopy (EGD) History of cataract surgery History of sinus surgery History of colonoscopy History of bronchoscopy History of total hysterectomy Family History Father AAA (abdominal aortic aneurysm) Mother CVD (cardiovascular disease) Mitral prolapse History of open heart surgery Brother Gout Diabetes Brother No problems noted. Daughter No problems noted. Daughter No problems noted. Social History Housing: House Patient Tobacco Use Status: Former Tobacco user Years Smoked: 50 +/- e-Cigarette/Vaping Use: Never Used Second Hand Smoke Exposure: No service: No Current occupational status: retired Cognitive needs: No Hearing needs: No Vision needs: Yes Questionnaire PHQ-9 Over the last 2 weeks, how often have you been bothered by any of the following problems? 1. Little interest or pleasure in doing things: not at all 2. Feeling down, depressed, or hopeless: not at all 3. Trouble falling or staying asleep, or sleeping too much: several days 4. Feeling tired or having little energy: several days 5. Poor appetite or overeating: several days 6. Feeling bad about yourself - or that you are a failure or have let yourself or your family down: not at all 7. Trouble concentrating on things, such as reading the newspaper or watching television: not at all 8. Moving or speaking so slowly that other people could have noticed. Or the opposite - being so fidgety or restless that you have been moving around a lot more than usual: several days 9. Thoughts that you would be better off or of hurting yourself in some way: not at all Total score: 4 Depression Screening Interpretation: Negative Depression Screening Done: Yes 30684 - PHQ-9 Billing: Yes Source: Developed by Drs. Cameron Marin, Mi Santiago, Agustín Clark and colleagues, with an educational bushra from [employer]. Thrive Questionnaire Date Thrive assessed: 06/19/24 I am a: Patient What is your living situation today?: I have a steady place to live Within the past 12 months, did the food you bought not last and you didn't have the money to get more?: Sometimes True Within the past 12 months, did you worry whether your food would run out before you got money to buy more?: Sometimes True Do you have trouble paying for medicines?: I choose not to answer this question Do you have trouble getting transportation to medical appointments?: I choose not to answer this question Do you have trouble paying your heating and electricity bill?: No Do you have trouble taking care of your child, family member or friend?: No Do you have trouble with day-to-day activities such as bathing, preparing meals, shopping, managing finances, etc.?: I choose not to answer this question Are you interested in more education?: Yes Please select the resources that you would like help with: Paying for medicine, Care for elder or disabled and Education Currently or been in a relationship where the following occur: I choose not to answer THRIVE Score: 2 AUDIT C Alcohol Use Questionnaire (AUDIT-C) 1. How often do you have a drink containing alcohol?: Never 3. How often do you have six or more drinks on one occasion?: Never Total Score: 0 ESTEFANY-7 AMB Questionnaire ESTEFANY-7 Date ESTEFANY - 7 assessed: 06/19/24 Feeling nervous, anxious, or on edge: 1 = Several days Not being able to stop or control worryin = Not at all Worrying too much about different things: 1 = Several days Trouble relaxin = Several days Being so restless that it is hard to sit still: 0 = Not at all Becoming easily annoyed or irritable: 0 = Not at all Feeling afraid as if something awful might happen: 1 = Several days Total ESTEFANY-7 score (0-4 normal; 5-9 mild; 10-14 moderate; 15-21 severe): 4 Source: Developed by Drs. Cameron Marin, Mi Santiago, Agustín Clark and colleagues, with an educational bushra from [employer]. ESTEFANY-7 Assessment Billing ESTEFANY-7 Assessment Tool: ESTEFANY-7 Assessment 19730 Review of Systems Const Denies chills, Denies fatigue, Denies fever(s), Denies frequent falls and Denies weakness Eyes Details: Goes to [facility] for her routine eye exam ENT Reports no additional complaints and Denies dizziness Card Denies chest pain, Denies leg edema, Denies lightheadedness, Denies palpi tations, Denies dyspnea and Denies dyspnea on exertion Resp Denies cough, Denies dyspnea and Denies dyspnea on exertion GI Details: ventral hernia Denies hematochezia Reports no additional complaints Musc Denies abnormal gait, Denies muscle weakness, Denies numbness, Denies radiating pain into limb and Denies tingling Skin/Breast Denies breast pain, Denies breast mass and Denies rash Neuro Denies abnormal gait, Denies dizziness, Denies frequent falls, Denies numbness, Denies Sensory deficit (Neuro), Denies tingling and Denies weakness Psych Reports no additional complaints Endo Denies fatigue and Denies palpitations Sanford/Lymph Reports easy bruising Aller/Immun Reports no additional complaints Physical exam (Primary Care) Vital Signs: Last Vital Signs Pulse 54 06/19/24 12:44 BP 132/80 06/19/24 12:44 Pulse Ox 96 06/19/24 12:44 Oxygen Delivery Method Room Air 06/19/24 12:44 BMI result Body Mass Index 39.3 Tobacco/Smoking Status: Tobacco use Status Tobacco use date assessed 06/19/24 06/19/24 12:52 Patient Tobacco Use Status Former Tobacco user 06/19/24 12:44 e-Cigarette/Vaping Use Never Used 06/19/24 12:44 PHQ-9: PHQ-9 Score PHQ-9: Total score 8 06/19/24 13:40 Depression Screening Interpretation: Negative Thrive Assessment: Date of Thrive Assessment Date Thrive assessed 06/19/24 06/19/24 12:52 Currently or been in a relationship where the following occur: I choose not to answer Const General: no acute distress and alert Orientation/consciousness: patient oriented x3 HENMT Head: Yes normocephalic Mouth: Normal oral and palatal mucosa present, oropharynx normal and moist mucous membranes Eyes General: appearance normal, both eyes and all related structures Neck Neck: Yes full ROM and Yes no lymphadenopathy Thyroid: Thyroid normal Resp Effort & Inspection: normal respiratory effort and able to speak in complete sen tences Auscultation: clear to auscultation bilaterally Cardio Rate: regular rate Rhythm: regular rhythm Heart sounds: S1 normal heart sound present and S2 normal heart sound present GI Other: fluctuant mass subcostal area on right, nontender to palpation Inspection: Yes normal to inspection Palpation (GI): Soft to palpation, nontender, no guarding and Hernia present umbilical Auscultation: normal bowel sounds General: Yes no CVA tenderness Back/Spine/Pelvis Back: no CVA tenderness and No back tenderness Skin Other: Scattered slightly raised pigmented lesion on back Neuro General: patient oriented x3, gait normal, moves all extremities, no focal motor deficits and CN's II-XI intact bilaterally Cognition (Neuro): normal cognition Gait exam (Neuro): Normal gait present Motor exam (neuro): 5/5 motor strength present throughout Sensory Exam: No Sensory deficit (Neuro) Extrem General: Yes full ROM, Yes no joint enlargement, Yes no clubbing, cyanosis or e zach, Yes no calf tenderness and Yes normal gait Results Reviewed Results Reviewed: Name: Doreen Barrientos Age/Sex: 74/F : 1950 Unit#: [id number] Attend Dr: Coni Escobedo MD Re06/13/24 Status: DEP REF Location: [facility] Disch: SPEC : [id number] NYLA: 06/13/24 STATUS: COMP REQ : [id number] RECD: 06/13/[address]: Coni Escobedo MD COMP: 06/13/24 ENTERED: 06/13/[address] [facility] [address]: ORDERED: CBC Auto Diff Test Result Flag Reference WBC 6.1 4.8-10.8 X10*3/uL RBC 3.93 L 4.20-5.50 X10*6/uL HGB 12.2 12.0-16.0 g/dl HCT 37.9 37.0-47.0 % MCV 96.4 80.0-98.0 fL MCH 31.0 27.0-33.0 pg MCHC 32.2 31.0-35.0 g/dl RDW 13.7 11.0-16.0 % PLT 212 160-400 X10*3/uL MPV 10.6 9.4-12.3 fL Neut Pct Auto 64.0 45-73 % ImGran Pct Auto 0.5 H 0.0-0.4 % Lymp Pct Auto 23.5 20-40 % Harding Pct Auto 7.7 2-11 % Eos Pct Auto 3.6 0-4 % Baso Pct Auto 0.7 0-2 % NRBC Pct Auto 0.0 0.0-0.2 /100WBC ANC Neut Abs # 3.9 2.0-8.3 x10*3/uL ImGran Abs Auto 0.03 0.00-0.03 X10*3/uL Lymph Abs Auto 1.4 1.2-4.9 X10*3/uL Harding Abs Auto 0.5 0.1-1.2 X10*3/uL Eos Abs Auto 0.2 0.0-0.4 X10*3/uL Baso Abs Auto 0.0 0.0-0.2 X10*3/uL NRBC Abs Auto 0.000 0.0-0.012 X 10*3/uL RUN: 06/19/24 [id number] PAGE 1 [facility] [address] [place] [id number] Duck Operator: Frank Benton M.D. Specimen Inquiry Name: Doreen Barrientos Age/Sex: 74/F : 1950 Unit#: [id number] Attend Dr: Coni Escobedo MD Re06/13/24 Status: DEP REF Location: [facility] Disch: SPEC : [id number] NYLA: 06/13/24 STATUS: COMP REQ : [id number] RECD: 06/13/24-[address]: Coni Escobedo MD COMP: 06/13/24-1654 ENTERED: 06/13/[address]: ORDERED: Met Prof Fast, AST, ALT, Lipid Panel, Vitamin D 25-OH, Free T4, TSH Test Result Flag Reference Sodium 139 135-145 mmol/L Potassium 4.7 3.3-5.1 mmol/L CL 106 96-108 mmol/L CO2 24 22-29 mmol/L Gap 14 12-20 BUN 38 H 9-16 mg/dL Creat 1.89 H 0.5-1.4 mg/dL EGFR 26 NOTE: For -Dutch individuals, multiply the result by 1.210. Chronic Kidney Disease: Estimated GFR < 60 mL/min/1.73m2 Severe Kidney Disease: Estimated GFR < 15 mL/min/1.73m2 FBS 124 H 60-99 mg/dL A fasting glucose from 100-125 mg/dl is considered impaired (pre-diabetes). CA 10.0 8.4-10.2 mg/dL AST (GOT) 22 5-31 U/L ALT (GPT) 24 0-31 U/L Triglyceride 155 H <150 mg/dL Desirable Triglyceride: less than 150 mg/dL Borderline High Triglyceride 150-199 mg/dL High Triglyceride: 200-499 mg/dL Very High Triglyceride: greater than or equal to 5OO mg/dL Cholesterol 143 <200 mg/dL Desirable Cholesterol: less than 200 mg/dL Borderline High Cholesterol: 200-239 mg/dL High Cholesterol: greater than 239 mg/dL LDL Calculated 78 <100 mg/dL Desirable LDL: less than 100 mg/dL Near Optimal/Above Optimal LDL: 110-129 mg/dL Borderline High LDL: 130-159 mg/dL High LDL: 160-189 mg/dL Very High LDL: greater than or equal to 190 mg/dL HDL 34 L >40 mg/dL Desirable HDL: greater than 40 mg/dL Note: This HDL assay may give artificially low results in patients with liver disease. Vit D 25-OH Tot 60.9 >30 ng/mL Health Based Reference Values* < 20 ng/mL Deficient 20-30 ng/mL Insufficient > 30 ng/mL Sufficient *Allan MORTON. N Engl J Med. 2007;357:266-280 Care must be taken in interpreting Vitamin D results from different laboratories and methodologies. Published data demonstrated that results from patients undergoing hemodialysis may show a negative bias when tested with various automated 25-OH vitamin D assays when compared to LC-MS/MS. When testing samples from patients whose predominant form of Vitamin D is Vitamin D2, such as patients receiving Vitamin D2 supplementation, results that are subtherapeutic should be confirmed with another method such as LC-MS/MS. Free T4 0.95 0.71-1.85 ng/dL TSH 3rd Gen. 5.76 H 0.32-4.0 uIU/mL Note: A sustained TSH level above 2.5 uIU/mL may warrant further investigation. TSH 3rd Generation ([facility]) Laboratory Tests 06/13/24 06/13/24 13:34 13:54 Estimat Average Glucose 123 Hemoglobin A1c % 5.9 Microalb/Creat Ratio 409.4 H Assessment and Plan Assessment & Plan (1) Annual visit for general adult medical examination with abnormal findings: Code(s): Z00.01 - Encounter for general adult medical examination with abnormal findings Plan: Latest fasting lab results reviewed with patient. Recommended dental visit every 6 months and yearly eye exams, currently up-to-date. Take adequate calcium in diet and vitamin-D 3 at 2000 IU per cap once a day, in addition to weight-bearing exercises to help maintain good muscle tone and weight control. Instructed to do self-breast exam, and continue with yearly mammogram, she is also up-to-date with her bone density scan done last year which showed presence of osteopenia in lumbar spine, normal in femoral neck and femur up-to-date with her vaccines, including flu vaccine, COVID booster, RSV, and pneumonia vaccination. She is due for repeat colonoscopy screening, advised to call Dr. Correia office and schedule appointment (2) Diabetic polyneuropathy associated with type 2 diabetes mellitus: Code(s): E11.42 - Type 2 diabetes mellitus with diabetic polyneuropathy Plan: Good control diabetes noted with hemoglobin A1c at 5.9%,started on Ozempic 0.25 mg injected once a week , continued on Jardiance 10 mg daily in a.m., with glipizide discontinued. (3) Hernia, umbilical: Code(s): K42.9 - Umbilical hernia without obstruction or gangrene Qualifiers: Obstruction and gangrene presence: without obstruction or gangrene Qualified Code(s): K42.9 - Umbilical hernia without obstruction or gangrene Plan: Will be scheduled for surgical repair of hernia (4) SEAN (obstructive sleep apnea): Code(s): G47.33 - Obstructive sleep apnea (adult) (pediatric) (5) Coronary artery disease: Code(s): I25.10 - Atherosclerotic heart disease of [place] coronary artery without angina pectoris Qualifiers: Coronary Disease-Associated Artery/Lesion type: [place] artery [place] vs. transplanted heart: [place] heart Associated angina: without angina Qualified Code(s): I25.10 - Atherosclerotic heart disease of [place] coronary artery without angina pectoris Plan: Continued on aspirin and clopidogrel, followed by cardiology (6) Dyslipidemia: Code(s): E78.5 - Hyperlipidemia, unspecified Plan: Currently on atorvastatin 40 mg daily (7) Hypertension: Code(s): I10 - Essential (primary) hypertension Qualifiers: Hypertension type: renovascular hypertension Qualified Code(s): I15.0 - Renovascular hypertension Plan: Blood pressure well controlled on present treatment, continued on metoprolol tartrate 25 mg twice a day and losartan 50 mg daily (8) Hypothyroidism: Code(s): E03.9 - Hypothyroidism, unspecified Qualifiers: Hypothyroidism type: acquired Qualified Code(s): E03.9 - Hypothyroidism, unspecified Plan: Continue with levothyroxine 100 mcg taken once a day in a.m. (9) CKD (chronic kidney disease): Code(s): N18.9 - Chronic kidney disease, unspecified Qualifiers: Chronic kidney disease stage: stage 3 (moderate) Chronic kidney disease stage 3 subtype: unspecified whether 3a or 3b Qualified Code(s): N18.30 - Chronic kidney disease, stage 3 unspecified Plan: Followed by Nephrology, avoidance of NSAIDs stressed (10) History of adenomatous polyp of colon: Code(s): Z86.010 - Personal history of colonic polyps Plan: Advised to call and schedule appointment with Dr. Correia for her repeat colonoscopy screening Medications: New Ozempic (semaglutide) for 4 weeks 0.25 mg (0.368 mL) subcut QWEEK 30 days 3 mL 2RF NS E11.42 - Type 2 diabetes mellitus with diabetic polyneuropathy, E11.8 - Type 2 diabetes mellitus with unspecified complications Discontinued glipizide Discontinued Reason: Doctor's Order 2.5 mg PO QPM 90 tabs 1RF Coding Level of Care Code Est Pt Prev Care >65y(99687) Diagnoses Annual visit for general adult medical examination with abnormal findings Z00.01 Diabetic polyneuropathy associated with type 2 diabetes mellitus E11.42 Umbilical hernia without obstruction and without gangrene K42.9 Obstruction and gangrene presence: without obstruction or gangrene SEAN (obstructive sleep apnea) G47.33 Coronary artery disease involving [place] coronary artery of [place] heart without angina pectoris I25.10 Coronary Disease-Associated Artery/Lesion type: [place] artery [place] vs. transplanted heart: [place] heart Associated angina: without angina Dyslipidemia E78.5 Renovascular hypertension I15.0 Hypertension type: renovascular hypertension Acquired hypothyroidism E03.9 Hypothyroidism type: acquired Stage 3 chronic kidney disease, unspecified whether stage 3a or 3b CKD N18.30 Chronic kidney disease stage: stage 3 (moderate) Chronic kidney disease stage 3 subtype: unspecified whether 3a or 3b History of adenomatous polyp of colon Z86.010 Additional Codes ESTEFANY-7 Assessment Billing - ESTEFANY-7 Assessment Tool: ESTEFANY-7 Assessment [id number] ([id number])
[2024-06-19 12:44] VITALS: BP 132/80; PULSE 54; O2SAT 96; BMI 39.3
== END 2024-06-19 13:40 | disposition home or self-care (01) ==
PROVIDERS: PCP Internal Medicine; Visit Provider Internal Medicine
DX: Z00.00 Encounter for general adult medical examination without abnormal findings (principal); E11.42 Type 2 diabetes mellitus with diabetic polyneuropathy; N18.30 Chronic kidney disease, stage 3 unspecified; K42.9 Umbilical hernia without obstruction or gangrene; G47.33 Obstructive sleep apnea (adult) (pediatric); I25.10 Atherosclerotic heart disease of native coronary artery without angina pectoris; E78.5 Hyperlipidemia, unspecified; I15.0 Renovascular hypertension; E03.9 Hypothyroidism, unspecified; Z86.010 Personal history of colon polyps

== ENCOUNTER → 2024-06-19 12:38 | Outpatient (BNVA) | payer MEDICARE, BC, SELFPAY | PROVIDERS: PCP Internal Medicine; Visit Provider Internal Medicine | DX: Z00.01 Encounter for general adult medical examination with abnormal findings (principal); E11.42 Type 2 diabetes mellitus with diabetic polyneuropathy; K42.9 Umbilical hernia without obstruction or gangrene; G47.33 Obstructive sleep apnea (adult) (pediatric); I25.10 Atherosclerotic heart disease of native coronary artery without angina pectoris; E78.5 Hyperlipidemia, unspecified; I15.0 Renovascular hypertension; E03.9 Hypothyroidism, unspecified; N18.30 Chronic kidney disease, stage 3 unspecified; Z86.010 Personal history of colon polyps; Z79.85 Long-term (current) use of injectable non-insulin antidiabetic drugs | CPT/HCPCS: 96127; 99397 ==

== ENCOUNTER → 2024-07-06 07:58 | Outpatient (BNVA) | payer MEDICARE, BC, SELFPAY | PROVIDERS: PCP Internal Medicine ==

== ENCOUNTER 2024-08-01 12:56 | Outpatient (REF) | payer MEDICARE, BC, SELFPAY ==
[2024-08-01 16:19] LABS: MANUAL DIFF FLAG NO
[2024-08-01 16:45] LABS: Basophils Percent Auto 0.7 % (0-2); Eosinophils Absolute Auto 0.3 X10*3/uL (0.0-0.4); Eosinophils Percent Auto 5.3 % (0-4); Hematocrit 36.1 % (37.0-47.0); Hemoglobin 11.9 g/dl (12.0-16.0); Imm Gran Abs Auto 0.02 X10*3/uL (0.00-0.03); Imm Gran Pct Auto 0.4 % (0.0-0.4); Lymphocytes Absolute Auto 1.2 X10*3/uL (1.2-4.9); Lymphocytes Percent Auto 21.4 % (20-40); Mean Corpuscular Hemoglobin 31.2 pg (27.0-33.0); Mean Corpuscular Volume 94.8 fL (80.0-98.0); Mean Platelet Volume 10.9 fL (9.4-12.3); Monocytes Absolute Auto 0.6 X10*3/uL (0.1-1.2); Monocytes Percent Auto 10.6 % (2-11); Neutrophils Absolute Auto 3.5 x10*3/uL (2.0-8.3); Neutrophils Percent Auto 61.6 % (45-73); Platelet Count 193 X10*3/uL (160-400); Red Blood Count 3.81 X10*6/uL (4.20-5.50); Red Cell Distribution Width 13.9 % (11.0-16.0); White Blood Count 5.7 X10*3/uL (4.8-10.8)
[2024-08-01 16:56] LABS: Creatinine Urine 119.72 mg/dL; Protein/Creatinine Ratio, Ur 0.84 (<0.2); Total Protein Urine Random 101 mg/dL (<12)
[2024-08-01 16:59] LABS: Parathyroid Hormone Intact 216.1 pg/mL (8.7-77.1)
[2024-08-01 17:13] LABS: Alanine Aminotransferase 24 U/L (0-31); Albumin Level 4.2 g/dL (3.5-5.0); Alkaline Phosphatase 45 U/L (39-117); Anion Gap 15 (12-20); Aspartate Amino Transferase 27 U/L (5-31); Bilirubin Total 0.7 mg/dL (0.0-1.0); Blood Urea Nitrogen 39 mg/dL (9-16); Calcium 9.8 mg/dL (8.4-10.2); Carbon Dioxide 19 mmol/L (22-29); Chloride 108 mmol/L (96-108); Estimated Glomerular Filt Rate 33; Glucose Random 103 mg/dL (60-115); Magnesium 2.1 mg/dL (1.6-2.6); Phosphorus 3.3 mg/dL (2.7-4.5); Potassium 4.6 mmol/L (3.3-5.1); Sodium 137 mmol/L (135-145); Total Protein 7.1 g/dL (6.5-8.0); Uric Acid 4.2 mg/dL (2.4-5.7)
[2024-08-01 17:17] LABS: Vitamin D 25-OH Total 64.6 ng/mL (>30)
== END 2024-08-01 12:57 | disposition home or self-care (01) ==
LOC: HO.HMGCLDS 12:56
PROVIDERS: PCP Internal Medicine; Visit Provider Internal Medicine Nephrology
DX: I12.9 Hypertensive chronic kidney disease with stage 1 through stage 4 chronic kidney disease, or unspecified chronic kidney disease (principal); E11.22 Type 2 diabetes mellitus with diabetic chronic kidney disease; M10.9 Gout, unspecified; N18.32 Chronic kidney disease, stage 3b; N18.9 Chronic kidney disease, unspecified
CPT/HCPCS: 36415; 80053; 82306; 82570; 83735; 83970; 84100; 84156; 84550; 85025

== ENCOUNTER 2024-09-15 01:25 | Outpatient (REF) | payer MEDICARE, BC, SELFPAY ==
[2024-09-15 15:40] LABS: Anion Gap 15 (12-20); Aspartate Amino Transferase 29 U/L (5-31); Blood Urea Nitrogen 48 mg/dL (9-16); Calcium 9.8 mg/dL (8.4-10.2); Carbon Dioxide 20 mmol/L (22-29); Chloride 108 mmol/L (96-108); Cholesterol 142 mg/dL (<200); Estimated Glomerular Filt Rate 29; Glucose Fasting 124 mg/dL (60-99); HDL Cholesterol 34 mg/dL (>40); LDL Cholesterol Calculated 68 mg/dL (<100); Potassium 4.4 mmol/L (3.3-5.1); Sodium 139 mmol/L (135-145); Triglycerides 204 mg/dL (<150)
[2024-09-15 15:42] LABS: Creatinine Urine 169.72 mg/dL
[2024-09-15 15:57] LABS: Estimated Average Glucose 123 mg/dL; Hemoglobin A1C 125.8127 umol/L; Hemoglobin A1c % 5.9 % (<6.0); Thyroid Stimulating Hormone 0.61 uIU/mL (0.32-4.0); Total Hemoglobin (HGBA1C) 3056.2388 umol/L
[2024-09-15 17:10] LABS: Alanine Aminotransferase 28 U/L (0-31)
== END 2024-09-15 01:26 | disposition home or self-care (01) ==
LOC: HO.HMGCLDS 01:25
PROVIDERS: PCP Internal Medicine; Visit Provider Internal Medicine
DX: E11.8 Type 2 diabetes mellitus with unspecified complications (principal); E03.9 Hypothyroidism, unspecified; E11.21 Type 2 diabetes mellitus with diabetic nephropathy; E78.5 Hyperlipidemia, unspecified; E11.42 Type 2 diabetes mellitus with diabetic polyneuropathy
CPT/HCPCS: 36415; 80048; 80061; 82043; 82570; 83036; 84439; 84443; 84450; 84460

== ENCOUNTER 2024-09-20 11:40 | Outpatient (AMB) | payer MEDICARE, BC, SELFPAY ==
--- NOTE | 2024-09-20 11:45 | A.OFFPC_ITS ---
Vital Signs 09/20/24 11:54 Height 5 ft Weight 203 lb BMI 39.6 BP 118/70 Blood Pressure Location Lt radial Position Sitting Pulse 64 Pulse Source Pulse Oximeter Pulse Oximetry (%) 96 Oxygen Delivery Method Room Air Intake Visit Reasons: 3 months f/up Intake Note: Pt is here today for her 3mo. f/u Allergies allopurinol Allergy (Severe, Verified 09/20/24 12:41) Hives niacin [Niaspan Extended-Release] Adverse Reaction (Unknown, Verified 09/20/24 12:41) swelling /itching Medication List - Last Reconciled 09/20/24 by Coni Escobedo MD aspirin 81 mg PO DAILY atorvastatin 40 mg PO DAILY clobetasol 0.05% 1 appl topical DAILY PRN clopidogrel 75 mg PO DAILY 90 days febuxostat 40 mg PO DAILY fluticasone propionate 50 mcg/actuation 1 spray intranasal DAILY PRN Jardiance (empagliflozin) 10 mg PO QAM NS levothyroxine 100 mcg PO DAILY losartan 50 mg PO DAILY menthol-zinc oxide 0.44-20.6 % (Calmoseptine) 1 appl topical QID PRN metoprolol tartrate 25 mg PO BID 90 days [Nature's best 1 tab PO .qd] Ozempic (semaglutide) 0.25 mg (0.368 mL) subcut QWEEK 30 days NS Tobacco use date assessed: 09/20/24 Fall risk assessment: No Falls in past year Last assessed Fall Risk: 09/26/24 Dental Screening Dental Screen Date: 09/20/24 Did you have a dental visit in the last 12 months?: No Did you have a dental problem in the last 6 months where you did not have access to dental care?: No Was dental information given to patient?: Patient declined HPI 3 months f/up HPI Details 74 year old lady with history of obesit y, chronic kidney disease, COPD, multi-vessel CAD, refused coronary artery bypass grafting, underwent PCI of the LAD and left circumflex. and had a stent placed in the 1st OM. here today for follow up of her Diabetes mellitus , Hypothyroidism , and H yperlipidemia. She has been feeling well, compliant with taking her medications, but admits to not getting any regular exercise [facility] Medical History (Updated 09/20/24 @ 12:48 by Coni Escobedo MD) History of adenomatous polyp of colon Osteopenia of left femoral neck Anemia in chronic kidney disease Thyroid nodule Colon cancer screening Type 2 diabetes mellitus with complication, without long-term current use of insulin Family history of abdominal aortic aneurysm Obesity (BMI 30-39.9) Hypothyroidism Diabetic nephropathy Dyslipidemia Hypertension Diabetic polyneuropathy associated with type 2 diabetes mellitus Surgical History (Updated 09/20/24 @ 12:48 by Coni Escobedo MD) Hernia, umbilical Status post cardiac catheterization H/O partial thyroidectomy S/P coronary angioplasty History of cardiac cath S/P cardiac cath History of esophagogastroduodenoscopy (EGD) History of cataract surgery History of sinus surgery History of colonoscopy History of bronchoscopy History of total hysterectomy Family History Father AAA (abdominal aortic aneurysm) Mother CVD (cardiovascular disease) Mitral prolapse History of open heart surgery Brother Gout Diabetes Brother No problems noted. Daughter No problems noted. Daughter No problems noted. Social History Housing: House Patient Tobacco Use Status: Former Tobacco user Years Smoked: 50 +/- e-Cigarette/Vaping Use: Never Used Second Hand Smoke Exposure: No service: No Current occupational status: retired Cognitive needs: No Hearing needs: No Vision needs: Yes Questionnaire Thrive Questionnaire Date Thrive assessed: 06/19/24 I am a: Patient What is your living situation today?: I have a steady place to live Within the past 12 months, did the food you bought not last and you didn't have the money to get more?: Sometimes True Within the past 12 months, did you worry whether your food would run out before you got money to buy more?: Sometimes True Do you have trouble paying for medicines?: I choose not to answer this question Do you have trouble getting transportation to medical appointments?: I choose not to answer this question Do you have trouble paying your heating and electricity bill?: No Do you have trouble taking care of your child, family member or friend?: No Do you have trouble with day-to-day activities such as bathing, preparing meals, shopping, managing finances, etc.?: I choose not to answer this question Are you currently unemployed and looking for a job?: I choose not to answer this question Are you interested in more education?: Yes Currently or been in a relationship where the following occur: I choose not to answer THRIVE Score: 2 ESTEFANY-7 AMB Questionnaire ESTEFANY-7 Date ESTEFANY - 7 assessed: 06/19/24 Source: Developed by Drs. Cameron Marin, Mi Santiago, Agustín Clark and colleagues, with an educational bushra from [employer]. Review of Systems Const Denies chills, Denies fatigue, Denies fever(s), Denies frequent falls and Denies weakness Eyes Details: goes to [facility] , no retinopathy ENT Reports no additional complaints and Denies dizziness Card Denies chest pain, Denies leg edema, Denies lightheadedness, Denies palpitations, Denies dyspnea and Denies dyspnea on exertion Resp Denies cough, Denies dyspnea and Denies dyspnea on exertion GI Details: ventral hernia Denies hematochezia Reports no additional complaints Musc Denies abnormal gait, Denies muscle weakness and Denies radiating pain into limb Skin/Breast Denies breast pain, Denies breast mass and Denies rash Neuro Denies abnormal gait, Denies dizziness, Denies frequent falls, Denies Sensory deficit (Neuro) and Denies weakness Psych Reports no additional complaints Endo Denies fatigue and Denies palpitations Sanford/Lymph Reports easy bruising Aller/Immun Reports no additional complaints Physical exam (Primary Care) Vital Signs: Last Vital Signs Pulse 64 09/20/24 11:54 BP 118/70 09/20/24 11:54 Pulse Ox 96 09/20/24 11:54 Oxygen Delivery Method Room Air 09/20/24 11:54 BMI result Body Mass Index 39.6 Tobacco/Smoking Status: Tobacco use Status Tobacco use date assessed 09/20/24 09/20/24 11:46 Patient Tobacco Use Status Former Tobacco user 09/20/24 11:45 e-Cigarette/Vaping Use Never Used 09/20/24 11:45 Thrive Assessment: Date of Thrive Assessment Date Thrive assessed 06/19/24 09/20/24 11:45 Currently or been in a relationship where the following occur: I choose not to answer Const General: no acute distress and alert Orientation/consciousness: patient oriented x3 HENMT Head: Yes normocephalic Mouth: Normal oral and palatal mucosa present, oropharynx normal and moist mucous membranes Eyes General: appearance normal, both eyes and all related structures Neck Neck: Yes full ROM and Yes no lymphadenopathy Resp Effort & Inspection: normal respiratory effort and able to speak in complete sentences Auscultation: clear to auscultation bilaterally Cardio Rate: regular rate Rhythm: regular rhythm Heart sounds: S1 normal heart sound present and S2 normal heart sound present GI Inspection: Yes normal to inspection Palpation (GI): Soft to palpation, nontender, no guarding and Hernia present umbilical Auscultation: normal bowel sounds General: Yes no CVA tenderness Back/Spine/Pelvis Back: no CVA tenderness and No back tenderness Neuro General: patient oriented x3, gait normal, moves all extremities, no focal motor deficits and CN's II-XI intact bilaterally Cognition (Neuro): normal cognition Gait exam (Neuro): Normal gait present Motor exam (neuro): 5/5 motor strength present throughout Sensory Exam: No Sensory deficit (Neuro) Extrem General: Yes full ROM, Yes no joint enlargement, Yes no clubbing, cyanosis or edema, Yes no calf tenderness and Yes normal gait Results Reviewed Results Reviewed: RUN: 09/20/24 1207 PAGE 1 [facility] [address] [place] [id number] Machine Shop Inspector: Frank Benton M.D. Specimen Inquiry Name: Doreen Barrientos Age/Sex: 74/F : 1950 Unit#: [id number] Attend Dr: Coni Escobedo MD Re09/15/24 Status: DEP [facility]F [facility] Disch: SPEC : [id number] NYLA: 09/15/241330 STATUS: COMP REQ : [id number] RECD: 09/15/24-[address]: Coni Escobedo MD COMP: 09/15/24-1557 ENTERED: 09/15/24-[address]: ORDERED: Met Prof Fast, AST, ALT, Lipid Panel, Free T4, TSH Test Result Flag Reference Sodium 139 135-145 mmol/L Potassium 4.4 3.3-5.1 mmol/L CL 108 96-108 mmol/L CO2 20 L 22-29 mmol/L Gap 15 12-20 BUN 48 H 9-16 mg/dL Creat 1.73 H 0.5-1.4 mg/dL eGFR 29 Chronic Kidney Disease: Estimated GFR < 60 mL/min/1.73m2 Severe Kidney Disease: Estimated GFR < 15 mL/min/1.73m2 FBS 124 H 60-99 mg/dL A fasting glucose from 100-125 mg/dl is considered impaired (pre-diabetes). CA 9.8 8.4-10.2 mg/dL AST (GOT) 29 5-31 U/L ALT (GPT) 28 0-31 U/L Triglyceride 204 H <150 mg/dL Desirable Triglyceride: less than 150 mg/dL Borderline High Triglyceride 150-199 mg/dL High Triglyceride: 200-499 mg/dL Very High Triglyceride: greater than or equal to 5OO mg/dL Cholesterol 142 <200 mg/dL Desirable Cholesterol: less than 200 mg/dL Borderline High Cholesterol: 200-239 mg/dL High Cholesterol: greater than 239 mg/dL LDL Calculated 68 <100 mg/dL Desirable LDL: less than 100 mg/dL Near Optimal/Above Optimal LDL: 110-129 mg/dL Borderline High LDL: 130-159 mg/dL High LDL: 160-189 mg/dL Very High LDL: greater than or equal to 190 mg/dL HDL 34 L >40 mg/dL Desirable HDL: greater than 40 mg/dL Note: This HDL assay may give artificially low results in patients with liver disease. Free T4 1.00 0.71-1.85 ng/dL TSH 3rd Gen. 0.61 0.32-4.0 uIU/mL TSH 3rd Generation ([facility]) Laboratory Tests 09/15/24 13:30 Estimat Average Glucose 123 Hemoglobin A1c % 5.9 Laboratory Tests 09/15/24 13:35 Urine Creatinine 169.72 Urine Microalbumin 443.0 Microalb/Creat Ratio 261.0 H Coding Level of Care Code Est Pt Level 4 (24357) Complex EM visit Add On G2211 Diagnoses Renovascular hypertension I15.0 Hypertension type: renovascular hypertension Dyslipidemia E78.5 Acquired hypothyroidism E03.9 Hypothyroidism type: acquired Type 2 diabetes mellitus with complication, without long-term current use of insulin E11.8 Osteopenia of left femoral neck M85.852 Stage 3 chronic kidney disease, unspecified whether stage 3a or 3b CKD N18.30 Chronic kidney disease stage: stage 3 (moderate) Chronic kidney disease stage 3 subtype: unspecified whether 3a or 3b Assessment & Plan Assessment & Plan (1) Hypertension: Code(s): I10 - Essential (primary) hypertension Category: Medical Qualifiers: Hypertension type: renovascular hypertension Qualified Code(s): I15.0 - Renovascular hypertension Plan: Blood pressure stable and controlled, continue losartan 50 mg daily plus metoprolol tartrate 25 mg 1 tablet twice a day (2) Dyslipidemia: Code(s): E78.5 - Hyperlipidemia, unspecified Category: Medical Plan: Reviewed recent fasting lipid profile with patient with triglycerides still elevated but total cholesterol, and LDL cholesterol are within normal limits. . Continue atorvastatin 40 mg daily , in addition to adherence to low- cholesterol diet and regular exercise, at least 30 minutes 3 to 4 times a week. Advised patient to make healthy food choices, eat more fruits, vegetables, whole grains, wild caught fish and low-fat dairy. Limit amount of meat and fried or fatty food products, as well as processed foods and fast foods. Follow-up scheduled with repeat fasting lipid panel in 4 months. (3) Hypothyroidism: Code(s): E03.9 - Hypothyroidism, unspecified Category: Medical Qualifiers: Hypothyroidism type: acquired Qualified Code(s): E03.9 - Hypothyroidism, unspecified Plan: Latest thyroid levels are within normal limits, continue with current dose of levothyroxine 100 mcg daily in a.m. an hour before breakfast (4) Type 2 diabetes mellitus with complication, without long-term current use of insulin: Code(s): E11.8 - Type 2 diabetes mellitus with unspecified complications Category: Medical Plan: Diabetes mellitus well controlled with hemoglobin A1c at 5.9%. Continue with Jardiance, Ozempic at the same dose. No retinopathy seen on last diabetes eye exam done 2022, has an appointment already scheduled for later this month with [facility] (5) Osteopenia of left femoral neck: Code(s): M85.852 - Other specified disorders of bone density and structure, left thigh Category: Medical Plan: Osteopenia noted in left femoral neck on last bone density scan done earlier this year continue taking vitamin-D 3 supplements at least 2000 units daily and take adequate calcium from dietary sources reinforced importance of doing regular weight-bearing exercise repeat another bone density scan in 2025 (6) CKD (chronic kidney disease): Code(s): N18.9 - Chronic kidney disease, unspecified Category: Medical Qualifiers: Chronic kidney disease stage: stage 3 (moderate) Chronic kidney disease stage 3 subtype: unspecified whether 3a or 3b Qualified Code(s): N18.30 - Chronic kidney disease, stage 3 unspecified Plan: Currently followed by Nephrology, continue with losartan, avoidance of NSAIDs, and reinforced importance of getting hypertension, cholesterol and diabetes calvin litus stable and controlled Orders: Orders Hemoglobin A1c 12/25/24 E03.9 - Hypothyroidism, unspecified, E11.42 - Type 2 diabetes mellitus with diabetic polyneuropathy, E11.8 - Type 2 diabetes mellitus with unspecified complications, E78.5 - Hyperlipidemia, unspecified, I15.0 - Renovascular hypertension, M85.852 - Other specified disorders of bone density and structure, left thigh Basic Metabolic Panel Fasting 12/25/24 E03.9 - Hypothyroidism, unspecified, E11.42 - Type 2 diabetes mellitus with diabetic polyneuropathy, E11.8 - Type 2 diabetes mellitus with unspecified complications, E78.5 - Hyperlipidemia, unspecified, I15.0 - Renovascular hypertension, M85.852 - Other specified disorders of bone density and structure, left thigh Aspartate Amino Transferase 12/25/24 E03.9 - Hypothyroidism, unspecified, E11.42 - Type 2 diabetes mellitus with diabetic polyneuropathy, E11.8 - Type 2 diabetes mellitus with unspecified complications, E78.5 - Hyperlipidemia, unspecified, I15.0 - Renovascular hypertension, M85.852 - Other specified disorders of bone density and structure, left thigh Alanine Aminotransferase 12/25/24 E03.9 - Hypothyroidism, unspecified, E11.42 - Type 2 diabetes mellitus with diabetic polyneuropathy, E11.8 - Type 2 diabetes mellitus with unspecified complications, E78.5 - Hyperlipidemia, unspecified, I15.0 - Renovascular hypertension, M85.852 - Other specified disorders of bone density and structure, left thigh IRON PROFILE 12/25/24 E03.9 - Hypothyroidism, unspecified, E11.42 - Type 2 diabetes mellitus with diabetic polyneuropathy, E11.8 - Type 2 diabetes mellitus with unspecified complications, E78.5 - Hyperlipidemia, unspecified, I15.0 - Renovascular hypertension, M85.852 - Other specified disorders of bone density and structure, left thigh Thyroid Stimulating Hormone 12/25/24 E03.9 - Hypothyroidism, unspecified Free T4 (Free Thyroxine) 12/25/24 E03.9 - Hypothyroidism, unspecified Lipid Panel 12/25/24 E03.9 - Hypothyroidism, unspecified, E11.42 - Type 2 diabetes mellitus with diabetic polyneuropathy, E11.8 - Type 2 diabetes mellitus with unspecified complications, E78.5 - Hyperlipidemia, unspecified, I15.0 - Renovascular hypertension, M85.852 - Other specified disorders of bone density and structure, left thigh Vitamin D 25-OH Total 12/25/24 E03.9 - Hypothyroidism, unspecified, E11.42 - Type 2 diabetes mellitus with diabetic polyneuropathy, E11.8 - Type 2 diabetes mellitus with unspecified complications, E78.5 - Hyperlipidemia, unspecified, I15.0 - Renovascular hypertension, M85.852 - Other specified disorders of bone density and structure, left thigh Uric Acid 12/25/24 E03.9 - Hypothyroidism, unspecified, E11.42 - Type 2 diabetes mellitus with diabetic polyneuropathy, E11.8 - Type 2 diabetes mellitus with unspecified complications, E78.5 - Hyperlipidemia, unspecified, I15.0 - Renovascular hypertension, M85.852 - Other specified disorders of bone density and structure, left thigh
[2024-09-20 11:54] VITALS: BP 118/70; PULSE 64; O2SAT 96; BMI 39.6
== END 2024-09-20 12:27 | disposition home or self-care (01) ==
PROVIDERS: PCP Internal Medicine; Visit Provider Internal Medicine
DX: I12.9 Hypertensive chronic kidney disease with stage 1 through stage 4 chronic kidney disease, or unspecified chronic kidney disease (principal); E11.8 Type 2 diabetes mellitus with unspecified complications; N18.30 Chronic kidney disease, stage 3 unspecified; E78.5 Hyperlipidemia, unspecified; E03.9 Hypothyroidism, unspecified; M85.852 Other specified disorders of bone density and structure, left thigh

== ENCOUNTER → 2024-09-20 11:40 | Outpatient (BNVA) | payer MEDICARE, BC, SELFPAY | PROVIDERS: PCP Internal Medicine; Visit Provider Internal Medicine | DX: I15.0 Renovascular hypertension (principal); E78.5 Hyperlipidemia, unspecified; E03.9 Hypothyroidism, unspecified; E11.8 Type 2 diabetes mellitus with unspecified complications; M85.852 Other specified disorders of bone density and structure, left thigh; N18.30 Chronic kidney disease, stage 3 unspecified | CPT/HCPCS: 99212 ==

== ENCOUNTER 2024-10-03 14:27 | Outpatient (AMB) | payer MEDICARE, BC, SELFPAY ==
--- OUTSIDE RECORDS SUMMARY | 2024-10-03 14:30 | XMS_ITS | Data Portability ---
Author Organization [place] - [facility], Allergy Address [address] [address] Care Team Providers Care Research Investigator Name Role Phone NASEEM HILL Primary Care Provider [phone] Assessment Encounter Date Assessment Date Assessment LastModified by Organization Details LastModified Time 06/04/2024 06/04/2024 74-year-old female presents for follow-up of the ears. Cerumen impaction removed bilaterally. 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 Right TM is scarred and intact. Continue dry ear precautions on the left. Follow-up in 6 months for routine debridement. Patient with cervical lymphadenopathy. Ultrasound of the thyroid 01/31/2024 demonstrated multiple bilateral cervical lymph nodes. In particular left level 6 node 1.1 x 0.4 x 0.7 cm anechoic structure with irregular margins possibly representing abnormal lymph node versus complex fluid collection versus complex cystic lesion. This could also be related to residual thyroid. Also right level 6 node 0.8 x 0.4 x 0.4 cm heterogeneous possibly atypical lymph node with vascularity. Imaging was reviewed with Dr. Post. Recommended repeat ultrasound. Lymph nodes are likely too small to biopsy, but could be considered pending repeat ultrasound. [email or web address] Not available 06/04/2024 12:38:53 Plan of Treatment Reminders Order Date Submit Date Provider Last Modified By Organization Details Last Modified Time Details Appointments Establish ed 15 2024 10:30A M DEBBIE ADHIKARI PA-C Not available Not available Not available Lab None recorded. Referral None recorded. Procedures None recorded. Surgeries None recorded. Imaging US, neck, soft tissue - attention US thyroid 01/31/242023 024 [facility], [address] [facility] [place], [address], 06/04/2024 12:46:58 Medication Orders None recorded. Patient TargetsNo targets recorded. Patient InstructionsNo instructions recorded. Reason for Referral None Reported. Results Created Date Observation Date Name Description Value Unit Range Abnormal Flag Note LastModifiedBy Organization Detail LastModifiedTime 05/16/20 24 02/03/2022 imagi ng/di agnos tic resul t No observ ation record ed. [email or web address] Not Available 18:58:52 05/16/20 24 08/15/2023 imagi ng/di agnos tic resul t No observ ation record ed. [email or web address] Not Available 18:59:08 06/04/20 24 01/31/2024 US, thyro id No observ ation record ed. [email or web address] Not Available 05/2024 15:28:47 Result Notes None recorded. Problems Name Problem SNOMED Code Status Onset Date Resolution Date Notes Provider Name and Address Organization Details Recorded Time Chronic mycotic otitis externa 333888108 Active 2015 Chronic mycotic otitis externa; Note: Date Diagnosed : 04/02/2016 9:45 AM (380.15) Not Available [facility] 4 02:18:14 Migraine without aura, not refractor y 395970442 Active 2021 Migraine without aura, not intractab le, without status migrainos us; Note: Date Diagnosed : 01/07/2022 11:19 AM (G43.009) Not Available [facility] 4 02:18:32 Chronic rhinitis 34866717 Active 2015 Chronic rhinitis; Note: Date Diagnosed : 03/11/2016 9:44 AM (J31.0) Not Available [facility] 4 02:18:18 Impacted cerumen in left ear 26851775080 11711 Active 2021 Impacted cerumen, left ear; Note: Date Diagnosed : 2 5:04 PM (H61.22) Not Available [facility] 4 02:18:12 Sensorine ural hearing loss 36287816 Active 2015 Sensorine ural hearing loss, unilatera l, right ear, with unrestric melba hearing on the contralat eral side; Note: Date Diagnosed : 06/07/2016 12:36 PM (H90.41) Not Available [facility] 4 02:18:20 Central perforati on of left tympanic membrane 52395175641 15985 Active 2015 Central perforati on of tympanic membrane, left ear; Note: Date Diagnosed : 03/11/2016 9:40 AM (H72.02) Not Available [facility] 4 02:18:33 Atypical facial pain 09596216 Active 2021 Atypical facial pain; Note: Changed from R51 to G50.1 ( 2 9:22 AM) , Date Diagnosed : 11/04/2021 1:31 PM (R51) Not Available [facility] 4 02:18:30 Otorrhea of left ear 22591861467 71256 Active 2015 Otorrhea, left ear; Note: Date Diagnosed : 03/11/2016 9:44 AM (H92.12) Not Available [facility] 4 02:18:24 Allergic rhinitis 26556310 Active 2021 Other allergic rhinitis; Note: Date Diagnosed : 01/07/2022 11:14 AM (J30.89) Not Available [facility] 4 02:18:12 Mixed conductiv e and sensorine ural hearing loss of left ear 81223704744 107 Active 2015 Mixed conductiv e and sensorine ural hearing loss, unilatera l, left ear, with unrestric melba hearing on the contralat eral side; Note: Date Diagnosed : 06/07/2016 12:36 PM (H90.72) Not Available [facility] 4 02:18:05 Cervical lymphaden opathy 694788927 Active 2023 DEBBIE ADHIKARI PA-C [address] [place] [address], [facility] azul, [place], [address] , [facility] - [facility] 4 10:58:21 Impacted cerumen of bilateral ears 05922300849 69386 Active 2023 DEBBIE ADHIKARI PA-C [address] [facility],[place] [address], [place], [address] , [facility] - [facility] 4 12:44:21 Problem Notes None recorded. Procedures Surgical History Date Name Laterality Status Provider Name and Address Organization Details Recorded Time Cerumen removal without microscope bilat completed DEBBIE ADHIKARI PA-C [address] [facility],[place] [address], [place], [address], [facility] - [facility] 06/04/2024 12:43:52 Imaging Results Imaging Date Name Status LastModified by [facility]iz [facility] Details LastModified Time 02/03/2022 imaging/diag nostic result completed Information not available 05/16/2024 18:58:52 08/15/2023 imaging/diag nostic result completed Information not available 05/16/2024 18:59:08 01/31/2024 US, thyroid completed [email or web address] Information not available 06/04/2024 15:28:47 Procedure Notes None recorded. Medical Equipment None Reported. Allergies Allergen ID Allergen Name Allergen Category Reaction Reaction Severity Criticality Documentation Date Start Date Code Code System Note Provider Name and Address Organization Details Recorded Time 64391 Niaspan medicatio n other Not available Not available 02/07/2024 19196 6 RxNorm React ion: other react ion, Unkno wn; Not Available [facility] 4 00:50:23 Medications Name Sig Start Date Stop Date Status Note LastModified by Organization Details LastModified Time losartan 50 mg tablet TAKE 1 TABLET BY MOUTH DAILY active Not Available Not Available No t Available atorvasta tin 40 mg tablet TAKE 1 TABLET BY MOUTH DAILY active Not Available Not Available No t Available metformin 500 mg tablet 02/26 completed Medicati on ID: [id number] D uration Value: 90 Brand Name: metformi n Send Method: E-Prescr ibed Sub s Allowed: subs OK Medic ationGen ericName : metformi n Not Available Not Available Not Available clobetaso l 0.05 % topical cream 2021 active Medicati on ID: [id number] B rand Name: clobetas ol Send Method: E-Prescr ibed Sub s Allowed: subs OK Medic ationGen ericName : clobetas ol Not Available Not Available Not Available clopidogr el 75 mg tablet TAKE 1 TABLET BY MOUTH DAILY active Not Available Not Available No t Available levothyro xine 100 mcg tablet TAKE 1 TABLET BY MOUTH DAILY active Not Available Not Available No t Available glipizide ER 2.5 mg tablet, extended release 24 hr 11/04 completed Medicati on ID: [id number] B rand Name: glipizid e Send Method: E-Prescr ibed Sub s Allowed: subs OK Medic ationGen ericName : glipizid e Not Available Not Available Not Available erythromy ruben 5 mg/gram (0.5 %) eye ointment active Not Available Not Available Not Available clotrimaz ole 1 % topical solution APPLY 4 DROPS TO LEFT EAR TWICE DAILY FOR 2 WEEKS 2023 active Not Available Not Available Not Avai lable mupirocin 2 % topical ointment APPLY SMALL AMOUNT EVERY [address] IN THE NASAL CAVITY THREE TIMES DAILY AFTER WARM COMPRESE S active Not Available Not Available No t Available metoprolo l succinate ER 25 mg tablet,ex tended release 24 hr 2021 active Medicati on ID: [id number] B rand Name: metoprol ol succinat e Send Method: E-Prescr ibed Sub s Allowed: subs OK Medic ationGen ericName : metoprol ol succinat e Not Available Not Available Not Available hydrocort isone 2.5 % topical ointment active Not Available Not Available Not Available lisinopri l 40 mg tablet 2021 active Medicati on ID: [id number] B rand Name: lisinopr il Send Method: E-Prescr ibed Sub s Allowed: subs OK Speci al Instruct ion: TAKE 1 TABLET BY MOUTH DAILY Me dication GenericN horacio: lisinopr il Not Available Not Available Not Available fluticaso ne propionat e 50 mcg/actua tion nasal spray,coty pension SHAKE LIQUID AND USE 1 SPRAY IN EACH NOSTRIL DAILY NEEDED FOR NASAL CONGESTI ON active Not Available Not Available No t Available levothyro xine 112 mcg tablet 2021 active Medicati on ID: [id number] B rand Name: levothyr oxine Se nd Method: E-Prescr ibed Sub s Allowed: subs OK Speci al Instruct ion: TAKE 1 TABLET BY MOUTH EVERY MORNING Medicati onGeneri cName: levothyr oxine Not Available Not Available Not Available TobraDex 0.3 %-0.1 % eye drops,coty pension active Not Available Not Available Not Available Ciprodex 0.3 %-0.1 % ear drops,coty pension 4 drop 2015 active Medicati on ID: [id number] D uration Value: 10 Prescri bed By Name: Chichi chapa MD Brand Name: Ciprodex Send Method: E-Prescr ibed Sub s Allowed: subs OK Medic ationGen ericName : Ciprodex Not Available Not Available Not Available metoprolo l tartrate 25 mg tablet TAKE 1 TABLET BY MOUTH TWICE DAILY active Not Available Not Available No t Available mometason e 0.1 % topical solution APPLY TO SCALP TWICE DAILY FOR 2 WEEKS BREAK FOR 1 WEEK THEN REPEAT NEEDED FOR ITCHING active Not Available Not Available No t Available Januvia 50 mg tablet TAKE 1 TABLET BY MOUTH DAILY active Not Available Not Available No t Available febuxosta t 40 mg tablet active Not Available Not Available Not Available Jardiance 10 mg tablet TAKE 1 TABLET BY MOUTH EVERY MORNING active Not Available Not Available No t Available BinaxNOW COVID-19 Ag Self Test kit TEST DIRECTED TODAY active Not Available Not Available No t Available glipizide 2.5 mg tablet TAKE 1 TABLET BY MOUTH EVERY EVENING active Not Available Not Available No t Available Vitals Date Recorded Body height Body mass index (BMI) Body weight Provider Name and Address Organization Details Last Updated DateTime 06/04/2024 152.4 cm 38.5 kg/m2 59534.7 g Dory Tom [place] [facility] 06/04/2024 11:02:08 Social History None recorded. Functional Status None recorded. Mental Status None recorded. Family History Nothing Reported. Medical History No medical history recorded. Gynecological HistoryNo gynecological history recorded. Obstetrics History GPAL:G 0 P 0 0 0 0 Past Encounters Encounter ID Performer Location Encounter Start Date Encounter Closed Date Diagnosis/Indication Diagnosis SNOMED-CT Code Diagnosis ICD10 Code Diagnosis Note [id number] CHICHI POST MD [facility] [address] [place] [address] 06/04/2024 10:40:18 06/04/2024 11:12:12 Central perforation of left tympanic membrane 1331629478 492370 H72.02 Cervical lymphadenopathy 678366837 R59.0 Impacted c erumen of bilateral ears 1095735961 431682 H61.23 Health Concerns Section Related Observation LastModified by Organization Detai ls LastModified Time None Recorded Concern Status LastModified by Organization Details LastModified Time None Recorded Advance Directives Directive None Recorded Payers Encounter Date Sequence Insurance Name Policy Number Policy Gil Covered Member ID Gil Member ID Guarantor Name 06/04/2024 2 [place] [employer] Doreen Barrientos [id number] Doreen Barrientos 06/04/2024 1 [place] [employer] Doreenashleigh Barrientos [id number] Doreen Barrientos Notes Date Note Type Note Provider Name and Address Organization Details Recorded Time 06/04/2024 text/html 74-year-old fema le with history of left TM perforation presents for follow up of the ears. Used Tobradex at previous visit with resolution of symptoms. Denies otalgia, otorrhea, or changes in her hearing. History of DM. Allergies are managed with Flonase. Patient also presents for evaluation of abnormal lymphadenopathy. She had an ultrasound performed by her PCP back in January which demonstrated multiple bilateral cervical lymph nodes with some atypical features. She was referred for further evaluation. Was seen by an ip attorney but no intervention recommended. History of thyroid cancer status post left thyroidectomy. CHICHI POST MD [address] [place] [address], [address], [facility] - [facility] 06/06/2024 05:30:22 OBGyn Episode No OBEpisode recorded.
[2024-10-03 14:46] VITALS: BP 120/64; PULSE 67; BMI 39.8
--- NOTE | 2024-10-03 14:46 | A.OFFVIS_ITS ---
Vital Signs 10/03/24 14:46 Height 5 ft Weight 203 lb 11.314 oz BMI 39.8 BP 120/64 Blood Pressure Location Lt brachial Position Sitting Pulse 67 Pulse Source Pulse Oximeter Intake Visit Reasons: 3 mthf/up Intake Note: 3 mth f/up Sound Art Instructor Required: No Accompanied by: Self / Same As Patient Allergies allopurinol Allergy (Severe, Verified 09/20/24 12:41) Hives niacin [Niaspan Extended-Release] Adverse Reaction (Unknown, Verified 09/20/24 12:41) swelling /itching Medication List - Last Reconciled 10/03/24 by Geoffrey Weinstein MD aspirin 81 mg PO DAILY atorvastatin 40 mg PO DAILY clobetasol 0.05% 1 appl topical DAILY PRN clopidogrel 75 mg PO DAILY 90 days febuxostat 40 mg PO DAILY fluticasone propionate 50 mcg/actuation 1 spray intranasal DAILY PRN Jardiance (empagliflozin) 10 mg PO QAM NS levothyroxine 100 mcg PO DAILY losartan 50 mg PO DAILY menthol-zinc oxide 0.44-20.6 % (Calmoseptine) 1 appl topical QID PRN metoprolol tartrate 25 mg PO BID 90 days [Nature's best 1 tab PO .qd] Ozempic (semaglutide) 0.25 mg (0.368 mL) subcut QWEEK 30 days NS HPI Comments Details: Pleasant 74-year-old female who is here for follow-up. She underwent LAD and circumflex PCI in the past. 06/01/23: She returns for follow-up. She is complaining of dyspnea and mild chest discomfort. She is saying these symptoms started couple of weeks ago. She has no bleeding concerns. Saying she has no lung issues. 02/08/24: She returns for follow-up. She had OM-1 PCI in June 2023. She said her dyspnea improved significantly after that. She has been doing cardiac rehabilitation and trying to exercise more frequently. Her breathing has been stable. She is getting some noncardiac left-sided sharp chest pains off and on. These happen when she is laying on her left side at night. She was reassured. 06/13/2024: She returns for follow-up. She continues to get needle prick like sensation in the left side of the chest which happens when she is laying on her left side. She was reassured that this is not cardiac pain. She will be completing 1 year of her PCI in June. We discussed about dual antiplatelet therapy pros and cons. We have decided to proceed with single antiplatelet agent as we go forward. She needs a umbilical hernia repair by surgery. She will discuss this in more detail with surgery to make her decision about proceeding or not. 10/03/2024: She is here for follow-up. She has been doing well. No chest discomfort. She continues to get some shortness breath with activities. She is breathing problems with bending forward. She has abdominal obesity. She is currently taking Jardiance and Ozempic but has not lost significant weight. Her diabetes control has significantly improved with this strategy though [facility] Medical History (Updated 09/20/24 @ 12:48 by Coni Escobedo MD) History of adenomatous polyp of colon Osteopenia of left femoral neck Anemia in chronic kidney disease Thyroid nodule Colon cancer screening Type 2 diabetes mellitus with complication, without long-term current use of insulin Family history of abdominal aortic aneurysm Obesity (BMI 30-39.9) Hypothyroidism Diabetic nephropathy Dyslipidemia Hypertension Diabetic polyneuropathy associated with type 2 diabetes mellitus Surgical History Hernia, umbilical Status post cardiac catheterization H/O partial thyroidectomy S/P coronary angioplasty History of cardiac cath S/P cardiac cath History of esophagogastroduodenoscopy (EGD) History of cataract surgery History of sinus surgery History of colonoscopy History of bronchoscopy History of total hysterectomy Family History Father AAA (abdominal aortic aneurysm) Mother CVD (cardiovascular disease) Mitral prolapse History of open heart surgery Brother Gout Diabetes Brother No problems noted. Daughter No problems noted. Daughter No problems noted. Social History Housing: House Patient Tobacco Use Status: Former Tobacco user Years Smoked: 50 +/- e-Cigarette/Vaping Use: Never Used Second Hand Smoke Exposure: No service: No Current occupational status: retired Cognitive needs: No Hearing needs: No Vision needs: Yes Review of Systems Const Denies chills, Denies fatigue, Denies fever(s), Denies frequent falls, Denies weakness, Denies weight gain and Denies weight loss ENT Denies dizziness Card Denies chest pain, Denies leg edema, Denies lightheadedness, Denies palpitations, Denies dyspnea and Denies dyspnea on exertion Resp Denies cough, Denies dyspnea and Denies dyspnea on exertion GI Denies hematochezia Musc Denies abnormal gait, Denies muscle weakness, Denies numbness, Denies radiating pain into limb and Denies tingling Neuro Denies abnormal gait, Denies dizziness, Denies frequent falls, Denies numbness, Denies tingling and Denies weakness Endo Denies fatigue and Denies palpitations Physical Exam Vital Signs: Last Vital Signs Pulse 67 10/03/24 14:46 BP 120/64 10/03/24 14:46 BMI result Body Mass Index 39.8 GENERAL APPEARANCE: in no acute distress, pleasant. NECK: no carotid bruit, no jugular venous distention. SKIN: no suspicious lesions, warm and dry. HEART: no murmurs, regular rate and rhythm. LUNGS: clear to auscultation bilaterally. ABDOMEN: soft, nontender. EXTREMITIES: no edema. PERIPHERAL PULSES: equal. NEUROLOGIC: No gross deficits, AAO X 3 Assessment & Plan Assessment & Plan (1) Stable angina: Code(s): I20.8 - Other forms of angina pectoris Category: Medical (2) Hypertension: Code(s): I10 - Essential (primary) hypertension Category: Medical Qualifiers: Hypertension type: renovascular hypertension Qualified Code(s): I15.0 - Renovascular hypertension Plan [age] year female who is here for follow-up. She has background history of coronary disease and underwent multivessel PCI. She has done well with this strategy and has been clinically stable. She continues to have some dyspnea on exertion which is related to abdominal obesity and deconditioning. She is exercising daily and her breathing improves with activities. This is reassuring. Blood pressure is well controlled. Currently taking aspirin and Plavix. If there is any concerns about bleeding then aspirin can be stopped and Plavix monotherapy can be continued. Would favor Plavix over aspirin due to multiple stents in the past. She will see us back in 6 months. Thank you for allowing me to participate in the care of your patient. Please feel free to contact me if you have any questions. Coding Level of Care Code Est Pt Level 4 (97800) Diagnoses Stable angina I20.8 Renovascular hypertension I15.0 Hypertension type: renovascular hypertension
== END 2024-10-03 15:05 | disposition home or self-care (01) ==
PROVIDERS: PCP Internal Medicine; Visit Provider Internal Medicine Cardiovascular Disease
DX: I20.89 Other forms of angina pectoris (principal); I15.0 Renovascular hypertension
CPT/HCPCS: 99214

== ENCOUNTER → 2024-10-03 14:27 | Outpatient (BNVA) | payer MEDICARE, BC, SELFPAY | PROVIDERS: PCP Internal Medicine; Visit Provider Internal Medicine Cardiovascular Disease | DX: I20.89 Other forms of angina pectoris (principal); I15.0 Renovascular hypertension | CPT/HCPCS: 99212 ==

== ENCOUNTER 2024-12-13 10:42 | Outpatient (REF) | payer MEDICARE, BC, SELFPAY ==
--- OUTSIDE RECORDS SUMMARY | 2024-12-13 12:33 | XMS_ITS | Clinical Summary ---
Author Organization [facility] Address [address] [address] Phone Care Team Providers Care Floater Operator Name Role Phone Reinaldo Escobedo MD Primary Care Provider +1- [phone] Allergies Active Allergy Reactions Criticality Noted Date Comments Allopurinol 02/10/2022 Niacin Other (see comments) 12/08/2020 Medications Multiple Vitamin (multivitamin) capsule Take 1 capsule by mouth 1 (one) time each day Active atorvastatin (LIPITOR) 40 MG tablet Take 1 tablet by mouth 1 (one) time each day Active cholecalciferol (VITAMIN D-3) 25 MCG (1000 UT) capsule Take 1 capsule by mouth 1 (one) time each day 5 Active metoprolol succinate XL (TOPROL-XL) 25 MG 24 hr tablet Take 1 tablet by mouth 1 (one) time each day Active SITagliptin (JANUVIA) 50 MG tablet Take 1 tablet by mouth 1 (one) time each day Active cholestyramine light 4 g packet 2 Active clobetasol (TEMOVATE) 0.05 % cream APPLY TOPICALLY TO THE AFFECTED AREA DAILY NEEDED FOR RASH 2 Active fluticasone (FLONASE) 50 MCG/ACT nasal spray 2 Active levothyroxine (SYNTHROID, LEVOTHROID) 100 MCG tablet Take 100 mcg by mouth 1 (one) time each day 2 Active Calmoseptine 0.44-20.6 % ointment APPLY TOPICALLY FOUR TIMES DAILY NEEDED FOR SKIN IRRITATION 2 Active clopidogrel (PLAVIX) 75 MG tablet Take 75 mg by mouth 1 (one) time each day 3 Active losartan (COZAAR) 50 MG tablet Take 50 mg by mouth 1 (one) time each day 3 Active Febuxostat (ULORIC) 40 MG tablet Take 1 tablet (40 mg total) by mouth 1 (one) time each day 90 tablet 3 4 Active Jardiance 10 MG tablet Take by mouth 4 Active Ozempic, 0.25 or 0.5 MG/DOSE, 2 MG/3ML solution pen-injector 4 Active glipiZIDE 2.5 MG tablet Take 1 tablet by mouth at bed time 4 Active Active Problems Problem Noted Date Diagnosed Date Acute nontraumatic kidney injury 02/08/2023 Heart valve disorder 11/04/2021 Overview (11/04/2021): Mitral Gout, not otherwise specified 11/03/2021 Hypertension 11/03/2021 Analgesic adverse reaction <Sequela> 11/03/2021 Stage 3b chronic kidney disease 01/30/2021 Hypertensive nephrosclerosis 01/30/2021 Renal osteodystrophy 01/30/2021 Diabetes mellitus, not otherwise specified 12/08 Resolved Problems Problem Noted Date Diagnosed Date Resolved Date Type 2 diabetes mellitus wit h diabetic chronic kidney disease 01/30/2021 11/03/2021 Benign hypertensive renal disease 12/08/2020 11/03/2021 Chronic kidney disease stage 3 due to benign hypertension 04/06/2011 02/10/2022 Family History Medical History Relation Comments Heart disease Father Heart disease Mother Relation Status Comments Father Mother Social History Tobacco Use Types Packs/Day Years Used Date Smoking Tobacco: Former Cigarettes Q uit: 09/26/1994 Smokeless Tobacco: Never Tobacco Cessation:Counseling Given: Not Answered Comments:Smoking History Info:Every day Alcohol Use Standard Drinks/Week Comments No 0 (1 standard drink = 0.6 oz pur e alcohol) Comments Unknown Sex and Gender Information Value Date Recorded Sex Assigned at Female 02/08/2023 1:48 PM EDT Legal Sex Female 5:18 PM EST Gender Identity Female 02/08/2023 1:48 PM EDT Sexual Orientation Straight 02/08/2023 1: 48 PM EDT Last Filed Vital Signs Vital Sign Reading Time Taken Comments Blood Pressure 155/90 08/07/2024 9:33 AM EST Pulse 60 08/07/2024 9:33 AM EST Temperature - - Respiratory Rate - - Oxygen Saturation 94% 08/07/2024 9:33 AM EST Inhaled Oxygen Concentration - - Weight 91.5 kg (201 lb 12.8 oz) 08/07/2024 9:33 AM EST Height 152.4 cm (5') 08/07/2024 9:33 AM EST Body Mass Index 39.41 08/07/2024 9:33 AM EST Plan of Treatment Upcoming Encounters Date Type Department Care Team (Late st Contact Info) Description 02/06/2025 10:00 AM EDT Office Visit [facility] [address] [phone] Demond Edmondson MD [address] [phone] Health Maintenance Due Date Last Done Comments Pneumococcal Vaccine: 65+ Ye ars (2 of 2 - PCV) 04/25/2014 04/25/2013 Diabetes: Hemoglobin A1C 10/27/2020 Diabetes: Ophthalmology Exam 10/27/2020 Diabetes: Pedal Pulse Checked 10/27/2020 Diabetes: Sensory Foot Exam 10/27/2020 Diabetes: Visual Foot Exam 10/27/2020 Influenza Vaccine (#1) 2024 Hepatitis B Vaccine Aged Out No longe r eligible based on patient's age to complete this topic Insurance [facility] MEDICARE MEDICARE [facility] Care Teams Floater Operator Relationship Specialty Start Date End Date Reinaldo Escobedo MD [facility] [place] [address] PCP - General 10/06/20
--- OUTSIDE RECORDS SUMMARY | 2024-12-13 12:33 | XMS_ITS | Data Portability ---
Author Organization [place] [facility] Address [address] [address] Care Team Providers Care Lemon Grower Name Role Phone NASEEM HILL Primary Care Provider [phone] Assessment Encounter Date Assessment Date Assessment LastModified [...] but could be considered pending repeat ultrasound. [email or web address] Not available 06/04/2024 12:38:53 Plan of Treatment Reminders Order Date Submit Date Provider Last Modified By Organization Details Last Modified Time Details Appointments Establish ed 15 2024 10:30A M DEBBIE ADHIKARI PA-C Not available Not available Not available Lab None recorded. Referral None recorded. Procedures None recorded. Surgeries None recorded. Imaging US, neck, soft tissue - attention US thyroid 01/31/242023 024 [facility], [address] [facility] [place], [address], 06/04/2024 12:46:58 Medication Orders None recorded. Patient [...] Details Recorded Time Chronic mycotic otitis externa 643141367 Active 2015 Chronic mycotic otitis externa; Note: Date Diagnosed : 04/02/2016 9:45 AM (380.15) Not Available [facility] 4 02:18:14 Migraine without aura, not refractor y 306308187 Active 2021 Migraine without aura, not intractab le, without status migrainos us; Note: Date Diagnosed : 01/07/2022 11:19 AM (G43.009) Not Available [facility] 4 02:18:32 Chronic rhinitis 72793876 Active 2015 Chronic rhinitis; Note: Date Diagnosed : 03/11/2016 9:44 AM (J31.0) Not Available [facility] 4 02:18:18 Impacted cerumen in left ear 08576010500 42176 Active 2021 Impacted cerumen, left ear; Note: Date Diagnosed : 2 5:04 PM (H61.22) Not Available [facility] 4 02:18:12 Sensorine ural hearing loss 95408570 Active 2015 Sensorine ural hearing loss, unilatera l, right ear, with unrestric melba hearing on the contralat eral side; Note: Date Diagnosed : 06/07/2016 12:36 PM (H90.41) Not Available [facility] 4 02:18:20 Central perforati on of left tympanic membrane 10279462132 39368 Active 2015 Central perforati on of tympanic membrane, left ear; Note: Date Diagnosed : 03/11/2016 9:40 AM (H72.02) Not Available [facility] 4 02:18:33 Atypical facial pain 26910717 Active 2021 Atypical facial pain; Note: Changed from R51 to G50.1 ( 2 9:22 AM) , Date Diagnosed : 11/04/2021 1:31 PM (R51) Not Available [facility] 4 02:18:30 Otorrhea of left ear 76786200772 69935 Active 2015 Otorrhea, left ear; Note: Date Diagnosed : 03/11/2016 9:44 AM (H92.12) Not Available [facility] 4 02:18:24 Allergic rhinitis 31961750 Active 2021 Other allergic rhinitis; Note: Date Diagnosed : 01/07/2022 11:14 AM (J30.89) Not Available [facility] 4 02:18:12 Mixed conductiv e and sensorine ural hearing loss of left ear 62787565949 107 Active 2015 Mixed conductiv e and sensorine ural hearing loss, unilatera l, left ear, with unrestric melba hearing on the contralat eral side; Note: Date Diagnosed : 06/07/2016 12:36 PM (H90.72) Not Available [facility] 4 02:18:05 Cervical lymphaden opathy 096225865 Active 2023 DEBBIE ADHIKARI PA-C [address] [place] [address], [place], [address] , [facility] - [facility] 4 10:58:21 Impacted cerumen of bilateral ears 17181253327 64673 Active 2023 DEBBIE ADHIKARI PA-C [address] [facility],[place] [address], [place], [address] , [facility] - [facility] 4 12:44:21 Problem Notes None recorded. Procedures Surgical History Date Name Laterality Status Provider Name and Address Organization Details Recorded Time Cerumen removal without microscope bilat completed DEBBIE ADHIKARI PA-C [address] [facility],[place] [address], [place], [address], [facility] - [facility] 06/04/2024 12:43:52 Imaging Results Imaging Date Name Status [facility] Details LastModified Time 02/03/2022 imaging/diag nostic result [...] Name and Address Organization Details Recorded Time 21466 Niaspan medicatio n other Not available Not available 02/07/2024 96769 6 RxNorm React ion: other react ion, Unkno wn; Not Available [facility] 4 00:50:23 Medications Name Sig Start [...] mg tablet 02/26 completed Medicati on ID: [id number] D uration Value: 90 Brand Name: metformi n Send Method: E-Prescr ibed Sub s Allowed: subs OK Medic ationGen ericName : metformi n Not Available Not Available Not Available clobetaso l 0.05 % topical cream 2021 active Medicati on ID: [id number] B rand Name: clobetas ol Send Method: [...] 24 hr 11/04 completed Medicati on ID: [id number] B rand Name: glipizid e Send Method: [...] Avai lable mupirocin 2 % topical ointment Apply 1 a small amount every eight hours active Not Available Not Available No t Available metoprolo l succinate ER 25 mg tablet,ex tended release 24 hr 2021 active Medicati on ID: [id number] B rand Name: metoprol ol succinat e Send Method: E-Prescr ibed Sub s Allowed: subs OK Medic ationGen ericName : metoprol ol succinat e Not Available Not Available Not Available hydrocort isone 2.5 % topical ointment active Not Available Not Available Not Available lisinopri l 40 mg tablet 2021 active Medicati on ID: [id number] B rand Name: lisinopr il Send Method: [...] mcg tablet 2021 active Medicati on ID: [id number] B rand Name: levothyr oxine Se nd Method: E-Prescr ibed Sub s Allowed: subs OK Speci al Instruct ion: TAKE 1 TABLET BY MOUTH EVERY MORNING Medicati onGeneri cName: levothyr oxine Not Available Not Available Not Available TobraDex 0.3 %-0.1 % eye drops,coty pension instill 3 drops in affected ear twice a day for ten days active Not Available Not Available No t Available Ciprodex 0.3 %-0.1 % ear drops,coty pension 4 drop 2015 active Medicati on ID: [id number] D uration Value: 10 Prescri bed By [...] Updated DateTime 06/04/2024 152.4 cm 38.5 kg/m2 05968.7 g Dory Tom [place] [facility] 06/04/2024 11:02:08 Social History None recorded. Functional Status None recorded. Mental Status None recorded. Family History Nothing Reported. Medical History No medical history recorded. Gynecological HistoryNo gynecological history recorded. Obstetrics History GPAL:G 0 P 0 0 0 0 Past Encounters Encounter ID Performer Location Encounter Start Date Encounter Closed Date Diagnosis/Indication Diagnosis SNOMED-CT Code Diagnosis ICD10 Code Diagnosis Note [id number] CHICHI POST MD [facility] [address] [place] [address] 06/04/2024 10:40:18 06/04/2024 11:12:12 Central perforation of left tympanic membrane [id number] 672493 H72.02 Cervical lymphadenopathy 409826244 R59.0 Impacted c erumen of bilateral ears 6411740906 622878 H61.23 Health Concerns Section Related Observation LastModified by Organization Detai ls LastModified Time None Recorded Concern Status LastModified by Organization Details LastModified Time None Recorded Advance Directives Directive None Recorded Payers Encounter Date Sequence Insurance Name Policy Number Policy Gil Covered Member ID Gil Member ID Guarantor Name 06/04/2024 2 [place] [employer] Doreen Barrientos [id number] Doreen Barrientos 06/04/2024 1 [place] [employer] Doreen Barrientos [id number] Doreen Barrientos Notes Date Note Type Note Provider Name and Address Organization Details Recorded Time 06/04/2024 text/html 74-year-old fema chaparro with history of left TM perforation presents [...] for further evaluation. Was seen by an agribusiness internship but no intervention recommended. History of thyroid cancer status post left thyroidectomy. CHICHI POST MD [address] [place] [address], [phone], [facility] - [facility] 06/06/2024 05:30:22 OBGyn Episode No OBEpisode recorded.
--- OUTSIDE RECORDS SUMMARY | 2024-12-13 12:33 | XMS_ITS | Encounter Summary ---
Author Organization [facility] Address 100 [facility] [address] [place] [address] Phone Care Team Providers Care Buddhist Monk Name Role Phone Reinaldo Escobedo MD Primary Care Provider +1- [phone] Encounter Details Date Type Department Care Team (Late st Contact Info) Description 12/17/2021 Telephone [facility] [address] [facility] [facility] [address] [place] [phone] Demond Edmondson MD [address] [facility] [address] [place] [phone] Social History Tobacco Use Types Packs/Day Years Used Date Smoking Tobacco: Former Cigarettes Q uit: 09/26/1994 Smokeless Tobacco: Never Comments:Smoking History Inf o:Every day Alcohol Use Standard Drinks/Week Comments No 0 (1 standard drink = 0.6 oz pur e alcohol) Comments Unknown Sex and Gender Information Value Date Recorded Sex Assigned at Female 02/08/2023 1:48 PM EDT Legal Sex Female 5:18 PM EST Gender Identity Female 02/08/2023 1:48 PM EDT Sexual Orientation Straight 02/08/2023 1: 48 PM EDT documented as of this encounter Miscellaneous Notes * Telephone Encounter - Rosa Rausch - 12/17/2021 11:19 AM EDT Pts pharmacy called, pts Febuxostat will need a new PA for this year. They also send a request through cover my meds. Thank you documented in this encounter Plan of Treatment Upcoming Encounters Date Type Department Care Team (Late st Contact Info) Description 02/06/2025 10:00 AM EDT Office Visit [facility] [address] [phone] Demond Edmondson MD [address] [phone] documented as of this encounter Visit Diagnoses Not on filedocumented in this encounter Care Teams Buddhist Monk Relationship Specialty Start Date End Date Reinaldo Escobedo MD [address] [place] [address] PCP - General 10/06/20 documented as of this encounter
== END 2024-12-13 10:43 | disposition home or self-care (01) ==
LOC: HO.MAMMO 10:42
PROVIDERS: PCP Internal Medicine; Visit Provider Internal Medicine
DX: Z12.31 Encounter for screening mammogram for malignant neoplasm of breast (principal)
CPT/HCPCS: 77063; 77067

== ENCOUNTER → 2024-12-13 11:00 | Outpatient (BNV) | payer MEDICARE, BC, SELFPAY | PROVIDERS: PCP Internal Medicine; Visit Provider Internal Medicine | DX: Z12.31 Encounter for screening mammogram for malignant neoplasm of breast (principal) | CPT/HCPCS: 77063; 77067 ==

== ENCOUNTER 2025-01-04 13:18 | Outpatient (REF) | payer MEDICARE, BC, SELFPAY ==
--- OUTSIDE RECORDS SUMMARY | 2025-01-04 13:43 | XMS_ITS | Encounter Summary ---
Author Organization [facility] Address [address] [facility] [address] [place] [address] Phone Care Team Providers Care Gl Accountant Name Role Phone Reinaldo Escobedo MD Primary Care Provider +1- [phone] Reason for Visit * Reason Onset Date Comments Med Refill 01/02/2025 Encounter Details Date Type Department Care Team (Late st Contact Info) Description 01/02/2025 Refill [facility]. [address] [facility] [address] [place] [phone] [facility] [address] [place] [phone] Social History Tobacco Use Types Packs/Day Years [...] PM EDT documented as of this encounter Plan of Treatment Upcoming Encounters Date Type Department Care Team (Late st Contact Info) Description 02/06/2025 10:00 AM EDT Office Visit [facility] [address] [address] Demond Edmondson MD [address] [address] documented as of this encounter Visit Diagnoses Not on filedocumented in this encounter Care Teams Gl Accountant Relationship Specialty Start Date End Date Reinaldo Escobedo [place] [address] PCP - General 10/06/20 documented as of this encounter
--- OUTSIDE RECORDS SUMMARY | 2025-01-04 13:43 | XMS_ITS | Encounter Summary ---
Author Organization [facility] Address 100 [facility] [address] [place] [address] Phone Care Team Providers Care Steward Racetrack Name Role Phone Reinaldo Escobedo MD Primary Care Provider +1- [phone] Encounter Details Date Type Department Care Team (Late st Contact Info) Description 12/17/2021 Telephone [facility] [address] [facility] [address] [place] [phone] Demond Edmondson MD [address] [facility] [address] [place] [phone] Social History Tobacco Use Types Packs/Day Years [...] Visit [facility] [address] [phone] Demond Edmondson MD [address] [phone] documented as of this encounter Visit Diagnoses Not on filedocumented in this encounter Care Teams Steward Racetrack Relationship Specialty Start Date End Date Reinaldo Escobedo MD [address] [place] [address] PCP - General 10/06/20 documented as of this encounter
--- OUTSIDE RECORDS SUMMARY | 2025-01-04 13:43 | XMS_ITS | Clinical Summary ---
Author Organization [facility]. Address [address] [address] Phone Care Team Providers Care Code Machine Operator Name Role Phone Reinaldo Escobedo MD Primary Care Provider +1- [phone] Allergies Active Allergy Reactions Criticality Noted Date Comments Allopurinol 02/10/2022 Niacin Other (see comments) 12/08/2020 Medications Multiple Vitamin (multivitamin) capsule Take 1 capsule by mouth 1 (one) time each day Active atorvastatin (LIPITOR) 40 MG tablet Take 1 tablet by mouth 1 (one) time each day Active cholecalcifero l (VITAMIN D-3) 25 MCG (1000 UT) capsule [...] 1 (one) time each day 3 Active Jardiance 10 MG tablet Take by mouth 4 Active Ozempic, 0.25 or 0.5 MG/DOSE, 2 MG/3ML solution pen-injector 4 Active glipiZIDE 2.5 MG tablet Take 1 tablet by mouth at bed time 4 Active Febuxostat (ULORIC) 40 MG tablet Take 1 tablet (40 mg total) by mouth 1 (one) time each day 90 tablet 3 5 Active Febuxostat (ULORIC) 40 MG tablet Take 1 tablet (40 mg total) by mouth 1 (one) time each day 90 tablet 3 4 01/03/20 25 Discontinu ed(Reorder (does not appear on AVS)) Active Problems Problem Noted Date Diagnosed Date [...] 3 due to benign hypertension 04/06/2011 02/10/2022 Encounters Date Type Department Care Team Description 01/02/2025 Refill [facility] [address] Sol Jalloh from Last 3 Months Family History Medical History Relation Comments Heart [...] [facility] [address] [phone] Demond Edmondson MD [address] [phone] Health Maintenance Due Date Last Done Comments Pneumococcal Vaccine: 50+ Ye ars (2 of 2 - PCV) 04/25/2014 04/25/2013 Diabetes: Hemoglobin A1C 10/27/2020 Diabetes: Ophthalmology Exam 10/27/2020 Diabetes: Pedal Pulse Checked 10/27/2020 Diabetes: Sensory Foot Exam 10/27/2020 Diabetes: Visual Foot Exam 10/27/2020 Influenza Vaccine (Season Ended) 2025 Hepatitis B Vaccine Aged Out No longe r eligible based on patient's age to complete this topic Insurance [facility] Medicare Medicare [facility] Care Teams Code Machine Operator Relationship Specialty Start Date End Date Reinaldo Escobedo [place] [address] PCP - General 10/06/20
--- OUTSIDE RECORDS SUMMARY | 2025-01-04 13:43 | XMS_ITS | Data Portability ---
Author Organization [place] - [facility], Allergy Address [address] [address] Care Team Providers Care Maintenance And Utilities Supervisor Name Role Phone NASEEM HILL Primary Care Provider Assessment Encounter Date Assessment Date Assessment LastModified [...] but could be considered pending repeat ultrasound. [email or web address] Not available 06/04/2024 12:38:53 Plan of Treatment Reminders Order Date Submit Date Provider Last Modified By Organization Details Last Modified Time Details Appointments Establish ed 15 2024 10:30A M DEBBIE ADHIKARI PA-C Not available Not available Not available Lab None recorded. Referral None recorded. Procedures None recorded. Surgeries None recorded. Imaging US, neck, soft tissue - attention US thyroid 01/31/242023 024 [facility], [address] [facility] [place], [address], 06/04/2024 12:46:58 Medication Orders None recorded. Patient [...] Details Recorded Time Chronic mycotic otitis externa 854309566 Active 2015 Chronic mycotic otitis externa; Note: Date Diagnosed : 04/02/2016 9:45 AM (380.15) Not Available Replaced by [facility] 4 02:18:14 Migraine without aura, not refractor y 550578441 Active 2021 Migraine without aura, not intractab le, without status migrainos us; Note: Date Diagnosed : 01/07/2022 11:19 AM (G43.009) Not Available [facility] 4 02:18:32 Chronic rhinitis 84697333 Active 2015 Chronic rhinitis; Note: Date Diagnosed : 03/11/2016 9:44 AM (J31.0) Not Available [facility] 4 02:18:18 Impacted cerumen in left ear 15110515892 35703 Active 2021 Impacted cerumen, left ear; Note: Date Diagnosed : 2 5:04 PM (H61.22) Not Available [facility] 4 02:18:12 Sensorine ural hearing loss 49360530 Active 2015 Sensorine ural hearing loss, unilatera l, right ear, with unrestric melba hearing on the contralat eral side; Note: Date Diagnosed : 06/07/2016 12:36 PM (H90.41) Not Available Replaced by [facility] 4 02:18:20 Central perforati on of left tympanic membrane 29440051832 84140 Active 2015 Central perforati on of tympanic membrane, left ear; Note: Date Diagnosed : 03/11/2016 9:40 AM (H72.02) Not Available [facility] 4 02:18:33 Atypical facial pain 57955004 Active 2021 Atypical facial pain; Note: Changed from R51 to G50.1 ( 2 9:22 AM) , Date Diagnosed : 11/04/2021 1:31 PM (R51) Not Available Replaced by [facility] 4 02:18:30 Otorrhea of left ear 89102203680 85985 Active 2015 Otorrhea, left ear; Note: Date Diagnosed : 03/11/2016 9:44 AM (H92.12) Not Available Replaced by [facility] 4 02:18:24 Allergic rhinitis 36142278 Active 2021 Other allergic rhinitis; Note: Date Diagnosed : 01/07/2022 11:14 AM (J30.89) Not Available Replaced by [facility] 4 02:18:12 Mixed conductiv e and sensorine ural hearing loss of left ear 41289505136 107 Active 2015 Mixed conductiv e and sensorine ural hearing loss, unilatera l, left ear, with unrestric melba hearing on the contralat eral side; Note: Date Diagnosed : 06/07/2016 12:36 PM (H90.72) Not Available Replaced by [facility] 4 02:18:05 Cervical lymphaden opathy 350708548 Active 2023 DEBBIE ADHIKARI PA-C [address] [place] [address], [facility] [place], [address] , [facility] - [facility] 4 10:58:21 Impacted cerumen of bilateral ears 14156212742 37554 Active 2023 DEBBIE ADHIKARI PA-C [address] [facility],[place] [address], [place], [address] , [facility] - [facility] 4 12:44:21 Problem Notes None recorded. Procedures Surgical History Date Name Laterality Status Provider Name and Address Organization Details Recorded Time Cerumen removal without microscope bilat completed DEBBIE ADHIKARI PA-C [address] [facility],[place] [address], [place], [address], [facility] - [facility] 06/04/2024 12:43:52 Imaging Results Imaging Date Name [facility] LastModified Time 02/03/2022 imaging/diag nostic [...] Name and Address Organization Details Recorded Time 45523 [facility] n other Not available Not available 02/07/2024 25261 6 RxNorm React ion: other react ion, Unkno wn; Not Available [facility] 4 00:50:23 Medications Name Sig Start [...] mg tablet 02/26 completed Medicati on ID: [id number] D uration Value: 90 Brand Name: metformi n Send Method: E-Prescr ibed Sub s Allowed: subs OK Medic ationGen ericName : metformi n Not Available Not Available Not Available clobetaso l 0.05 % topical cream 2021 active Medicati on ID: 016295 B rand Name: clobetas ol Send Method: [...] 24 hr 11/04 completed Medicati on ID: 273039 B rand Name: glipizid e Send Method: [...] 24 hr 2021 active Medicati on ID: 072460 B rand Name: metoprol ol succinat e Send Method: E-Prescr ibed Sub s Allowed: subs OK Medic ationGen ericName : metoprol ol succinat e Not Available Not Available Not Available hydrocort isone 2.5 % topical ointment active Not Available Not Available Not Available lisinopri l 40 mg tablet 2021 active Medicati on ID: 625867 B rand Name: lisinopr il Send Method: [...] mcg tablet 2021 active Medicati on ID: 774244 B rand Name: levothyr oxine Se nd [...] 4 drop 2015 active Medicati on ID: 403524 D uration Value: 10 Prescri bed By [...] Updated DateTime 06/04/2024 152.4 cm 38.5 kg/m2 58313.7 g Dory Tom [place] - [facility] 06/04/2024 11:02:08 Social History None recorded. Functional Status None recorded. Mental Status None recorded. Family History Nothing Reported. Medical History No medical history recorded. Gynecological HistoryNo gynecological history recorded. Obstetrics History GPAL:G 0 P 0 0 0 0 Past Encounters Encounter ID Performer Location Encounter Start Date Encounter Closed Date Diagnosis/Indication Diagnosis SNOMED-CT Code Diagnosis ICD10 Code Diagnosis Note [id number] CHICHI POST MD [facility] [address] [place] [address] 06/04/2024 10:40:18 06/04/2024 11:12:12 Central perforation of left tympanic membrane [id number] 871838 H72.02 Cervical lymphadenopathy 488377704 R59.0 Impacted c erumen of bilateral ears 2868912517 827072 H61.23 Health Concerns Section Related Observation LastModified by Organization Detai ls LastModified Time None Recorded Concern Status LastModified by Organization Details LastModified Time None Recorded Advance Directives Directive None Recorded Payers Encounter Date Sequence Insurance Name Policy Number Policy Gil Covered Member ID Gil Member ID Guarantor Name 06/04/2024 2 [place] [employer] Doreen Barrientos [id number] Doreen Barrientos 06/04/2024 1 [place] [employer] Doreen Barrientos [id number] Doreen Barrientos Notes Date Note Type [...] for further evaluation. Was seen by an wet mix operator but no intervention recommended. History of thyroid cancer status post left thyroidectomy. CHICHI POST MD [address] [place] [address], [address], [facility] - [facility] 06/06/2024 05:30:22 OBGyn Episode No OBEpisode recorded.
[2025-01-04 16:24] LABS: Estimated Average Glucose 131 mg/dL; Hemoglobin A1C 145.8004 umol/L; Hemoglobin A1c % 6.2 % (<6.0); Total Hemoglobin (HGBA1C) 3269.4166 umol/L
[2025-01-04 16:42] LABS: Alanine Aminotransferase 23 U/L (0-31); Anion Gap 12 (12-20); Aspartate Amino Transferase 26 U/L (5-31); Blood Urea Nitrogen 35 mg/dL (9-16); Calcium 10.1 mg/dL (8.4-10.2); Carbon Dioxide 26 mmol/L (22-29); Chloride 107 mmol/L (96-108); Cholesterol 144 mg/dL (<200); Estimated Glomerular Filt Rate 28; Glucose Fasting 103 mg/dL (60-99); HDL Cholesterol 35 mg/dL (>40); Iron 80 mcg/dL (30-160); LDL Cholesterol Calculated 65 mg/dL (<100); Percent Iron Saturation 26 % (15-50); Potassium 4.5 mmol/L (3.3-5.1); Sodium 140 mmol/L (135-145); Total Iron Binding Capacity 310 mcg/dL (228-428); Triglycerides 221 mg/dL (<150); Unsaturated Iron Binding 230 ug/dL; Uric Acid 3.5 mg/dL (2.4-5.7)
[2025-01-04 16:48] LABS: Free T4 (Free Thyroxine) 1.15 ng/dL (0.71-1.85); Thyroid Stimulating Hormone 2.73 uIU/mL (0.32-4.0); Vitamin D 25-OH Total 87.9 ng/mL (>30)
== END 2025-01-04 13:19 | disposition home or self-care (01) ==
LOC: HO.HMGCLDS 13:18
PROVIDERS: PCP Internal Medicine; Visit Provider Internal Medicine
DX: M85.852 Other specified disorders of bone density and structure, left thigh (principal); E11.8 Type 2 diabetes mellitus with unspecified complications; E03.9 Hypothyroidism, unspecified; E78.5 Hyperlipidemia, unspecified; I15.0 Renovascular hypertension; E11.42 Type 2 diabetes mellitus with diabetic polyneuropathy
CPT/HCPCS: 36415; 80048; 80061; 82306; 83036; 83540; 84439; 84443; 84450; 84460; 84550

== ENCOUNTER 2025-01-10 13:40 | Outpatient (AMB) | payer MEDICARE, BC, SELFPAY ==
--- NOTE | 2025-01-10 13:54 | A.OFFPC_ITS ---
Vital Signs 01/10/25 14:16 Height 5 ft Weight 203 lb BMI 39.6 BP 142/80 H Blood Pressure Location Rt brachial Position Sitting Respiration 16 Pulse 54 Pulse Source Pulse Oximeter Temp 98.4 F Temp Source Oral Pulse Oximetry (%) 98 Oxygen Delivery Method Room Air Intake Visit Reasons: 4 months f/up Intake Note: Pt is here today for her 4mo. f/u Allergies allopurinol Allergy (Severe, Verified 01/13/25 15:46) Hives niacin [Niaspan Extended-Release] Adverse Reaction (Unknown, Verified 01/13/25 15:46) swelling /itching Medication List - Last Reconciled 01/13/25 by Coni Escobedo MD aspirin 81 mg PO DAILY atorvastatin 40 mg PO DAILY clobetasol 0.05% 1 appl topical DAILY PRN clopidogrel 75 mg PO DAILY 90 days famotidine 40 mg PO DAILY febuxostat 40 mg PO DAILY fluticasone propionate 50 mcg/actuation 1 spray intranasal DAILY PRN Jardiance (empagliflozin) 10 mg PO QAM NS levothyroxine 100 mcg PO DAILY losartan 50 mg PO DAILY menthol-zinc oxide 0.44-20.6 % (Calmoseptine) 1 appl topical QID PRN metoprolol tartrate 25 mg PO BID 90 days [Nature's best 1 tab PO .qd] Tobacco use date assessed: 01/10/25 Fall risk assessment: No Falls in past year Last assessed Fall Risk: 01/10/25 Dental Screening Dental Screen Date: 01/10/25 Did you have a dental visit in the last 12 months?: No Did you have a dental problem in the last 6 months where you did not have access to dental care?: No Was dental information given to patient?: No HPI 4 months f/up HPI Details 74 year old lady with history of chroni c kidney disease, COPD, multi-vessel CADwho has refused coronary artery bypass grafting, underwent PCI of the LAD and left circumflex. and had a stent placed in the 1st OM. here today for follow up of her Diabetes mellitus , Hypothyroidism , and Hyperlipidemia. She has been compliant with taking her medications but admits to having dietary indiscretions over the last several months and not having any regular exercise. Latest fasting labs done showed higher hemoglobin A1c at 6.2% as compared to 5.9% 4 months ago, elevated triglycerides, with normal LDL cholesterol, normal TSH and free T4 levels. She has been feeling well otherwise with no complaints at present time. She is up-to-date with her diabetes retinopathy screening, goes to [facility] with no retinopathy seen in both eyes. Requesting a refill on her clobetasol cream which she uses as needed for her eczema. Has been having recurrent episodes of heartburn symptoms usually at night, usually diet related when she eats a lot a acidic foods like anything tomato based or when she eats late at night. [facility] Medical History History of adenomatous polyp of colon Osteopenia of left femoral neck Anemia in chronic kidney disease Thyroid nodule Colon cancer screening Type 2 diabetes mellitus with complication, without long-term current use of insulin Family history of abdominal aortic aneurysm Obesity (BMI 30-39.9) Hypothyroidism Diabetic nephropathy Dyslipidemia Hypertension Diabetic polyneuropathy associated with type 2 diabetes mellitus Surgical History Hernia, umbilical Status post cardiac catheterization H/O partial thyroidectomy S/P coronary angioplasty History of cardiac cath S/P cardiac cath History of esophagogastroduodenoscopy (EGD) History of cataract surgery History of sinus surgery History of colonoscopy History of bronchoscopy History of total hysterectomy Family History Father AAA (abdominal aortic aneurysm) Mother CVD (cardiovascular disease) Mitral prolapse History of open heart surgery Brother Gout Diabetes Brother No problems noted. Daughter No problems noted. Daughter No problems noted. Social History Housing: House Patient Tobacco Use Status: Former Tobacco user Years Smoked: 50 +/- e-Cigarette/Vaping Use: Never Used Second Hand Smoke Exposure: No service: No Current occupational status: retired Cognitive needs: No Hearing needs: No Vision needs: Yes Questionnaire PHQ-9 Over the last 2 weeks, how often have you been bothered by any of the following problems? 1. Little interest or pleasure in doing things: not at all 2. Feeling down, depressed, or hopeless: not at all 3. Trouble falling or staying asleep, or sleeping too much: several days 4. Feeling tired or having little energy: several days 5. Poor appetite or overeating: several days 6. Feeling bad about yourself - or that you are a failure or have let yourself or your family down: not at all 7. Trouble concentrating on things, such as reading the newspaper or watching television: not at all 8. Moving or speaking so slowly that other people could have noticed. Or the opposite - being so fidgety or restless that you have been moving around a lot more than usual: several days 9. Thoughts that you would be better off or of hurting yourself in some way: not at all Total score: 4 Depression Screening Interpretation: Negative Depression Screening Done: Yes 35997 - PHQ-9 Billing: Yes Source: Developed by Drs. Cameron Marin, Mi Santiago, Agustín Clark and colleagues, with an educational bushra from [employer]. Thrive Questionnaire Date Thrive assessed: 01/10/25 I am a: Patient What is your living situation today?: I have a steady place to live Within the past 12 months, did the food you bought not last and you didn't have the money to get more?: Often true Within the past 12 months, did you worry whether your food would run out before you got money to buy more?: Never true Do you have trouble paying for medicines?: No Do you have trouble getting transportation to medical appointments?: No Do you have trouble paying your heating and electricity bill?: No Do you have trouble taking care of your child, family member or friend?: No Do you have trouble with day-to-day activities such as bathing, preparing meals, shopping, managing finances, etc.?: No Are you currently unemployed and looking for a job?: No Are you interested in more education?: No Please select the resources that you would like help with: Paying for medicine Currently or been in a relationship where the following occur: No concerns reported THRIVE Score: 1 AUDIT C Alcohol Use Questionnaire (AUDIT-C) 1. How often do you have a drink containing alcohol?: Monthly or less 2. How many drinks containing alcohol do you have on a typical day when you are drinking?: 1 or 2 3. How often do you have six or more drinks on one occasion?: Never Total Score: 1 ESTEFANY-7 AMB Questionnaire ESTEFANY-7 Date ESTEFANY - 7 assessed: 01/10/25 Feeling nervous, anxious, or on edge: 0 = Not at all Not being able to stop or control worryin = Several days Worrying too much about different things: 1 = Several days Trouble relaxin = Several days Being so restless that it is hard to sit still: 1 = Several days Becoming easily annoyed or irritable: 1 = Several days Feeling afraid as if something awful might happen: 0 = Not at all Total ESTEFANY-7 score (0-4 normal; 5-9 mild; 10-14 moderate; 15-21 severe): 5 Source: Developed by Drs. Cameron Marin, Mi Santiago, Agustín Clark and colleagues, with an educational bushra from [employer]. ESTEFANY-7 Assessment Billing ESTEFANY-7 Assessment Tool: ESTEFANY-7 Assessment 64940 Review of Systems Const Denies chills, Reports fatigue (Tires easily), Denies fever(s), Denies frequent falls and Denies weakness Eyes Reports no additional complaints ENT Denies dizziness Card Denies chest pain, Denies leg edema, Denies lightheadedness, Denies palpitations, Denies dyspnea and Reports dyspnea on exertion Resp Denies cough, Denies dyspnea and Reports dyspnea on exertion GI Denies hematochezia Reports no additional complaints Musc Denies abnormal gait, Denies muscle weakness, Denies numbness, Denies radiating pain into limb and Denies tingling Neuro Denies abnormal gait, Denies dizziness, Denies frequent falls, Denies numbness, Denies Sensory deficit (Neuro), Denies tingling and Denies weakness Psych Reports no additional complaints Endo Reports fatigue (Tires easily) and Denies palpitations Sanford/Lymph Reports no additional complaints Aller/Immun Reports no additional complaints Physical exam (Primary Care) Vital Signs: Last Vital Signs Temp 98.4 F 01/10/25 14:16 Pulse 54 01/10/25 14:16 Resp 16 01/10/25 14:16 BP 142/80 H 01/10/25 14:16 Pulse Ox 98 01/10/25 14:16 Oxygen Delivery Method Room Air 01/10/25 14:16 BMI result Body Mass Index 39.6 Tobacco/Smoking Status: Tobacco use Status Tobacco use date assessed 01/10/25 01/10/25 13:59 Patient Tobacco Use Status Former Tobacco user 01/10/25 13:55 e-Cigarette/Vaping Use Never Used 01/10/25 13:55 PHQ-9: PHQ-9 Score PHQ-9: Total score 8 01/10/25 14:27 Depression Screening Interpretation: Negative Thrive Assessment: Date of Thrive Assessment Date Thrive assessed 01/10/25 01/10/25 13:59 Currently or been in a relationship where the following occur: No concerns reported Const General: no acute distress and alert Orientation/consciousness: patient oriented x3 HENMT Head: Yes normocephalic Mouth: Normal oral and palatal mucosa present, oropharynx normal and moist mucous membranes Eyes General: appearance normal, both eyes and all related structures Neck Neck: Yes full ROM and Yes no lymphadenopathy Resp Effort & Inspection: normal respiratory effort and able to speak in complete sentences Auscultation: clear to auscultation bilaterally Cardio Rate: regular rate Rhythm: regular rhythm Heart sounds: S1 normal heart sound present and S2 normal heart sound present GI Inspection: Yes normal to inspection Palpation (GI): Soft to palpation, nontender, no guarding and Hernia present umbilical Auscultation: normal bowel sounds General: Yes no CVA tenderness Back/Spine/Pelvis Back: no CVA tenderness and No back tenderness Neuro General: patient oriented x3, gait normal, moves all extremities, no focal motor deficits and CN's II-XI intact bilaterally Cognition (Neuro): normal cognition Gait exam (Neuro): Normal gait present Motor exam (neuro): 5/5 motor strength present throughout Sensory Exam: No Sensory deficit (Neuro) Extrem General: Yes full ROM, Yes no joint enlargement, Yes no clubbing, cyanosis or edema and Yes no calf tenderness Psych Appearance: grossly normal and well kempt Mental Status: mental status grossly normal Speech and movement: Normal speech and movement present Affect: normal affect Results Reviewed Results Reviewed: Laboratory Tests 09/15/24 01/04/25 13:30 13:24 Estimat Average Glucose 123 131 Hemoglobin A1c % 5.9 6.2 H Name: Doreen Barrientos Age/Sex: 74/F : 1950 Unit#: [id number] Attend Dr: Coni Escobedo MD Re01/04/25 Status: DEP REF Location: [facility] Disch: SPEC : [id number] NYLA: 01/04/25 STATUS: COMP REQ : [id number] RECD: 01/04/25-[address]: Coni Escobedo MD COMP: 01/04/25-1647 ENTERED: 01/04/25-[address]: ORDERED: Met Prof Fast, Uric, IRON PROF, AST, ALT, Lipid Panel, Vitamin D 25- OH, TSH Test Result Flag Reference Sodium 140 135-145 mmol/L Potassium 4.5 3.3-5.1 mmol/L CL 107 96-108 mmol/L CO2 26 22-29 mmol/L Gap 12 12-20 BUN 35 H 9-16 mg/dL Creat 1.79 H 0.5-1.4 mg/dL eGFR 28 Chronic Kidney Disease: Estimated GFR < 60 mL/min/1.73m2 Severe Kidney Disease: Estimated GFR < 15 mL/min/1.73m2 FBS 103 H 60-99 mg/dL A fasting glucose from 100-125 mg/dl is considered impaired (pre-diabetes). Uric Acid 3.5 2.4-5.7 mg/dL CA 10.1 8.4-10.2 mg/dL Iron 80 30-160 mcg/dL TIBC 310 228-428 mcg/dL Saturation 26 15-50 % UIBC 230 ug/dL AST (GOT) 26 5-31 U/L ALT (GPT) 23 0-31 U/L Triglyceride 221 H <150 mg/dL Desirable Triglyceride: less than 150 mg/dL Borderline High Triglyceride 150-199 mg/dL High Triglyceride: 200-499 mg/dL Very High Triglyceride: greater than or equal to 5OO mg/dL Cholesterol 144 <200 mg/dL Desirable Cholesterol: less than 200 mg/dL Borderline High Cholesterol: 200-239 mg/dL High Cholesterol: greater than 239 mg/dL LDL Calculated 65 <100 mg/dL Desirable LDL: less than 100 mg/dL Near Optimal/Above Optimal LDL: 110-129 mg/dL Borderline High LDL: 130-159 mg/dL High LDL: 160-189 mg/dL Very High LDL: greater than or equal to 190 mg/dL HDL 35 L >40 mg/dL Desirable HDL: greater than 40 mg/dL Note: This HDL assay may give artificially low results in patients with liver disease. Vitamin D 25-OH 87.9 >30 ng/mL Health Based Reference Values* < 20 ng/mL Deficient 20-30 ng/mL Insufficient > 30 ng/mL Sufficient *Allan MORTON. N Engl J Med. 2007;357:266-280 There is no well-established upper level of normal vitamin D levels. Some laboratories use 50 ng/mL as an upper limit of normal. However, toxicity is patient-dependent and may occur at any level. Careful correlation with the patient's presentation is necessary and, if there is concern for vitamin D toxicity, treatment should be considered irrespective of the serum level. Care must be taken in interpreting Vitamin D results from different laboratories and methodologies. Published data demonstrated that results from patients undergoing hemodialysis may show a negative bias when tested with various automated 25-OH vitamin D assays when compared to LC-MS/MS. When testing samples from patients whose predominant form of Vitamin D is Vitamin D2, such as patients receiving Vitamin D2 supplementation, results that are subtherapeutic should be confirmed with another method such as LC-MS/MS. Free T4 1.15 0.71-1.85 ng/dL TSH 3rd Gen. 2.73 0.32-4.0 uIU/mL Note: A sustained TSH level above 2.5 uIU/mL may warrant further investigation. TSH 3rd Generation ([facility]) Coding Level of Care Code Est Pt Level 4 (23384) Complex EM visit Add On G2211 Diagnoses Dyslipidemia E78.5 Acquired hypothyroidism E03.9 Hypothyroidism type: acquired Obesity (BMI 30-39.9) E66.9 Type 2 diabetes mellitus with complication, without long-term current use of insulin E11.8 Coronary artery disease involving agdaagux coronary artery of agdaagux heart without angina pectoris I25.10 Associated angina: without angina Coronary Disease-Associated Artery/Lesion type: agdaagux artery [place] vs. transplanted heart: agdaagux heart Thyroid nodule E04.1 Heartburn symptom R12 Additional Codes PHQ-9 - 66957 - PHQ-9 Billing: Yes ([id number]) ESTEFANY-7 Assessment Billing - ESTEFANY-7 Assessment Tool: ESTEFANY-7 Assessment 79554 ([id number]) Assessment & Plan Assessment & Plan (1) Dyslipidemia: Code(s): E78.5 - Hyperlipidemia, unspecified Category: Medical Plan: Reviewed recent fasting lipid profile with patient with levels within normal limits except for elevated triglycerides. Continue on atorvastatin 40 mg daily . , in addition to adherence to low-cholesterol diet and regular exercise, at least 30 minutes 3 to 4 times a week. Advised patient to make healthy food choices, eat more fruits, vegetables, whole grains, wild caught fish and low- fat dairy. Limit amount of meat and fried or fatty food products, as well as processed foods and fast foods. Follow-up scheduled with repeat fasting lipid panel in 6 months. (2) Hypothyroidism: Code(s): E03.9 - Hypothyroidism, unspecified Category: Medical Qualifiers: Hypothyroidism type: acquired Qualified Code(s): E03.9 - Hypothyroidism, unspecified Plan: Fasting lipids showed elevated triglycerides with normal LDL cholesterol and low HDL. Continue on atorvastatin 40 mg daily and reinforced importance of following a low-cholesterol diet and getting regular exercise (3) Obesity (BMI 30-39.9): Code(s): E66.9 - Obesity, unspecified Category: Medical Plan: Reinforced adherence to healthy diet and staying active least 15-30 minutes of moderate intensity exercise daily (4) Type 2 diabetes mellitus with complication, without long-term current use of insulin: Code(s): E11.8 - Type 2 diabetes mellitus with unspecified complications Category: Medical Plan: Recent lab results reviewed with patient, with sugar and hemoglobin A1c stable and at goal , but higher than last check. Will continue on Jardiance 10 mg daily in the morning, continue to check fasting blood sugar at home, maintain log and bring to next appointment for review. Reinforced diabetic diet and regular exercise with patient. She is up-to-date with her yearly diabetes retinopathy screening. Patient advised to inspect feet daily, for any signs of injury, callus or infection. Compliance with diet and regular exercise again stressed. Blood pressure goal is less than 130/80, goal LDL is less than 100 and goal hemoglobin A1c is less than 7% follow-up appointment made in-6--months, after fasting labs done. (5) Coronary artery disease: Code(s): I25.10 - Atherosclerotic heart disease of agdaagux coronary artery without angina pectoris Category: Medical Qualifiers: Associated angina: without angina Coronary Disease-Associated Artery/Lesion type: agdaagux artery [place] vs. transplanted heart: agdaagux heart Qualified Code(s): I25.10 - Atherosclerotic heart disease of agdaagux coronary artery without angina pectoris Plan: Followed by cardiology maintained on aspirin, and clopidogrel, no abnormal bleeding tendencies noted. Currently on losartan and metoprolol at the same dose (6) Thyroid nodule: Code(s): E04.1 - Nontoxic single thyroid nodule Category: Medical Plan: Will order another TSH and free T4 on next lab in six-months (7) Heartburn symptom: Code(s): R12 - Heartburn Plan: Prescription sent for famotidine 40 mg per tablet taken once a day at least 30 minutes before breakfast or 30 minutes before sleeping at night, avoidance of triggers for heartburn discussed with patient Orders: Orders Lipid Panel 06/26/25 E03.9 - Hypothyroidism, unspecified, E04.1 - Nontoxic single thyroid nodule, E11.8 - Type 2 diabetes mellitus with unspecified complications, E66.9 - Obesity, unspecified, E78.5 - Hyperlipidemia, unspecified, I15.0 - Renovascular hypertension, I25.10 - Atherosclerotic heart disease of agdaagux coronary artery without angina pectoris Aspartate Amino Transferase 06/26/25 E03.9 - Hypothyroidism, unspecified, E04.1 - Nontoxic single thyroid nodule, E11.8 - Type 2 diabetes mellitus with unspecified complications, E66.9 - Obesity, unspecified, E78.5 - Hyperlipidemia, unspecified, I15.0 - Renovascular hypertension, I25.10 - Atherosclerotic heart disease of agdaagux coronary artery without angina pectoris Microalbumin, Random (w Creat) 06/26/25 E03.9 - Hypothyroidism, unspecified, E04.1 - Nontoxic single thyroid nodule, E11.8 - Type 2 diabetes mellitus with unspecified complications, E66.9 - Obesity, unspecified, E78.5 - Hyperlipidemia, unspecified, I15.0 - Renovascular hypertension, I25.10 - Atherosclerotic heart disease of agdaagux coronary artery without angina pectoris Thyroid Stimulating Hormone 06/26/25 E03.9 - Hypothyroidism, unspecified, E04.1 - Nontoxic single thyroid nodule, E11.8 - Type 2 diabetes mellitus with unspecified complications, E66.9 - Obesity, unspecified, E78.5 - Hyperlipidemia, unspecified, I15.0 - Renovascular hypertension, I25.10 - Atherosclerotic heart disease of agdaagux coronary artery without angina pectoris Alanine Aminotransferase 06/26/25 E03.9 - Hypothyroidism, unspecified, E04.1 - Nontoxic single thyroid nodule, E11.8 - Type 2 diabetes mellitus with unspecified complications, E66.9 - Obesity, unspecified, E78.5 - Hyperlipidemia, unspecified, I15.0 - Renovascular hypertension, I25.10 - Atherosclerotic heart disease of agdaagux coronary artery without angina pectoris Hemoglobin A1c 06/26/25 E03.9 - Hypothyroidism, unspecified, E04.1 - Nontoxic single thyroid nodule, E11.8 - Type 2 diabetes mellitus with unspecified complications, E66.9 - Obesity, unspecified, E78.5 - Hyperlipidemia, unspecified, I15.0 - Renovascular hypertension, I25.10 - Atherosclerotic heart disease of agdaagux coronary artery without angina pectoris Free T4 (Free Thyroxine) 06/26/25 E03.9 - Hypothyroidism, unspecified, E04.1 - Nontoxic single thyroid nodule, E11.8 - Type 2 diabetes mellitus with unspecified complications, E66.9 - Obesity, unspecified, E78.5 - Hyperlipidemia, unspecified, I15.0 - Renovascular hypertension, I25.10 - Atherosclerotic heart disease of agdaagux coronary artery without angina pectoris Medications: New famotidine Take 1 tablet 30 minutes before breakfast 40 mg PO DAILY 30 tabs 5RF Refilled clobetasol 0.05% 1 appl topical DAILY PRN 30 grams 1RF rash
[2025-01-10 14:16] VITALS: BP 142/80; PULSE 54; RESP 16; TEMP 36.9; O2SAT 98; BMI 39.6
--- OUTSIDE RECORDS SUMMARY | 2025-01-10 16:44 | XMS_ITS | Clinical Summary ---
Author Organization [facility]. Address [address] [phone] Phone Care Team Providers Care Carrier Operator Name Role Phone Reinaldo Escobedo MD Primary Care Provider [phone]- [phone] Allergies Active Allergy Reactions Criticality Noted Date [...] Refill [facility] [address] [address] Sol Jalloh from Last 3 Months Family [...] Care Team (Late st Contact Info) Description 02/04/2025 Orders Only [facility] [address] [phone] Demond Edmondson MD [address] [phone] Stage 3b chronic kidney disease (HCC); Hypertensive nephrosclerosis; Hypertension; Diabetes mellitus, not otherwise specified (HCC); Gout, not otherwise specified; Other acute kidney failure (HCC) 02/06/2025 10:00 AM EDT Office Visit [facility] [address] [phone] Demond Edmondson MD [address] [phone] Health Maintenance Due Date Last Done Comments Pneumococcal Vaccine: 50+ Ye ars (2 of 2 - PCV) 04/25/2014 04/25/2013 Diabetes: Hemoglobin A1C 10/27/2020 Diabetes: Ophthalmology Exam 10/27/2020 Diabetes: Pedal Pulse Checked 10/27/2020 Diabetes: Sensory Foot Exam 10/27/2020 Diabetes: Visual Foot Exam 10/27/2020 Influenza Vaccine (Season Ended) 2025 Pneumococcal Vaccine: Peds ( 0 to 5 Years) and At-Risk Patients (6 to 49 Years) Discontinued 04/25/2013 Hepatitis B Vaccine Aged Out No longe r eligible based on patient's age to complete this topic [place] [address] [place] [address] Medicare Medicare [facility] Care Teams Carrier Operator Relationship Specialty Start Date End Date Reinaldo Escobedo MD [address] [place] [address] PCP - General 10/06/20
--- OUTSIDE RECORDS SUMMARY | 2025-01-10 16:44 | XMS_ITS | Encounter Summary ---
Author Organization [facility] Address [address] [facility] [address] [place] [address] Phone Care Team Providers Care Project Developer Name Role Phone Reinaldo Escobedo MD Primary Care Provider [phone]- [phone] Encounter Details Date Type Department Care Team (Late st Contact Info) Description 12/17/2021 Telephone [facility] [address] [facility] [address] [place] [phone] Demond Edmondson MD [address] [facility] [address] [place] [phone] Social History Tobacco Use Types Packs/Day Years [...] Orders Only [facility] [address] [place] [phone] Demond Edmondson MD [facility] [address] [phone] Stage 3b chronic kidney disease (HCC); Hypertensive nephrosclerosis; Hypertension; Diabetes mellitus, not otherwise specified (HCC); Gout, not otherwise specified; Other acute kidney failure (HCC) 02/06/2025 10:00 AM EDT Office Visit [facility] [address] [place] [phone] Demond Edmondson MD [address] [phone] documented as of this encounter Visit Diagnoses Not on filedocumented in this encounter Care Teams Project Developer Relationship Specialty Start Date End Date Reinaldo Escobedo MD [address] [place] [id number] PCP - General 10/06/20 documented as of this encounter
== END 2025-01-10 15:02 | disposition home or self-care (01) ==
LOC: HO.HMCC 13:41
PROVIDERS: PCP Internal Medicine; Visit Provider Internal Medicine
DX: E78.5 Hyperlipidemia, unspecified (principal); E11.8 Type 2 diabetes mellitus with unspecified complications; E66.9 Obesity, unspecified; Z68.39 Body mass index [BMI] 39.0-39.9, adult; E03.9 Hypothyroidism, unspecified; I25.10 Atherosclerotic heart disease of native coronary artery without angina pectoris; E04.1 Nontoxic single thyroid nodule; R12 Heartburn

== ENCOUNTER → 2025-01-10 13:40 | Outpatient (BNVA) | payer MEDICARE, BC, SELFPAY | PROVIDERS: PCP Internal Medicine; Visit Provider Internal Medicine | DX: E78.5 Hyperlipidemia, unspecified (principal); E03.9 Hypothyroidism, unspecified; E66.9 Obesity, unspecified; Z68.39 Body mass index [BMI] 39.0-39.9, adult; E11.8 Type 2 diabetes mellitus with unspecified complications; I25.10 Atherosclerotic heart disease of native coronary artery without angina pectoris; E04.1 Nontoxic single thyroid nodule; R12 Heartburn; Z79.82 Long term (current) use of aspirin; Z79.899 Other long term (current) drug therapy | CPT/HCPCS: 96127; 99212 ==

== ENCOUNTER 2025-01-31 11:42 | Outpatient (REF) | payer MEDICARE, BC, SELFPAY ==
[2025-01-31 13:11] LABS: MANUAL DIFF FLAG NO
--- OUTSIDE RECORDS SUMMARY | 2025-01-31 13:14 | XMS_ITS | Encounter Summary ---
Author Organization [facility] Address 100 [facility] [address] [place] [address] Phone Care Team Providers Care Telephone Information Clerk Name Role Phone Reinaldo Escobedo MD Primary Care Provider +1- [phone] Encounter Details Date Type Department Care Team (Late st Contact Info) Description 12/17/2021 Telephone [facility] [address] [facility] 200 [place] [phone] Demond Edmondson MD [address] [facility] [address] [place] [phone] Social History Tobacco Use Types Packs/Day Years [...] Orders Only [facility] [address] [place] [phone] Demond Edmondson MD [facility] [phone] Stage 3b chronic kidney disease (HCC); Hypertensive nephrosclerosis; Hypertension; Diabetes mellitus, not otherwise specified (HCC); Gout, not otherwise specified; Other acute kidney failure (HCC) 02/06/2025 10:00 AM EDT Office Visit [facility] [address] [place] [phone] Demond Edmondson MD [address] [phone] documented as of this encounter Visit Diagnoses Not on filedocumented in this encounter Care Teams Telephone Information Clerk Relationship Specialty Start Date End Date Reinaldo Escobedo MD [address] [place] [address] PCP - General 10/06/20 documented as of this encounter
--- OUTSIDE RECORDS SUMMARY | 2025-01-31 13:14 | XMS_ITS | Clinical Summary ---
Author Organization [facility] Address [address] [address] Phone Care Team Providers Care Warehouse Associate Driver Name Role Phone Reinaldo Escobedo MD Primary Care Provider +1- [phone] Allergies Active Allergy Reactions Criticality Noted Date [...] Refill [facility] [address] Sol Jalloh from Last 3 Months Family [...] Orders Only [facility] [address] [phone] Demond Edmondson MD [address] [phone] Stage 3b chronic kidney disease (HCC); Hypertensive nephrosclerosis; Hypertension; Diabetes mellitus, not otherwise specified (HCC); Gout, not otherwise specified; Other acute kidney failure (HCC) 02/06/2025 10:00 AM EDT Office Visit [facility] [address] [phone] Demond Edmondson MD [address] [address] Health Maintenance Due Date Last Done Comments [...] patient's age to complete this topic Insurance [place] [address] [address] Medicare Medicare [facility] Care Teams Warehouse Associate Driver Relationship Specialty Start Date End Date Reinaldo Escobedo MD [address] [place] [address] PCP - General 10/06/20
[2025-01-31 13:22] LABS: Basophils Percent Auto 0.7 % (0-2); Eosinophils Absolute Auto 0.2 X10*3/uL (0.0-0.4); Hematocrit 37.4 % (37.0-47.0); Hemoglobin 12.1 g/dl (12.0-16.0); Imm Gran Abs Auto 0.02 X10*3/uL (0.00-0.03); Imm Gran Pct Auto 0.3 % (0.0-0.4); Lymphocytes Absolute Auto 1.7 X10*3/uL (1.2-4.9); Lymphocytes Percent Auto 28.7 % (20-40); Mean Corpuscular HGB Conc 32.4 g/dl (31.0-35.0); Mean Corpuscular Hemoglobin 31.3 pg (27.0-33.0); Mean Corpuscular Volume 96.9 fL (80.0-98.0); Mean Platelet Volume 10.7 fL (9.4-12.3); Monocytes Absolute Auto 0.5 X10*3/uL (0.1-1.2); Monocytes Percent Auto 9.2 % (2-11); Neutrophils Absolute Auto 3.3 x10*3/uL (2.0-8.3); Neutrophils Percent Auto 57.1 % (45-73); Platelet Count 200 X10*3/uL (160-400); Red Blood Count 3.86 X10*6/uL (4.20-5.50); Red Cell Distribution Width 13.5 % (11.0-16.0); White Blood Count 5.7 X10*3/uL (4.8-10.8)
[2025-01-31 13:52] LABS: Alanine Aminotransferase 22 U/L (0-31); Alkaline Phosphatase 42 U/L (39-117); Anion Gap 15 (12-20); Aspartate Amino Transferase 28 U/L (5-31); Bilirubin Total 0.5 mg/dL (0.0-1.0); Blood Urea Nitrogen 48 mg/dL (9-16); Calcium 9.6 mg/dL (8.4-10.2); Carbon Dioxide 21 mmol/L (22-29); Chloride 103 mmol/L (96-108); Estimated Glomerular Filt Rate 27; Glucose Random 144 mg/dL (60-115); Magnesium 2.3 mg/dL (1.6-2.6); Phosphorus 4.2 mg/dL (2.7-4.5); Potassium 4.6 mmol/L (3.3-5.1); Sodium 134 mmol/L (135-145); Total Protein 6.9 g/dL (6.5-8.0)
[2025-01-31 13:55] LABS: Creatinine Urine 162.96 mg/dL; Protein/Creatinine Ratio, Ur 0.34 (<0.2); Total Protein Urine Random 55 mg/dL (<12)
[2025-01-31 13:57] LABS: Vitamin D 25-OH Total 72.4 ng/mL (>30)
[2025-01-31 13:59] LABS: Parathyroid Hormone Intact 249.5 pg/mL (8.7-77.1)
[2025-01-31 14:04] LABS: Uric Acid 4.6 mg/dL (2.4-5.7)
== END 2025-01-31 11:43 | disposition home or self-care (01) ==
LOC: HO.HMGCLDS 11:42
PROVIDERS: PCP Internal Medicine; Visit Provider Internal Medicine Nephrology
DX: N18.32 Chronic kidney disease, stage 3b (principal); I12.9 Hypertensive chronic kidney disease with stage 1 through stage 4 chronic kidney disease, or unspecified chronic kidney disease; E11.9 Type 2 diabetes mellitus without complications; M10.9 Gout, unspecified; N17.8 Other acute kidney failure
CPT/HCPCS: 36415; 80053; 82306; 82570; 83735; 83970; 84100; 84156; 84550; 85025

== ENCOUNTER 2025-04-08 14:22 | Outpatient (AMB) | payer MEDICARE, BC, SELFPAY ==
[2025-04-08 14:39] VITALS: BP 124/70; PULSE 60; BMI 40.7
--- NOTE | 2025-04-08 14:39 | MHC.OFFVIS ---
Vital Signs 04/08/25 14:39 Height 5 ft Weight 208 lb 8.917 oz BMI 40.7 BP 124/70 Blood Pressure Location Lt brachial Position Sitting Pulse 60 Pulse Source Monitor Intake Visit Reasons: 6 mth f/up Intake Note: 6 mth f/ Tugboat Captain Required: No Accompanied by: Self / Same As Patient Allergies allopurinol Allergy (Severe, Verified 01/13/25 15:46) Hives niacin (Niaspan Extended-Release) Adverse Reaction (Unknown, Verified 01/13/25 15:46) swelling /itching Medication List - Last Reconciled 04/08/25 by Geoffrey Weinstein MD aspirin 81 mg PO DAILY atorvastatin 40 mg PO DAILY clobetasol 0.05% 1 appl topical DAILY PRN clopidogrel 75 mg PO DAILY 90 days famotidine 40 mg PO DAILY febuxostat 40 mg PO DAILY fluticasone propionate 50 mcg/actuation 1 spray intranasal DAILY PRN Jardiance (empagliflozin) 10 mg PO QAM NS levothyroxine 100 mcg PO DAILY losartan 50 mg PO DAILY menthol-zinc oxide 0.44-20.6 % (Calmoseptine) 1 appl topical QID PRN metoprolol tartrate 25 mg PO BID 90 days [Nature's best 1 tab PO .qd] HPI Comments Details: Pleasant 74-year-old female who is here for follow-up. She underwent LAD and circumflex PCI in the past. 06/01/23: She returns for follow-up. She is complaining of dyspnea and mild chest discomfort. She is saying these symptoms started couple of weeks ago. She has no bleeding concerns. Saying she has no lung issues. 02/08/24: She returns for follow-up. She had OM-1 PCI in June 2023. She said her dyspnea improved significantly after that. She has been doing cardiac rehabilitation and trying to exercise more frequently. Her breathing has been stable. She is getting some noncardiac left-sided sharp chest pains off and on. These happen when she is laying on her left side at night. She was reassured. 06/13/2024: She returns for follow-up. She continues to get needle prick like sensation in the left side of the chest which happens when she is laying on her left side. She was reassured that this is not cardiac pain. She will be completing 1 year of her PCI in June. We discussed about dual antiplatelet therapy pros and cons. We have decided to proceed with single antiplatelet agent as we go forward. She needs a umbilical hernia repair by surgery. She will discuss this in more detail with surgery to make her decision about proceeding or not. 10/03/2024: She is here for follow-up. She has been doing well. No chest discomfort. She continues to get some shortness breath with activities. She is breathing problems with bending forward. She has abdominal obesity. She is currently taking Jardiance and Ozempic but has not lost significant weight. Her diabetes control has significantly improved with this strategy though. 04/08/2025: She is here for follow-up. She has atypical chest pains. She has some dyspnea with activity was overall clinically stable. Taking medications regularly. No significant bleeding. [facility] Medical History History of adenomatous polyp of colon Osteopenia of left femoral neck Anemia in chronic kidney disease Thyroid nodule Colon cancer screening Type 2 diabetes mellitus with complication, without long-term current use of insulin Family history of abdominal aortic aneurysm Obesity (BMI 30-39.9) Hypothyroidism Diabetic nephropathy Dyslipidemia Hypertension Diabetic polyneuropathy associated with type 2 diabetes mellitus Surgical History Hernia, umbilical Status post cardiac catheterization H/O partial thyroidectomy S/P coronary angioplasty History of cardiac cath S/P cardiac cath History of esophagogastroduodenoscopy (EGD) History of cataract surgery History of sinus surgery History of colonoscopy History of bronchoscopy History of total hysterectomy Family History Father AAA (abdominal aortic aneurysm) Mother CVD (cardiovascular disease) Mitral prolapse History of open heart surgery Brother Gout Diabetes Brother No problems noted. Daughter No problems noted. Daughter No problems noted. Social History Housing: House Patient Tobacco Use Status: Former Tobacco user Years Smoked: 50 +/- e-Cigarette/Vaping Use: Never Used Second Hand Smoke Exposure: No service: No Current occupational status: retired Cognitive needs: No Hearing needs: No Vision needs: Yes Review of Systems Const Denies chills, Denies fatigue, Denies fever(s), Denies frequent falls, Denies weakness, Denies weight gain and Denies weight loss ENT Denies dizziness Card Denies chest pain, Denies leg edema, Denies lightheadedness, Denies palpitations, Denies dyspnea and Denies dyspnea on exertion Resp Denies cough, Denies dyspnea and Denies dyspnea on exertion GI Denies hematochezia Musc Denies abnormal gait, Denies muscle weakness, Denies numbness, Denies radiating pain into limb and Denies tingling Neuro Denies abnormal gait, Denies dizziness, Denies frequent falls, Denies numbness, Denies tingling and Denies weakness Endo Denies fatigue and Denies palpitations Physical Exam Vital Signs: Last Vital Signs Pulse 60 04/08/25 14:39 BP 124/70 04/08/25 14:39 BMI result Body Mass Index 40.7 GENERAL APPEARANCE: in no acute distress, pleasant. NECK: no carotid bruit, no jugular venous distention. SKIN: no suspicious lesions, warm and dry. HEART: no murmurs, regular rate and rhythm. LUNGS: clear to auscultation bilaterally. ABDOMEN: soft, nontender. EXTREMITIES: no edema. PERIPHERAL PULSES: equal. NEUROLOGIC: No gross deficits, AAO X 3 Office Procedures EKG Details: NSR 60/min, left axis deviation, anteroseptal infarct, QTc 444 msec. [id number], Complete Assessment & Plan Assessment & Plan (1) Hypertension: Code(s): I10 - Essential (primary) hypertension Category: Medical Qualifiers: Hypertension type: renovascular hypertension Qualified Code(s): I15.0 - Renovascular hypertension (2) Stable angina: Code(s): I20.8 - Other forms of angina pectoris Category: Medical Plan [age] female who is here for follow-up. She has background history of coronary disease and underwent multivessel PCI. She has done well with a strategy and has been doing well. She has dyspnea with activities and thinks this is related to her abdominal obesity. We discussed about starting Mounjaro. She is currently taking Jardiance and has not seen pie filling mixer recently. We will refer to endocrinology for further assessment. Otherwise she will continue same medications. Follow up with us in 6 months. Thank you for allowing me to participate in the care of your patient. Please feel free to contact me if you have any questions. Orders: Referrals Endocrinology Referral E11.8 - Type 2 diabetes mellitus with unspecified complications Coding Level of Care Code Est Pt Level 4 (41989) Diagnoses Renovascular hypertension I15.0 Hypertension type: renovascular hypertension Stable angina I20.8 CPT Codes EKG - CPT: 64465-Qmkbiphwqyrwdwmus, Complete ([id number])
--- OUTSIDE RECORDS SUMMARY | 2025-04-08 15:45 | XMS_ITS | Encounter Summary ---
Author Organization [facility] Address 100 [facility] 200 [place] [address] Phone Care Team Providers Care Tariff Counsel Name Role Phone Reinaldo Escobedo MD Primary Care Provider [phone]- [phone] Encounter Details Date Type Department Care Team (Late st Contact Info) Description 12/17/2021 Telephone [facility] [address] [facility] [address] [place] [phone] Demond Edmondson MD [address] [facility] [address] [place] [phone] Social History Tobacco Use Types Packs/Day Years [...] Care Team (Late st Contact Info) Description 08/13/2025 10:00 AM EST Office Visit [facility] [address] [phone] Demond Edmondson MD [address] [phone] documented as of this encounter Visit Diagnoses Not on filedocumented in this encounter Care Teams Tariff Counsel Relationship Specialty Start Date End Date Reinaldo Escobedo MD [address] [place] [address] PCP - General 10/06/20 documented as of this encounter
--- OUTSIDE RECORDS SUMMARY | 2025-04-08 15:45 | XMS_ITS | Data Portability ---
Author Organization [place] [facility] Address [address] [place] [phone] Care Team Providers Care Staffing Operations Manager Name Role Phone NASEEM HILL Primary Care Provider [phone] Assessment Encounter Date Assessment Date Assessment LastModified [...] but could be considered pending repeat ultrasound. [email or web address] Not available 06/04/2024 12:38:53 01/18/2025 01/18/2025 74-year-old female presents for follow-up of the ears. Cerumen impaction removed bilaterally. 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 Right TM is scarred and intact. Continue dry ear precautions on the left. Follow-up in 6 months for routine debridement. Patient with cervical lymphadenopathy. Exam today without any palpable lymphadenopathy. There are no ultrasound images performed at [facility]. I contacted [facility] records department and no ultrasound images were completed. I notified patient. Repeat ultrasound was ordered today and she will follow up to review the results. [email or web address] Not available 01/18/2025 12:37:38 Plan of Treatment Reminders Order Date Submit Date Provider Last Modified By Organization Details Last Modified Time Details Appointments Establish ed 15 2024 09:45A M DEBBIE ADHIKARI PA-C Not available Not available Not available Lab None recorded. Referral None recorded. Procedures None recorded. Surgeries None recorded. Imaging US, neck, soft tissue 2024 025 [facility] Centralized Scheduling([facility]), [address] [place], [phone], 01/18/2025 12:39:36 US, neck, soft tissue - attention US thyroid 01/31/242023 024 [facility], [address] [place] [address] [place], [address], 06/04/2024 12:46:58 Medication Orders None recorded. Patient TargetsNo targets recorded. Patient InstructionsNo instructions recorded. Reason for Referral None Reported. Results Created Date Observation Date Name Description Value Unit Range Abnormal Flag Note LastModifiedBy Organization Detail LastModifiedTime 05/16/20 24 02/03/2022 imagi ng/di agnos tic resul t No observ ation record ed. [email or web address] Not Available 18:58:52 05/16/2008/15/2023 imagi ng/di agnos tic resul t No observ ation record ed. [email or web address] Not Available 18:59:08 06/04/2001/31/2024 US, thyro id No observ ation record ed. [email or web address] Not Available 05/2024 15:28:47 01/19/2001/31/2024 US, thyro id No observ ation record ed. [email or web address] [facility] [address] [place], [address], 02/11/2025 10:07:18 Result Notes None recorded. Problems Name Problem SNOMED Code Status Onset Date Resolution Date Notes Provider Name and Address Organization Details Recorded Time Chronic mycotic otitis externa 887005656 Active 2015 Chronic mycotic otitis externa; Note: Date Diagnosed : 04/02/2016 9:45 AM (380.15) Not Available [facility] 4 02:18:14 Migraine without aura, not refractor y 640138360 Active 2021 Migraine without aura, not intractab le, without status migrainos us; Note: Date Diagnosed : 01/07/2022 11:19 AM (G43.009) Not Available [facility] 4 02:18:32 Chronic rhinitis 32466084 Active 2015 Chronic rhinitis; Note: Date Diagnosed : 03/11/2016 9:44 AM (J31.0) Not Available [facility] 4 02:18:18 Impacted cerumen in left ear 62607336659 15593 Active 2021 Impacted cerumen, left ear; Note: Date Diagnosed : 2 5:04 PM (H61.22) Not Available [facility] 4 02:18:12 Sensorine ural hearing loss 26521495 Active 2015 Sensorine ural hearing loss, unilatera l, right ear, with unrestric melba hearing on the contralat eral side; Note: Date Diagnosed : 06/07/2016 12:36 PM (H90.41) Not Available [facility] 4 02:18:20 Central perforati on of left tympanic membrane 93871642122 67174 Active 2015 Central perforati on of tympanic membrane, left ear; Note: Date Diagnosed : 03/11/2016 9:40 AM (H72.02) Not Available [facility] 4 02:18:33 Atypical facial pain 25803423 Active 2021 Atypical facial pain; Note: Changed from R51 to G50.1 ( 2 9:22 AM) , Date Diagnosed : 11/04/2021 1:31 PM (R51) Not Available [facility] 4 02:18:30 Otorrhea of left ear 63206471409 87515 Active 2015 Otorrhea, left ear; Note: Date Diagnosed : 03/11/2016 9:44 AM (H92.12) Not Available [facility] 4 02:18:24 Allergic rhinitis 20567331 Active 2021 Other allergic rhinitis; Note: Date Diagnosed : 01/07/2022 11:14 AM (J30.89) Not Available [facility] 4 02:18:12 Mixed conductiv e and sensorine ural hearing loss of left ear 22088100567 107 Active 2015 Mixed conductiv e and sensorine ural hearing loss, unilatera l, left ear, with unrestric melba hearing on the contralat eral side; Note: Date Diagnosed : 06/07/2016 12:36 PM (H90.72) Not Available [facility] 4 02:18:05 Cervical lymphaden opathy 598847529 Active 2023 DEBBIE ADHIKARI PA-C 100 [facility],[place] [address], [facility] [place], [address] , [facility] - [facility] [place] 4 10:58:21 Impacted cerumen of bilateral ears 81535287000 46865 Active 2023 DEBBIE ADHIKARI PA-C [address] [facility] [address], [place], [address] , [place] - [facility] 4 12:44:21 Problem Notes None recorded. Procedures Surgical History Date Name Laterality Status Provider Name and Address Organization Details Recorded Time 5 Cerumen removal without microscope bilat completed DEBBIE ADHIKARI PA-C [address] [facility],[place] [address], [place], [phone], [facility] - [facility] [place] 01/18/2025 10:28:11 4 Cerumen removal without microscope bilat completed DEBBIE ADHIKARI PA-C [address] [facility], [place], [address], [place] - [facility] 06/04/2024 12:43:52 Imaging Results None recorded. Procedure Notes None recorded. Medical Equipment None Reported. Allergies Allergen ID Allergen Name Allergen Category Reaction Reaction Severity Criticality Documentation Date Start Date Code Code System Note Provider Name and Address Organization Details Recorded Time 39824 Niaspan medicatio n other Not available Not available 02/07/2024 72577 6 RxNorm React ion: other react ion, Unkno wn; Not Available [facility] 4 00:50:23 Medications Name Sig Start Date Stop Date Status Note LastModified by Organization Details LastModified Time losartan 50 mg tablet TAKE 1 TABLET BY MOUTH DAILY active Not Available Not Available No t Available atorvasta tin 40 mg tablet TAKE 1 TABLET BY MOUTH DAILY active Not Available Not Available No t Available metformin 500 mg tablet 02/26 completed Medicati on ID: [id number] D uration Value: 90 Brand Name: metformi n Send Method: E-Prescr ibed Sub s Allowed: subs OK Medic ationGen ericName : metformi n Not Available Not Available Not Available famotidin e 40 mg tablet active Not Available Not Available Not Available clobetaso l 0.05 % topical cream 2021 active Medicati on ID: [id number] B rand Name: clobetas ol Send Method: [...] 24 hr 11/04 completed Medicati on ID: 108191 B rand Name: glipizid e Send Method: E-Prescr ibed Sub s Allowed: subs OK Medic ationGen ericName : glipizid e Not Available Not Available Not Available erythromy ruben 5 mg/gram (0.5 %) eye ointment active Not Available Not Available Not Available clotrimaz ole 1 % topical solution APPLY 4 DROPS TO LEFT EAR TWICE DAILY FOR 2 WEEKS active Not Available Not Available No t Available mupirocin 2 % topical ointment Apply 1 a small amount every eight hours active Not Available Not Available No t Available metoprolo l succinate ER 25 mg tablet,ex tended release 24 hr 2021 active Medicati on ID: 505461 B rand Name: metoprol ol succinat e Send Method: E-Prescr ibed Sub s Allowed: subs OK Medic ationGen ericName : metoprol ol succinat e Not Available Not Available Not Available hydrocort isone 2.5 % topical ointment active Not Available Not Available Not Available lisinopri l 40 mg tablet 2021 active Medicati on ID: 366887 B rand Name: lisinopr il Send Method: [...] mcg tablet 2021 active Medicati on ID: [id number] B rand Name: levothyr oxine Se nd [...] 4 drop 2015 active Medicati on ID: [id number] D uration Value: 10 Prescri bed By [...] Ag Self Test kit TEST DIRECTED TODAY 01/18 completed Not Available Not Available Not Available Ozempic 0.25 mg or 0.5 mg (2 mg/3 mL) subcutane ous pen injector INJECT 0.25MG SUBCUTAN EOUS ONCE WEEKLY active Not Available Not Available No t Available glipizide 2.5 mg tablet TAKE 1 TABLET BY MOUTH EVERY EVENING active Not Available Not Available No t Available Vitals Date Recorded Body height Provider Name an d Address Organization Details Last Updated DateTime 01/18/2025 152.4 cm ANA SOMMERS [place] [facility] 01/18/2025 10:20:11 Date Recorded Body height Body mass index (BMI) Body weight Provider Name and Address Organization Details Last Updated DateTime 06/04/2024 152.4 cm 38.5 kg/m2 03697.7 g Dory Tom [place] [facility] 06/04/2024 11:02:08 Social History None recorded. Functional Status None recorded. Mental Status None recorded. Family History Nothing Reported. Medical History No medical history recorded. Gynecological HistoryNo gynecological history recorded. Obstetrics History GPAL:G 0 P 0 0 0 0 Past Encounters Encounter ID Performer Location Encounter Start Date Encounter Closed Date Diagnosis/Indication Diagnosis SNOMED-CT Code Diagnosis ICD10 Code Diagnosis Note [id number] DEBBIE ADHIKARI PA-C [facility] [address] [phone] 06/04/2024 10:40:18 06/04/2024 11:12:12 Central perforation of left tympanic membrane 7250091079 625946 H72.02 Cervical lymphadenopathy 042330597 R59.0 Impacted c erumen of bilateral ears 2606775062 636506 H61.23 [id number] DEBBIE ADHIKARI PA-C [facility] [address] [phone] 01/18/2025 10:18:00 01/18/2025 11:31:36 Central perforation of left tympanic membrane 9666768314 138140 H72.02 Cervical lymphadenopathy 132646641 R59.0 Impacted c erumen of bilateral ears 8474380302 599557 H61.23 Health Concerns Section Related Observation LastModified by Organization Detai ls LastModified Time None Recorded Concern Status LastModified by Organization Details LastModified Time None Recorded Advance Directives Directive None Recorded Payers Insurance Date Sequence Insurance Name Policy Number Policy Gil Covered Member ID Gil Member ID Guarantor Name 01/18/2025 2 [place] [employer] Rich Barrientos [id number] Doreen Barrientos 01/23/2025 1 [place] [employer] Doreen Barrientos [id number] Doreen S Floyd Notes Date Note Type Note Provider Name and Address Organization Details Recorded Time 06/04/2024 text/html 74-year-old lindsey mayfield with history of left TM perforation presents [...] for further evaluation. Was seen by an engraving patternmaker but no intervention recommended. History of thyroid cancer status post left thyroidectomy. CHICHI POST MD [address] [place] [address], [phone], [facility] - [facility] 06/06/2024 05:30:22 01/18/2025 text/html 74-year-old lindsey mayfield with history of left TM perforation presents for routine ear cleaning. Denies otalgia, otorrhea, or changes in her hearing. History of DM. Allergies are managed with Flonase. Patient also with cervical lymphadenopathy. Ultrasound of the thyroid [...] heterogeneous possibly atypical lymph node with vascularity. Was seen by her engraving patternmaker at [facility] and no intervention recommended. History of thyroid cancer status post left thyroidectomy. Repeat ultrasound of the neck was recommended which she believes was done at [facility] or [facility]. JULY AMBROSIO MD [address] [place] [address], [phone], [facility] - [facility] 01/18/2025 12:54:11 OBGyn Episode No OBEpisode recorded.
--- OUTSIDE RECORDS SUMMARY | 2025-04-08 15:45 | XMS_ITS | Patient Health Record ---
Author Organization [facility] Address [address] [place] [phone] Care Team Providers Care Social Services Name Role Phone Fanny SELLERS, Coni Primary Care Provider Marcos Pendleton Jr Unavailable Allergies Allergen (clinical drug ingredient) Drug/Non Drug Allergy documented on EMR Reaction Allergy Type Onset Date Status Niaspan Unknown Drug Allergy Active Reason For Referral No Information Medications Medication SIG (Take, Route, Frequency, Duration) Notes Start Date End Date Status Colyte with Flavor Packs 240 GM As directed Orally Over the specified time. for 1 day(s) 06/16/2016 Active metFORMIN HCl 500 MG 1 tablet with meals Orally Twice a day Active Metoprolol Succinate ER 25 MG 1 tablet Orally Once a day Active Flonase 50 MCG/ACT 1 spray in each nost ril Nasally twice a day Active Vitamin D 1000 UNIT 1 tablet Orally Once a day Active Omeprazole 20 MG 1 Orally Once a day for 30 day(s) 06/16/2016 Active Synthroid 112 MCG 1 tablet Orally Once a day Active Atorvastatin Calcium 40 MG 1 tablet Oral ly Once a day Active Lisinopril 5 MG 1 tablet Orally Once a day Active Immunizations Vaccine Route Administration Date Status Comme nts Flu vaccine no Preserv 3 and > Unknown 05/27/2016 Admin istered Problems Problem Type SNOMED Code ICD Code Onset Dates Problem Status W/U Status Risk Notes Problem Irritable bowel syndrome (564.1) Active confirmed Problem 295165139 Colon cancer screening (Z12.11) Active confirmed Problem 81684149 Abdominal pain, epigastric (R10.13) Active confirmed Plan Of Treatment Pending Test Test Name Order Date XR GI SERIES 06/16/2016 Future Test Test Name Order Date COLONOSCOPY 06/16/2016 Insurance Providers Payer Name Payer Address Payer Phone Subscriber Number Group Number Insured Name Patient Relationship to Insured Coverage Start Date Coverage End Date MEDICARE [place] [address] [place] [address] [id number] CHIO WORLEY Self - patient is the insured [facility] [address] [place], [place] [id number] [phone] [id number] CHIO WORLEY Self - patient is the insured Medical (General) History Medical History History ICD Code irritable bowel syndrome Hypothyroidism hypertension elevated Cholesterol Gout thyroid nodule mitral valve prolapse Denies OR,CVA,Lung disease,renal disease ? diabetes mellitus Surgical History Surgery Date(Month/Year) cholecystectomy hysterectomy, total with bilateral salpi leavitt-oophorectomy (BSO) appendectomy
== END 2025-04-08 15:20 | disposition home or self-care (01) ==
LOC: HO.HCS 14:23
PROVIDERS: PCP Internal Medicine; Visit Provider Internal Medicine Cardiovascular Disease
DX: I15.0 Renovascular hypertension (principal); I25.118 Atherosclerotic heart disease of native coronary artery with other forms of angina pectoris; R94.31 Abnormal electrocardiogram [ECG] [EKG]
CPT/HCPCS: 93010; 99214

== ENCOUNTER → 2025-04-08 14:22 | Outpatient (BNVA) | payer MEDICARE, BC, SELFPAY | PROVIDERS: PCP Internal Medicine; Visit Provider Internal Medicine Cardiovascular Disease | DX: I15.0 Renovascular hypertension (principal); I20.89 Other forms of angina pectoris; R94.31 Abnormal electrocardiogram [ECG] [EKG] | CPT/HCPCS: 93005; 99212 ==

== ENCOUNTER 2025-04-20 15:48 | Emergency (ER) | payer MEDICARE, BC, SELFPAY ==
[2025-04-20] VITALS (7 sets, daily range): BP systolic 104–131; BP diastolic 53–70; PULSE 60–76; RESP 12–18; TEMP 36.3–36.7; O2SAT 90–95; BMI 39.1
--- NOTE | 2025-04-20 15:51 | ECG_ITS ---
Test Reason : dizziness Blood Pressure : */* mmHG Vent. Rate : 73 BPM Atrial Rate : 73 BPM P-R Int : 196 ms QRS Dur : 92 ms QT Int : 420 ms P-R-T Axes : 118 222 117 degrees QTcB Int : 462 ms Suspect limb lead reversal, interpretation assumes no reversal Normal sinus rhythm Lateral infarct , age undetermined Inferior infarct , age undetermined Abnormal ECG When compared with ECG of 29-Jun-2019 10:59, QRS axis Shifted left Lateral infarct is now Present T wave inversion now evident in Lateral leads Referred By: Mignon George Electronically Signed By: Geoffrey Weinstein
--- NOTE | 2025-04-20 15:53 | ED_ITS ---
HPI - General Adult General Chief complaint: Dizziness Stated complaint: fainting spells today Time Seen by Provider: 04/20/25 16:03 Source: patient and family Mode of arrival: ambulatory Limitations: no limitations History of Present Illness ED Provider: Dr. Era Abbott HPI narrative: Patient comes to the emergency room complaining of dizziness, lightheadedness, described as room spinning. Patient states that earlier today she had brownies, took a nap and when she woke up, everything was spinning. Patient denies chest pain or shortness of breath. Patient has history of silent MIs with cardiac stents. Patient states that she just feels nauseous. Patient arrived via EMS. On arrival, patient's daughter is at bedside with the patient, the daughter received a phone call from a manager of financial reporting at home, stating that there were some brawny missing which were ?infused with THC , which patient was unaware. Patient states that she had no chest pain or shortness of breath. No recent URIs or UTIs to her knowledge. At this time, patient complaining of nausea. Related Data Home Medications ?Medication ?Instructions ?Recorded ?Confirmed febuxostat 40 mg tablet 40 mg PO DAILY 07/21/2003/26 aspirin 81 mg tablet,delayed 81 mg PO DAILY 05/17/22 0 04/08/25 release Nature's best 1 tab PO .qd 06/08/23 Previous Rx's ?Medication ?Instructions ?Recorded menthol 0.44 %-zinc oxide 20.6 % 1 appl topical QID FL N skin 12/24/21 topical ointment (Calmoseptine) irritation #113 grams fluticasone propionate 50 1 spray intranasal DAILY PRN nasal 12/24/22 mcg/actuation nasal congestion #16 grams spray,suspension clopidogrel 75 mg tablet 75 mg PO DAILY 90 days #90 t abs 10/22/24 metoprolol tartrate 25 mg tablet 25 mg PO BID 90 days #180 tabs 10/22/24 Jardiance 10 mg tablet 10 mg PO QAM #90 tabs (empagliflozin) atorvastatin 40 mg tablet 40 mg PO DAILY #90 tabs 11/24 03/20 levothyroxine 100 mcg tablet 100 mcg PO DAILY #90 tabs 12/09/24 clobetasol 0.05 % topical cream 1 appl topical DAILY P RN rash #30 01/10/25 grams famotidine 40 mg tablet 40 mg PO DAILY #30 tabs 12/25 04/19 losartan 50 mg tablet 50 mg PO DAILY #90 tabs 03/27 12/18 cefuroxime axetil 250 mg tablet 250 mg PO BID #14 tabs 04/20/25 Allergies Allergy/AdvReac Type Severity Reaction Status Date / Time allopurinol Allergy Severe Hives Verified 04/20/25 15:55 niacin (Niaspan AdvReac Unknown swelling Verified 04/20/25 15:55 Extended-Release) /itching Review of Systems 2 Review of Systems: Constitutional : No Weight loss, No Fever, No Chills, No Night Sweats, No Fatigue, No Malaise ENT/Mouth : No Hearing loss, No Ear Pain, No Nasal Congestion, No Sinus Pain, No Hoarseness, No sore throat, No Rhinorrhea, No Swallowing Difficulty Eyes: No Eye Pain, No Swelling, No Redness, No Foreign Body, No Discharge, No Vision Changes Cardiovascular : No Chest Pain, No SOB, No Dyspnea on Exertion, No Orthopnea, No Edema, No Palpitations Respiratory : No Cough, No Sputum, No Wheezing, No Smoke Exposure, No Dyspnea Gastrointestinal : No Nausea, No Vomiting, No Diarrhea, No Constipation, No abdominal Pain, No Hematochezia, No Melena Genitourinary : no irregular bleeding, No Dysuria, No Urinary Frequency, No Hematuria, No Urinary Incontinence, No Urgency, No Flank Pain, No Urinary Flow Changes, No Hesitancy Musculoskeletal : No joint pain, No Myalgias, No Joint Swelling Skin : No Skin Lesions, No rash Neuro : No Weakness, No Numbness, No Paresthesias, patient complaining of dizziness, room spinning, no headache Psych : No Anxiety/Panic, No Depression, No SI/HI/AH/VH, No Social Issues, patient states that she ate a Brownie with a no waiting that had THC in it Heme/Lymph: No Bruising, No Bleeding,No Lymphadenopathy Endocrine : No Polyuria, No Polydipsia, No Temperature Intolerance PMFSH Past Medical History Medical History History of adenomatous polyp of colon Osteopenia of left femoral neck Anemia in chronic kidney disease Thyroid nodule Colon cancer screening Type 2 diabetes mellitus with complication, without long-term current use of insulin Family history of abdominal aortic aneurysm Obesity (BMI 30-39.9) Hypothyroidism Diabetic nephropathy Dyslipidemia Hypertension Diabetic polyneuropathy associated with type 2 diabetes mellitus Surgical History Hernia, umbilical Status post cardiac catheterization H/O partial thyroidectomy S/P coronary angioplasty History of cardiac cath S/P cardiac cath History of esophagogastroduodenoscopy (EGD) History of cataract surgery History of sinus surgery History of colonoscopy History of bronchoscopy History of total hysterectomy Family History Family History (Reviewed 04/08/25 @ 14:40 by Sully Gould [facility]) Father AAA (abdominal aortic aneurysm) Mother CVD (cardiovascular disease) Mitral prolapse History of open heart surgery Brother Gout Diabetes Brother No problems noted. Daughter No problems noted. Daughter No problems noted. Social History Social History (Reviewed 04/08/25 @ 14:40 by Sully Gould [facility]) Housing: House Patient Tobacco Use Status: Former Tobacco user Years Smoked: 50 +/- Smoked in Last 30 Days: No e-Cigarette/Vaping Use: Never Used Second Hand Smoke Exposure: No Use of substances other than those prescribed or required for medical reasons: No Advance Directives: No Advance Directives Information Provided: No service: No Current occupational status: retired Cognitive needs: No Hearing needs: No Vision needs: Yes Physical Exam ED Exam Exam: Appearance: Alert. Oriented X3. No acute distress. Eyes: Pupils equal, round and reactive to light. No nystagmus ENT: Pharynx normal. Neck: Normal inspection. Neck supple. No lymph nodes noted. No crepitus CVS: Normal heart rate and rhythm. Pulses normal. Normal S1 and S2 Respiratory: No respiratory distress. Breath sounds normal. No Wheezing. No rales Abdomen: Soft and nontender. No rigidity. No distention. Skin: Skin warm , clammy, a bit pale Normal skin turgor. Extremities: No lower extremity edema. No Lacerations. No Rash Neuro: Oriented X 3. No motor deficit. No sensory deficit. Moving all extremities. No slurred speech. CN 2 through 12 grossly intact Psych: calm, cooperative, normal affect Vital Signs: Vital Signs - 24 hr 04/20/25 15:51 04/20/25 16:33 04/20/25 17:42 Temperature 98.1 F 97.8 F Pulse Rate 62 60 75 Respiratory Rate 18 12 Blood Pressure 131/55 L 104/53 L 131/70 Pulse Oximetry 92 90 L Oxygen Delivery Method Room Air Room Air 04/20/25 17:45 04/20/25 17:48 04/20/25 18:15 Temperature 97.3 F Pulse Rate 76 74 71 Respiratory Rate 16 Blood Pressure 123/64 128/66 115/55 L Pulse Oximetry 95 Oxygen Delivery Method Room Air BMI result Body Mass Index 39.1 NIH Stroke Scale Internal: Initial- Upon Arrival Level of Consciousness: Alert Level of Consciousness Questions: Answers both questions correctly Level of Consciousness Commands: Performs both tasks correctly Best Gaze: Normal Visual: No visual loss Facial Palsy: Normal Motor Arm (Right): No drift Motor Arm (Left): No drift Motor Leg (Right): No drift Motor Leg (Left): No drift Limb Ataxia: Absent Sensory: Normal Best Language: No aphasia Dysarthia: Normal Extinction and Inattention: No abnormality Score: 0 Course Course Course Narrative: 04/20/25 1559 JOE Eid This is a Rapid Medical Examination (RME) performed by Robert George PA-C in triage. Full HPI, ROS, assessment and treatment plan per primary provider in the Main ED. Hx: 74 yo F hx of HTN, HLD, hypothyroidism, TS2M, CKD, anemia, SEAN here for eval of intermittent dizziness and fatigue x1 week. today was scrolling on her phone when she began to feel very tired, has been intermittently falling asleep. mid triage, patient's daughter arrives and informs patient that the brownie she ate earlier today was infused with marijuana. besides fatigue, patient has no other symptoms. PE/vitals: pale appearing, mildly drowsy. Plan: given intermittent sx over the last week, will obtain screening labs/ekg. Medications Administered Discontinued Medications Generic Name Dose Route Start Last Admin Trade Name Freq PRN Reason Stop Dose Admin Sodium Chloride 1,000 mls @ 999 mls/hr 04/20/25 16:16 04/20/25 17:24 Ns IVCONT 04/20/25 17:16 Infused .Q1H1M ONE Infusion Meclizine HCl 50 mg 04/20/25 16:11 04/20/25 16:23 Meclizine Hcl 25 Mg Tablet PO 04/20/25 16:12 50 mg ONCE ONE Administration Ondansetron HCl 4 mg 04/20/25 16:11 04/20/25 16:24 Ondansetron Hcl 4 Mg/2 Ml Vial IVPUSH 04/20/25 16:12 4 mg ONCE ONE Administration Medical Decision Making Medical Decision Making [facility] Narrative: Patient receiving IV fluids, Zofran, meclizine. Patient's EKG, vitals pending. All of patient's labs pending Patient states that she still feels a bit nauseous, and a bit drowsy. NIH score is 0, TIA or CVA is negative My interpretation of EKG: EKG 1. Lead reversal, needs repeat EKG 2.: Normal sinus rhythm, heart rate 75, no ST segment depression or elevation, T-wave inversion, QTC 455 My interpretation of labs: No significant abnormality in patient's hematology, chemistry shows a creatinine of 1.98 which is at patient's baseline, glucose 177, LFTs within normal limits, troponin negative, BNP 105, no signs of CHF. Urinalysis positive for UTI and urine toxicology positive for THC. Orthostatic vitals were negative. At this time, 19:06, patient is awake, alert and oriented x3, normal vitals, asymptomatic Patient was given the 1st dose of cefuroxime here in the emergency room. Differential Diagnosis Differential Diagnoses: The differential diagnosis associated with the presentation includes (Vertigo, BPPV, marijuana side-effect, ACS) Admission/Observation Consideration of admission/observation: Escalation of care including admission/observation considered (Given patient's age and symptoms, observation was considered) Lab Data [facility] Lab Attestation statement: I reviewed the patient's lab results. 04/20/25 16:26 04/20/25 16:26 Labs: Lab Results 04/20/25 04/20/25 04/20/25 Range/Units 16:04 16:25 16:26 WBC 6.6 (4.8-10.8) X10*3/uL RBC 3.68 L (4.20-5.50) X10*6/uL Hgb 11.7 L (12.0-16.0) g/dl Hct 35.3 L (37.0-47.0) % MCV 95.9 (80.0-98.0) fL MCH 31.8 (27.0-33.0) pg MCHC 33.1 (31.0-35.0) g/dl RDW 13.8 (11.0-16.0) % Plt Count 177 (160-400) X10*3/uL MPV 10.4 (9.4-12.3) fL Immature Gran % (Auto) 0.2 (0.0-0.4) % Neut % (Auto) 68.5 (45-73) % Lymph % (Auto) 20.8 (20-40) % Anson % (Auto) 7.8 (2-11) % Eos % (Auto) 2.1 (0-4) % Baso % (Auto) 0.6 (0-2) % Lymph # (Auto) 1.4 (1.2-4.9) X10*3/uL Anson # (Auto) 0.5 (0.1-1.2) X10*3/uL Eos # (Auto) 0.1 (0.0-0.4) X10*3/uL Baso # (Auto) 0.0 (0.0-0.2) X10*3/uL Abs Immat Gran (auto) 0.01 (0.00-0.03) X10*3/uL Absolute Neuts (auto) 4.5 (2.0-8.3) x10*3/uL Absolute Nucleated RBC 0.000 (0.0-0.012) X10*3/uL Nucleated RBC % (auto) 0.0 (0.0-0.2) /100WBC Hold Blue Top SEE NOTE Sodium 141 (135-145) mmol/L Potassium 5.1 (3.3-5.1) mmol/L Chloride 110 H (96-108) mmol/L Carbon Dioxide 22 (22-29) mmol/L Anion Gap 14 (12-20) BUN 40 H (9-16) mg/dL Creatinine 1.98 H (0.5-1.4) mg/dL Estim Creat Clear Calc 24.2 Estimated GFR 25 POC Glucose 172 H (60-115) mg/dL Random Glucose 177 H (60-115) mg/dL Calcium 9.3 (8.4-10.2) mg/dL Magnesium 2.1 (1.6-2.6) mg/dL Total Bilirubin 0.6 (0.0-1.0) mg/dL AST 29 (5-31) U/L ALT 24 (0-31) U/L Alkaline Phosphatase 43 (39-117) U/L Troponin I High Sens 3.9 (<3.5-17.0) ng/L B-Natriuretic Peptide 105 H (<100) pg/mL Total Protein 7.2 (6.5-8.0) g/dL Albumin 4.2 (3.5-5.0) g/dL TSH 1.29 (0.32-4.0) uIU/mL Urine Color Urine Appearance Urine pH (5.0-9.0) Ur Specific [place] (1.005-1.025) Urine Protein (Neg-Trace) mg/dL Urine Glucose (UA) (Negative) mg/dL Urine Ketones (Negative) mg/dL Urine Blood (Negative) Urine Nitrite (Negative) Ur Leukocyte Esterase (Negative) Urine RBC (0-2) /HPF Urine WBC (0-5) /HPF Ur Squamous Epith Cells (0-2) /HPF Ur Transition Epith Cell Urine Bacteria (None Seen) Hyaline Casts (0-2) /LPF Urine Opiates Screen (Not Detect) Ur Buprenorphine Scrn (Not Detect) ng/mL Ur Oxycodone Screen (Not Detect) ng/mL Urine Methadone Screen (Not Detect) ng/mL Urine Fentanyl Screen (Not Detect) Ur Barbiturates Screen (Not Detect) Ur Phencyclidine Scrn (Not Detect) Ur Amphetamines Screen (Not Detect) U Benzodiazepines Scrn (Not Detect) Urine Cocaine Screen (Not Detect) U Marijuana (THC) Screen (Not Detect) 04/20/25 Range/Units 17:54 WBC (4.8-10.8) X10*3/uL RBC (4.20-5.50) X10*6/uL Hgb (12.0-16.0) g/dl Hct (37.0-47.0) % MCV (80.0-98.0) fL MCH (27.0-33.0) pg MCHC (31.0-35.0) g/dl RDW (11.0-16.0) % Plt Count (160-400) X10*3/uL MPV (9.4-12.3) fL Immature Gran % (Auto) (0.0-0.4) % Neut % (Auto) (45-73) % Lymph % (Auto) (20-40) % Anson % (Auto) (2-11) % Eos % (Auto) (0-4) % Baso % (Auto) (0-2) % Lymph # (Auto) (1.2-4.9) X10*3/uL Anson # (Auto) (0.1-1.2) X10*3/uL Eos # (Auto) (0.0-0.4) X10*3/uL Baso # (Auto) (0.0-0.2) X10*3/uL Abs Immat Gran (auto) (0.00-0.03) X10*3/uL Absolute Neuts (auto) (2.0-8.3) x10*3/uL Absolute Nucleated RBC (0.0-0.012) X10*3/uL Nucleated RBC % (auto) (0.0-0.2) /100WBC Hold Blue Top Sodium (135-145) mmol/L Potassium (3.3-5.1) mmol/L Chloride (96-108) mmol/L Carbon Dioxide (22-29) mmol/L Anion Gap (12-20) BUN (9-16) mg/dL Creatinine (0.5-1.4) mg/dL Estim Creat Clear Calc Estimated GFR POC Glucose (60-115) mg/dL Random Glucose (60-115) mg/dL Calcium (8.4-10.2) mg/dL Magnesium (1.6-2.6) mg/dL Total Bilirubin (0.0-1.0) mg/dL AST (5-31) U/L ALT (0-31) U/L Alkaline Phosphatase (39-117) U/L Troponin I High Sens (<3.5-17.0) ng/L B-Natriuretic Peptide (<100) pg/mL Total Protein (6.5-8.0) g/dL Albumin (3.5-5.0) g/dL TSH (0.32-4.0) uIU/mL Urine Color Yellow Urine Appearance Clear Urine pH 6.0 (5.0-9.0) Ur Specific [place] 1.015 (1.005-1.025) Urine Protein 30 (1+) H (Neg-Trace) mg/dL Urine Glucose (UA) 250 H (Negative) mg/dL Urine Ketones Negative (Negative) mg/dL Urine Blood Negative (Negative) Urine Nitrite Positive H (Negative) Ur Leukocyte Esterase Moderate (2+) H (Negative) Urine RBC 0-2 (0-2) /HPF Urine WBC >50 H (0-5) /HPF Ur Squamous Epith Cells 0-2 (0-2) /HPF Ur Transition Epith Cell Present Urine Bacteria 4+ (None Seen) Hyaline Casts 0-2 (0-2) /LPF Urine Opiates Screen Not Detected (Not Detect) Ur Buprenorphine Scrn Not Detected (Not Detect) ng/mL Ur Oxycodone Screen Not Detected (Not Detect) ng/mL Urine Methadone Screen Not Detected (Not Detect) ng/mL Urine Fentanyl Screen Not Detected (Not Detect) Ur Barbiturates Screen Not Detected (Not Detect) Ur Phencyclidine Scrn Not Detected (Not Detect) Ur Amphetamines Screen Not Detected (Not Detect) U Benzodiazepines Scrn Not Detected (Not Detect) Urine Cocaine Screen Not Detected (Not Detect) U Marijuana (THC) Screen POSITIVE H (Not Detect) Critical Care Time Critical Care Time Critical Care Time: Yes Total Critical Care Time: 35 Attestation: I have personally provided critical care time. Time includes review of lab data, radiology results, discussion with consultants, and monitoring for potential decompensation. Intervention performed as documented. Discharge Plan Discharge Clinical Impression: Accidental marijuana poisoning, Acute UTI, Dizziness Patient Disposition: Home, Self-Care Instructions: Acute Urinary Retention in Women (ED), Dizziness (ED) Additional Instructions: Please follow-up with your primary care physician tomorrow. If you have any worsening or new symptoms, please return to the emergency room or call 911 Prescriptions: New cefuroxime axetil 250 mg tablet 250 mg PO BID Qty: 14 0RF No Action clopidogrel 75 mg tablet 75 mg PO DAILY 90 Days Qty: 90 3RF metoprolol tartrate 25 mg tablet 25 mg PO BID 90 Days Qty: 180 3RF Jardiance 10 mg tablet 10 mg PO QAM Qty: 90 1RF levothyroxine 100 mcg tablet 100 mcg PO DAILY Qty: 90 1RF atorvastatin 40 mg tablet 40 mg PO DAILY Qty: 90 1RF losartan 50 mg tablet 50 mg PO DAILY Qty: 90 3RF fluticasone propionate 50 mcg/actuation spray,suspension 1 spray intranasal DAILY PRN (Reason: nasal congestion) Qty: 16 5RF Nature's best 1 tab PO .qd febuxostat 40 mg tablet 40 mg PO DAILY menthol-zinc oxide [Calmoseptine] 0.44-20.6 % ointment 1 appl topical QID PRN (Reason: skin irritation) Qty: 113 0RF aspirin 81 mg tablet,delayed release (DR/EC) 81 mg PO DAILY famotidine 40 mg tablet 40 mg PO DAILY Qty: 30 5RF Rx Instructions: Take 1 tablet 30 minutes before breakfast clobetasol 0.05 % cream 1 appl topical DAILY PRN (Reason: rash) Qty: 30 1RF Print Language: Filipino
--- OUTSIDE RECORDS SUMMARY | 2025-04-20 16:08 | XMS_ITS | Encounter Summary ---
Author Organization [facility] Address [address] [facility] [address] [place] [address] Phone Care Team Providers Care Senior Research Consultant Name Role Phone Reinaldo Escobedo MD Primary Care Provider [phone] Encounter Details Date Type Department Care Team (Late st Contact Info) Description 12/17/2021 Telephone [facility] [address] [facility] [address] [place] [phone] Demond Edmondson MD [address] [facility] [address] [place] [phone] Social History Tobacco Use Types Packs/Day Years [...] Visit [facility] [address] [phone] Demond Edmondson MD [address] [phone] documented as of this encounter Visit Diagnoses Not on filedocumented in this encounter Care Teams Senior Research Consultant Relationship Specialty Start Date End Date Reinaldo Ecsobedo MD [address] [place] [phone] PCP - General 10/06/20 documented as of this encounter
--- OUTSIDE RECORDS SUMMARY | 2025-04-20 16:08 | XMS_ITS | Patient Health Record ---
Author Organization [facility] Address [address] [place] [phone] Care Team Providers Care Vp Celebrity Services Name Role Phone Fanny SELLERS, Coni [...] Irritable bowel syndrome (564.1) Active confirmed Problem 343231653 Colon cancer screening (Z12.11) Active confirmed Problem 30338315 Abdominal pain, epigastric (R10.13) Active confirmed Plan Of Treatment Pending Test Test Name Order Date XR GI SERIES 06/16/2016 Future Test Test Name Order Date COLONOSCOPY 06/16/2016 Insurance Providers Payer Name Payer Address Payer Phone Subscriber Number Group Number Insured Name Patient Relationship to Insured Coverage Start Date Coverage End Date MEDICARE [place] [address] [place] [address] [phone] [id number] CHIO WORLEY Self - patient is the insured [facility] [address] [place], [place] [id number] [phone] [id number] CHIO WORLEY Self - patient is the insured Medical (General) History Medical History History ICD Code irritable bowel syndrome Hypothyroidism hypertension elevated Cholesterol Gout thyroid nodule mitral valve prolapse Denies [place],CVA,Lung disease,renal disease ? diabetes mellitus Surgical History Surgery Date(Month/Year) cholecystectomy hysterectomy, total with bilateral salpi leavitt-oophorectomy (BSO) appendectomy
[2025-04-20 16:12] LABS: Glucose, Whole Blood 172 mg/dL (60-115)
[2025-04-20 16:33] LABS: MANUAL DIFF FLAG NO
[2025-04-20 16:36] LABS: Hematocrit 35.3 % (37.0-47.0); Hemoglobin 11.7 g/dl (12.0-16.0); Imm Gran Abs Auto 0.01 X10*3/uL (0.00-0.03); Imm Gran Pct Auto 0.2 % (0.0-0.4); Lymphocytes Absolute Auto 1.4 X10*3/uL (1.2-4.9); Mean Corpuscular HGB Conc 33.1 g/dl (31.0-35.0); Mean Corpuscular Hemoglobin 31.8 pg (27.0-33.0); Mean Corpuscular Volume 95.9 fL (80.0-98.0); NRBC Abs Auto 0.000 X10*3/uL (0.0-0.012); NRBC Pct Auto 0.0 /100WBC (0.0-0.2); Platelet Count 177 X10*3/uL (160-400); Red Blood Count 3.68 X10*6/uL (4.20-5.50); White Blood Count 6.6 X10*3/uL (4.8-10.8)
[2025-04-20 16:58] LABS: Alanine Aminotransferase 24 U/L (0-31); Albumin Level 4.2 g/dL (3.5-5.0); Alkaline Phosphatase 43 U/L (39-117); Anion Gap 14 (12-20); Aspartate Amino Transferase 29 U/L (5-31); Blood Urea Nitrogen 40 mg/dL (9-16); Calcium 9.3 mg/dL (8.4-10.2); Carbon Dioxide 22 mmol/L (22-29); Chloride 110 mmol/L (96-108); Creatinine Clr Calc Pharmacy 24.2; Estimated Glomerular Filt Rate 25; Magnesium 2.1 mg/dL (1.6-2.6); Potassium 5.1 mmol/L (3.3-5.1); Sodium 141 mmol/L (135-145); Total Protein 7.2 g/dL (6.5-8.0)
[2025-04-20 17:01] LABS: Troponin-I High Sensitivity 3.9 ng/L (<3.5-17.0)
[2025-04-20 17:16] LABS: B Type Natriuretic Peptide 105 pg/mL (<100)
--- NOTE | 2025-04-20 17:37 | ECG_ITS ---
Test Reason : Repeat Blood Pressure : */* mmHG Vent. Rate : 75 BPM Atrial Rate : 75 BPM P-R Int : 166 ms QRS Dur : 94 ms QT Int : 408 ms P-R-T Axes : 57 -44 49 degrees QTcB Int : 455 ms Normal sinus rhythm Left axis deviation Minimal voltage criteria for LVH, may be normal variant ( R in aVL ) Septal infarct , age undetermined Abnormal ECG When compared with ECG of 20-Apr-2025 17:00, Left axis deviation Septal infarct is now Present Criteria for Lateral infarct are no longer Present Referred By: Era Abbott Electronically Signed By: Geoffrey Weinstein
[2025-04-20 18:10] LABS: Appearance Urine Clear; Glucose Urine UA 250 mg/dL (Negative); PH 6.0 (5.0-9.0); Specific Gravity - Urine 1.015 (1.005-1.025); UMIC TRIGGER UACC YES
[2025-04-20 18:21] LABS: Cannabinoid Screen Urine POSITIVE (Not Detect)
[2025-04-20 18:33] LABS: UACC Culture Trigger YES
== END 2025-04-20 19:27 | disposition home or self-care (01) ==
PROVIDERS: Physician Assistant Medical; Emergency Provider Emergency Medicine; PCP Internal Medicine
DX: T40.711A Poisoning by cannabis, accidental (unintentional), initial encounter (principal); R40.0 Somnolence; Y92.009 Unspecified place in unspecified non-institutional (private) residence as the place of occurrence of the external cause; N39.0 Urinary tract infection, site not specified; R42 Dizziness and giddiness; R11.0 Nausea; R29.700 NIHSS score 0; E11.9 Type 2 diabetes mellitus without complications; I10 Essential (primary) hypertension; E78.5 Hyperlipidemia, unspecified; Z87.891 Personal history of nicotine dependence; Z79.82 Long term (current) use of aspirin; Z79.899 Other long term (current) drug therapy; Z79.02 Long term (current) use of antithrombotics/antiplatelets
CPT/HCPCS: 36415; 80053; 80307; 81001; 82947; 83735; 83880; 84443; 84484; 85025; 87086; 87088; 87186; 93005; 96361; 96374; 99284; 99285; J2405

== ENCOUNTER → 2025-04-20 15:51 | Outpatient (BNV) | payer MEDICARE, BC, SELFPAY | PROVIDERS: Emergency Provider Emergency Medicine; PCP Internal Medicine; Visit Provider Internal Medicine Cardiovascular Disease | DX: R94.31 Abnormal electrocardiogram [ECG] [EKG] (principal); Z13.6 Encounter for screening for cardiovascular disorders; R42 Dizziness and giddiness | CPT/HCPCS: 93010 ==

== ENCOUNTER 2025-06-18 13:59 | Outpatient (AMB) | payer MEDICARE, BC, SELFPAY ==
--- NOTE | 2025-06-18 14:05 | MHC.OFFVIS ---
Vital Signs 06/18/25 14:06 Height 5 ft Weight 202 lb 9.677 oz BMI 39.6 BP 102/68 Blood Pressure Location Lt brachial Position Sitting Pulse 52 Pulse Source Pulse Oximeter Pulse Oximetry (%) 96 Oxygen Delivery Method Room Air Intake Visit Reasons: Type 2 diabetes mellitus with unspecified complica Intake Note: New patient present today for Type 2 Diabetes Mellitus Last Diabetic eye exam: Last exam was in 08/2024 and has upcoming appt. Last Podiatry Visit: Doesn't have one Random Glucose: 98 mg/dl HgA1C: 7.3% Trucker Required: No Accompanied by: Self / Same As Patient Allergies allopurinol Allergy (Severe, Verified 06/18/25 14:10) Hives niacin (Niaspan Extended-Release) Adverse Reaction (Unknown, Verified 06/18/25 14:10) swelling /itching Medication List - Last Reconciled 06/18/25 by Abena Santana MD aspirin 81 mg PO DAILY atorvastatin 40 mg PO DAILY cefuroxime axetil 250 mg PO BID clobetasol 0.05% 1 appl topical DAILY PRN clopidogrel 75 mg PO DAILY 90 days famotidine 40 mg PO DAILY febuxostat 40 mg PO DAILY fluticasone propionate 50 mcg/actuation 1 spray intranasal DAILY PRN glipizide 2.5 mg PO QPM Jardiance (empagliflozin) 10 mg PO QAM NS levothyroxine 100 mcg PO DAILY losartan 50 mg PO DAILY menthol-zinc oxide 0.44-20.6 % (Calmoseptine) 1 appl topical QID PRN metoprolol tartrate 25 mg PO BID 90 days [Nature's best 1 tab PO .qd] HPI Comments Details: 75-year-old female here today for initial evaluation of type 2 diabetes mellitus. History of diabetes type 2 DM : prediabetic in 80s, moved here in 1983, from [place], much less active , gained 40 to 50 lbs Was in her 40s when diagnosed on regular blood work A1c 06/18/25: 7.3% December 2024 6.2% August 2024 5.9% Prior therapy: Januvia 50 mg daily Apparently was initially prescribed Invokana, which was not covered by insurance Metformin has had severe GI intolerance Current regimen: Jardiance 10 mg daily (no UTIs) Glipizide 2.5 mg daily on /off sometimes skips it when sugars are low Denies any symptoms of hyperglycemia including polyphagia, polyuria, polydipsia. Denies any hypoglycemic symptoms. SMBG's didnt bring meter today fasting 100 to 140s Bedtime 160 to 180 Complications Eye exam: Last eye exam was 09/18, no retinopathy, [facility] Neuropathy: reports numbness tingling in feet, podiatry: doesnt see , referral entered Kidney disease: as CKD stage 3 B/4, sees Nephrology at [facility] Macrovascular complications: CAD status post PCI in 2021 and 2022, follows with cardiology Statin: On atorvastatin 40 mg daily, LDL 65 mg/dL from December 2024 MCKENZIE/ARB: On losartan 50 mg daily, has CKD stage 3 B/4, sees Nephrology at [facility] Exercise: walks a mile everyday Diet control: bf: eggs with hash browns ,decaf coffee with half and half , sweetner Light lunch Supper: fruits and cheese with keto toast No sugary drinks He has never had any hospitalizations for hyperglycemia/hypoglycemia. no history of pancreatitis , s/p cholecystectomy, no known personal or family history of thyroid cancer, alcohol : none Physical exam General: sitting comfortably in no acute distress HEENT: normocephalic/atraumatic, Neck: supple, Cardiac: normal heart sounds Pulm: normal breath sounds B/L, no added breath sounds Abd: not distended, no tenderness Extremities: no edema, no signs of myxedema Laboratory Tests 01/04/25 04/20/25 13:24 16:26 Hgb 11.7 L Hct 35.3 L Plt Count 177 Creatinine 1.98 H Estim Creat Clear Calc 24.2 Estimated GFR 25 Random Glucose 177 H AST 29 ALT 24 Triglycerides 221 H Cholesterol 144 LDL Cholesterol, Calc 65 HDL Cholesterol 35 L TSH 1.29 Laboratory Tests 06/13/24 09/15/24 01/04/25 13:54 13:30 13:24 Hemoglobin A1c % 5.9 5.9 6.2 H [facility] Medical History (Updated 06/18/25 @ 14:56 by Abena Santana MD) Dyslipidemia associated with type 2 diabetes mellitus History of adenomatous polyp of colon Osteopenia of left femoral neck Anemia in chronic kidney disease Thyroid nodule Colon cancer screening Type 2 diabetes mellitus with complication, without long-term current use of insulin Family history of abdominal aortic aneurysm Obesity (BMI 30-39.9) Hypothyroidism Diabetic nephropathy Dyslipidemia Hypertension Diabetic polyneuropathy associated with type 2 diabetes mellitus Surgical History Hernia, umbilical Status post cardiac catheterization H/O partial thyroidectomy S/P coronary angioplasty History of cardiac cath S/P cardiac cath History of esophagogastroduodenoscopy (EGD) History of cataract surgery History of sinus surgery History of colonoscopy History of bronchoscopy History of total hysterectomy Family History Father AAA (abdominal aortic aneurysm) Mother CVD (cardiovascular disease) Mitral prolapse History of open heart surgery Brother Gout Diabetes Brother No problems noted. Daughter No problems noted. Daughter No problems noted. Social History Housing: House Patient Tobacco Use Status: Former Tobacco user Years Smoked: 50 +/- e-Cigarette/Vaping Use: Never Used Second Hand Smoke Exposure: No service: No Current occupational status: retired Cognitive needs: No Hearing needs: No Vision needs: Yes Physical Exam Vital Signs: Last Vital Signs Pulse 52 06/18/25 14:06 BP 102/68 06/18/25 14:06 Pulse Ox 96 06/18/25 14:06 Oxygen Delivery Method Room Air 06/18/25 14:06 BMI result Body Mass Index 39.6 Results AMB Hemoglobin A1c AMB Hemoglobin A1c 7.3 % Last Edit by RADHA Veliz on 06/18/25 14:25 Results Reviewed Results Reviewed: Laboratory Last Values Glucose (Clinic) 98 mg/dL (60-115) 06/18/25 14:13 Assessment & Plan Assessment & Plan (1) Type 2 diabetes mellitus with complication, without long-term current use of insulin: Code(s): E11.8 - Type 2 diabetes mellitus with unspecified complications Category: Medical Plan: 75-year-old female coming in today for initial evaluation of type 2 diabetes mellitus with complications of CKD stage IIIB/4, neuropathy, CAD status post PCI 2021 in 2022 without long-term insulin use. A1c POC 06/18/2025 up at 7.3% from 6.2% back in December 2024. She is only on Jardiance 10 mg daily and glipizide 2.5 mg daily which she has been taking on and off. Given BMI 39.6 kg per m2 with a weight of 202 lb, plus prior history of CAD, patient with be an excellent candidate for GLP 1 agonist such as Ozempic. I would prefer Ozempic in her case over Mounjaro as patient has a known history of CAD with high ASCVD risk, and semaglutide has shown in the SELECT trial, positive MACE outcomes in both patients with and without type 2 diabetes mellitus. While tirzepatide is a more potent weight loss medication, we do not have prospective randomized controlled trials to look at cardiovascular outcomes so far as though these are in the pipeline. Discussed with the patient side effects of GI intolerance, rare side effects of pancreatitis, worsening retinopathy, association with medullary thyroid cancer in rodents. Patient does not have any prior history of pancreatitis, does not drink alcohol, status post cholecystectomy, no history of retinopathy, no known family or personal history of thyroid cancer. Plan: -start Ozempic 0.25 mg weekly injection and then titrate up to 0.5 mg weekly injection after 4 weeks -continue Jardiance 10 mg daily -continue glipizide 2.5 mg daily, we will plan to discontinue this once we have her on the Ozempic successfully without any side effects -placed podiatry referral -up-to-date with eyes visits, no history of retinopathy (2) Obesity (BMI 30-39.9): Code(s): E66.9 - Obesity, unspecified Category: Medical Plan: BMI 39.6 kg per m2 with current weight 202 lb Patient currently walking a mile daily Has not been able to lose weight despite lifestyle modification efforts. Plan: -start Ozempic 0.25 mg weekly injection with plan for up titration to 0.5 mg weekly dose after 4 injections, I have asked the patient to inform us when she starts the medication (3) Dyslipidemia associated with type 2 diabetes mellitus: Code(s): E11.69 - Type 2 diabetes mellitus with other specified complication; E78.5 - Hyperlipidemia, unspecified Category: Medical Plan: LDL 65 mg/dL from December 2024, patient is on atorvastatin 40 mg daily. Given prior history of CAD, goal LDL is less than 55 mg/dL. We will consider titrating up the atorvastatin or adding ezetimibe in the future visits. Plan I spent 60 minutes in reviewing the record, seeing the patient and documenting in the medical record. Orders: Orders AMB Hemoglobin A1c Today E11.8 - Type 2 diabetes mellitus with unspecified complications, Z13.9 - Encounter for screening, unspecified Referrals Podiatry Referral E11.8 - Type 2 diabetes mellitus with unspecified complications Medications: New blood-glucose meter (FreeStyle Lite Meter kit) As directed to check blood sugar once daily 1 ea 0RF E11.8 - Type 2 diabetes mellitus with unspecified complications lancets (FreeStyle Lancets) As directed to check blood sugar once daily 100 ea 5RF E11.8 - Type 2 diabetes mellitus with unspecified complications semaglutide (Ozempic) for 4 weeks 0.25 mg (0.368 mL) subcut QWEEK 3 mL 4RF E11.8 - Type 2 diabetes mellitus with unspecified complications, I25.10 - Atherosclerotic heart disease of [place] coronary artery without angina pectoris semaglutide (Ozempic) for 4 weeks 0.25 mg (0.368 mL) subcut QWEEK 3 mL 6RF E11.8 - Type 2 diabetes mellitus with unspecified complications, I25.10 - Atherosclerotic heart disease of [place] coronary artery without angina pectoris blood sugar diagnostic (FreeStyle Lite Strips) As directed to check blood sugar once daily 100 ea 4RF E11.8 - Type 2 diabetes mellitus with unspecified complications Patient Instructions: Continue Jardiance 10 mg daily Continue glipizide 2.5 mg daily Start Ozempic 0.25 mg weekly injection and then after taking 4 injections, go up to 0.5 mg weekly dose. Once you start the medication please inform us so we can keep a track of when you go up on the dose, you can call the office during office hours and inform us that you have started taking the Ozempic. Continue to monitor blood sugars once a day, most days check fasting, sometimes check 2 hours post meal See the foot doctor, referral placed Stay up-to-date with the eye doctor Follow up in October 2025 Coding Level of Care Code New Pt Level 5 (58543) Complex EM visit Add On G2211 Diagnoses Type 2 diabetes mellitus with complication, without long-term current use of insulin E11.8 Obesity (BMI 30-39.9) E66.9 Dyslipidemia associated with type 2 diabetes mellitus E11.69; E78.5 Time Spent (min) 60
[2025-06-18 14:06] VITALS: BP 102/68; PULSE 52; O2SAT 96; BMI 39.6
[2025-06-18 14:17] LABS: Glucose, Whole Blood 98 mg/dL (60-115)
--- OUTSIDE RECORDS SUMMARY | 2025-06-18 17:15 | XMS_ITS | Encounter Summary ---
Author Organization [facility] Address [address] [facility] [address] [place] [address] Phone Care Team Providers Care Asphalt Plant Operator Name Role Phone Reinaldo Escobedo MD Primary Care Provider [phone]- [phone] Encounter Details Date Type Department Care Team (Late st Contact Info) Description 12/17/2021 Telephone [facility] [address] [facility] [address] [place] [phone] Demond Edmondson MD [address] [facility] [address] [place] [phone] Social History Tobacco Use Types Packs/Day Years [...] [facility] [address] [phone] Demond Edmondson MD [address] [phone] documented as of this encounter Visit Diagnoses Not on filedocumented in this encounter Care Teams Asphalt Plant Operator Relationship Specialty Start Date End Date Reinaldo Escobedo MD [address] [place] [address] PCP - General 10/06/20 documented as of this encounter
--- OUTSIDE RECORDS SUMMARY | 2025-06-18 17:15 | XMS_ITS | Clinical Summary ---
Author Organization [facility] Address [address] [address] Phone Care Team Providers Care Infrastructure Consultant Name Role Phone Reinaldo Escobedo MD Primary Care Provider [phone]- [phone] Allergies Active Allergy Reactions Criticality Noted Date [...] MG tablet Take by mouth 4 Active glipiZIDE 2.5 MG tablet Take 1 tablet by mouth at bed time 4 Active Febuxostat (ULORIC) 40 MG tablet Take 1 tablet (40 mg total) by mouth 1 (one) time each day 90 tablet 3 5 Active Active Problems Problem Noted Date Diagnosed Date Acute nontraumatic kidney injury 02/08/2023 Heart valve disorder 11/04/2021 Overview (11/04/2021): Mitral Gout, not otherwise specified 11/03/2021 Hypertension 11/03/2021 Analgesic adverse reaction <Sequela> 11/03/2021 Stage 3b chronic kidney disease 01/30/2021 Hypertensive nephrosclerosis 01/30/2021 Renal osteodystrophy 01/30/2021 Diabetes mellitus, not otherwise specified 12/08 Sensorineural hearing loss 06/07/2016 Overview (02/03/2025): Sensorineural hearing loss, unilateral, right ear, with unrestricted hearing on the contralateral side; Note: Date Diagnosed: 06/07/2016 12:36 PM (H90.41) Resolved Problems Problem Noted Date Diagnosed Date [...] Sign Reading Time Taken Comments Blood Pressure 128/72 02/06/2025 10:05 AM EDT Pulse 66 02/06/2025 9:56 AM EDT Temperature - - Respiratory Rate - - Oxygen Saturation 95% 02/06/2025 9:56 AM EDT Inhaled Oxygen Concentration - - Weight 92.1 kg (203 lb) 02/06/2025 9:56 AM EDT Height 152.4 cm (5') 08/07/2024 9:33 AM EST Body Mass Index 39.65 08/07/2024 9:33 AM EST Plan of Treatment Upcoming Encounters Date Type Department Care Team (Late st Contact Info) Description 08/13/2025 10:00 AM EST Office Visit [facility] [address] [phone] Demond Edmondson MD [address] [place] [phone] Health Maintenance Due Date Last Done Comments Pneumococcal Vaccine: 50+ Ye ars (2 of 2 - PCV) 04/25/2014 04/25/2013 Diabetes: Hemoglobin A1C 10/27/2020 Diabetes: Ophthalmology Exam 10/27/2020 Diabetes: Pedal Pulse Checked 10/27/2020 Diabetes: Sensory Foot Exam 10/27/2020 Diabetes: Visual Foot Exam 10/27/2020 Influenza Vaccine (#1) 2025 Pneumococcal Vaccine: Peds ( 0 to 5 Years) and At-Risk Patients (6 to 49 Years) Discontinued 04/25/2013 Hepatitis B Vaccine Aged Out No longe r eligible based on patient's age to complete this topic Insurance [facility] Medicare Medicare [facility] Care Teams Infrastructure Consultant Relationship Specialty Start Date End Date Reinaldo Escobedo MD [address] [place] [address] PCP - General 10/06/20
--- OUTSIDE RECORDS SUMMARY | 2025-06-18 17:15 | XMS_ITS | Patient Health Record ---
Author Organization [facility] Address [address] [place] [phone] Care Team Providers Care Public Health Training Assistant Name Role Phone Fanny SELLERS, Coni Primary [...] Status Risk Notes Problem Irritable bowel syndrome (17927043) Irritable bowel syndrome (564.1) Active confirmed Problem [id number] Colon cancer screening (Z12.11) Active confirmed Problem 99918960 Abdominal pain, epigastric (R10.13) Active confirmed Plan Of Treatment Pending Test Test Name Order Date XR GI SERIES 06/16/2016 Future Test Test Name Order Date COLONOSCOPY 06/16/2016 Insurance Providers Payer Name Payer Address Payer Phone Subscriber Number Group Number Insured Name Patient Relationship to Insured Coverage Start Date Coverage End Date MEDICARE OF [place] [address] [place] [id number] [id number] CHIO WORLEY Self - patient is the insured [facility] [address] [place], [place] [id number] CHIO WORLEY Self - patient is the insured Medical (General) History Medical History History ICD Code irritable bowel syndrome Hypothyroidism hypertension elevated Cholesterol Gout thyroid nodule mitral valve prolapse Denies [place],CVA,Lung disease,renal disease ? diabetes mellitus Surgical History Surgery Date(Month/Year) cholecystectomy hysterectomy, total with bilateral salpi leavitt-oophorectomy (BSO) appendectomy
== END 2025-06-18 15:17 | disposition home or self-care (01) ==
LOC: HO.ENCR 14:00
PROVIDERS: PCP Internal Medicine; Visit Provider Student in an Organized Health Care Education/Training Program
DX: E11.8 Type 2 diabetes mellitus with unspecified complications (principal); E11.69 Type 2 diabetes mellitus with other specified complication; E66.9 Obesity, unspecified; E78.5 Hyperlipidemia, unspecified; Z13.9 Encounter for screening, unspecified
CPT/HCPCS: 99205; G2211

== ENCOUNTER → 2025-06-18 13:59 | Outpatient (BNVA) | payer MEDICARE, BC, SELFPAY | PROVIDERS: PCP Internal Medicine; Visit Provider Student in an Organized Health Care Education/Training Program | DX: E11.8 Type 2 diabetes mellitus with unspecified complications (principal); E66.9 Obesity, unspecified; Z68.36 Body mass index [BMI] 36.0-36.9, adult; E11.69 Type 2 diabetes mellitus with other specified complication; E78.5 Hyperlipidemia, unspecified; Z79.85 Long-term (current) use of injectable non-insulin antidiabetic drugs | CPT/HCPCS: 82947; 83036; 99202 ==

== ENCOUNTER 2025-06-24 13:48 | Outpatient (REF) | payer MEDICARE, BC, SELFPAY ==
--- OUTSIDE RECORDS SUMMARY | 2025-06-24 15:29 | XMS_ITS | Encounter Summary ---
Author Organization [facility] Address [address] [facility] [address] [place] [address] Phone Care Team Providers Care Monument Installer Name Role Phone Reinaldo Escobedo MD Primary Care Provider +1- [phone] Encounter Details Date Type Department Care Team (Late st Contact Info) Description 12/17/2021 Telephone [facility] [address] [facility] [address] [place] [phone] Demond Edmondson MD [address] [facility] [address] [place] [phone] Social History Tobacco Use Types Packs/Day Years [...] Visit [facility] [address] [phone] Demond Edmondson MD [address] [phone] documented as of this encounter Visit Diagnoses Not on filedocumented in this encounter Care Teams Monument Installer Relationship Specialty Start Date End Date Reinaldo Escobedo MD [address] [place] [id number] PCP - General 10/06/20 documented as of this encounter
--- OUTSIDE RECORDS SUMMARY | 2025-06-24 15:29 | XMS_ITS | Clinical Summary ---
Author Organization [facility] Address [address] [phone] Phone Care Team Providers Care De Alcholizer Name Role Phone Reinaldo Escobdeo MD Primary Care Provider +1- [phone] Allergies Active Allergy Reactions Criticality Noted Date [...] Office Visit [facility] [address] [phone] Demond Edmondson MD [address] [place] [phone] Health Maintenance Due Date Last Done [...] Medicare Medicare [facility] Care Teams De Alcholizer Relationship Specialty Start Date End Date Reinaldo Escobedo MD [address] [place] [address] PCP - General 10/06/20
--- OUTSIDE RECORDS SUMMARY | 2025-06-24 15:29 | XMS_ITS | Patient Health Record ---
Author Organization [facility] Address [address] [place] [phone] Care Team Providers Care Cutter Grinder Name Role Phone Fanny SELLERS, Coni Primary [...] Status Risk Notes Problem Irritable bowel syndrome (55077964) Irritable bowel syndrome (564.1) Active confirmed Problem [id number] Colon cancer screening (Z12.11) Active confirmed Problem 84190075 Abdominal pain, epigastric (R10.13) Active confirmed Plan Of Treatment Pending Test Test Name Order Date XR GI SERIES 06/16/2016 Future Test Test Name Order Date COLONOSCOPY 06/16/2016 Insurance Providers Payer Name Payer Address Payer Phone Subscriber Number Group Number Insured Name Patient Relationship to Insured Coverage Start Date Coverage End Date MED[place]ARE OF [place] [address] [place] [id number] CHIO WORLEY Self - patient is the insured [facility] [address] [place], [place] [id number] CHIO WORLEY Self - patient is the insured Medical (General) History Medical History History ICD Code irritable bowel syndrome Hypothyroidism hypertension elevated Cholesterol Gout thyroid nodule mitral valve prolapse Denies [place],CVA,Lung disease,renal disease ? diabetes mellitus Surgical History Surgery Date(Month/Year) cholecystectomy hysterectomy, total with bilateral salpi leavitt-oophorectomy (BSO) appendectomy
[2025-06-24 16:27] LABS: Hemoglobin A1C 163.7299 umol/L; Total Hemoglobin (HGBA1C) 3139.5039 umol/L
[2025-06-24 16:55] LABS: Microalbum/Creatinine Ratio Ur 322.9 ug/mg cr (<30)
[2025-06-24 16:56] LABS: Alanine Aminotransferase 22 U/L (0-31); Aspartate Amino Transferase 29 U/L (5-31); Cholesterol 135 mg/dL (<200); Free T4 (Free Thyroxine) 1.20 ng/dL (0.71-1.85); HDL Cholesterol 36 mg/dL (>40); Thyroid Stimulating Hormone 0.76 uIU/mL (0.32-4.0); Triglycerides 211 mg/dL (<150)
== END 2025-06-24 13:49 | disposition home or self-care (01) ==
LOC: HO.HMGCLDS 13:48
PROVIDERS: PCP Internal Medicine; Visit Provider Internal Medicine
DX: I25.10 Atherosclerotic heart disease of native coronary artery without angina pectoris (principal); I15.0 Renovascular hypertension; E11.8 Type 2 diabetes mellitus with unspecified complications; E04.1 Nontoxic single thyroid nodule; E66.9 Obesity, unspecified; E03.9 Hypothyroidism, unspecified; E78.5 Hyperlipidemia, unspecified
CPT/HCPCS: 36415; 80061; 82043; 82570; 83036; 84439; 84443; 84450; 84460

== ENCOUNTER 2025-06-27 09:58 | Outpatient (AMB) | payer MEDICARE, BC, SELFPAY ==
--- NOTE | 2025-06-27 10:12 | MHC.OFFVIS ---
Vital Signs 06/27/25 10:13 Height 5 ft Weight 200 lb BMI 39.1 Intake Visit Reasons: Type 2 diabetes mellitus with unspecified complica Intake Note: Doreen is a 75 year old female who presents today as a new patient for a diabetic foot exam. Her last reported A1C was 6.9 on 06/24/25 and her glucose is currently at 167. Patient reports experiencing bilateral numbness, tingling, and burning sensation in the plantar aspect of her foot. She experiences right low back pain with out any injuries. She mentions she can not tolerate the gabapentin medication due to it causing her to get dizzy. Patient states she experiences dizziness daily however she denies nausea, vomitting, headaches. Allergies allopurinol Allergy (Severe, Verified 06/27/25 10:14) Hives niacin (Niaspan Extended-Release) Adverse Reaction (Unknown, Verified 06/27/25 10:14) swelling /itching HPI Comments Details: The patient is a 75-year-old female with a past medical history as seen below presenting with bilateral foot pain associated with diabetic neuropathy and arthritis. The neuropathy has been persistent, affecting the feet diffusely. The patient has a history of gout, which was severe before receiving appropriate medication, leading to numbness in the toes. The patient reports her blood sugar levels are usually between 120 and 125 mg/dL in the morning, but it was 167 mg/dL today. She is currently on Jardiance and has been prescribed Ozempic to help regulate her blood sugar levels. The patient monitors her blood sugar levels regularly and notes fluctuations throughout the day. The patient experiences dizziness, which she attributes to a perforated eardrum, causing her to take steps backward unexpectedly. This dizziness has been present for three to four months, and she has not experienced any falls. She denies any recent pedal injuries. She denies any other pedal concerns. She denies any current nausea, vomiting, fever, or chills. Patient states she uses diabetic insoles and stockings. [facility] Medical History (Updated 06/27/25 @ 10:34 by Lisette Landis DPM) Pain in both feet Dyslipidemia associated with type 2 diabetes mellitus History of adenomatous polyp of colon Osteopenia of left femoral neck Anemia in chronic kidney disease Thyroid nodule Colon cancer screening Type 2 diabetes mellitus with complication, without long-term current use of insulin Family history of abdominal aortic aneurysm Obesity (BMI 30-39.9) Hypothyroidism Diabetic nephropathy Dyslipidemia Hypertension Diabetic polyneuropathy associated with type 2 diabetes mellitus Surgical History Hernia, umbilical Status post cardiac catheterization H/O partial thyroidectomy S/P coronary angioplasty History of cardiac cath S/P cardiac cath History of esophagogastroduodenoscopy (EGD) History of cataract surgery History of sinus surgery History of colonoscopy History of bronchoscopy History of total hysterectomy Family History Father AAA (abdominal aortic aneurysm) Mother CVD (cardiovascular disease) Mitral prolapse History of open heart surgery Brother Gout Diabetes Brother No problems noted. Daughter No problems noted. Daughter No problems noted. Social History Housing: House Patient Tobacco Use Status: Former Tobacco user Years Smoked: 50 +/- e-Cigarette/Vaping Use: Never Used Second Hand Smoke Exposure: No service: No Current occupational status: retired Cognitive needs: No Hearing needs: No Vision needs: Yes Review of Systems Const Details: - Neurological: Reports numbness from toes to ankles, denies any recent falls. - Endocrine: Reports blood sugar levels usually between 120-125 mg/dL, with a recent reading of 167 mg/dL. - Musculoskeletal: Reports foot pain due to arthritis and neuropathy. - Ear/Nose/Throat: Reports dizziness related to a perforated eardrum. All systems reviewed & are unremarkable except as noted in HPI and below Physical Exam Vital Signs: BMI result Body Mass Index 39.1 Extrem Other: Bilateral lower extremity focused physical exam: Derm: No open lesions abrasions or wounds noted. No hyperkeratotic lesions noted. No interdigital maceration noted. Skin supple and turgor within normal limits for age. No clinical signs of infection. No ecchymosis or discoloration noted. Vascular: DP/PT pulses palpable. Capillary refill time less than 3 seconds. Temperature gradient warm to warm. Pedal hair absent to the lower extremities. No edema noted. Neuro: Protective sensation is grossly diminished to light touch and monofilament testing. MSK: Mild pain on palpation to the plantar aspect of the feet, mostly to the heels. Range of motion of the forefoot hindfoot and ankles within normal limits. Mildly antalgic gait unassisted. No crepitus or fluctuance noted. No other gross abnormalities noted. Office Procedures Diabetic Foot Exam G9226 - Diabetic Foot Exam Results Reviewed Results Reviewed: Laboratory Tests 06/24/25 13:56 Estimat Average Glucose 151 Hemoglobin A1c % 6.9 H Assessment & Plan Assessment & Plan (1) Dyslipidemia associated with type 2 diabetes mellitus: Code(s): E11.69 - Type 2 diabetes mellitus with other specified complication; E78.5 - Hyperlipidemia, unspecified Category: Medical (2) Coronary artery disease: Code(s): I25.10 - Atherosclerotic heart disease of [place] coronary artery without angina pectoris Category: Medical Qualifiers: Coronary Disease-Associated Artery/Lesion type: [place] artery [place] vs. transplanted heart: [place] heart Associated angina: without angina Qualified Code(s): I25.10 - Atherosclerotic heart disease of [place] coronary artery without angina pectoris (3) Type 2 diabetes mellitus with complication, without long-term current use of insulin: Code(s): E11.8 - Type 2 diabetes mellitus with unspecified complications Category: Medical (4) Diabetic polyneuropathy associated with type 2 diabetes mellitus: Code(s): E11.42 - Type 2 diabetes mellitus with diabetic polyneuropathy Category: Medical (5) Pain in both feet: Code(s): M79.671 - Pain in right foot; M79.672 - Pain in left foot Category: Medical Plan Patient was informed and verbally consented to the use of an ambient scribe for clinic note documentation during this visit. I discussed with the patient the importance of monitoring blood sugar levels and continuing with diabetic treatment and management as per PCP. We talked about the significance of wearing supportive footwear to alleviate foot pain and preventing complications. I advised her to continue regular follow-ups every six months to monitor her neuropathy and other symptoms. We also discussed the option of nail care services every nine weeks to prevent complications from neuropathy (patient states she will continue to tend to her feet on her own). - Continue monitoring blood sugar levels and continue medications as directed by her PCP. - Maintain use of supportive footwear to manage foot pain and prevent further complications from diabetic neuropathy. - Continue wearing diabetic insoles and stockings. - Continue to avoid barefoot walking. - Consider nail care services every nine weeks to prevent complications from neuropathy. Patient is to follow up in 6 months for re-evaluation. Coding Level of Care Code New Pt Level 4 (07075) Diagnoses Dyslipidemia associated with type 2 diabetes mellitus E11.69; E78.5 Coronary artery disease involving [place] coronary artery of [place] heart without angina pectoris I25.10 Coronary Disease-Associated Artery/Lesion type: [place] artery [place] vs. transplanted heart: [place] heart Associated angina: without angina Type 2 diabetes mellitus with complication, without long-term current use of insulin E11.8 Diabetic polyneuropathy associated with type 2 diabetes mellitus E11.42 Pain in both feet M79.671; M79.672 CPT Codes Diabetic Foot Exam - CPT: G9226 - Diabetic Foot Exam ([id number]) Time Spent (min) 55
[2025-06-27 10:13] VITALS: BMI 39.1
--- OUTSIDE RECORDS SUMMARY | 2025-06-27 11:13 | XMS_ITS | Encounter Summary ---
Author Organization [facility] Address [address] [facility] [address] [place] [address] Phone Care Team Providers Care Lipcoat Sprayer Name Role Phone Reinaldo Escobedo MD Primary Care Provider [phone]- [phone] Encounter Details Date Type Department Care Team (Late st Contact Info) Description 12/17/2021 Telephone [facility] [address] [facility] [address] [place] [phone] Demond Edmondson MD [address] [facility] [address] [place] [phone] Social History Tobacco Use Types Packs/Day Years [...] Visit [facility] [address] [phone] Demond Edmondson MD [address] [phone] documented as of this encounter Visit Diagnoses Not on filedocumented in this encounter Care Teams Lipcoat Sprayer Relationship Specialty Start Date End Date Reinaldo Escobedo MD [address] [place] [id number] PCP - General 10/06/20 documented as of this encounter
--- OUTSIDE RECORDS SUMMARY | 2025-06-27 11:14 | XMS_ITS | Clinical Summary ---
Author Organization [facility] Address [address] [phone] Phone Care Team Providers Care Bar Useful Or Busser Name Role Phone Reinaldo Escobedo MD Primary Care Provider [phone]- [phone] Allergies Active Allergy Reactions Criticality Noted Date [...] Office Visit [facility] [address] [phone] Demond Edmondson MD [address] [place] [phone] Health Maintenance Due Date Last Done [...] patient's age to complete this topic Insurance [facility] Medicare Medicare [facility] Care Teams Bar Useful Or Busser Relationship Specialty Start Date End Date Reinaldo Escobedo MD [address] [place] [address] PCP - General 10/06/20
--- OUTSIDE RECORDS SUMMARY | 2025-06-27 11:14 | XMS_ITS | Patient Health Record ---
Author Organization [facility] Address [address] [place] [phone] Care Team Providers Care Recoater Name Role Phone Fanny SELLERS, Coni Primary [...] Status Risk Notes Problem Irritable bowel syndrome (76088017) Irritable bowel syndrome (564.1) Active confirmed Problem 103534929 Colon cancer screening (Z12.11) Active confirmed Problem [id number] Abdominal pain, epigastric (R10.13) Active confirmed Plan Of Treatment Pending Test Test Name Order Date XR GI SERIES 06/16/2016 Future Test Test Name Order Date COLONOSCOPY 06/16/2016 Insurance Providers Payer Name Payer Address Payer Phone Subscriber Number Group Number Insured Name Patient Relationship to Insured Coverage Start Date Coverage End Date MEDICARE OF [place] [address] [place] [id number] [phone] [id number] CHIO WORLEY Self - patient is the insured [facility] [address] [place], [place] [id number] CHIO WORLEY Self - patient is the insured Medical (General) History Medical History History ICD Code irritable bowel syndrome Hypothyroidism hypertension elevated Cholesterol Gout thyroid nodule mitral valve prolapse Denies NC,CVA,Lung disease,renal disease ? diabetes mellitus Surgical History Surgery Date(Month/Year) cholecystectomy hysterectomy, total with bilateral salpi leavitt-oophorectomy (BSO) appendectomy
== END 2025-06-27 10:31 | disposition home or self-care (01) ==
LOC: HO.HPODS 09:59
PROVIDERS: PCP Internal Medicine; Visit Provider Student in an Organized Health Care Education/Training Program
DX: E11.42 Type 2 diabetes mellitus with diabetic polyneuropathy (principal); E78.5 Hyperlipidemia, unspecified; E11.8 Type 2 diabetes mellitus with unspecified complications; I25.10 Atherosclerotic heart disease of native coronary artery without angina pectoris; M79.671 Pain in right foot; M79.672 Pain in left foot
CPT/HCPCS: 99204; G9226

== ENCOUNTER → 2025-06-27 09:58 | Outpatient (BNVA) | payer MEDICARE, BC, SELFPAY | PROVIDERS: PCP Internal Medicine; Visit Provider Student in an Organized Health Care Education/Training Program | DX: E11.42 Type 2 diabetes mellitus with diabetic polyneuropathy (principal); M79.671 Pain in right foot; M79.672 Pain in left foot; E11.8 Type 2 diabetes mellitus with unspecified complications; E11.69 Type 2 diabetes mellitus with other specified complication; I25.10 Atherosclerotic heart disease of native coronary artery without angina pectoris; R78.5 Finding of other psychotropic drug in blood | CPT/HCPCS: 99202 ==

== ENCOUNTER 2025-07-04 10:12 | Outpatient (AMB) | payer MEDICARE, BC, SELFPAY ==
--- NOTE | 2025-07-04 10:30 | A.OFFPC_ITS ---
Vital Signs 07/04/25 10:32 Height 5 ft Weight 205 lb BMI 40.0 BP 130/80 Blood Pressure Location Rt brachial Position Sitting Respiration 16 Pulse 52 Pulse Source Pulse Oximeter Temp 98.4 F Temp Source Oral Pulse Oximetry (%) 95 Oxygen Delivery Method Room Air Intake Visit Reasons: Annual PE Intake Note: Pt is here today for her PE: Sewer Tapper Required: No Allergies allopurinol Allergy (Severe, Verified 07/04/25 10:46) Hives niacin (Niaspan Extended-Release) Adverse Reaction (Unknown, Verified 07/04/25 10:46) swelling /itching Medication List - Last Reconciled 07/04/25 by Coni Escobedo MD aspirin 81 mg PO DAILY atorvastatin 40 mg PO DAILY blood sugar diagnostic (FreeStyle Lite Strips) As directed to check blood sugar once daily blood-glucose meter (FreeStyle Lite Meter kit) As directed to check blood sugar once daily clobetasol 0.05% 1 appl topical DAILY PRN clopidogrel 75 mg PO DAILY 90 days famotidine 40 mg PO DAILY febuxostat 40 mg PO DAILY fluticasone propionate 50 mcg/actuation 1 spray intranasal DAILY PRN Jardiance (empagliflozin) 10 mg PO QAM NS lancets (FreeStyle Lancets) As directed to check blood sugar once daily levothyroxine 100 mcg PO DAILY losartan 50 mg PO DAILY menthol-zinc oxide 0.44-20.6 % (Calmoseptine) 1 appl topical QID PRN metoprolol tartrate 25 mg PO BID 90 days [Nature's best 1 tab PO .qd] semaglutide (Ozempic) 0.25 mg (0.368 mL) subcut QWEEK Tobacco use date assessed: 07/04/25 Fall risk assessment: No Falls in past year Last assessed Fall Risk: 07/04/25 Dental Screening Dental Screen Date: 07/04/25 Did you have a dental visit in the last 12 months?: No Did you have a dental problem in the last 6 months where you did not have access to dental care?: No Was dental information given to patient?: Patient declined HPI Annual PE HPI Details 75 year old lady with history of diabet es mellitus, dyslipidemia, osteopenia of left femoral neck, obstructive sleep apnea, anemia of chronic kidney disease, hypothyroidism COPD, multi-vessel CADwho has refused coronary artery bypass grafting, underwent PCI of the LAD and left circumflex. and had a stent placed in the 1st OM., here today for her physical exam.. The patient has a history of diabetes mellitus, which has shown improvement with current management. She reports stable blood glucose levels, typically around 120 mg/dL before meals and rising to 190 mg/dL postprandially. She is currently on Ozempic and Jardiance, with a recent prescription renewal for Ozempic at 0.25 mg. Currently goes to check a eye care for her routine diabetes eye exam and retinopathy screening. The patient also has chronic kidney disease, which is being monitored. Her hyperlipidemia is managed with lifestyle modifications, and her LDL cholesterol is well-controlled at 57 mg/dL, although triglycerides remain elevated at 211 mg/dL. The patient has a history of adenomatous polyps, with the last colonoscopy performed in 2010, revealing two precancerous polyps. She has not had a recent colonoscopy due to previous heart problems and stent placements. She is up-to-date with her screening mammogram, last done earlier this year with benign findings and a bone density scan was done in 2023 which showed presence of osteopenia in left femoral neck, normal in left femur and lower back. Preventative care measures include recent vaccinations for flu, COVID-19, and RSV. She is up to date with her mammogram and bone density screening, the latter showing bone thinning in the left hip but no osteoporosis. [facility] Medical History (Updated 07/04/25 @ 11:01 by Coni Escobedo MD) History of adenomatous polyp of colon Pain in both feet Dyslipidemia associated with type 2 diabetes mellitus Osteopenia of left femoral neck Anemia in chronic kidney disease Thyroid nodule Colon cancer screening Type 2 diabetes mellitus with complication, without long-term current use of i nsulin Family history of abdominal aortic aneurysm Obesity (BMI 30-39.9) Hypothyroidism Diabetic nephropathy Dyslipidemia Hypertension Diabetic polyneuropathy associated with type 2 diabetes mellitus Surgical History Hernia, umbilical Status post cardiac catheterization H/O partial thyroidectomy S/P coronary angioplasty History of cardiac cath S/P cardiac cath History of esophagogastroduodenoscopy (EGD) History of cataract surgery History of sinus surgery History of colonoscopy History of bronchoscopy History of total hysterectomy Family History Father AAA (abdominal aortic aneurysm) Mother CVD (cardiovascular disease) Mitral prolapse History of open heart surgery Brother Gout Diabetes Brother No problems noted. Daughter No problems noted. Daughter No problems noted. Social History Housing: House Patient Tobacco Use Status: Former Tobacco user Years Smoked: 50 +/- e-Cigarette/Vaping Use: Never Used Second Hand Smoke Exposure: No service: No Current occupational status: retired Cognitive needs: No Hearing needs: No Vision needs: Yes Questionnaire PHQ-9 Over the last 2 weeks, how often have you been bothered by any of the following problems? 1. Little interest or pleasure in doing things: not at all 2. Feeling down, depressed, or hopeless: not at all 3. Trouble falling or staying asleep, or sleeping too much: several days 4. Feeling tired or having little energy: several days 5. Poor appetite or overeating: several days 6. Feeling bad about yourself - or that you are a failure or have let yourself or your family down: not at all 7. Trouble concentrating on things, such as reading the newspaper or watching television: not at all 8. Moving or speaking so slowly that other people could have noticed. Or the opposite - being so fidgety or restless that you have been moving around a lot more than usual: several days 9. Thoughts that you would be better off or of hurting yourself in some way: not at all Total score: 4 Depression Screening Interpretation: Negative Depression Screening Done: Yes Source: Developed by Drs. Cameron Marin, Mi Santiago, Agustín Clark and colleagues, with an educational bushra from [employer]. Thrive Questionnaire Date Thrive assessed: 01/03/25 I am a: Patient What is your living situation today?: I have a steady place to live Within the past 12 months, did the food you bought not last and you didn't have the money to get more?: Often true Within the past 12 months, did you worry whether your food would run out before you got money to buy more?: Never true Do you have trouble paying for medicines?: No Do you have trouble getting transportation to medical appointments?: No Do you have trouble paying your heating and electricity bill?: No Do you have trouble taking care of your child, family member or friend?: No Do you have trouble with day-to-day activities such as bathing, preparing meals, shopping, managing finances, etc.?: No Are you currently unemployed and looking for a job?: No Are you interested in more education?: No Please select the resources that you would like help with: Paying for medicine Currently or been in a relationship where the following occur: No concerns reported THRIVE Score: 1 AUDIT C Alcohol Use Questionnaire (AUDIT-C) 1. How often do you have a drink containing alcohol?: Monthly or less 2. How many drinks containing alcohol do you have on a typical day when you are drinking?: 1 or 2 3. How often do you have six or more drinks on one occasion?: Never Total Score: 1 ESTEFANY-7 AMB Questionnaire ESTEFANY-7 Date ESTEFANY - 7 assessed: 01/10/25 Feeling nervous, anxious, or on edge: 0 = Not at all Not being able to stop or control worryin = Several days Worrying too much about different things: 1 = Several days Trouble relaxin = Several days Being so restless that it is hard to sit still: 1 = Several days Becoming easily annoyed or irritable: 1 = Several days Feeling afraid as if something awful might happen: 0 = Not at all Total ESTEFANY-7 score (0-4 normal; 5-9 mild; 10-14 moderate; 15-21 severe): 5 Source: Developed by Drs. Cameron Marin, Mi Santiago, Agustín Clark and colleagues, with an educational bushra from [employer]. Review of Systems Const Denies chills, Reports fatigue (Tires easily), Denies fever(s), Denies frequent falls and Denies weakness Eyes Reports no additional complaints ENT Denies dizziness Card Denies chest pain, Denies leg edema, Denies lightheadedness, Denies palpitations, Denies dyspnea and Reports dyspnea on exertion Resp Denies cough, Denies dyspnea and Reports dyspnea on exertion GI Denies hematochezia Reports no additional complaints Musc Denies abnormal gait, Denies muscle weakness, Denies numbness, Denies radiating pain into limb and Denies tingling Skin/Breast Denies breast pain, Denies breast mass and Denies rash Neuro Denies abnormal gait, Denies dizziness, Denies frequent falls, Denies numbness, Denies Sensory deficit (Neuro), Denies tingling and Denies weakness Psych Reports no additional complaints Endo Reports fatigue (Tires easily) and Denies palpitations Sanford/Lymph Reports no additional complaints Aller/Immun Reports no additional complaints Physical exam (Primary Care) Vital Signs: Last Vital Signs Temp 98.4 F 07/04/25 10:32 Pulse 52 07/04/25 10:32 Resp 16 07/04/25 10:32 BP 130/80 07/04/25 10:32 Pulse Ox 95 07/04/25 10:32 Oxygen Delivery Method Room Air 07/04/25 10:32 BMI result Body Mass Index 40.0 Tobacco/Smoking Status: Tobacco use Status Tobacco use date assessed 07/04/25 07/04/25 10:33 Patient Tobacco Use Status Former Tobacco user 07/04/25 10:33 e-Cigarette/Vaping Use Never Used 07/04/25 10:33 PHQ-9: PHQ-9 Score PHQ-9: Total score 4 07/10/25 00:40 Depression Screening Interpretation: Negative Thrive Assessment: Date of Thrive Assessment Date Thrive assessed 01/03/25 07/04/25 10:33 Currently or been in a relationship where the following occur: No concerns reported Const General: no acute distress and alert Orientation/consciousness: patient oriented x3 HENMT Head: Yes normocephalic Mouth: Normal oral and palatal mucosa present, oropharynx normal and moist mucous membranes Eyes General: appearance normal, both eyes and all related structures Neck Neck: Yes full ROM and Yes no lymphadenopathy Chest Breast/axilla palpation: normal palpation of the breasts Resp Effort & Inspection: normal respiratory effort and able to speak in complete sentences Auscultation: clear to auscultation bilaterally Cardio Rate: regular rate Rhythm: regular rhythm Heart sounds: S1 normal heart sound present and S2 normal heart sound present GI Inspection: Yes normal to inspection Palpation (GI): Soft to palpation, nontender, no guarding and Hernia present umbilical Auscultation: normal bowel sounds General: Yes no CVA tenderness Back/Spine/Pelvis Back: no CVA tenderness and No back tenderness Skin General skin exam: no rashes or lesions noted Neuro General: patient oriented x3, gait normal, moves all extremities, no focal motor deficits and CN's II-XI intact bilaterally Cognition (Neuro): normal cognition Gait exam (Neuro): Normal gait present Motor exam (neuro): 5/5 motor strength present throughout Sensory Exam: No Sensory deficit (Neuro) Extrem General: Yes full ROM, Yes no joint enlargement, Yes no clubbing, cyanosis or edema and Yes no calf tenderness Psych Appearance: grossly normal and well kempt Speech and movement: Normal speech and movement present Affect: normal affect Results Reviewed Results Reviewed: Name: Doreen Barrientos Age/Sex: 75/F : 1950 Unit#: [id number] Attend Dr: Coni Escobedo MD Re06/24/25 Status: DEP REF Location: [facility] Disch: SPEC : [id number] NYLA: 06/24/25 STATUS: COMP REQ : [id number] RECD: 06/24/[address]: Coni Escobedo MD COMP: 06/24/25 ENTERED: 06/24/[address]: ORDERED: Hgb A1c Test Result Flag Reference A1c % 6.9 H <6.0 % Hemoglobin A1C Reference Range Adults: 4.8 - 6.0 % Non diabetic: < 6.0 % Goal: < 7.0 % Additional Action Suggested: > 8.0 % Note: Hemoglobin A1c results are invalid for patients with abnormal amounts of HbF. Blood transfusions may impact the HbA1c concentration in the patient sample. Est. Avg. Gluc 151 mg/dL eAG = Estimated average glucose which is %A1C expressed as average glucose, using the formula of the [id number] Average Glucose study (ADAG), Diabetes Care, Vol.31,#8, 2007 Name: Doreen Barrientos Age/Sex: 75/F : 1950 Unit#: [id number] Attend Dr: Coni Escobedo MD Re06/24/25 Status: DEP REF Location: [facility] Disch: SPEC : [id number] NYLA: 06/24/25 STATUS: COMP REQ : [id number] RECD: 06/24/[address]: Coni Escobedo MD COMP: 06/24/25 ENTERED: 06/24/[address] [facility] [address]: ORDERED: AST, ALT, Lipid Panel, Free T4, TSH Test Result Flag Reference AST (GOT) 29 5-31 U/L ALT (GPT) 22 0-31 U/L Triglyceride 211 H <150 mg/dL Desirable Triglyceride: less than 150 mg/dL Borderline High Triglyceride 150-199 mg/dL High Triglyceride: 200-499 mg/dL Very High Triglyceride: greater than or equal to 5OO mg/dL Cholesterol 135 <200 mg/dL Desirable Cholesterol: less than 200 mg/dL Borderline High Cholesterol: 200-239 mg/dL High Cholesterol: greater than 239 mg/dL LDL Calculated 57 <100 mg/dL Desirable LDL: less than 100 mg/dL Near Optimal/Above Optimal LDL: 110-129 mg/dL Borderline High LDL: 130-159 mg/dL High LDL: 160-189 mg/dL Very High LDL: greater than or equal to 190 mg/dL HDL 36 L >40 mg/dL Desirable HDL: greater than 40 mg/dL Note: This HDL assay may give artificially low results in patients with liver disease. Free T4 1.20 0.71-1.85 ng/dL TSH 3rd Gen. 0.76 0.32-4.0 uIU/mL TSH 3rd Generation ([facility]) Coding Level of Care Code Est Pt Level 4 (36766) Complex EM visit Add On G2211 Diagnoses History of adenomatous polyp of colon Z86.010 Dyslipidemia E78.5 Acquired hypothyroidism E03.9 Hypothyroidism type: acquired Osteopenia of left femoral neck M85.852 Assessment & Plan Assessment & Plan (1) History of adenomatous polyp of colon: Code(s): Z86.010 - Personal history of colon polyps Category: Medical (2) Dyslipidemia: Code(s): E78.5 - Hyperlipidemia, unspecified Category: Medical (3) Hypothyroidism: Code(s): E03.9 - Hypothyroidism, unspecified Category: Medical Qualifiers: Hypothyroidism type: acquired Qualified Code(s): E03.9 - Hypothyroidism, unspecified (4) Osteopenia of left femoral neck: Code(s): M85.852 - Other specified disorders of bone density and structure, left thigh Category: Medical Plan During the visit, we discussed the management of the patient's diabetes, emphasizing the importance of maintaining stable blood glucose levels with the current medication regimen of Ozempic and Jardiance. We also reviewed her chronic kidney disease and the associated symptoms of lightheadedness, advising regular monitoring of kidney function. Recent fasting lab results discussed with patient, continued on current medications. Preventative care measures, including vaccinations and screenings, were discussed, and the patient was encouraged to continue with these measures. A referral for a follow-up colonoscopy was recommended due to her history of adenomatous polyps, with a discussion on the potential risks and benefits of sedation given her kidney condition. Schedule follow-up appointment in six-months, after fasting labs done Patient was informed and verbally consented to the use of an ambient scribe for clinic note documentation during this visit. Orders: Orders Lipid Panel 6 Months E03.9 - Hypothyroidism, unspecified, E78.5 - Hyperlipidemia, unspecified, M85.852 - Other specified disorders of bone density and structure, left thigh Aspartate Amino Transferase 6 Months E03.9 - Hypothyroidism, unspecified, E78.5 - Hyperlipidemia, unspecified, M85.852 - Other specified disorders of bone density and structure, left thigh Thyroid Stimulating Hormone 6 Months E03.9 - Hypothyroidism, unspecified, E78.5 - Hyperlipidemia, unspecified, M85.852 - Other specified disorders of bone density and structure, left thigh Triiodothyronine T3 Free 6 Months E03.9 - Hypothyroidism, unspecified, E78.5 - Hyperlipidemia, unspecified, M85.852 - Other specified disorders of bone density and structure, left thigh Alanine Aminotransferase 6 Months E03.9 - Hypothyroidism, unspecified, E78.5 - Hyperlipidemia, unspecified, M85.852 - Other specified disorders of bone density and structure, left thigh Free T4 (Free Thyroxine) 6 Months E03.9 - Hypothyroidism, unspecified, E78.5 - Hyperlipidemia, unspecified, M85.852 - Other specified disorders of bone density and structure, left thigh Vitamin D 25-OH Total 6 Months E03.9 - Hypothyroidism, unspecified, E78.5 - Hyperlipidemia, unspecified, M85.852 - Other specified disorders of bone density and structure, left thigh Referrals Gastroenterology Referral Z86.010 - Personal history of colon polyps Medications: Refilled levothyroxine 100 mcg PO DAILY 90 tabs 4RF
[2025-07-04 10:32] VITALS: BP 130/80; PULSE 52; RESP 16; TEMP 36.9; O2SAT 95; BMI 40.0
== END 2025-07-04 11:12 | disposition home or self-care (01) ==
LOC: HO.HMCC 10:13
PROVIDERS: PCP Internal Medicine; Visit Provider Internal Medicine
DX: Z86.0100 Personal history of colon polyps, unspecified (principal); E78.5 Hyperlipidemia, unspecified; E03.9 Hypothyroidism, unspecified; M85.852 Other specified disorders of bone density and structure, left thigh

== ENCOUNTER → 2025-07-04 10:12 | Outpatient (BNVA) | payer MEDICARE, BC, SELFPAY | PROVIDERS: PCP Internal Medicine; Visit Provider Internal Medicine | DX: E11.22 Type 2 diabetes mellitus with diabetic chronic kidney disease (principal); N18.9 Chronic kidney disease, unspecified; E78.5 Hyperlipidemia, unspecified; M85.852 Other specified disorders of bone density and structure, left thigh; E03.9 Hypothyroidism, unspecified; Z86.0101 Personal history of adenomatous and serrated colon polyps; Z79.899 Other long term (current) drug therapy | CPT/HCPCS: 96127; 99212 ==

== ENCOUNTER 2025-08-01 11:45 | Outpatient (REF) | payer MEDICARE, BC, SELFPAY ==
[2025-08-01 13:18] LABS: MANUAL DIFF FLAG NO
[2025-08-01 13:32] LABS: Hematocrit 38.4 % (37.0-47.0); Hemoglobin 12.6 g/dl (12.0-16.0); Imm Gran Abs Auto 0.04 X10*3/uL (0.00-0.03); Imm Gran Pct Auto 0.7 % (0.0-0.4); Lymphocytes Absolute Auto 1.6 X10*3/uL (1.2-4.9); Mean Corpuscular HGB Conc 32.8 g/dl (31.0-35.0); Mean Corpuscular Hemoglobin 31.5 pg (27.0-33.0); Mean Corpuscular Volume 96.0 fL (80.0-98.0); NRBC Abs Auto 0.000 X10*3/uL (0.0-0.012); NRBC Pct Auto 0.0 /100WBC (0.0-0.2); Platelet Count 183 X10*3/uL (160-400); Red Blood Count 4.00 X10*6/uL (4.20-5.50); White Blood Count 6.1 X10*3/uL (4.8-10.8)
[2025-08-01 13:38] LABS: Total Hemoglobin (HGBA1C) 2192.8534 umol/L
[2025-08-01 13:51] LABS: Protein/Creatinine Ratio, Ur 0.65 (<0.2); Total Protein Urine Random 96 mg/dL (<12)
[2025-08-01 13:51] LABS: Alanine Aminotransferase 27 U/L (0-31); Albumin Level 4.4 g/dL (3.5-5.0); Alkaline Phosphatase 49 U/L (39-117); Anion Gap 11 (12-20); Aspartate Amino Transferase 26 U/L (5-31); Blood Urea Nitrogen 41 mg/dL (9-16); Calcium 9.8 mg/dL (8.4-10.2); Carbon Dioxide 22 mmol/L (22-29); Chloride 109 mmol/L (96-108); Cholesterol 142 mg/dL (<200); Estimated Glomerular Filt Rate 29; HDL Cholesterol 33 mg/dL (>40); Magnesium 2.6 mg/dL (1.6-2.6); Potassium 4.7 mmol/L (3.3-5.1); Sodium 137 mmol/L (135-145); Total Protein 7.3 g/dL (6.5-8.0); Triglycerides 224 mg/dL (<150); Uric Acid 3.9 mg/dL (2.4-5.7)
[2025-08-01 14:37] LABS: Parathyroid Hormone Intact 165.5 pg/mL (8.7-77.1)
--- OUTSIDE RECORDS SUMMARY | 2025-08-01 14:42 | XMS_ITS | Encounter Summary ---
Author Organization [facility] Address [address] [facility] [address] [place] [address] Phone Care Team Providers Care Adhesive Bandage Making Operator Name Role Phone Reinaldo Escobedo MD Primary Care Provider [phone] Encounter Details Date Type Department Care Team (Late st Contact Info) Description 12/17/2021 Telephone [facility] [address] [facility] [address] [place] [phone] Demond Edmondson MD [address] [facility] [address] [place] [phone] Social History Tobacco Use Types Packs/Day Years [...] Care Team (Late st Contact Info) Description 08/09/2025 Orders Only [facility] [address] [phone] Demond Edmondson MD [facility] [address] [phone] Stage 3b chronic kidney disease (HCC); Hypertensive nephrosclerosis; Hypertension; Gout, not otherwise specified; Diabetes mellitus, not otherwise specified (HCC); Analgesic adverse reaction <Sequela>; Other acute kidney failure (HCC) 08/13/2025 10:00 AM EST Office Visit [facility] [address] [phone] Demond Edmondson MD [address] [phone] documented as of this encounter Visit Diagnoses Not on filedocumented in this encounter Care Teams Adhesive Bandage Making Operator Relationship Specialty Start Date End Date Reinaldo Escobedo MD [address] [place] [phone] PCP - General 10/06/20 documented as of this encounter
--- OUTSIDE RECORDS SUMMARY | 2025-08-01 14:43 | XMS_ITS | Clinical Summary ---
Author Organization [facility] Address [address] [address] Phone Care Team Providers Care Wheel Press Operator Name Role Phone Reinaldo Escobedo MD Primary Care Provider [phone] Allergies Active Allergy Reactions Criticality Noted Date [...] Orders Only [facility] [address] [place] [phone] Demond Edmondson MD [address] [phone] Stage 3b chronic kidney disease (HCC); Hypertensive nephrosclerosis; Hypertension; Gout, not otherwise specified; Diabetes mellitus, not otherwise specified (HCC); Analgesic adverse reaction <Sequela>; Other acute kidney failure (HCC) 08/13/2025 10:00 AM EST Office Visit [facility] [address] [phone] Demond Edmondson MD [address] [phone] Health Maintenance Due Date Last Done Comments Pneumococcal Vaccine: 50+ Years (2 of 2 - PCV) 04/25/2014 04/25/2013 Diabetes: Hemoglobin A1C 10/27/2020 08/01/2025 Diabetes: Ophthalmology Exam 10/27/2020 Diabetes: Pedal Pulse Checked 10/27/2020 Diabetes: Sensory Foot Exam 10/27/2020 Diabetes: Visual Foot Exam 10/27/2020 Pneumococcal Vaccine: Peds ( 0 to 5 Years) and At-Risk Patients (6 to 49 Years) Discontinued 04/25/2013 Influenza Vaccine Completed 06/24/2025, 05/27/2016 Hepatitis B Vaccine Aged Out No longe r eligible based on patient's age to complete this topic Procedures Procedure Name Priority Date/Time Associated Diagnosis Comments PTH, INTACT (HC) Routine 08/01/2025 1:09 PM EST HEMOGLOBIN A1C Routine 08/01/2025 1:09 PM EST Stage 3b chronic kidney disease (HCC) Hypertensive nephrosclerosis Hypertension Gout, not otherwise specified Diabetes mellitus, not otherwise specified (HCC) Analgesic adverse reaction <Sequela> Other acute kidney failure (HCC) LIPID PANEL Routine 08/01/2025 1:09 PM EST Stage 3b chronic kidney disease (HCC) Hypertensive nephrosclerosis Hypertension Gout, not otherwise specified Diabetes mellitus, not otherwise specified (HCC) Analgesic adverse reaction <Sequela> Other acute kidney failure (HCC) CBC AND DIFFERENTIAL Routine 08/01/2025 1:09 PM EST Stage 3b chronic kidney disease (HCC) Hypertensive nephrosclerosis Hypertension Gout, not otherwise specified Diabetes mellitus, not otherwise specified (HCC) Analgesic adverse reaction <Sequela> Other acute kidney failure (HCC) VITAMIN D 25 HYDROXY Routine 08/01/2025 1:09 PM EST Stage 3b chronic kidney disease (HCC) Hypertensive nephrosclerosis Hypertension Gout, not otherwise specified Diabetes mellitus, not otherwise specified (HCC) Analgesic adverse reaction <Sequela> Other acute kidney failure (HCC) PHOSPHATE ( PHOSPHORUS) Routine 08/01/2025 1:09 PM EST Stage 3b chronic kidney disease (HCC) Hypertensive nephrosclerosis Hypertension Gout, not otherwise specified Diabetes mellitus, not otherwise specified (HCC) Analgesic adverse reaction <Sequela> Other acute kidney failure (HCC) MAGNESIUM Routine 08/01/2025 1:09 PM EST Stage 3b chronic kidney disease (HCC) Hypertensive nephrosclerosis Hypertension Gout, not otherwise specified Diabetes mellitus, not otherwise specified (HCC) Analgesic adverse reaction <Sequela> Other acute kidney failure (HCC) URIC ACID Routine 08/01/2025 1:09 PM EST Stage 3b chronic kidney disease (HCC) Hypertensive nephrosclerosis Hypertension Gout, not otherwise specified Diabetes mellitus, not otherwise specified (HCC) Analgesic adverse reaction <Sequela> Other acute kidney failure (HCC) COMPREHENSIVE METABOLIC PANEL Routine 08/01/2025 1:09 PM EST Stage 3b chronic kidney disease (HCC) Hypertensive nephrosclerosis Hypertension Gout, not otherwise specified Diabetes mellitus, not otherwise specified (HCC) Analgesic adverse reaction <Sequela> Other acute kidney failure (HCC) PROTEIN / CREATININE RATIO, URINE Routine 08/01/2025 12:55 PM EST Stage 3b chronic kidney disease (HCC) Hypertensive nephrosclerosis Hypertension Gout, not otherwise specified Diabetes mellitus, not otherwise specified (HCC) Analgesic adverse reaction <Sequela> Other acute kidney failure (HCC) from Last 3 Months Results * (ABNORMAL) PTH, Intact (08/01/2025 1:09 PM EST) Parathyroid Hormone, Intact 165.5(H) 8.7 - 77.1 pg/mL See order comments 08/01/2025 1:09 PM EST 08/01/2025 1:09 PM EST us Demond Edmondson MD LAB [id number] SOLICITED RESULTS Final Result [place] See order comments [place] [address] * Vitamin D 25 Hydroxy (08/01/2025 1:09 PM EST) Vitamin D, 25-Hydroxy 43.5 >30 ng/mL See order comments Comment: Health Based Reference Values* < 20 ng/mL Deficient 20-30 ng/mL Insufficient > 30 ng/mL Sufficient *Allan MORTON. N Engl J Med. 2007;357:266-280 There is no well-established upper level of normal vitamin D levels. Some laboratories use 50 ng/mL as an upper limit of normal. However, toxicity is patient-dependent and may occur at any level. Careful correlation with the patient's presentation is necessary and, if there is concern for vitamin D toxicity, treatment should be considered irrespective of the serum level. Care must be taken in interpreting Vitamin D results from different laboratories and methodologies. Published data demonstrated that results from patients undergoing hemodialysis may show a negative bias when tested with various automated 25-OH vitamin D assays when compared to LC-MS/MS. When testing samples from patients whose predominant form of Vitamin D is Vitamin D2, such as patients receiving Vitamin D2 supplementation, results that are subtherapeutic should be confirmed with another method such as LC-MS/MS. Blood specimen (specimen) Venous blood / Unknown 08/01/2025 1:09 PM EST 08/01/2025 1:09 PM EST us Demond Edmondson MD LAB BLOOD ORDERABLES Final Re sult [place] See order comments [place] [address] * (ABNORMAL) CBC and Differential (08/01/2025 1:09 PM EST) WBC 6.1 4.8 - 10.8 X10*3/uL See order comments RBC 4.00(L) 4.20 - 5.50 X10*6/uL See order comments Hgb 12.6 12.0 - 16.0 g/dl See order comments Hematocrit 38.4 37.0 - 47.0 % See order comments MCV 96.0 80.0 - 98.0 fL See order comments MCH 31.5 27.0 - 33.0 pg See order comments MCHC 32.8 31.0 - 35.0 g/dl See order comments RDW 13.8 11.0 - 16.0 % See order comments Platelets 183 160 - 400 X10*3/uL See order comments MPV 10.9 9.4 - 12.3 fL See order comments Neutrophils % Auto 58.9 45 - 73 % See order comments Immature Granulocytes 0.7(H) 0.0 - 0.4 % See order comments Lymphocytes Relative 26.3 20 - 40 % See order comments Monocytes 9.4 2 - 11 % See order comments Eosinophils Relative 3.9 0 - 4 % See order comments Basophils Relative 0.8 0 - 2 % See order comments nRBC Count 0.0 0.0 - 0.2 /100WBC See order comments Neutrophils Absolute 3.6 2.0 - 8.3 x10*3/uL See order comments Immature Grans (Absolute) 0.04(H) 0.00 - 0.03 X10*3/uL See order comments Lymphocytes Absolute 1.6 1.2 - 4.9 X10*3/uL See order comments Monocytes Absolute 0.6 0.1 - 1.2 X10*3/uL See order comments Eosinophils Absolute 0.2 0.0 - 0.4 X10*3/uL See order comments Basophils Absolute 0.1 0.0 - 0.2 X10*3/uL See order comments NRBC Absolute 0.000 0.0 - 0.012 X10*3/uL See order comments Blood specimen (specimen) Venous blood / Unknown 08/01/2025 1:09 PM EST 08/01/2025 1:09 PM EST us Demond Edmondson MD LAB BLOOD ORDERABLES Final Re sult Performing Organization Address [facility] de Phone Number [place] See order comments [place] [address] * Uric Acid (08/01/2025 1:09 PM EST) Uric Acid 3.9 2.4 - 5.7 mg/dL See order comments Blood specimen (specimen) Venous blood / Unknown 08/01/2025 1:09 PM EST 08/01/2025 1:09 PM EST us Demond Edmondson MD LAB BLOOD ORDERABLES Final Re sult Performing Organization Address [facility] de Phone Number [place] See order comments [place] [address] * Phosphorus (08/01/2025 1:09 PM EST) Phosphorus, Serum 4.1 2.7 - 4.5 mg/dL See order comments Blood specimen (specimen) Venous blood / Unknown 08/01/2025 1:09 PM EST 08/01/2025 1:09 PM EST Result Fredi Edmondson MD LAB BLOOD ORDERABLES Final Re sult Performing Organization Address [facility] de Phone Number [place] See order comments [place] [address] * Magnesium (08/01/2025 1:09 PM EST) Magnesium 2.6 1.6 - 2.6 mg/dL See order comments Blood specimen (specimen) Venous blood / Unknown 08/01/2025 1:09 PM EST 08/01/2025 1:09 PM EST Result Fredi Edmondson MD LAB BLOOD ORDERABLES Final Re sult Performing Organization Address [facility] Phone Number [place] See order comments [place] [address] * (ABNORMAL) Hemoglobin A1c (08/01/2025 1:09 PM EST) Hemoglobin A1C 6.8(H) <6.0 % See o rder comments Comment: Hemoglobin A1C Reference Range Adults: 4.8 - 6.0 % Non diabetic: < 6.0 % Goal: < 7.0 % Additional Action Suggested: > 8.0 % Note: Hemoglobin A1c results are invalid for patients with abnormal amounts of HbF. Blood transfusions may impact the HbA1c concentration in the patient sample. Estimated Average Glucose 148 mg/dL See order comments Comment: eAG = Estimated average glucose which is %A1C expressed as average glucose, using the formula of the [id number]-[id number] Average Glucose study (ADAG), Diabetes Care, Vol.31,#8, Apr. 2007 Blood specimen (specimen) Venous blood / Unknown 08/01/2025 1:09 PM EST 08/01/2025 1:09 PM EST Result Fredi Edmondson MD LAB BLOOD ORDERABLES Final Re sult Performing Organization Address [facility] de Phone Number [place] See order comments [place] [address] * (ABNORMAL) Lipid panel (08/01/2025 1:09 PM EST) Triglycerides 224(H) <150 mg/dL See o rder comments Comment: Desirable Triglyceride: less than 150 mg/dL Borderline High Triglyceride 150-199 mg/dL High Triglyceride: 200-499 mg/dL Very High Triglyceride: greater than or equal to 5OO mg/dL Cholesterol 142 <200 mg/dL See ord er comments Comment: Desirable Cholesterol: less than 200 mg/dL Borderline High Cholesterol: 200-239 mg/dL High Cholesterol: greater than 239 mg/dL LDL Calculated 65 <100 mg/dL See order comments Comment: Desirable LDL: less than 100 mg/dL Near Optimal/Above Optimal LDL: 110-129 mg/dL Borderline High LDL: 130-159 mg/dL High LDL: 160-189 mg/dL Very High LDL: greater than or equal to 190 mg/dL HDL 33(L) >40 mg/dL See order comments Comment: Desirable HDL: greater than 40 mg/dL Note: This HDL assay may give artificially low results in patients with liver disease. Blood specimen (specimen) Venous blood / Unknown 08/01/2025 1:09 PM EST 08/01/2025 1:09 PM EST us Demond Edmondson MD LAB BLOOD ORDERABLES Final Re sult [place] See order comments [place] [address] * (ABNORMAL) Comprehensive Metabolic Panel (08/01/2025 1:09 PM EST) Sodium 137 135 - 145 mmol/L See order comments Potassium 4.7 3.3 - 5.1 mmol/L See order comments Chloride 109(H) 96 - 108 mmol/L See order comments Bicarbonate (CO2) 22 22 - 29 mmol/L See order comments Anion Gap 11(L) 12 - 20 See order comments BUN 41(H) 9 - 16 mg/dL See order comments Creatinine Serum 1.69(H) 0.5 - 1.4 mg/dL See order comments eGFR (Calc) 29 See orde r comments Comment: Chronic Kidney Disease: Estimated GFR < 60 mL/min/1.73m2 Severe Kidney Disease: Estimated GFR < 15 mL/min/1.73m2 Glucose 121(H) 60 - 115 mg/dL See order comments Calcium 9.8 8.4 - 10.2 mg/dL See order comments Total Bilirubin 0.6 0.0 - 1.0 mg/dL See order comments AST (SGOT) 26 5 - 31 U/L See orde r comments ALT (SGPT) 27 0 - 31 U/L See orde r comments Total Protein 7.3 6.5 - 8.0 g/dL See order comments Albumin 4.4 3.5 - 5.0 g/dL See order comments Alkaline phosphatase 49 39 - 117 U/L See order comments Blood specimen (specimen) Venous blood / Unknown 08/01/2025 1:09 PM EST 08/01/2025 1:09 PM EST us Demond Edmondson MD LAB BLOOD ORDERABLES Final Re sult Performing Organization Address [facility] de Phone Number [place] See order comments [place] [address] * (ABNORMAL) Protein, Total, Random Urine w/Creatinine (Protein/Creat Ratio) (08/01/2025 12:55 PM EST) Creatinine, Urine 148.71 mg/dL See order comments Protein Urine Random 96(H) <12 mg/dL See order comments Protein/Creati nine Ratio, Urine 0.65(H) <0.2 See order comments Comment: The spot urine protein:creatinine ratio may increase to 0.3 during normal . Urine specimen (specimen) Urine specimen obtained by clean catch procedure / Unknown 08/01/2025 12:55 PM EST 08/01/2025 12:55 PM EST us Demond Edmondson MD LAB URINE ORDERABLES Final Re sult Performing Organization Address [facility] Co de Phone Number [place] See order comments [place] [address] from Last 3 Months Insurance [facility] Medicare Medicare [facility] Care Teams Wheel Press Operator Relationship Specialty Start Date End Date Reinaldo Escobedo MD [facility] [place] [address] PCP - General 10/06/20
== END 2025-08-01 11:46 | disposition home or self-care (01) ==
LOC: HO.HMGCLDS 11:45
PROVIDERS: PCP Internal Medicine; Visit Provider Internal Medicine Nephrology
DX: Z13.1 Encounter for screening for diabetes mellitus (principal); I12.9 Hypertensive chronic kidney disease with stage 1 through stage 4 chronic kidney disease, or unspecified chronic kidney disease; N18.32 Chronic kidney disease, stage 3b; N17.8 Other acute kidney failure; T39.9 Poisoning by, adverse effect of and underdosing of unspecified nonopioid analgesic, antipyretic and antirheumatic; M10.9 Gout, unspecified
CPT/HCPCS: 36415; 80053; 80061; 82306; 82570; 83036; 83735; 83970; 84100; 84156; 84550; 85025

== ENCOUNTER 2025-08-12 14:32 | Outpatient (AMB) | payer MEDICARE, BC, SELFPAY ==
--- NOTE | 2025-08-12 14:42 | A.OFFVIS_ITS ---
Vital Signs 08/12/25 14:43 Height 5 ft Weight 207 lb 10.807 oz BMI 40.6 BP 138/62 Blood Pressure Location Lt brachial Position Sitting Pulse 75 Pulse Source Pulse Oximeter Intake Visit Reasons: 4 month f/up Front Desk Associate Required: No Allergies allopurinol Allergy (Severe, Verified 08/12/25 14:45) Hives niacin (Niaspan Extended-Release) Adverse Reaction (Unknown, Verified 08/12/25 14:45) swelling /itching Medication List - Last Reconciled 08/12/25 by ANAHI Douglas aspirin 81 mg PO DAILY atorvastatin 40 mg PO DAILY blood sugar diagnostic (FreeStyle Lite Strips) As directed to check blood sugar once daily blood-glucose meter (FreeStyle Lite Meter kit) As directed to check blood sugar once daily clobetasol 0.05% 1 appl topical DAILY PRN clopidogrel 75 mg PO DAILY 90 days famotidine 40 mg PO DAILY febuxostat 40 mg PO DAILY fluticasone propionate 50 mcg/actuation 1 spray intranasal DAILY PRN Jardiance (empagliflozin) 10 mg PO QAM NS lancets (FreeStyle Lancets) As directed to check blood sugar once daily levothyroxine 100 mcg PO DAILY losartan 50 mg PO DAILY menthol-zinc oxide 0.44-20.6 % (Calmoseptine) 1 appl topical QID PRN metoprolol tartrate 25 mg PO BID 90 days [Nature's best 1 tab PO .qd] semaglutide (Ozempic) 0.25 mg (0.368 mL) subcut QWEEK HPI HPI 4 month f/up: Details: The patient is a 75-year-old female presenting with follow-up for coronary artery disease. She has a history of obesity, hypertension, hyperlipidemia, and diabetes mellitus. She has undergone PCI for coronary artery disease, with a history of left anterior descending and left circumflex artery interventions. Most recent catheterization 06/2023 showed mild left main stenosis and patent stents, OM1 stenosis and stent placed. The patient reports intermittent quick stabbing pains under her left breast which occur randomly and have not increased in frequency since last visit. She has shortness of breath which she feels is from obesity. She wears compression stockings to help control mild leg edema. She exercises regularly and walks 1 mile per day. Current medications include aspirin, clopidogrel, atorvastatin, losartan, and metoprolol. She continues both aspirin and clopidogrel and reports no bleeding issues. [facility] Medical History History of adenomatous polyp of colon Pain in both feet Dyslipidemia associated with type 2 diabetes mellitus Osteopenia of left femoral neck Anemia in chronic kidney disease Thyroid nodule Colon cancer screening Type 2 diabetes mellitus with complication, without long-term current use of insulin Family history of abdominal aortic aneurysm Obesity (BMI 30-39.9) Hypothyroidism Diabetic nephropathy Dyslipidemia Hypertension Diabetic polyneuropathy associated with type 2 diabetes mellitus Surgical History Hernia, umbilical Status post cardiac catheterization H/O partial thyroidectomy S/P coronary angioplasty History of cardiac cath S/P cardiac cath History of esophagogastroduodenoscopy (EGD) History of cataract surgery History of sinus surgery History of colonoscopy History of bronchoscopy History of total hysterectomy Family History Father AAA (abdominal aortic aneurysm) Mother CVD (cardiovascular disease) Mitral prolapse History of open heart surgery Brother Gout Diabetes Brother No problems noted. Daughter No problems noted. Daughter No problems noted. Social History Housing: House Patient Tobacco Use Status: Former Tobacco user Years Smoked: 50 +/- e-Cigarette/Vaping Use: Never Used Second Hand Smoke Exposure: No service: No Current occupational status: retired Cognitive needs: No Hearing needs: No Vision needs: Yes Review of Systems Const All systems reviewed & are unremarkable except as noted in HPI and below ENT Denies dizziness Card Details: pinching pain below left breast Denies chest pain, Denies chest pain at rest, Denies chest pain with activity, Denies rapid heart rate, Denies pedal edema, Denies edema, Denies leg edema, Denies lightheadedness, Denies palpitations, Denies dyspnea, Denies dyspnea on exertion and Denies orthopnea Resp Denies cough, Denies dyspnea and Denies dyspnea on exertion GI Denies hematochezia and Denies change in stool character Musc Denies abnormal gait, Denies limited range of motion, Denies muscle cramps, Denies muscle weakness, Denies numbness, Denies radiating pain into limb, Denies stiffness and Denies tingling Neuro Denies abnormal gait, Denies dizziness, Denies numbness and Denies tingling Endo Denies palpitations Physical Exam Vital Signs: Last Vital Signs Pulse 75 08/12/25 14:43 BP 138/62 08/12/25 14:43 BMI result Body Mass Index 40.6 Const General: cooperative, comfortable and no acute distress Orientation/consciousness: patient oriented x3 Neck Neck: Yes normal visual inspection Resp Effort & Inspection: normal respiratory effort Auscultation: clear to auscultation bilaterally, no rales, no rhonchi and no wheezes Cardio Jugular venous distension: no JVD Rate: regular rate Rhythm: regular rhythm Heart sounds: S1 normal heart sound present, S2 normal heart sound present, no gallops, no murmurs and no rubs Peripheral pulses: Peripheral pulses 2+ throughout Neuro General: patient oriented x3 Extrem General: Yes normal to inspection and No no pedal edema Psych Appearance: grossly normal Mental Status: mental status grossly normal Speech and movement: Normal speech and movement present Results Reviewed Results Reviewed: - Cardiac catheterization (07/06/2023): Left main osteal 30% stenosis, patent LAD stent, OM1 80% stenosis, OM3 recanulated to 95% stenosis, patient stent in mid circumflex, RCA minimal luminal irregularities, PCI performed to OM1 Assessment & Plan Assessment & Plan (1) Coronary artery disease: Code(s): I25.10 - Atherosclerotic heart disease of tangirnaq coronary artery without angina pectoris Category: Medical Qualifiers: Coronary Disease-Associated Artery/Lesion type: tangirnaq artery Ute vs. transplanted heart: tangirnaq heart Associated angina: without angina Qualified Code(s): I25.10 - Atherosclerotic heart disease of tangirnaq coronary artery without angina pectoris Plan: History of CAD with coronary stents to the LAD, left circumflex and OM 1. Cu rrently no anginal symptoms. She wants to continue on dual antiplatelet therapy and reports no bleeding issues. Will have her continue aspirin, Plavix. Continue atorvastatin with ideal LDL goal less than 70. Continue losartan and metoprolol for good blood pressure and heart rate control. Signs and symptoms of angina reviewed. Informed her that her pinching pain is not cardiac. Cardiology follow-up 6 months, sooner if needed. (2) Stented coronary artery: Comment: Lad, left circumflex, OM1. Code(s): Z95.5 - Presence of coronary angioplasty implant and graft Category: Surgical Plan: As above (3) Hypertension: Code(s): I10 - Essential (primary) hypertension Category: Medical Qualifiers: Hypertension type: renovascular hypertension Qualified Code(s): I15.0 - Renovascular hypertension Plan: Blood pressure goal less than 130/80. Initially 138/62, recheck done by me 128/62. No med changes made. (4) Dyslipidemia: Code(s): E78.5 - Hyperlipidemia, unspecified Category: Medical Plan: [place] LDL goal less than 70. Labs done 08/01/2025 shows LDL 65. Continue atorvastatin 40 mg daily. (5) Obesity (BMI 30-39.9): Code(s): E66.9 - Obesity, unspecified Category: Medical Plan: I discussed increasing physical activity as tolerated. Benefits a weight loss reviewed. Plan We discussed the continuation of current medications, including aspirin and plavix. Informed her she could stop the Plavix if she has any concerns about bleeding. I advised her to continue monitoring her blood pressure at home, aiming to keep it under 140 mmHg. We also talked about the importance of regular exercise and weight management to alleviate symptoms such as shortness of breath and leg swelling. Follow-up is planned in six months, or sooner if needed. Patient Instructions: - Continue taking aspirin, clopidogrel, atorvastatin, losartan, and metoprolol as prescribed. - Monitor blood pressure at home, aiming to keep it under 140 mmHg. - Engage in regular exercise, including walking one mile daily and performing cardio exercises. - Follow up in six months or sooner if needed. Patient was informed and verbally consented to the use of an ambient scribe for clinic note documentation during this visit. Visit time spent on chart review, interview, assessment, orders, documentation. Coding Level of Care Code Est Pt Level 4 (32590) Complex EM visit Add On G2211 Diagnoses Coronary artery disease involving tangirnaq coronary artery of tangirnaq heart without angina pectoris I25.10 Coronary Disease-Associated Artery/Lesion type: tangirnaq artery Ute vs. transplanted heart: tangirnaq heart Associated angina: without angina Stented coronary artery Z95.5 Renovascular hypertension I15.0 Hypertension type: renovascular hypertension Dyslipidemia E78.5 Obesity (BMI 30-39.9) E66.9 Time Spent (min) 28
[2025-08-12 14:43] VITALS: BP 138/62; PULSE 75; BMI 40.6
--- OUTSIDE RECORDS SUMMARY | 2025-08-13 04:47 | XMS_ITS | Data Portability ---
Author Organization [place] - [facility], Allergy Address [address] [address] Care Team Providers Care Circular Clerk Name Role Phone NASEEM HILL Primary Care Provider [phone] Assessment Encounter Date Assessment Date Assessment LastModified [...] but could be considered pending repeat ultrasound. [email or web address] Not available 06/04/2024 12:38:53 01/18/2025 01/18/2025 74-year-old female presents for follow-up of the ears. Cerumen impaction removed bilaterally. 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 Right TM is scarred and intact. Continue dry ear precautions on the left. Follow-up in 6 months for routine debridement. Patient with cervical lymphadenopathy. Exam today without any palpable lymphadenopathy. There are no ultrasound images performed at [facility]. I contacted [facility] records department and no ultrasound images were completed. I notified patient. Repeat ultrasound was ordered today and she will follow up to review the results. [email or web address] Not available 01/18/2025 12:37:38 07/25/2025 07/25/2025 74-year-old female presents for routine ear cleaning and evaluation of vertigo. Cerumen impaction removed bilaterally. 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 Right TM is scarred and intact. Patient symptomatic on the left during [place]-Hallpike, but no nystagmus noted. Rose[place]-Hallpike negative on the right. Referral to vestibular therapy was placed. Continue dry ear precautions on the left. Follow-up in 6 months for routine debridement of the ears and we will plan for updated audiometric testing at that time. She will follow up sooner with any concerns. Patient with cervical lymphadenopathy. Exam today without any palpable lymphadenopathy. Orders for ultrasound is in [place] and Shana will contact facility to initiate scheduling. She will follow up to review the results. denae Not available 07/25/2025 10:51:08 Plan of Treatment Reminders Order Date Submit Date Provider Last Modified By Organization Details Last Modified Time Details Appointments Establish ed 15 2025 01:15P Ly SCHAEFFER PA-C Not available Not available Not available Lab None recorded. Referral vestibula r therapy referral 2024 025 [facility] - [place] - [address] [address], [address], [place], [address], 07/26/2025 16:26:43 Procedures None recorded. Surgeries None recorded. Imaging US, neck, soft tissue 2024 025 [facility] Centralized Scheduling([facility]), [address] [place], [address], 01/18/2025 12:39:36 US, neck, soft tissue - attention US thyroid 01/31/242023 024 [facility], [address] [place], [address], 06/04/2024 12:46:58 Medication Orders None recorded. Patient TargetsNo targets recorded. Patient InstructionsNo instructions recorded. Reason for Referral Vestibular Therapy Referral for Benign paroxysmal positional vertigo Referring Physician: Debbie Adhikari, Otolaryngology, Encounter Date: 07/25/2025 Results Created Date Observation Date Name Description [...] record ed. [email or web address] Not Available 05/2024 15:28:47 01/19/20 25 01/31/2024 US, thyro id No observ ation record ed. [email or web address] [facility] [address], [address], 02/11/2025 10:07:18 Result Notes None recorded. Problems Name Problem SNOMED Code Status Onset Date Resolution Date Notes Provider Name and Address Organization Details Recorded Time Chronic rhinitis 61264987 Active 2015 Chronic rhinitis; Note: Date Diagnosed : 03/11/2016 9:44 AM (J31.0) Not Available [facility] 02:18:18 Central perforati on of left tympanic membrane 50771847018 26885 Active 2015 Central perforati on of tympanic membrane, left ear; Note: Date Diagnosed : 03/11/2016 9:40 AM (H72.02) Not Available [facility] 02:18:33 Otorrhea of left ear 31508639427 38141 Active 2015 Otorrhea, left ear; Note: Date Diagnosed : 03/11/2016 9:44 AM (H92.12) Not Available [facility] 4 02:18:24 Chronic mycotic otitis externa 994392085 Active 2015 Chronic mycotic otitis externa; Note: Date Diagnosed : 04/02/2016 9:45 AM (380.15) Not Available [facility] 4 02:18:14 Sensorine ural hearing loss 66910611 Active 2015 Sensorine ural hearing loss, unilatera l, right ear, with unrestric melba hearing on the contralat eral side; Note: Date Diagnosed : 06/07/2016 12:36 PM (H90.41) Not Available [facility] 4 02:18:20 Mixed conductiv e and sensorine ural hearing loss of left ear 19587299161 107 Active 2015 Mixed conductiv e and sensorine ural hearing loss, unilatera l, left ear, with unrestric melba hearing on the contralat eral side; Note: Date Diagnosed : 06/07/2016 12:36 PM (H90.72) Not Available [facility] 4 02:18:05 Atypical facial pain 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 4 02:18:32 Allergic rhinitis 28133833 Active 2021 Other allergic rhinitis; Note: Date Diagnosed : 01/07/2022 11:14 AM (J30.89) Not Available [facility] 4 02:18:12 Impacted cerumen in left ear 55568292963 97361 Active 2021 Impacted cerumen, left ear; Note: Date Diagnosed : 2 5:04 PM (H61.22) Not Available [facility] 4 02:18:12 Cervical lymphaden opathy 870651814 Active 2023 DEBBIE ADHIKARI PA-C [address] [facility], [place], [address] , [facility] - [facility] 4 10:58:21 Impacted cerumen of bilateral ears 08530075639 34148 Active 2023 DEBBIE ADHIKARI PA-C [address] [facility], [place], [address] , [facility] - [facility] 4 12:44:21 Benign paroxysma l positiona l vertigo 741545549 Active 2024 DEBBIE ADHIKARI PA-C [address] [facility],[place] [address], [place], [address] , [facility] - [facility] 5 10:47:40 Problem Notes None recorded. Procedures Surgical History Date Name Laterality Status Provider Name and Address Organization Details Recorded Time 5 Cerumen removal without microscope bilat completed DEBBIE ADHIKARI PA-C [address] [place] [address],[place] [address], [place], [address], [facility] - [facility] 07/25/2025 09:52:20 5 Cerumen removal without microscope bilat completed DEBBIE ADHIKARI PA-C [address] [place] [address],[address], [address], [facility] - [facility] 01/18/2025 10:28:11 4 Cerumen removal without microscope bilat completed DEBBIE ADHIKARI PA-C [address] [facility],[address], [address], [facility] - [facility] 06/04/2024 12:43:52 Imaging Results None recorded. Procedure Notes None recorded. Medical Equipment None Reported. Allergies Allergen ID Allergen Name Allergen Category Reaction Reaction Severity Criticality Documentation Date Start Date Code Code System Note Provider Name and Address Organization Details Recorded Time 97597 [facility]ias[facility] medicatio n other Not available Not available 02/07/2024 38887 6 RxNorm React ion: other react ion, [...] mg tablet 02/26 completed Medicati on ID: [id number] D uration Value: 90 Brand Name: metformi n Send Method: E-Prescr ibed Sub s Allowed: subs OK Medic ationGen ericName : metformi n Not Available Not Available Not Available cefuroxim e axetil 250 mg tablet TAKE 1 TABLET BY MOUTH TWICE DAILY 07/22 completed Not Available Not Available Not Available FreeStyle Lancets 28 gauge USE TO CHECK BLOOD SUGAR ONCE DAILY DIRECTED active Not Available Not Available No t Available famotidin e 40 mg tablet active Not Available Not Available Not Available clobetaso l 0.05 % topical cream APPLY TOPICALL Y TO THE AFFECTED AREA DAILY NEEDED FOR RASH active Not Available Not Available No t Available clopidogr el 75 mg tablet TAKE 1 TABLET BY MOUTH DAILY active Not Available Not Available No t Available levothyro xine 100 mcg tablet TAKE 1 TABLET BY MOUTH DAILY active Not Available Not Available No t Available glipizide ER 2.5 mg tablet, extended release 24 hr 11/04 completed Medicati on ID: [id number] B rand Name: glipizid e Send Method: [...] 24 hr 2021 active Medicati on ID: [id number] B rand Name: metoprol ol succinat e Send Method: E-Prescr ibed Sub s Allowed: subs OK Medic ationGen ericName : metoprol ol succinat e Not Available Not Available Not Available hydrocort isone 2.5 % topical ointment active Not Available Not Available Not Available lisinopri l 40 mg tablet 2021 active Medicati on ID: [id number] B rand Name: lisinopr il Send Method: [...] mcg tablet 2021 active Medicati on ID: [id number] B rand Name: levothyr oxine Se nd [...] 4 drop 2015 active Medicati on ID: [id number] D uration Value: 10 Prescri bed By [...] FOR 2 WEEKS BREAK FOR 1 WEEK AND REPEAT NEEDED FOR ITCHING active Not Available Not Available No t Available Januvia 50 mg tablet TAKE 1 TABLET BY MOUTH DAILY active Not Available Not Available No t Available FreeStyle Lite Meter kit USE DIRECTED TO CHECK BLOOD SUGAR ONCE DAILY active Not Available Not Available No t Available FreeStyle Lite Strips USE DIRECTED TO CHECK BLOOD SUGAR ONCE DAILY active Not Available Not Available No [...] subcutane ous pen injector INJECT 0.25MG SUBCUTAN EOUSLY ONCE WEEKLY FOR 4 WEEKS active Not Available Not Available No t Available glipizide 2.5 mg tablet TAKE 1 TABLET BY MOUTH EVERY EVENING active Not Available Not Available No t Available Vitals Date Recorded Body height Provider Name an d Address Organization Details Last Updated DateTime 01/18/2025 152.4 cm ANA TOOTIE [place] [facility] 01/18/2025 10:20:11 Date Recorded Body height Body mass index (BMI) Body weight Provider Name and Address Organization Details Last Updated DateTime 06/04/2024 152.4 cm 38.5 kg/m2 81325.7 g Dory Tom [place] [facility] 06/04/2024 11:02:08 Date Recorded Body height Body mass index (BMI) Body weight Provider Name and Address Organization Details Last Updated DateTime 07/25/2025 152.4 cm 38.5 kg/m2 82626.7 g Laura Hines [place] [facility] 07/25/2025 10:02:55 Social History None recorded. Functional Status None recorded. Mental Status None recorded. Family History Nothing Reported. Medical History No medical history recorded. Gynecological HistoryNo gynecological history recorded. Obstetrics History GPAL:G 0 P 0 0 0 0 Past Encounters Encounter ID Performer Location Encounter Start Date Encounter Closed Date Diagnosis/Indication Diagnosis SNOMED-CT Code Diagnosis ICD10 Code Diagnosis IMO Codes Diagnosis Note [id number] DEBBIE ADHIKARI PA-C [facility] [address] [address] 06/04/2024 10:40:18 06/04/2024 11:12:12 Central perforation of left tympanic membrane 5593797513 526707 H72.02 Cervical lymphadenopathy 088035151 R59.0 Impacted c erumen of bilateral ears 9298694939 992224 H61.23 [id number] DEBBIE ADHIKARI PA-C [facility] [address] [address] 01/18/2025 10:18:00 01/18/2025 11:31:36 Central perforation of left tympanic membrane 8699245242 155964 H72.02 Cervical lymphadenopathy 339079789 R59.0 Impacted c erumen of bilateral ears 1948314463 721550 H61.23 [id number] DEBBIE ADHIKARI PA-C [facility] [address] [address] 07/25/2025 09:49:55 07/25/2025 11:51:53 Central perforation of left tympanic membrane 5240121151 645145 H72.02 Cervical lymphadenopathy 261226084 R59.0 Impacted c erumen of bilateral ears 1097714695 601761 H61.23 Benign par oxysmal positional vertigo 711091349 H81.12 [id number] Health Concerns Section Related Observation LastModified by Organization Detai ls LastModified Time None Recorded Concern Status LastModified by Organization Details LastModified Time None Recorded Advance Directives Directive None Recorded Payers Insurance Date Sequence Insurance Name Policy Number Policy Gil Covered Member ID Gil Member ID Guarantor Name 07/23/2025 2 [place] [employer] Rich Barrientos [id number] Doreen Barrientos 07/22/2025 1 [place]ICARE B-[place]: [facility] [employer] Doreen Barrientos [id number] Doreen Barrientos Notes Date Note Type Note Provider Name and Address Organization Details Recorded Time 06/04/2024 text/html ROS as noted in the HPI 74-year-old female with history of left TM perforation presents [...] for further evaluation. Was seen by an tent worker but no intervention recommended. History of thyroid cancer status post left thyroidectomy. CHICHI POST MD [address] [facility],[address], [address], [facility] 06/06/2024 05:30:22 01/18/2025 text/html ROS as noted in the [facility] 74-year-old female with history of left TM perforation presents [...] node with vascularity. Was seen by her tent worker at [facility] and no intervention recommended. History of thyroid cancer status post left thyroidectomy. Repeat ultrasound of the neck was recommended which she believes was done at [facility] or [facility]. JULY AMBROSIO MD [address] [facility],[place] [address], [place], [address], [facility] 01/18/2025 12:54:11 07/25/2025 text/html ROS as noted in the [facility] 74-year-old female with history of left TM perforation presents for routine ear cleaning. Reports episodes of room spinning dizziness with positional changes of her head for the past few months. Episodes last a few seconds. Remote history of migraines but has not had any recently. History of DM, placement of cardiac stents x 3 and CKD stage III. Denies otalgia, otorrhea, or changes in her hearing. Reports seasonal allergies managed with Flonase. Patient also with cervical lymphadenopathy. Repeat ultrasound was ordered back in December, but patient had to cancel and did not reschedule. She is still interested in having an ultrasound. FNA right cervical lymph node performed at [facility] 01/31/2023 consistent with lymph node sampling, no malignancy identified. Concurrent flow cytometry has nonspecific findings and is negative for B lymphoproliferative disorder. Ultrasound of the thyroid 01/31/2024 demonstrated multiple [...] node with vascularity. Was seen by her tent worker at [facility] and no intervention recommended. History of thyroid cancer status post left thyroidectomy. Repeat ultrasound of the neck was recommended. ABNER ZAPATA MD [address] [place] [address], [place], [address], [facility] - [facility] 07/25/2025 11:12:33 OBGyn Episode No OBEpisode recorded.
== END 2025-08-12 15:14 | disposition home or self-care (01) ==
LOC: HO.HCS 14:33
PROVIDERS: PCP Internal Medicine; Visit Provider Internal Medicine Cardiovascular Disease
DX: I25.10 Atherosclerotic heart disease of native coronary artery without angina pectoris (principal); Z95.5 Presence of coronary angioplasty implant and graft; I15.0 Renovascular hypertension; E78.5 Hyperlipidemia, unspecified; E66.9 Obesity, unspecified
CPT/HCPCS: 99214; G2211

== ENCOUNTER → 2025-08-12 14:32 | Outpatient (BNVA) | payer MEDICARE, BC, SELFPAY | PROVIDERS: PCP Internal Medicine; Visit Provider Internal Medicine Cardiovascular Disease | DX: I25.10 Atherosclerotic heart disease of native coronary artery without angina pectoris (principal); I15.0 Renovascular hypertension; E78.5 Hyperlipidemia, unspecified; E66.9 Obesity, unspecified; Z68.41 Body mass index [BMI] 40.0-44.9, adult; Z95.5 Presence of coronary angioplasty implant and graft | CPT/HCPCS: 99212 ==